=== PATIENT | male | born 1945 | race Caucasian/White ===

== ENCOUNTER 2018-02-27 16:57 | Inpatient (IN) ==
--- NOTE | 2018-02-27 18:28 | Progress Note ---
Internal Medicine - PN: Subj *Date: 02/27/18 *Time: 18:25 Interval history: See H&P from [facility]. Diabetic admitted with cellulitis of the left foot with gangrene of the great toe. 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 Exam Vital signs and Labs for Last 24 Hours: Temp Pulse Resp BP Pulse Ox 99.5 F 86 18 131/63 93 L 02/27/18 17:16 02/27/18 17:16 02/27/18 17:16 02/27/18 17:16 02/27/18 17:16 I & O for Last 24 hours: Intake & Output 02/25/18 02/26/18 02/27/18 02/28/18 11:59 11:59 11:59 11:59 Weight 220 lb Assessment and Plan (1) Gangrene associated with diabetes mellitus Current visit: Yes Status: Acute Category: Medical Code(s): E11.52 - Type 2 diabetes mellitus with diabetic peripheral angiopathy with gangrene (2) Cellulitis and abscess of foot Current visit: Yes Status: Acute Category: Medical Code(s): L03.119 - Cellulitis of unspecified part of limb; L02.619 - Cutaneous abscess of unspecified foot (3) Poorly controlled diabetes mellitus Current visit: Yes Status: Acute Category: Medical Code(s): E11.65 - Type 2 diabetes mellitus with hyperglycemia (4) Arteriosclerotic cardiovascular disease Current visit: Yes Status: Acute Category: Medical Code(s): I25.10 - Atherosclerotic heart disease of [place] coronary artery without angina pectoris (5) Peripheral vascular complication Current visit: Yes Status: Acute Category: Medical Code(s): I99.9 - Unspecified disorder of circulatory system - Assessment and plan all Dx Assessment and Plan for all problems:: See orders. IV antibiotics. Podiatry consultation.
[2018-02-27 18:58] LABS: Basophils % 0.2 % (0.1-2.0); Eosinophils # 0.1 K/mm3 (0.0-0.4); Eosinophils % 0.5 % (0.1-12.0); Hematocrit 37.3 % (42.0-52.0); Hemoglobin 11.8 g/dL (14.1-18.0); Lymphocytes # 0.8 K/mm3 (0.7-4.5); Lymphocytes % 4.6 K/mm3 (10-50); Mean Corpuscular HGB Conc 31.6 g/dL (31.8-35.4); Mean Corpuscular Hemoglobin 29.4 pg (27.0-31.2); Mean Corpuscular Volume 93.2 fl (80-94); Mean Platelet Volume 7.5 fl (7.4-10.4); Monocytes # 0.9 K/mm3 (0.1-1.0); Monocytes % 4.9 % (1.7-9.3); Neutrophils # 16.3 K/mm3 (1.8-7.8); Neutrophils % 89.8 % (37.0-80.0); Platelet Count 284 K/mm3 (142-424); Red Blood Count 4.01 M/mm3 (4.60-6.20); Red Cell Distribution Width 12.9 % (11.5-17.5); White Blood Count 18.1 K/mm3 (4.8-10.8)
[2018-02-27 19:19] LABS: Albumin Level 2.5 gm/dL (3.4-5.0); Albumin/Globulin Ratio 0.6 (1.1-1.8); Anion Gap 12.1 mEq/L (5-15); Bilirubin,Total 0.5 mg/dL (0.2-1.0); Calcium 8.2 mg/dL (8.5-10.1); Globulin 4.2 gm/dl (1.3-3.2); Potassium 4.1 mmoL/L (3.5-5.1); Thyroid Stimulating Hormone 0.11 uIU/ml (0.358-3.740); Total Protein,Serum 6.7 gm/dL (6.4-8.2)
[2018-02-27 19:29] LABS: Lymphocytes % 4 % (10-50); Monocytes % 3 % (2-9); Neutrophils % 93 % (42-76); RBC Morphology Normal; Total Cells Counted 100
--- NOTE | 2018-02-28 07:35 | Pharmacy Consult Notes ---
[facility] Pharmacy VTE Monitoring - Patient Demographics Admission date: 02/27/18 Report Date: 02/28/18 Time: 07:35 Allergies/Adverse Reactions: Patient Allergies promethazine Allergy (Mild, Unverified 02/27/18 18:21) itching cyanocobalamin (vitamin B12) Allergy (Verified 02/28/18 07:34) Rash Height: 1.78 m Weight: 99.79 kg Patient Problems: Current Active Problems Gangrene associated with diabetes mellitus (Acute) Cellulitis and abscess of foot (Acute) Poorly controlled diabetes mellitus (Acute) Arteriosclerotic cardiovascular disease (Acute) Peripheral vascular complication (Acute) - VTE Risk Labs: VTE Related Lab Results Hgb 11.8 g/dL (14.1-18.0) L 02/27/18 18:46 Hct 37.3 % (42.0-52.0) L 02/27/18 18:46 Plt Count 284 K/mm3 (142-424) 02/27/18 18:46 BUN 26 mg/dL (7-18) H 02/27/18 18:46 Creatinine 1.97 mg/dL (0.70-1.30) H 02/27/18 18:46 Estimated Creat Clear 49 mL/min (0-300) 02/27/18 18:46 Was VTE Risk Assessment Performed: Yes VTE Score: 6 VTE Risk Level: Moderate Risk - Prophylaxis VTE Prophylaxis Ordered?: Yes Types of VTE Prophylaxis: TEDS Knee High Location of Applied Device: Right Leg - VTE Diagnosis Confirmed Treatment or plan recommended: Continue Current Treatment
--- NOTE | 2018-02-28 08:06 | Progress Note ---
Internal Medicine - PN: Subj *Date: 02/28/18 *Time: 08:03 Interval history: Patient states he is feeling about the same today. He has had heat on his toe throughout the night. He states he did eat last night but got sick and vomited this morning. He has had a low-grade fever. He continues to have pain in the toe. Exam Vital signs and Labs for Last 24 Hours: Temp Pulse Resp BP Pulse Ox 98.1 F 78 18 122/61 94 L 02/28/18 07:18 02/28/18 07:18 02/28/18 07:18 02/28/18 07:18 02/28/18 07:18 Laboratory Results - last 24 hr 02/27/18 18:46: WBC 18.1 H, RBC 4.01 L, Hgb 11.8 L, Hct 37.3 L, MCV 93.2, MCH 29.4, MCHC 31.6 L, RDW 12.9, Plt Count 284, MPV 7.5, Neut % (Auto) 89.8 H, Lymph % (Auto) 4.6 L, [place] % (Auto) 4.9, Eos % (Auto) 0.5, Baso % (Auto) 0.2, Neut # (Auto) 16.3 H, Lymph # (Auto) 0.8, [place] # (Auto) 0.9, Eos # (Auto) 0.1, Baso # (Auto) 0.0, Total Counted 100, Neutrophils % (Manual) 93 H, Lymphocytes % (Manual) 4 L, Monocytes % (Manual) 3, Platelet Estimate Normal, RBC Morphology Normal 02/27/18 18:46: Sodium 132 L, Potassium 4.1, Chloride 95 L, Carbon Dioxide 29, Anion Gap 12.1, BUN 26 H, Creatinine 1.97 H, Estimated Creat Clear 49, Estimated GFR 34 L, Est GFR ( Amer) 41 L, Glucose 325 H, Calcium 8.2 L, Total Bilirubin 0.5, AST 11 L, ALT 17, Alkaline Phosphatase 124 H, Total Protein 6.7, Albumin 2.5 L, Globulin 4.2 H, Albumin/Globulin Ratio 0.6 L, TSH 0.11 L 02/27/18 20:02: POC Glucose 345 H* 02/28/18 06:27: POC Glucose 99 I & O for Last 24 hours: Intake & Output 02/25/18 02/26/18 02/27/18 02/28/18 11:59 11:59 11:59 11:59 Weight 220 lb Microbiology Reports for the Last 24 Hours: Microbiology 02/27/18 18:44 Foot,Left Gram Stain - Final 02/27/18 18:44 Foot,Left Wound Culture - Preliminary - Constitutional no acute distress - *Routine Respiratory Exam Present: CTA bilaterally - *Routine Cardiovascular Exam Present: RRR - *Routine Abdominal Exam Present: soft, normoactive bowel sounds. Absent: tenderness - *Routine Extremities Exam Absent: edema - *Routine Skin Exam Comments: Left great toe with erythema, edema, and multiple necrotic areas, ttp Assessment and Plan (1) Gangrene associated with diabetes mellitus Current visit: Yes Status: Acute Category: Medical Code(s): E11.52 - Type 2 diabetes mellitus with diabetic peripheral angiopathy with gangrene (2) Cellulitis and abscess of foot Current visit: Yes Status: Acute Category: Medical Code(s): L03.119 - Cellulitis of unspecified part of limb; L02.619 - Cutaneous abscess of unspecified foot (3) Poorly controlled diabetes mellitus Current visit: Yes Status: Acute Category: Medical Code(s): E11.65 - Type 2 diabetes mellitus with hyperglycemia (4) Arteriosclerotic cardiovascular disease Current visit: Yes Status: Acute Category: Medical Code(s): I25.10 - Atherosclerotic heart disease of [place] coronary artery without angina pectoris (5) Peripheral vascular complication Current visit: Yes Status: Acute Category: Medical Code(s): I99.9 - Unspecified disorder of circulatory system - Assessment and plan all Dx Assessment and Plan for all problems:: Awaiting podiatry consult today. Will continue abx.
--- NOTE | 2018-02-28 13:07 | Consult Report ---
*Admission Date: 02/27/18 *Chief complaint: Gangrene, left big toe *History of present illness: Patient is a pleasant 72-year-old gentleman seen on the floor along with his for orthopedic consultation. Patient is admitted to hospital yesterday evening and a podiatry consult was requested. I was asked to see the patient as boss miner, Dr. Adkins is out until next week. Patient says he injured his left big toe about 9 days ago. Following the injury he developed pain and swelling followed by gradual blackening of the skin over the tip of the big toe. He also reports erythema and low-grade fever. No history of any previous pain in his big toe. He is a known diabetic with peripheral vascular disease and had a previous amputation of his left little toe couple of years ago. Following admission he was started on IV antibiotics by Dr. Berg. Patient and his said that there is significant improvement with the pain, swelling and erythema since his admission. He is an ex-smoker, stopped 20 years ago. Review of Systems - Review of Systems Review of systems:: pertinent systems reviewed and negative unless documented below [facility] History I have reviewed the patient's past medical history: Yes Medical History: Reports:: Cancer (peost[place]), Coronary Artery Disease, Diabetes Mellitus Type 2, Hyperlipidemia, Hypertension, Internal Pacemaker, Myocardial Infarction Other Surgeries: Yes: Cancer Surgery, Cardiac Catheterization, Cardiac Surgery, Colonoscopy, Open Heart Surgery, Pacemaker - *Social History Educational Level: Attended College Smoking Status: Former smoker Tobacco Type: cigarettes Alcohol Intake: current Alcohol Intake Frequency:: holidays/special occasions only Occupational Status: retired Housing: house Household Members: family - Psychiatric History Expresses thoughts of harming self/others: None Suicide Plan Description: No Plan *Family Hx:: Coronary Artery Disease, Heart Attack, Hyperlipidemia, Hypertension Meds Home Medications Medication Instructions Recorded Confirmed Type Amiodarone HCl [Amiodarone 200mg 200 mg PO DAILY 02/27/18 02/27/18 History Tab] Aspirin 81 mg PO DAILY 02/27/18 02/27/18 History Atorvastatin Calcium [Atorvastatin 40 mg PO HS 02/27/18 02/28/18 History 40mg Tab] Cholecalciferol (Vitamin D3) 5,000 unit PO DAILY 02/27/18 02/27/18 History [Vitamin D3 10,000 unit Cap] Furosemide [Furosemide 40MG tAB] 40 mg PO BID 02/27/18 02/27/18 History Glimepiride 4 mg PO BID 02/27/18 02/27/18 History Insulin Detemir [Levemir 100 40 unit SQ DAILY 02/27/18 02/28/18 History units/mL 10mL vial] Losartan Potassium [Cozaar] 25 mg PO DAILY 02/27/18 02/27/18 History Potassium Chloride [Klor-Con 10mEq 10 meq PO BID 02/27/18 02/28/18 History tab] Carvedilol [Carvedilol 25mg Tab] 12.5 mg PO BID 02/28/18 02/28/18 History Allergies Allergy/AdvReac Type Severity Reaction Status Date / Time promethazine Allergy Mild itching Unverified 02/27/18 18:21 cyanocobalamin (vitamin B12) Allergy Rash Verified 02/28/18 07:34 Exam Vital signs and Labs for Last 24 Hours: Temp Pulse Resp BP Pulse Ox 98.1 F 78 18 122/61 94 L 02/28/18 07:18 02/28/18 07:18 02/28/18 07:18 02/28/18 07:18 02/28/18 07:18 Laboratory Results - last 24 hr 02/27/18 18:46: WBC 18.1 H, RBC 4.01 L, Hgb 11.8 L, Hct 37.3 L, MCV 93.2, MCH 29.4, MCHC 31.6 L, RDW 12.9, Plt Count 284, MPV 7.5, Neut % (Auto) 89.8 H, Lymph % (Auto) 4.6 L, [place] % (Auto) 4.9, Eos % (Auto) 0.5, Baso % (Auto) 0.2, Neut # (Auto) 16.3 H, Lymph # (Auto) 0.8, [place] # (Auto) 0.9, Eos # (Auto) 0.1, Baso # (Auto) 0.0, Total Counted 100, Neutrophils % (Manual) 93 H, Lymphocytes % (Manual) 4 L, Monocytes % (Manual) 3, Platelet Estimate Normal, RBC Morphology Normal 02/27/18 18:46: Sodium 132 L, Potassium 4.1, Chloride 95 L, Carbon Dioxide 29, Anion Gap 12.1, BUN 26 H, Creatinine 1.97 H, Estimated Creat Clear 49, Estimated GFR 34 L, Est GFR ( Amer) 41 L, Glucose 325 H, Calcium 8.2 L, Total Bilirubin 0.5, AST 11 L, ALT 17, Alkaline Phosphatase 124 H, Total Protein 6.7, Albumin 2.5 L, Globulin 4.2 H, Albumin/Globulin Ratio 0.6 L, TSH 0.11 L 02/27/18 20:02: POC Glucose 345 H* 02/28/18 06:27: POC Glucose 99 02/28/18 11:06: POC Glucose 54 L 02/28/18 11:17: POC Glucose 55 L 02/28/18 11:29: POC Glucose 68 L I & O for Last 24 hours: Intake & Output 02/26/18 02/27/18 02/28/18 03/01/18 11:59 11:59 11:59 11:59 Weight 220 lb Microbiology Reports for the Last 24 Hours: Microbiology 02/27/18 18:46 Blood Blood Culture - Preliminary 02/27/18 18:44 Foot,Left Gram Stain - Final 02/27/18 18:44 Foot,Left Wound Culture - Preliminary - Constitutional no acute distress, obese, cooperative - *Routine HEENT Exam Head: Present: normocephalic, atraumatic Eye: Present: EOMI, PERRL ENT: Present: mucous membranes moist - *Routine Neck Exam Present: supple, full ROM, trachea midline - *Routine Respiratory Exam Present: CTA bilaterally - *Routine Cardiovascular Exam Present: RRR, Normal S1, Normal S2 - *Routine Abdominal Exam Present: soft, normoactive bowel sounds. Absent: tenderness - *Routine Extremities Exam Comments: On examination of his left foot, there is erythema and swelling of the left big toe. There are 2 areas of blackened skin over the plantar medial aspect of the big toe-the first one measuring about 1 x 1 cm over the proximal phalanx level and the second larger one measuring about 2 x 2 cm over the pulp of the great toe. The erythema is extending up to the first MTP joint. He is diffusely tender over the big toe. There is no active discharge. Movements of the pectoral limited with pain. He previously had an impression of his fifth toe with a well-healed surgical scar. The other 3 remaining toes appear normal. Rest of the foot appears normal without any ulceration or tenderness. He has no sensation in both his feet and distal pulses are not palpable. Capillary refill is very sluggish on both sides. Imaging: No recent imaging is available. Results - Labs Result Diagrams: 02/27/18 18:46 02/27/18 18:46 Labs: Abnormal lab results 02/27/18 02/27/18 02/27/18 Range/Units 18:46 18:46 20:02 WBC 18.1 H (4.8-10.8) K/mm3 RBC 4.01 L (4.60-6.20) M/mm3 Hgb 11.8 L (14.1-18.0) g/dL Hct 37.3 L (42.0-52.0) % MCHC 31.6 L (31.8-35.4) g/dL Neut % (Auto) 89.8 H (37.0-80.0) % Lymph % (Auto) 4.6 L (10-50) K/mm3 Neut # (Auto) 16.3 H (1.8-7.8) K/mm3 Neutrophils % (Manual) 93 H (42-76) % Lymphocytes % (Manual) 4 L (10-50) % Sodium 132 L (136-145) mmol/L Chloride 95 L (98-107) mmol/L BUN 26 H (7-18) mg/dL Creatinine 1.97 H (0.70-1.30) mg/dL Estimated GFR 34 L (>60) ml/min Est GFR ( Amer) 41 L (>60) ML/MIN Glucose 325 H (74-106) mg/dL POC Glucose 345 H* (70-110) Calcium 8.2 L (8.5-10.1) mg/dL AST 11 L (15-37) U/L Alkaline Phosphatase 124 H (46-116) U/L Albumin 2.5 L (3.4-5.0) gm/dL Globulin 4.2 H (1.3-3.2) gm/dl Albumin/Globulin Ratio 0.6 L (1.1-1.8) TSH 0.11 L (0.358-3.740) uIU/ml 02/28/18 02/28/18 02/28/18 Range/Units 11:06 11:17 11:29 WBC (4.8-10.8) K/mm3 RBC (4.60-6.20) M/mm3 Hgb (14.1-18.0) g/dL Hct (42.0-52.0) % MCHC (31.8-35.4) g/dL Neut % (Auto) (37.0-80.0) % Lymph % (Auto) (10-50) K/mm3 Neut # (Auto) (1.8-7.8) K/mm3 Neutrophils % (Manual) (42-76) % Lymphocytes % (Manual) (10-50) % Sodium (136-145) mmol/L Chloride (98-107) mmol/L BUN (7-18) mg/dL Creatinine (0.70-1.30) mg/dL Estimated GFR (>60) ml/min Est GFR ( Amer) (>60) ML/MIN Glucose (74-106) mg/dL POC Glucose 54 L 55 L 68 L (70-110) Calcium (8.5-10.1) mg/dL AST (15-37) U/L Alkaline Phosphatase (46-116) U/L Albumin (3.4-5.0) gm/dL Globulin (1.3-3.2) gm/dl Albumin/Globulin Ratio (1.1-1.8) TSH (0.358-3.740) uIU/ml H & H 02/27/18 Range/Units 18:46 Hgb 11.8 L (14.1-18.0) g/dL Hct 37.3 L (42.0-52.0) % All other labs normal. Assessment and Plan (1) Gangrene associated with diabetes mellitus Current visit: Yes Status: Acute Category: Medical Code(s): E11.52 - Type 2 diabetes mellitus with diabetic peripheral angiopathy with gangrene (2) Cellulitis and abscess of foot Current visit: Yes Status: Acute Category: Medical Code(s): L03.119 - Cellulitis of unspecified part of limb; L02.619 - Cutaneous abscess of unspecified foot (3) Poorly controlled diabetes mellitus Current visit: Yes Status: Acute Category: Medical Code(s): E11.65 - Type 2 diabetes mellitus with hyperglycemia (4) Arteriosclerotic cardiovascular disease Current visit: Yes Status: Acute Category: Medical Code(s): I25.10 - Atherosclerotic heart disease of [place] coronary artery without angina pectoris (5) Peripheral vascular complication Current visit: Yes Status: Acute Category: Medical Code(s): I99.9 - Unspecified disorder of circulatory system - Assessment and plan all Dx Assessment and Plan for all problems:: I reviewed the clinical findings with the patient and his . He has infected left big toe with developing gangrene which is not fully demarcated. He seems to be responding well with the IV antibiotics since his admission and recommend continuation of the same. Once the gangrene is fully demarcated, he would need debridement/great toe amputation. Prior to that I would recommend an x-ray of his left foot 3 views to look for any underlying fractures or osteomyelitis. If the x-rays inconclusive then an MRI scan is indicated to rule out acute/chronic osteo-mellitus. The bony involvement, if any, would determine the level of the amputation. If there is no clinical deterioration, I think it would be appropriate the patient is seen by boss miner, Dr. Adkins, on her return next week for necessary surgical intervention especially if he needs any proximal amputation than just through the big toe. In the meantime I would also recommend cardiac consultation by Dr. Vargas to evaluate the state of the circulation in his left lower extremity and any appropriate intervention as needed. I have told the patient that he may need multiple surgical procedures including proximal amputations depending on how the wound heals. Thank you for the opportunity to participate in the care of this very pleasant patient.
--- NOTE | 2018-02-28 13:16 | Pharmacy Consult Notes ---
- Pharmacy Consult Date: 02/28/18 Time: 13:14 Referring provider: DR. NERI Reason for Consult:: VANCOMYCIN DOSING Allergies and ADEs:: Allergies Allergy/AdvReac Type Severity Reaction Status Date / Time promethazine Allergy Mild itching Unverified 02/27/18 18:21 cyanocobalamin (vitamin B12) Allergy Rash Verified 02/28/18 07:34 Home Medications:: Home Medications Medication Instructions Recorded Confirmed Type Amiodarone HCl [Amiodarone 200mg 200 mg PO DAILY 02/27/18 02/27/18 History Tab] Aspirin 81 mg PO DAILY 02/27/18 02/27/18 History Atorvastatin Calcium [Atorvastatin 40 mg PO HS 02/27/18 02/28/18 History 40mg Tab] Cholecalciferol (Vitamin D3) 5,000 unit PO DAILY 02/27/18 02/27/18 History [Vitamin D3 10,000 unit Cap] Furosemide [Furosemide 40MG tAB] 40 mg PO BID 02/27/18 02/27/18 History Glimepiride 4 mg PO BID 02/27/18 02/27/18 History Insulin Detemir [Levemir 100 40 unit SQ DAILY 02/27/18 02/28/18 History units/mL 10mL vial] Losartan Potassium [Cozaar] 25 mg PO DAILY 02/27/18 02/27/18 History Potassium Chloride [Klor-Con 10mEq 10 meq PO BID 02/27/18 02/28/18 History tab] Carvedilol [Carvedilol 25mg Tab] 12.5 mg PO BID 02/28/18 02/28/18 History Height: 1.78 m Weight: 99.79 kg Laboratory Results:: Laboratory Results - last 24 hr 02/27/18 18:46: WBC 18.1 H, RBC 4.01 L, Hgb 11.8 L, Hct 37.3 L, MCV 93.2, MCH 29.4, MCHC 31.6 L, RDW 12.9, Plt Count 284, MPV 7.5, Neut % (Auto) 89.8 H, Lymph % (Auto) 4.6 L, [place] % (Auto) 4.9, Eos % (Auto) 0.5, Baso % (Auto) 0.2, Neut # (Auto) 16.3 H, Lymph # (Auto) 0.8, [place] # (Auto) 0.9, Eos # (Auto) 0.1, Baso # (Auto) 0.0, Total Counted 100, Neutrophils % (Manual) 93 H, Lymphocytes % (Manual) 4 L, Monocytes % (Manual) 3, Platelet Estimate Normal, RBC Morphology Normal 02/27/18 18:46: Sodium 132 L, Potassium 4.1, Chloride 95 L, Carbon Dioxide 29, Anion Gap 12.1, BUN 26 H, Creatinine 1.97 H, Estimated Creat Clear 49, Estimated GFR 34 L, Est GFR ( Amer) 41 L, Glucose 325 H, Calcium 8.2 L, Total Bilirubin 0.5, AST 11 L, ALT 17, Alkaline Phosphatase 124 H, Total Protein 6.7, Albumin 2.5 L, Globulin 4.2 H, Albumin/Globulin Ratio 0.6 L, TSH 0.11 L 02/27/18 20:02: POC Glucose 345 H* 02/28/18 06:27: POC Glucose 99 02/28/18 11:06: POC Glucose 54 L 02/28/18 11:17: POC Glucose 55 L 02/28/18 11:29: POC Glucose 68 L Medical History: Reports:: Cancer ([place]), Coronary Artery Disease, Diabetes Mellitus Type 2, Hyperlipidemia, Hypertension, Internal Pacemaker, Myocardial Infarction Assessment and Plan (1) Gangrene associated with diabetes mellitus Current visit: Yes Status: Acute Category: Medical Code(s): E11.52 - Type 2 diabetes mellitus with diabetic peripheral angiopathy with gangrene (2) Cellulitis and abscess of foot Current visit: Yes Status: Acute Category: Medical Code(s): L03.119 - Cellulitis of unspecified part of limb; L02.619 - Cutaneous abscess of unspecified foot (3) Poorly controlled diabetes mellitus Current visit: Yes Status: Acute Category: Medical Code(s): E11.65 - Type 2 diabetes mellitus with hyperglycemia (4) Arteriosclerotic cardiovascular disease Current visit: Yes Status: Acute Category: Medical Code(s): I25.10 - Atherosclerotic heart disease of [place] coronary artery without angina pectoris (5) Peripheral vascular complication Current visit: Yes Status: Acute Category: Medical Code(s): I99.9 - Unspecified disorder of circulatory system - Assessment and plan all Dx Assessment and Plan for all problems:: BASED ON PATIENT FACTORS AND POOR RENAL FUNCTION, RECOMMEND VANCOMYCIN 1,750MG IV Q24H. PHARMACY WILL MONITOR AND ADJUST DOSE APPROPRIATE. -LILI GLASGOW, DIDIERD
--- NOTE | 2018-02-28 19:01 | Progress Note ---
Internal Medicine - PN: Subj *Date: 02/28/18 *Time: 19:00 Interval history: Consult by Dr. Carroll is appreciated and is reviewed. Continue present course. Exam Vital signs and Labs for Last 24 Hours: Temp Pulse Resp BP Pulse Ox 98.2 F 70 20 142/70 99 02/28/18 16:00 02/28/18 16:00 02/28/18 16:00 02/28/18 16:00 02/28/18 16:00 Laboratory Results - last 24 hr 02/27/18 18:46: Total Counted 100, Neutrophils % (Manual) 93 H, Lymphocytes % ( Manual) 4 L, Monocytes % (Manual) 3, Platelet Estimate Normal, RBC Morphology Normal 02/27/18 18:46: Sodium 132 L, Potassium 4.1, Chloride 95 L, Carbon Dioxide 29, Anion Gap 12.1, BUN 26 H, Creatinine 1.97 H, Estimated Creat Clear 49, Estimated GFR 34 L, Est GFR ( Amer) 41 L, Glucose 325 H, Calcium 8.2 L, Total Bilirubin 0.5, AST 11 L, ALT 17, Alkaline Phosphatase 124 H, Total Protein 6.7, Albumin 2.5 L, Globulin 4.2 H, Albumin/Globulin Ratio 0.6 L, TSH 0.11 L 02/27/18 20:02: POC Glucose 345 H* 02/28/18 06:27: POC Glucose 99 02/28/18 11:06: POC Glucose 54 L 02/28/18 11:17: POC Glucose 55 L 02/28/18 11:29: POC Glucose 68 L I & O for Last 24 hours: Intake & Output 02/26/18 02/27/18 02/28/18 03/01/18 11:59 11:59 11:59 11:59 Intake Total 1440 / 1440 Balance 1440 / 1440 Weight 220 lb 220 lb Microbiology Reports for the Last 24 Hours: Microbiology 02/27/18 18:46 Blood Blood Culture - Preliminary 02/27/18 18:44 Foot,Left Gram Stain - Final 02/27/18 18:44 Foot,Left Wound Culture - Preliminary Assessment and Plan (1) Gangrene associated with diabetes mellitus Current visit: Yes Status: Acute Category: Medical Code(s): E11.52 - Type 2 diabetes mellitus with diabetic peripheral angiopathy with gangrene (2) Cellulitis and abscess of foot Current visit: Yes Status: Acute Category: Medical Code(s): L03.119 - Cellulitis of unspecified part of limb; L02.619 - Cutaneous abscess of unspecified foot (3) Poorly controlled diabetes mellitus Current visit: Yes Status: Acute Category: Medical Code(s): E11.65 - Type 2 diabetes mellitus with hyperglycemia (4) Arteriosclerotic cardiovascular disease Current visit: Yes Status: Acute Category: Medical Code(s): I25.10 - Atherosclerotic heart disease of [place] coronary artery without angina pectoris (5) Peripheral vascular complication Current visit: Yes Status: Acute Category: Medical Code(s): I99.9 - Unspecified disorder of circulatory system
--- NOTE | 2018-03-01 08:09 | Progress Note ---
Internal Medicine - PN: Subj *Date: 03/01/18 *Time: 08:06 Interval history: Patient states he feels about the same today. He still has some pain in his toe. He denies any nausea this morning. He states he slept off and on last night. Exam Vital signs and Labs for Last 24 Hours: Temp Pulse Resp BP Pulse Ox 98.9 F 78 17 113/56 95 03/01/18 04:00 03/01/18 04:00 03/01/18 04:00 03/01/18 04:00 03/01/18 04:00 Laboratory Results - last 24 hr 02/28/18 11:06: POC Glucose 54 L 02/28/18 11:17: POC Glucose 55 L 02/28/18 11:29: POC Glucose 68 L 02/28/18 16:09: POC Glucose 196 H 02/28/18 20:19: POC Glucose 162 H 03/01/18 06:10: POC Glucose 66 L I & O for Last 24 hours: Intake & Output 02/26/18 02/27/18 02/28/18 03/01/18 11:59 11:59 11:59 11:59 Intake Total 1440 / 1440 Balance 1440 / 1440 Weight 220 lb 212 lb 3 oz Microbiology Reports for the Last 24 Hours: Microbiology 02/27/18 18:46 Blood Blood Culture - Preliminary 02/27/18 18:44 Foot,Left Gram Stain - Final 02/27/18 18:44 Foot,Left Wound Culture - Preliminary - Constitutional no acute distress - *Routine Respiratory Exam Present: CTA bilaterally - *Routine Cardiovascular Exam Present: RRR - *Routine Abdominal Exam Present: soft, normoactive bowel sounds. Absent: tenderness - *Routine Extremities Exam Absent: edema - *Routine Skin Exam Comments: left toe still with erythema and edema as well as multiple necrotic areas Assessment and Plan (1) Gangrene associated with diabetes mellitus Current visit: Yes Status: Acute Category: Medical Code(s): E11.52 - Type 2 diabetes mellitus with diabetic peripheral angiopathy with gangrene (2) Cellulitis and abscess of foot Current visit: Yes Status: Acute Category: Medical Code(s): L03.119 - Cellulitis of unspecified part of limb; L02.619 - Cutaneous abscess of unspecified foot (3) Poorly controlled diabetes mellitus Current visit: Yes Status: Acute Category: Medical Code(s): E11.65 - Type 2 diabetes mellitus with hyperglycemia (4) Arteriosclerotic cardiovascular disease Current visit: Yes Status: Acute Category: Medical Code(s): I25.10 - Atherosclerotic heart disease of [place] coronary artery without angina pectoris (5) Peripheral vascular complication Current visit: Yes Status: Acute Category: Medical Code(s): I99.9 - Unspecified disorder of circulatory system - Assessment and plan all Dx Assessment and Plan for all problems:: Still awaiting foot x-ray report and labs this am. Patient is n.p.o. this morning. Dr. Carroll to follow.
[2018-03-01 08:15] LABS: Basophils % 0.6 % (0.1-2.0); Eosinophils # 0.2 K/mm3 (0.0-0.4); Eosinophils % 2.4 % (0.1-12.0); Hematocrit 34.8 % (42.0-52.0); Hemoglobin 11.1 g/dL (14.1-18.0); Lymphocytes % 14.3 K/mm3 (10-50); Mean Corpuscular Volume 90.8 fl (80-94); Mean Platelet Volume 7.9 fl (7.4-10.4); Monocytes # 0.6 K/mm3 (0.1-1.0); Monocytes % 8.1 % (1.7-9.3); Neutrophils # 5.1 K/mm3 (1.8-7.8); Neutrophils % 74.6 % (37.0-80.0); Platelet Count 285 K/mm3 (142-424); Red Blood Count 3.83 M/mm3 (4.60-6.20); Red Cell Distribution Width 12.8 % (11.5-17.5); White Blood Count 6.9 K/mm3 (4.8-10.8)
[2018-03-01 08:23] LABS: Albumin Level 2.2 gm/dL (3.4-5.0); Albumin/Globulin Ratio 0.6 (1.1-1.8); Bilirubin,Total 0.4 mg/dL (0.2-1.0); Calcium 7.9 mg/dL (8.5-10.1); Total Protein,Serum 6.2 gm/dL (6.4-8.2)
--- NOTE | 2018-03-01 08:29 | Consult Report ---
History of Present Illness Consult date: 03/01/18 Requesting physician: John Berg Chief complaint: Pre-op evaluation, CAD, Cardiomyopathy Additional Medical History:: 1. Coronary artery disease A. History of myocardial infarction approximately 15 years ago (2002) B. History of coronary artery bypass grafting of 3 vessels, approximately 2012, with possible valve repair and upgrade of pacemaker to AICD with epicardial leads C. Amiodarone therapy for presumed A. fib, started at time of CABG per patient 2. Diabetes mellitus, treated for about 2 years, now insulin requiring 3. Hypertension 4. Hyperlipidemia 5. 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 History of prostate cancer status post multiple surgeries and history of radiation therapy. No history of chemotherapy 7. Chronic kidney disease, stage III with creatinine 1.97 and GFR 41 History of present illness: 72-year-old white male with history of diabetes, coronary artery disease and previous amputation of the left fifth toe, was admitted for cellulitis of the great toe of the left foot after injury. Amputation of the left great toe is being considered. Cardiology has been asked to provide a preop evaluation. The patient normally sees Dr. Avendaño in [place]. His most recent visit with him was in the last couple of months. He denies any chest pain, pressure or tightness. He does have exertional shortness of breath but nothing has changed in the last several months. He reports having a stress test in the last year without need for further evaluation. EKG shows AV pacing with capture. [facility] History Medical History: Reports:: Cancer ([place]), Coronary Artery Disease, Diabetes Mellitus Type 2, Hyperlipidemia, Hypertension, Internal Pacemaker, Myocardial Infarction Other Surgeries: Yes: Cancer Surgery, Cardiac Catheterization, Cardiac Surgery, Colonoscopy, Open Heart Surgery, Pacemaker - *Social History Educational Level: Attended College Smoking Status: Former smoker Tobacco Type: cigarettes Alcohol Intake: current Alcohol Intake Frequency:: holidays/special occasions only Occupational Status: retired Housing: house Household Members: family - Psychiatric History Expresses thoughts of harming self/others: None Suicide Plan Description: No Plan *Family Hx:: Coronary Artery Disease, Heart Attack, Hyperlipidemia, Hypertension Meds Home Medications Medication Instructions Recorded Confirmed Type Amiodarone HCl [Amiodarone 200mg 200 mg PO DAILY 02/27/18 02/27/18 History Tab] Aspirin 81 mg PO DAILY 02/27/18 02/27/18 History Atorvastatin Calcium [Atorvastatin 40 mg PO HS 02/27/18 02/28/18 History 40mg Tab] Cholecalciferol (Vitamin D3) 5,000 unit PO DAILY 02/27/18 02/27/18 History [Vitamin D3 10,000 unit Cap] Furosemide [Furosemide 40MG tAB] 40 mg PO BID 02/27/18 02/27/18 History Glimepiride 4 mg PO BID 02/27/18 02/27/18 History Insulin Detemir [Levemir 100 40 unit SQ DAILY 02/27/18 02/28/18 History units/mL 10mL vial] Losartan Potassium [Cozaar] 25 mg PO DAILY 02/27/18 02/27/18 History Potassium Chloride [Klor-Con 10mEq 10 meq PO BID 02/27/18 02/28/18 History tab] Carvedilol [Carvedilol 25mg Tab] 12.5 mg PO BID 02/28/18 02/28/18 History Allergies Allergy/AdvReac Type Severity Reaction Status Date / Time promethazine Allergy Mild itching Unverified 02/27/18 18:21 cyanocobalamin (vitamin B12) Allergy Rash Verified 02/28/18 07:34 Review of Systems - *Cardiovascular Reports shortness of breath with activity, Denies chest pain - *Respiratory Reports shortness of breath with activity - *Gastrointestinal Denies abdominal pain - *Musculoskeletal Reports joint pain Exam Vital signs and Labs for Last 24 Hours: Temp Pulse Resp BP Pulse Ox 98.4 F 78 18 166/81 97 03/01/18 08:00 03/01/18 08:00 03/01/18 08:00 03/01/18 08:00 03/01/18 08:00 Laboratory Results - last 24 hr 02/28/18 11:06: POC Glucose 54 L 02/28/18 11:17: POC Glucose 55 L 02/28/18 11:29: POC Glucose 68 L 02/28/18 16:09: POC Glucose 196 H 02/28/18 20:19: POC Glucose 162 H 03/01/18 06:10: POC Glucose 66 L I & O for Last 24 hours: Intake & Output 02/26/18 02/27/18 02/28/18 03/01/18 11:59 11:59 11:59 11:59 Intake Total 1440 / 1440 Balance 1440 / 1440 Weight 220 lb 212 lb 3 oz Microbiology Reports for the Last 24 Hours: Microbiology 02/27/18 18:46 Blood Blood Culture - Preliminary 02/27/18 18:44 Foot,Left Gram Stain - Final 02/27/18 18:44 Foot,Left Wound Culture - Preliminary - *Routine Neck Exam Absent: JVD, carotid bruit - *Routine Respiratory Exam Present: CTA bilaterally - *Routine Cardiovascular Exam Present: RRR, murmur. Absent: gallop, rubs - *Routine Abdominal Exam Present: soft. Absent: tenderness - *Routine Extremities Exam Absent: edema - *Routine Neurological Exam Present: alert, oriented X3, moving all extremities Assessment and Plan (1) Gangrene associated with diabetes mellitus Current visit: Yes Status: Acute Category: Medical Code(s): E11.52 - Type 2 diabetes mellitus with diabetic peripheral angiopathy with gangrene (2) Cellulitis and abscess of foot Current visit: Yes Status: Acute Category: Medical Code(s): L03.119 - Cellulitis of unspecified part of limb; L02.619 - Cutaneous abscess of unspecified foot (3) Poorly controlled diabetes mellitus Current visit: Yes Status: Acute Category: Medical Code(s): E11.65 - Type 2 diabetes mellitus with hyperglycemia (4) Arteriosclerotic cardiovascular disease Current visit: Yes Status: Acute Category: Medical Code(s): I25.10 - Atherosclerotic heart disease of [place] coronary artery without angina pectoris (5) Peripheral vascular complication Current visit: Yes Status: Acute Category: Medical Code(s): I99.9 - Unspecified disorder of circulatory system - Assessment and plan all Dx Assessment and Plan for all problems:: 1. Order echocardiogram to evaluate left ventricular size and function. 2. We will try to obtain results of most recent stress test. 3. If surgery is being considered then recommend proceeding with lower extremity angiogram to assess PAD prior to surgery. Risks, Benefits and procedure discussed and patient agrees to proceed.
--- NOTE | 2018-03-01 11:40 | Cardiology Report ---
CA echo doppler complete PROCEDURE: INDICATIONS FOR THE TEST: Chest pain COPD Heart Murmur Tobacco Smokingex Palpitations Fatigue+ Syncope Edema+ Hypertension+Diabetes Mellitus Rheumatic Fever SOB BEAVERS Obesity Hyperlipidemia Family History HD Additional History CABG,Pre-op clearance for gangrene left great toe, Pacemaker/Defib B/S negative with sniff and cough maneuvers PATIENT INFORMATION HEIGHT: 70 WEIGHT: 212 GENDER: Male B/P: 135/78 2-D/M-MODE INTERPRETATION: 2-D MEASUREMENTS OBSERVED VALUES IN CMS Right Ventricular Dimension (RVDd) 3.0 Interventricular Septum (Thickness)(IVsd) 1.5 Left Ventricular Internal Dimensions(LVIDd) 6.1 Left Ventricular Posterior Wall (Thickness)(LVPWd) 1.5 Aortic Root 3.9 Aortic Cusp Separation 2.2 Left Atrial Dimensions (LAD) 5.2 2D 1. Left atrium is moderately enlarged, left ventricle is mildly dilated, mild concentric left ventricular hypertrophy, visually estimated ejection fraction approximately 40%, there is marked hypokinesis involving the inferior and posterobasal wall. 2. The right atrium and right ventricle are mildly enlarged with normal contractility, there is a pacemaker lead seen in the right atrium and right ventricle. 3. The aortic valve is thickened and calcified leaflet continue to display mobility. 4. The mitral valve has mitral annular calcification. 5. The pulmonic valve is poorly visualized. 6. The tricuspid valve is grossly normal. 7. No significant pericardial effusion noted. DOPPLER INTERROGATION: Doppler interrogation of the aortic, mitral and tricuspid valvular presence of moderate mitral and mild tricuspid regurgitation, calculated right ventricular systolic pressure is 47 mmHg consistent with moderate pulmonary hypertension, diastolic parameters are inconclusive. CONCLUSION: 1. Moderately enlarged left atrium, mildly dilated left ventricle, visually estimated ejection fraction of 40% with segmental wall motion abnormality described above, diastolic parameters are inconclusive. 2. Moderate mitral and mild tricuspid regurgitation, calculated right ventricular systolic pressure is 47 mmHg consistent with moderate pulmonary hypertension. 3. No significant pericardial effusion noted.
--- NOTE | 2018-03-01 15:00 | Progress Note ---
Subjective Date: 03/01/18 Time: 14:30 Principal diagnosis: 1. Cellulitis, left big toe; 2. Gangrene, left big toe Interval history: Patient says he is feeling a little bit better today compared to yesterday. He reports very little pain in his left big toe. Not having any fevers, chills or rigors. PN: Obj Ex Vital signs: Temp Pulse Resp BP Pulse Ox 97.5 F L 83 16 176/81 92 L 03/01/18 14:30 03/01/18 14:30 03/01/18 14:30 03/01/18 14:30 03/01/18 14:30 Narrative: Laboratory Results - last 24 hr 02/28/18 16:09: POC Glucose 196 H 02/28/18 20:19: POC Glucose 162 H 03/01/18 06:10: POC Glucose 66 L 03/01/18 08:04: WBC 6.9 D, RBC 3.83 L, Hgb 11.1 L, Hct 34.8 L, MCV 90.8, MCH 29.0, MCHC 32.0, RDW 12.8, Plt Count 285, MPV 7.9, Neut % (Auto) 74.6, Lymph % ( Auto) 14.3, [place] % (Auto) 8.1, Eos % (Auto) 2.4, Baso % (Auto) 0.6, Neut # (Auto ) 5.1, Lymph # (Auto) 1.0, Bath # (Auto) 0.6, Eos # (Auto) 0.2, Baso # (Auto) 0.0 03/01/18 08:04: Sodium 136, Potassium 3.0 L, Chloride 101, Carbon Dioxide 32, Anion Gap 6.0, BUN 22 H, Creatinine 1.72 H, Estimated Creat Clear 54, Estimated GFR 39 L, Est GFR ( Amer) 48 L, Glucose 62 L, Calcium 7.9 L, Total Bilirubin 0.4, AST 21 D, ALT 22 D, Alkaline Phosphatase 109, Total Protein 6.2 L, Albumin 2.2 L, Globulin 4.0 H, Albumin/Globulin Ratio 0.6 L 03/01/18 08:42: POC Glucose 64 L 03/01/18 09:16: POC Glucose 83 03/01/18 11:35: POC Glucose 92 Microbiology 02/27/18 18:44 Foot,Left Gram Stain - Final 02/27/18 18:44 Foot,Left Wound Culture - Preliminary Staphylococcus aureus Strep agalactiae - (group b) 02/27/18 18:46 Blood Blood Culture - Preliminary Strep agalactiae - (group b) Staphylococcus aureus - Constitutional no acute distress - Routine HEENT Exam ENT: Present: mucous membranes moist - Routine Neck Exam Present: supple, full ROM - Routine Respiratory Exam Present: CTA bilaterally - Routine Cardiovascular Exam Present: RRR, Normal S1, Normal S2 - Routine Abdominal Exam Present: soft, normoactive bowel sounds - Routine Extremities Exam Comments: On examination of his left foot, there is significantly less erythema and swelling of the left big toe compared to yesterday. There are 2 areas of gangrenous skin over the plantar medial aspect of the big toe- the first one measuring about 1 x 1 cm over the proximal phala nx level and the second larger one measuring about 2 x 2 cm over the pulp of the great toe. The erythema is extending up to the first MTP joint. He has mild diffuse tenderness big toe on her over the big toe. There is no active discharge. Movements of the big toe are limited with pain. He previously had an amputation of his fifth toe with a well-healed surgical scar. The other 3 remaining toes appear normal. Rest of the foot appears normal without any ulceration or tenderness. He has altered sensation over his feet from peripheral neuropathy and distal pulses are not palpable. Capillary refill is very sluggish on both sides. Imaging: X-rays of his left foot 3 views performed yesterday reviewed along with radiologist report. The x-rays did not show any evidence of acute or chronic osteomyelitis. Vascular calcification noted. - Routine Neurological Exam Present: alert, oriented X3, CN II-XII intact - Routine Psychiatric Exam Present: normal affect, cooperative Progress Note: A&P (1) Gangrene associated with diabetes mellitus Status: Acute Current Visit: Yes (2) Cellulitis and abscess of foot Status: Acute Current Visit: Yes (3) Poorly controlled diabetes mellitus Status: Acute Current Visit: Yes (4) Arteriosclerotic cardiovascular disease Status: Acute Current Visit: Yes (5) Peripheral vascular complication Status: Acute Current Visit: Yes Assessment and Plan for All Diagnoses:: I reviewed the clinical and imaging findings with the patient and his . He has infected left big toe with developing gangrene which is not fully demarcated. He is responding well to the IV antibiotics since his admission and recommend continuation of the same. Once the gangrene is fully demarcated, he would need debridement/great toe amputation. I feel this can be performed as a semi-elective procedure early next week unless there is any clinical deterioration during that time. From an orthopedic standpoint, patient can be discharged home with appropriate antibiotics as per Dr. Berg. However, if Dr. Berg decides to keep the patient in the hospital over the weekend, I would continue to provide orthopedic input as needed. I have contacted Dr. Berg's office over the telephone and discussed the same with his nurse practitioner, Roxana Klein. I have also noted that the patient was seen by cardiology today and had a peripheral arteriogram. Continue medical management as per Dr. Berg.
--- NOTE | 2018-03-02 10:59 | Progress Note ---
Internal Medicine - PN: Subj *Date: 03/02/18 *Time: 10:59 Exam Vital signs and Labs for Last 24 Hours: Temp Pulse Resp BP Pulse Ox 97.7 F 82 18 148/78 96 03/02/18 08:38 03/02/18 08:38 03/02/18 08:38 03/02/18 08:38 03/02/18 08:38 Laboratory Results - last 24 hr 03/01/18 11:35: POC Glucose 92 03/01/18 17:08: POC Glucose 67 L 03/01/18 20:06: POC Glucose 162 H 03/02/18 06:03: POC Glucose 71 03/02/18 10:48: POC Glucose 169 H I & O for Last 24 hours: Intake & Output 02/27/18 02/28/18 03/01/18 03/02/18 23:59 23:59 23:59 23:59 Intake Total 1440 / 1440 660 / 660 240 / 240 Output Total 150 / 150 Balance 1440 / 1440 660 / 660 90 / 90 Weight 99.79 kg 99.79 kg 96.247 kg 97.551 kg Microbiology Reports for the Last 24 Hours: Microbiology 02/27/18 18:44 Foot,Left Gram Stain - Final 02/27/18 18:44 Foot,Left Wound Culture - Final Strep agalactiae - (group b) Enterobacter aerogenes Staphylococcus aureus#2 02/27/18 18:46 Blood Blood Culture - Preliminary Strep agalactiae - (group b) Staphylococcus aureus 02/27/18 18:46 Blood Blood Culture - Preliminary NO GROWTH AFTER 48 HOURS Assessment and Plan (1) Gangrene associated with diabetes mellitus Current visit: Yes Status: Acute Category: Medical Code(s): E11.52 - Type 2 diabetes mellitus with diabetic peripheral angiopathy with gangrene (2) Cellulitis and abscess of foot Current visit: Yes Status: Acute Category: Medical Code(s): L03.119 - Cellulitis of unspecified part of limb; L02.619 - Cutaneous abscess of unspecified foot (3) Poorly controlled diabetes mellitus Current visit: Yes Status: Acute Category: Medical Code(s): E11.65 - Type 2 diabetes mellitus with hyperglycemia (4) Arteriosclerotic cardiovascular disease Current visit: Yes Status: Acute Category: Medical Code(s): I25.10 - Atherosclerotic heart disease of [place] coronary artery without angina pectoris (5) Peripheral vascular complication Current visit: Yes Status: Acute Category: Medical Code(s): I99.9 - Unspecified disorder of circulatory system The patient's infection will respond to the chosen ABx?: Yes Is the patient receiving the right drug, dose, and route?: Yes Could a more targeted ABx be ordered?: No
--- NOTE | 2018-03-02 12:05 | Progress Note ---
Internal Medicine - PN: Subj *Date: 03/02/18 *Time: 12:03 Interval history: Clinically he is stable. White count has normalized. Potassium was low yesterday and needs to be rechecked. Dr. becerril spoke with Dr. Carroll. Surgery is planned for 6:24 AM. Exam Vital signs and Labs for Last 24 Hours: Temp Pulse Resp BP Pulse Ox 97.9 F 80 18 150/80 97 03/02/18 11:35 03/02/18 11:35 03/02/18 11:35 03/02/18 11:35 03/02/18 11:35 Laboratory Results - last 24 hr 03/01/18 17:08: POC Glucose 67 L 03/01/18 20:06: POC Glucose 162 H 03/02/18 06:03: POC Glucose 71 03/02/18 10:48: POC Glucose 169 H I & O for Last 24 hours: Intake & Output 02/28/18 03/01/18 03/02/18 03/03/18 11:59 11:59 11:59 11:59 Intake Total 1440 / 1440 900 / 900 Output Total 150 / 150 Balance 1440 / 1440 750 / 750 Weight 220 lb 212 lb 3 oz 215 lb 1 oz Microbiology Reports for the Last 24 Hours: Microbiology 02/27/18 18:44 Foot,Left Gram Stain - Final 02/27/18 18:44 Foot,Left Wound Culture - Final Strep agalactiae - (group b) Enterobacter aerogenes Staphylococcus aureus#2 02/27/18 18:46 Blood Blood Culture - Preliminary Strep agalactiae - (group b) Staphylococcus aureus 02/27/18 18:46 Blood Blood Culture - Preliminary NO GROWTH AFTER 48 HOURS - Constitutional no acute distress - *Routine HEENT Exam ENT: Present: mucous membranes moist - *Routine Respiratory Exam Present: CTA bilaterally - *Routine Cardiovascular Exam Present: RRR - *Routine Abdominal Exam Present: soft. Absent: tenderness - *Routine Extremities Exam Comments: The toe seems demarcated. There is less erythema but still some at the base. Trace of leg edema bilaterally. Assessment and Plan (1) Gangrene associated with diabetes mellitus Current visit: Yes Status: Acute Category: Medical Code(s): E11.52 - Type 2 diabetes mellitus with diabetic peripheral angiopathy with gangrene (2) Cellulitis and abscess of foot Current visit: Yes Status: Acute Category: Medical Code(s): L03.119 - Cellulitis of unspecified part of limb; L02.619 - Cutaneous abscess of unspecified foot (3) Poorly controlled diabetes mellitus Current visit: Yes Status: Acute Category: Medical Code(s): E11.65 - Type 2 diabetes mellitus with hyperglycemia (4) Arteriosclerotic cardiovascular disease Current visit: Yes Status: Acute Category: Medical Code(s): I25.10 - Atherosclerotic heart disease of [place] coronary artery without angina pectoris (5) Peripheral vascular complication Current visit: Yes Status: Acute Category: Medical Code(s): I99.9 - Unspecified disorder of circulatory system - Assessment and plan all Dx Assessment and Plan for all problems:: Surgery by Dr. Carroll in the morning.
[2018-03-02 12:58] LABS: Basophils % 0.4 % (0.1-2.0); Eosinophils # 0.1 K/mm3 (0.0-0.4); Eosinophils % 1.7 % (0.1-12.0); Hematocrit 37.6 % (42.0-52.0); Hemoglobin 12.1 g/dL (14.1-18.0); Lymphocytes # 1.2 K/mm3 (0.7-4.5); Lymphocytes % 15.3 K/mm3 (10-50); Mean Corpuscular HGB Conc 32.1 g/dL (31.8-35.4); Mean Corpuscular Hemoglobin 29.4 pg (27.0-31.2); Mean Corpuscular Volume 91.4 fl (80-94); Mean Platelet Volume 7.7 fl (7.4-10.4); Monocytes # 0.5 K/mm3 (0.1-1.0); Monocytes % 5.9 % (1.7-9.3); Neutrophils # 6.2 K/mm3 (1.8-7.8); Neutrophils % 76.6 % (37.0-80.0); Platelet Count 327 K/mm3 (142-424); Red Blood Count 4.11 M/mm3 (4.60-6.20); Red Cell Distribution Width 12.9 % (11.5-17.5)
[2018-03-02 13:06] LABS: Anion Gap 9.8 mEq/L (5-15); Calcium 8.1 mg/dL (8.5-10.1); Potassium 3.8 mmoL/L (3.5-5.1)
--- NOTE | 2018-03-02 18:03 | Progress Note ---
Subjective Date: 03/02/18 Time: 16:15 Principal diagnosis: 1. Cellulitis, left big toe; 2. Gangrene, left big toe Interval history: Patient says he is feeling better today compared to yesterday. He reports very little pain in his left big toe. He is not having any fevers, chills or rigors. He is eating and drinking well. PN: Obj Ex Vital signs: Temp Pulse Resp BP Pulse Ox 98.2 F 82 18 144/72 95 03/02/18 15:30 03/02/18 15:30 03/02/18 15:30 03/02/18 15:30 03/02/18 15:30 - Constitutional no acute distress, obese - Routine HEENT Exam Head: Present: normocephalic, atraumatic Eye: Present: EOMI, PERRL ENT: Present: mucous membranes moist - Routine Neck Exam Present: supple, full ROM, trachea midline - Routine Respiratory Exam Present: CTA bilaterally - Routine Cardiovascular Exam Present: RRR, Normal S1, Normal S2 - Routine Abdominal Exam Present: soft, normoactive bowel sounds - Routine Extremities Exam Comments: On examination of his left foot, there is further improvement with the erythema and swelling of the left big toe. There are 2 areas of gangrenous skin over the plantar medial aspect of the big toe- the first one measuring about 1.5 x 1 cm over the proximal phala nx level and the second larger one measuring about 3 x 2 cm over the pulp of the great toe. The erythema is extending just distal to the first MTP joint. He has mild diffuse tenderness over the big toe. There is no active discharge. Movements of the big toe are limited with pain. He previously had an amputation of his left fifth toe with a well-healed surgical scar. The other 3 remaining toes appear normal. Rest of the foot appears normal without any ulceration or tenderness. He has altered sensation over both his feet from peripheral neuropathy and distal pulses are not palpable. Capillary refill is very sluggish on both sides. Imaging: X-rays of his left foot 3 views performed at [facility] reviewed along with radiologist report. The x-rays are not showing any evidence of acute or chronic osteomyelitis. Vascular calcification is noted. - Routine Skin Exam Present: dry, warm, normal turgor - Routine Neurological Exam Present: alert, oriented X3, CN II-XII intact, normal tone, vision grossly intact, hearing grossly intact. Absent: motor deficit - Routine Psychiatric Exam Present: normal affect, cooperative, good judgment Progress Note: A&P (1) Gangrene associated with diabetes mellitus Status: Acute Current Visit: Yes (2) Cellulitis and abscess of foot Status: Acute Current Visit: Yes (3) Poorly controlled diabetes mellitus Status: Acute Current Visit: Yes (4) Arteriosclerotic cardiovascular disease Status: Acute Current Visit: Yes (5) Peripheral vascular complication Status: Acute Current Visit: Yes Assessment and Plan for All Diagnoses:: I have reviewed the clinical, x-ray findings and progress with the patient and his daughter who is with him in the room. There is obvious cellulitis with 2 gangrenous necrotic areas of soft tissue over the left great toe. I have discussed the diagnosis, natural history and management options in detail including both nonsurgical and surgical. The gangrenous area is sufficiently demarcated and have recommended surgical debridement/amputation of the left big toe. I am planning to take him to the OR for this tomorrow morning. I have discussed with Dr. Berg over the telephone earlier in the day regarding this and he agrees with this plan. I am planning to do this as a one stage to amputation but I have told the patient and his daughter that because of the infection, we may need to do the procedure in two stages. This obviously would be a surgical time dissection and they agree with this plan. I have discussed the details about the procedure, risks and benefits and alternatives in depth. The complications discussed include but are not limited to infection, injury to nerves and blood vessels, tender scar, DVT/PE, phantom pain, CRPS (complex regional pain syndrome- pain, sensory and temperature changes, swelling and stiffness), incomplete relief of pain, altered gait, altered weightbearing and pressure sores over the foot, displacement of the lesser toes medially, incomplete return of function, and likely need for further surgery in future including amputation at a proximal level and also the risks of anesthesia including heart attack, stroke, and even . I have discussed how there is a small but real possibility of loss of use of the limb, loss of the limb (amputation) or loss of life itself. I have also explained how additional surgery may be required if there are any complications. As there is wound infection, we may need to perform this as a 2- stage procedure with a delayed wound closure once the infection is cleared. We have also discussed the postoperative management, recovery and rehabilitation and the likely need for physical therapy, the possibility of stiffness, osteomyelitis, chronic pain and we've also discussed the option of nonsurgical treatment. The patient and his daughter understand and have asked appropriate questions. All their questions were answered and they verbalized a good understanding. He desires to proceed with the amputation of the LEFT great toe. I am planning to take him to the Operating Room tomorrow morning or amputation of his LEFT great toe. I have recommended- Nothing by mouth after midnight Schedule for surgery with the Operating Room DVT prophylaxis as per protocol Consent patient for amputation of big toe, left foot ". Continue medical management as per Dr. Berg.
[2018-03-03 07:24] LABS: Anion Gap 10.8 mEq/L (5-15); Calcium 8.2 mg/dL (8.5-10.1); Potassium 3.8 mmoL/L (3.5-5.1)
--- NOTE | 2018-03-03 07:44 | Progress Note ---
[facility] Anesthesia Checklist - Patient Identification Patient Identification: Arm Band, Verbal (Name & ) - Structural Data Admitted From: Inpatient Planned Operative Procedure/s: Left Big toe amputation Consent for Planned Operative Procedure(s) Verified: Yes Verified Documents: Surgical Consent, History and Physical - NPO Status Verified Time NPO: 00:00 - Additional verifications Anesthesia Reactions: No - Airway Assessment C-Spine Mobility Assessed: Yes TMJ Mobility Assessed: Yes Dentition: Good Dentition - Neurological Assessment Level of Consciousness: Awake Hx Seizures: No Numbness or tingling in extremities: Yes (peripheral neuropathy) - Anesthesia Plan Anesthesia Risk discussed: Yes Anesthesia Plan: Verified ASA Class: III Anesthesia Type: General [facility] Anesthesia HX I have reviewed the patient's past medical history: Yes Medical History: Reports:: Cancer (peost[place]), Coronary Artery Disease, Diabetes Mellitus Type 2, Hyperlipidemia, Hypertension, Internal Pacemaker, Myocardial Infarction Other Medical History: Reports: Radiation Therapy Other Surgeries: Yes: CABG, Cancer Surgery, Cardiac Catheterization, Cardiac Surgery, Colonoscopy, Open Heart Surgery, Pacemaker, Other (Aortic valce repair , TURP) *Family Hx:: Coronary Artery Disease, Heart Attack, Hyperlipidemia, Hypertension
--- NOTE | 2018-03-03 08:01 | Progress Note ---
Internal Medicine - PN: Subj *Date: 03/03/18 *Time: 07:58 Interval history: The patient remained stable. He is scheduled for surgery this morning for the toe amputation. He was stable through the night and was able to get some rest. He is blood sugars have been in the 200 range and below. His lungs are clear his heart has regular rate and rhythm he has minimal leg edema on the left with the ERNESTINE stocking on the right. Exam Vital signs and Labs for Last 24 Hours: Temp Pulse Resp BP Pulse Ox 98.0 F 70 18 169/75 92 L 03/03/18 07:36 03/03/18 07:36 03/03/18 07:36 03/03/18 07:36 03/03/18 07:36 Laboratory Results - last 24 hr 03/02/18 10:48: POC Glucose 169 H 03/02/18 12:40: WBC 8.0, RBC 4.11 L, Hgb 12.1 L, Hct 37.6 L, MCV 91.4, MCH 29.4 , MCHC 32.1, RDW 12.9, Plt Count 327, MPV 7.7, Neut % (Auto) 76.6, Lymph % (Auto ) 15.3, [place] % (Auto) 5.9, Eos % (Auto) 1.7, Baso % (Auto) 0.4, Neut # (Auto) 6.2, Lymph # (Auto) 1.2, [place] # (Auto) 0.5, Eos # (Auto) 0.1, Baso # (Auto) 0.0 03/02/18 12:40: Sodium 138, Potassium 3.8 D, Chloride 101, Carbon Dioxide 31, Anion Gap 9.8, BUN 19 H, Creatinine 1.67 H, Estimated Creat Clear 56, Estimated GFR 41 L, Est GFR ( Amer) 49 L, Glucose 161 H, Calcium 8.1 L 03/02/18 16:21: POC Glucose 157 H 03/02/18 21:44: POC Glucose 221 H 03/03/18 06:11: Sodium 139, Potassium 3.8, Chloride 100, Carbon Dioxide 32, Anion Gap 10.8, BUN 21 H, Creatinine 1.64 H, Estimated Creat Clear 57, Estimated GFR 42 L, Est GFR ( Amer) 50 L, Glucose 209 H D, Calcium 8.2 L 03/03/18 06:44: POC Glucose 208 H I & O for Last 24 hours: Intake & Output 02/28/18 03/01/18 03/02/18 03/03/18 11:59 11:59 11:59 11:59 Intake Total 1440 / 1440 900 / 900 780 / 780 Output Total 150 / 150 400 / 400 Balance 1440 / 1440 750 / 750 380 / 380 Weight 220 lb 212 lb 3 oz 215 lb 1 oz 214 lb 8 oz Microbiology Reports for the Last 24 Hours: Microbiology 02/27/18 18:46 Blood Blood Culture - Final Strep agalactiae - (group b) Staphylococcus aureus 02/27/18 18:44 Foot,Left Gram Stain - Final 02/27/18 18:44 Foot,Left Wound Culture - Final Strep agalactiae - (group b) Enterobacter aerogenes Staphylococcus aureus#2 - Constitutional no acute distress - *Routine HEENT Exam ENT: Present: mucous membranes moist - *Routine Respiratory Exam Present: CTA bilaterally - *Routine Cardiovascular Exam Present: RRR Comments: No ectopics - *Routine Abdominal Exam Present: soft. Absent: tenderness - *Routine Extremities Exam Absent: edema Comments: Toe appears unchanged Assessment and Plan (1) Gangrene associated with diabetes mellitus Current visit: Yes Status: Acute Category: Medical Code(s): E11.52 - Type 2 diabetes mellitus with diabetic peripheral angiopathy with gangrene (2) Cellulitis and abscess of foot Current visit: Yes Status: Acute Category: Medical Code(s): L03.119 - Cellulitis of unspecified part of limb; L02.619 - Cutaneous abscess of unspecified foot (3) Poorly controlled diabetes mellitus Current visit: Yes Status: Acute Category: Medical Code(s): E11.65 - Type 2 diabetes mellitus with hyperglycemia (4) Arteriosclerotic cardiovascular disease Current visit: Yes Status: Acute Category: Medical Code(s): I25.10 - Atherosclerotic heart disease of [place] coronary artery without angina pectoris (5) Peripheral vascular complication Current visit: Yes Status: Acute Category: Medical Code(s): I99.9 - Unspecified disorder of circulatory system - Assessment and plan all Dx Assessment and Plan for all problems:: Amputation of the toe is scheduled this morning by Dr. Carroll.
--- NOTE | 2018-03-03 09:44 | Progress Note ---
[facility] Anesthesia Record Part I Intake, IV Amount: 600 Estimated blood loss (mL): 10 Urine output (mL): 0 Blood Products used (#): none Blood Pressure: 158/88 SaO2: 96 Pulse Rate: 77 Respiratory Rate: 16 Temperature: 97.4 F Patient is:: Awake Stable to PACU at:: 09:40
--- NOTE | 2018-03-03 09:45 | Progress Note ---
[facility] Anesthesia Record Part II Discharge Time: 10:10 Destination: Medical Surgical Department PACU nurse assessment reviewed?: Yes Patient Condition:: Good Anesthesia Complications:: None
--- NOTE | 2018-03-03 10:47 | Operative Note ---
Date of procedure: 03/03/18 Pre-op Diagnosis:: Infected diabetic gangrene big toe, left foot Post-op Diagnosis:: Infected diabetic gangrene big toe, left foot Procedure performed:: Amputation of big toe, left foot Surgeon:: Gallo Carroll MD Publications Sales Representative(s):: Bart Cody SUPERVISOR BRIAR SHOP:: Other (Robert Walker) Anesthesia: LMA Estimated blood loss (mL): 10 Clinical Note:: Patient is a 72-year-old gentleman who is admitted to hospital for management of gangrenous left big toe. He injured his left big toe about 12 days ago. Following the injury he developed pain and swelling followed by gradual blackening of the skin over the tip of the big toe. He also reports erythema and low-grade fever. No history of any previous pain in his big toe. He is a known diabetic with peripheral vascular disease and had a previous amputation of his left little toe couple of years ago. Following admission he was started on IV antibiotics by Dr. Berg. He is an ex-smoker, stopped 20 years ago. On examination of his left foot, there is erythema and swelling of the left big toe. There are 2 areas of blackened skin over the plantar medial aspect of the big toe- the first one measuring about 1 x 1 cm over the IP joint level and the second larger one measuring about 2 x 2 cm over the pulp of the great toe. At the time of surgery, the erythema is extending just proximal to the IP joint. Following few days of IV antibiotics, the big toe gangrene demarcated well and a decision was made to proceed with amputation of the big toe to remove the /devitalized and infected tissue. He has no sensation over both his feet and distal pulses are not palpable. Capillary refill is very sluggish. X-rays of his left foot did not reveal any evidence of osteomyelitis. Operative findings:: Well-demarcated gangrenous left big toe with the inflammation gangrene extending just proximal to the IP joint. Following amputation through the proximal phalanx, the stump appeared healthy with adequate circulation and good bleeding from the skin edges. Culture swabs were obtained before wound closure and also the amputated big toe was sent for pathological examination and culture. Operative note:: On the day of the procedure the patient was met on the floor and positively identified. I again discussed the diagnosis, natural history and management options including both nonsurgical and surgical. The patient again opted for amputation as was discussed previously. I have discussed the procedure, risks and benefits and alternatives. The complications discussed include but are not limited to infection, injury to nerves and blood vessels, tender scar, DVT/PE, phantom pain, CRPS (complex regional pain syndrome- pain, sensory and temperature changes, swelling and stiffness), incomplete relief of pain, altered gait, altered weightbearing and pressure sores over the foot, displacement of the lesser toes medially, incomplete return of function, and likely need for further surgery in future including amputation at a proximal level and also the risks of anesthesia including heart attack, stroke, and even . I have discussed how there is a small but real possibility of loss of use of the limb, loss of the limb or loss of life itself. I have also explained how additional surgery may be required if there are any complications. I have told the patient that we may have to perform the surgery as a 2-stage procedure with a delayed wound closure if the tissue appear unhealthy at surgery for primary closure. We have also discussed the postoperative management, recovery and rehabilitation and the likely need for physical therapy, the possibility of stiffness, osteomyelitis, chronic pain and we've also discussed the option of nonsurgical treatment. The patient and his understand and have asked appropriate questions. All their questions were answered and they verbalized a good understanding. He desires to proceed with the amputation of the LEFT great toe. The limb was appropriately marked and the consent form was reviewed and signed. Patient understood the risks, signed consent form and no guarantees or assurances were given or implied. Patient was brought in the operating room and placed supine on the operating table. All the bony prominences were appropriately padded. A general anesthesia was administered by the pinmaker. A well-padded tourniquet cuff was placed over his LEFT upper thigh but the surgery was performed without inflating the tourniquet. The LEFT lower extremity was prepped and draped in the usual sterile fashion. A preprocedure timeout was performed as per the hospital protocol. The skin incision was marked for amputation of the great toe through the proximal phalanx, preserving part of the proximal phalanx and as much of the normal skin as possible. We utilized a [place] type incision both dorsally and plantarly distal to the MTP joint of the LEFT great toe. The incision was carried straight to the bone level and the toe was amputated through the proximal phalanx, leaving the flexor and extensor tendon attachments to the base of the proximal phalanx intact. The amputated big toe was sent for pathology and culture. The wound was thoroughly irrigated with copious amounts of normal saline. Both aerobic and anaerobic culture swabs were obtained from the wounds. The proximal phalanx stump appeared healthy and the skin and soft tissue at this level were relatively healthy as well. The digital nerves were identified and pulled out and cut proximal to the amputation level. The vascular structures were identified and cauterized. I made sure that there were no sharp bone edges or spikes. After irrigating the wound thoroughly with normal saline, hemostasis was obtained with diathermy cautery. As the skin and soft tissue appeared healthy, we have decided to perform a primary wound closure. I placed a rubber drain in the wound bringing it out medially. The wound was then closed in a single layer with interrupted 2-0 nylon sutures. Sterile compression dressings were applied. Patient was then reversed from the anesthetic and transferred onto a rcolumbus. He was then transported to the postoperative recovery area in stable condition. He tolerated the procedure well and there were no immediate complications. According to the scrub team, the swab, needle and instrument counts were correct at the end of the procedure. Postoperatively continue with IV antibiotics until the culture results are available and make any changes as needed at that time. Dressing changes and removal of drain on second postop day. Condition: stable Disposition: floor Specimens:: Amputated left big toe sent for culture and sensitivity and histopathology; intraoperative aerobic and anaerobic wound swabs were obtained for culture and sensitivity. Complications:: None
--- NOTE | 2018-03-03 11:16 | Progress Note ---
Internal Medicine - PN: Subj *Date: 03/03/18 *Time: 11:15 Exam Vital signs and Labs for Last 24 Hours: Temp Pulse Resp BP Pulse Ox 97.6 F 76 22 186/83 96 03/03/18 10:50 03/03/18 10:50 03/03/18 10:50 03/03/18 10:50 03/03/18 10:50 Laboratory Results - last 24 hr 03/02/18 12:40: WBC 8.0, RBC 4.11 L, Hgb 12.1 L, Hct 37.6 L, MCV 91.4, MCH 29.4 , MCHC 32.1, RDW 12.9, Plt Count 327, MPV 7.7, Neut % (Auto) 76.6, Lymph % (Auto ) 15.3, [place] % (Auto) 5.9, Eos % (Auto) 1.7, Baso % (Auto) 0.4, Neut # (Auto) 6.2, Lymph # (Auto) 1.2, [place] # (Auto) 0.5, Eos # (Auto) 0.1, Baso # (Auto) 0.0 03/02/18 12:40: Sodium 138, Potassium 3.8 D, Chloride 101, Carbon Dioxide 31, Anion Gap 9.8, BUN 19 H, Creatinine 1.67 H, Estimated Creat Clear 56, Estimated GFR 41 L, Est GFR ( Amer) 49 L, Glucose 161 H, Calcium 8.1 L 03/02/18 16:21: POC Glucose 157 H 03/02/18 21:44: POC Glucose 221 H 03/03/18 06:11: Sodium 139, Potassium 3.8, Chloride 100, Carbon Dioxide 32, Anion Gap 10.8, BUN 21 H, Creatinine 1.64 H, Estimated Creat Clear 57, Estimated GFR 42 L, Est GFR ( Amer) 50 L, Glucose 209 H D, Calcium 8.2 L 03/03/18 06:11: Vancomycin Trough 21.4 H 03/03/18 06:44: POC Glucose 208 H I & O for Last 24 hours: Intake & Output 02/28/18 03/01/18 03/02/18 03/03/18 23:59 23:59 23:59 23:59 Intake Total 1440 / 1440 660 / 660 1020 / 1020 600 / 600 Output Total 550 / 550 Balance 1440 / 1440 660 / 660 470 / 470 600 / 600 Weight 99.79 kg 96.247 kg 97.551 kg 97.296 kg Microbiology Reports for the Last 24 Hours: Microbiology 02/27/18 18:46 Blood Blood Culture - Final Strep agalactiae - (group b) Staphylococcus aureus 02/27/18 18:44 Foot,Left Gram Stain - Final 02/27/18 18:44 Foot,Left Wound Culture - Final Strep agalactiae - (group b) Enterobacter aerogenes Staphylococcus aureus#2 Assessment and Plan (1) Gangrene associated with diabetes mellitus Current visit: Yes Status: Acute Category: Medical Code(s): E11.52 - Type 2 diabetes mellitus with diabetic peripheral angiopathy with gangrene (2) Cellulitis and abscess of foot Current visit: Yes Status: Acute Category: Medical Code(s): L03.119 - Cellulitis of unspecified part of limb; L02.619 - Cutaneous abscess of unspecified foot (3) Poorly controlled diabetes mellitus Current visit: Yes Status: Acute Category: Medical Code(s): E11.65 - Type 2 diabetes mellitus with hyperglycemia (4) Arteriosclerotic cardiovascular disease Current visit: Yes Status: Acute Category: Medical Code(s): I25.10 - Atherosclerotic heart disease of [place] coronary artery without angina pectoris (5) Peripheral vascular complication Current visit: Yes Status: Acute Category: Medical Code(s): I99.9 - Unspecified disorder of circulatory system The patient's infection will respond to the chosen ABx?: Yes Is the patient receiving the right drug, dose, and route?: Yes Could a more targeted ABx be ordered?: No
--- NOTE | 2018-03-03 11:30 | Pharmacy Consult Notes ---
- Pharmacy Consult Date: 03/03/18 Time: 11:22 Referring provider: DR. NERI Reason for Consult:: VANCOMYCIN TROUGH LEVEL Allergies and ADEs:: Allergies Allergy/AdvReac Type Severity Reaction Status Date / Time promethazine Allergy Mild itching Verified 03/01/18 09:41 cyanocobalamin (vitamin B12) Allergy Rash Verified 02/28/18 07:34 Home Medications:: Home Medications Medication Instructions Recorded Confirmed Type Amiodarone HCl [Amiodarone 200mg 200 mg PO DAILY 02/27/18 02/27/18 History Tab] Aspirin 81 mg PO DAILY 02/27/18 02/27/18 History Atorvastatin Calcium [Atorvastatin 40 mg PO HS 02/27/18 02/28/18 History 40mg Tab] Cholecalciferol (Vitamin D3) 5,000 unit PO DAILY 02/27/18 02/27/18 History [Vitamin D3 10,000 unit Cap] Furosemide [Furosemide 40MG tAB] 40 mg PO BID 02/27/18 02/27/18 History Glimepiride 4 mg PO BID 02/27/18 02/27/18 History Insulin Detemir [Levemir 100 40 unit SQ DAILY 02/27/18 02/28/18 History units/mL 10mL vial] Losartan Potassium [Cozaar] 25 mg PO DAILY 02/27/18 02/27/18 History Potassium Chloride [Klor-Con 10mEq 10 meq PO BID 02/27/18 02/28/18 History tab] Carvedilol [Carvedilol 25mg Tab] 12.5 mg PO BID 02/28/18 02/28/18 History Height: 1.78 m Weight: 97.296 kg Laboratory Results:: Laboratory Results - last 24 hr 03/02/18 12:40: WBC 8.0, RBC 4.11 L, Hgb 12.1 L, Hct 37.6 L, MCV 91.4, MCH 29.4 , MCHC 32.1, RDW 12.9, Plt Count 327, MPV 7.7, Neut % (Auto) 76.6, Lymph % (Auto ) 15.3, [place] % (Auto) 5.9, Eos % (Auto) 1.7, Baso % (Auto) 0.4, Neut # (Auto) 6.2, Lymph # (Auto) 1.2, [place] # (Auto) 0.5, Eos # (Auto) 0.1, Baso # (Auto) 0.0 03/02/18 12:40: Sodium 138, Potassium 3.8 D, Chloride 101, Carbon Dioxide 31, Anion Gap 9.8, BUN 19 H, Creatinine 1.67 H, Estimated Creat Clear 56, Estimated GFR 41 L, Est GFR ( Amer) 49 L, Glucose 161 H, Calcium 8.1 L 03/02/18 16:21: POC Glucose 157 H 03/02/18 21:44: POC Glucose 221 H 03/03/18 06:11: Sodium 139, Potassium 3.8, Chloride 100, Carbon Dioxide 32, Anion Gap 10.8, BUN 21 H, Creatinine 1.64 H, Estimated Creat Clear 57, Estimated GFR 42 L, Est GFR ( Amer) 50 L, Glucose 209 H D, Calcium 8.2 L 03/03/18 06:11: Vancomycin Trough 21.4 H 03/03/18 06:44: POC Glucose 208 H Medical History: Reports:: Cancer (peostate), Coronary Artery Disease, Diabetes Mellitus Type 2, Hyperlipidemia, Hypertension, Internal Pacemaker, Myocardial Infarction Denies:: Seizures Assessment and Plan (1) Gangrene associated with diabetes mellitus Current visit: Yes Status: Acute Category: Medical Code(s): E11.52 - Type 2 diabetes mellitus with diabetic peripheral angiopathy with gangrene (2) Cellulitis and abscess of foot Current visit: Yes Status: Acute Category: Medical Code(s): L03.119 - Cellulitis of unspecified part of limb; L02.619 - Cutaneous abscess of unspecified foot (3) Poorly controlled diabetes mellitus Current visit: Yes Status: Acute Category: Medical Code(s): E11.65 - Type 2 diabetes mellitus with hyperglycemia (4) Arteriosclerotic cardiovascular disease Current visit: Yes Status: Acute Category: Medical Code(s): I25.10 - Atherosclerotic heart disease of [place] coronary artery without angina pectoris (5) Peripheral vascular complication Current visit: Yes Status: Acute Category: Medical Code(s): I99.9 - Unspecified disorder of circulatory system - Assessment and plan all Dx Assessment and Plan for all problems:: PATIENT'S VANCOMYCIN LEVEL WAS 21.4 MCG/ML THIS MORNING WITH 0600 LABS. LEVEL WAS OBTAINED FROM PREVIOUS LAB DRAW DUE TO PATIENT GOING TO SURGERY. CALCULATED TROUGH WOULD BE 14.3 MCG/ML. RECOMMENDED PATIENT CONTINUE WITH VANCOMYCIN 1750 MG Q24H AT THIS TIME. PHARMACY WILL FOLLOW DAILY AND ADJUST APPROPRIATE. MOHSEN DANG, PHARMD
--- NOTE | 2018-03-04 08:11 | Progress Note ---
Addendum entered and electronically signed by Binta Ramirez APRN 03/04/18 08: 46: will need PICC line Addendum entered and electronically signed by Binta Ramirez APRN 03/04/18 08: 16: Plan is to continue with current treatment as per Dr. Berg and Dr. Carroll. Original Note: Internal Medicine - PN: Subj *Date: 03/04/18 *Time: 08:08 Interval history: Slept some. Has minimal foot pain. States he is eating a little bit better. He has had some nausea in the past. He has had 2-3 days early a.m. low blood sugars. He states they have been in the 60s. He is voiding without difficulty. Denies chest pain and shortness of breath Exam Vital signs and Labs for Last 24 Hours: Temp Pulse Resp BP Pulse Ox 98.2 F 74 18 152/78 99 03/04/18 07:31 03/04/18 07:31 03/04/18 07:31 03/04/18 07:31 03/04/18 07:31 Laboratory Results - last 24 hr 03/03/18 06:11: Vancomycin Trough 21.4 H 03/03/18 09:43: POC Glucose 224 H 03/03/18 12:01: POC Glucose 229 H 03/03/18 16:48: POC Glucose 234 H 03/03/18 20:28: POC Glucose 225 H 03/04/18 06:07: POC Glucose 65 L 03/04/18 06:31: POC Glucose 68 L 03/04/18 07:00: POC Glucose 100 I & O for Last 24 hours: Intake & Output 03/01/18 03/02/18 03/03/18 03/04/18 11:59 11:59 11:59 11:59 Intake Total 1440 / 1440 900 / 900 1380 / 1380 1020 / 1020 Output Total 150 / 150 400 / 400 Balance 1440 / 1440 750 / 750 980 / 980 1020 / 1020 Weight 212 lb 3 oz 215 lb 1 oz 214 lb 8 oz 220 lb 1 oz Microbiology Reports for the Last 24 Hours: Microbiology 02/27/18 18:46 Blood Blood Culture - Final Strep agalactiae - (group b) Staphylococcus aureus - Constitutional no acute distress Comments: Sitting up in the bed and appears comfortable. - *Routine Respiratory Exam Present: CTA bilaterally (Anteriorly and posteriorly) - *Routine Cardiovascular Exam Present: RRR - *Routine Abdominal Exam Present: soft, normoactive bowel sounds. Absent: tenderness, guarding - *Routine Extremities Exam Comments: Right leg without edema. Left foot with dressing clean, dry and intact. No calf tenderness. - *Routine Neurological Exam Present: alert, oriented X3 Assessment and Plan (1) Gangrene associated with diabetes mellitus Current visit: Yes Status: Acute Category: Medical Code(s): E11.52 - Type 2 diabetes mellitus with diabetic peripheral angiopathy with gangrene (2) Cellulitis and abscess of foot Current visit: Yes Status: Acute Category: Medical Code(s): L03.119 - Cellulitis of unspecified part of limb; L02.619 - Cutaneous abscess of unspecified foot (3) Poorly controlled diabetes mellitus Current visit: Yes Status: Acute Category: Medical Code(s): E11.65 - Type 2 diabetes mellitus with hyperglycemia (4) Arteriosclerotic cardiovascular disease Current visit: Yes Status: Acute Category: Medical Code(s): I25.10 - Atherosclerotic heart disease of [place] coronary artery without angina pectoris (5) Peripheral vascular complication Current visit: Yes Status: Acute Category: Medical Code(s): I99.9 - Unspecified disorder of circulatory system
--- NOTE | 2018-03-04 14:34 | Progress Note ---
Subjective Date: 03/04/18 Time: 08:45 Principal diagnosis: 1. Cellulitis, left big toe; 2. Gangrene, left big toe Interval history: Patient is status post amputation of great toe, left foot, post op day #1. Patient is lying down in bed. Says he is doing well and reports no problems. Not reporting any pain or discomfort in his left foot. No history of any nausea or vomiting. No history of any cough, chest pain, shortness of breath or palpitations. Patient says he is eating and drinking well. PN: Obj Ex Vital signs: Temp Pulse Resp BP Pulse Ox 98.2 F 74 18 152/78 99 03/04/18 07:31 03/04/18 07:31 03/04/18 07:31 03/04/18 07:31 03/04/18 08:00 Narrative: Laboratory Results - last 24 hr 03/03/18 09:43: POC Glucose 224 H 03/03/18 16:48: POC Glucose 234 H 03/03/18 20:28: POC Glucose 225 H 03/04/18 06:07: POC Glucose 65 L 03/04/18 06:31: POC Glucose 68 L 03/04/18 07:00: POC Glucose 100 Exam General appearance: alert, active, awake, no acute distress Cardiovascular: regular rate & rhythm Respiratory: No respiratory distress ABD: normal exam; soft and non tender Neuro: alert, oriented x 3 Psych: normal mood and affect On examination of the lower extremities the limb lengths are equal. Thigh and calf are soft and nontender. On examination of the LEFT foot, the dressings are clean, dry and intact. There is no soakage of the dressings. Capillary refill is sluggish in the toes. Progress Note: A&P (1) Gangrene associated with diabetes mellitus Status: Acute (2) Cellulitis and abscess of foot Status: Acute (3) Poorly controlled diabetes mellitus Status: Acute (4) Arteriosclerotic cardiovascular disease Status: Acute (5) Peripheral vascular complication Status: Acute Assessment and Plan for All Diagnoses:: I reviewed the clinical findings and progress with the patient and his . Patient is doing well and reports no problems. Encouraged him to keep the foot and ankle elevated and ice the operative area. Can mobilize heel walking as tolerated. Continue IV antibiotics as per Dr Berg's recommendation. I would change his dressings tomorrow and remove the drain. He can be discharged home after that. Follow-up in my office in 1 week's time for wound check. Medical management as per Dr. Berg.
--- NOTE | 2018-03-05 08:57 | Progress Note ---
Internal Medicine - PN: Subj *Date: 03/05/18 *Time: 08:53 Interval history: Is anxious to be discharged today. He states plan is for him to receive IV antibiotics at [facility] in [place] every a.m. He feels he is eating a little bit better. He denies pain in the left foot and states it is mostly numb. Dr. Carroll to change the dressing today. He denies chest pain and shortness of breath. He was set up in a chair a good part of the day yesterday. PICC line was placed without difficulty yesterday. Exam Vital signs and Labs for Last 24 Hours: Temp Pulse Resp BP Pulse Ox 97.5 F L 81 18 125/67 98 03/05/18 07:45 03/05/18 07:45 03/05/18 07:45 03/05/18 07:45 03/05/18 07:45 Laboratory Results - last 24 hr 03/04/18 11:33: POC Glucose 194 H 03/04/18 16:38: POC Glucose 124 H 03/04/18 20:10: POC Glucose 194 H I & O for Last 24 hours: Intake & Output 03/02/18 03/03/18 03/04/18 03/05/18 11:59 11:59 11:59 11:59 Intake Total 900 / 900 1380 / 1380 2460 / 2460 240 / 240 Output Total 150 / 150 400 / 400 Balance 750 / 750 980 / 980 2460 / 2460 240 / 240 Weight 215 lb 1 oz 214 lb 8 oz 220 lb 1 oz 212 lb 7 oz Microbiology Reports for the Last 24 Hours: Microbiology 03/03/18 Unknown Toe,Left Great Gram Stain - Final 03/03/18 Unknown Toe,Left Great Wound Culture - Preliminary 03/03/18 Unknown Toe,Left Great Gram Stain - Final 03/03/18 Unknown Toe,Left Great Wound Culture - Preliminary 02/27/18 18:46 Blood Blood Culture - Final NO GROWTH AFTER 5 DAYS Blood cultures positive for staph Agalactine and staph aureus sensitive to vancomycin. Wound culture positive for Enterobacter aerogenes and staph aureus sensitive to Invanz Radiology Reports for the Last 24 Hours: 03/04/2018 chest x-ray after PICC line placed FINDINGS: There is mild generalized cardiomegaly. The cardiac pacemaker and electrodes are again noted. There is a PICC line seen ascending the right axillary vein and the tip is at the junction of the right subclavian vein with the SVC.. There is no pneumothorax. The lungs are clear without infiltrates, suspicious nodules, or pleural effusions. No acute bony abnormalities. There are sternal wire sutures noted. IMPRESSION: Stable mild cardio megaly, PICC line with position as noted above - Constitutional no acute distress Comments: Sitting up in the bed and appears comfortable - *Routine Respiratory Exam Present: CTA bilaterally (Anteriorly and posteriorly) - *Routine Cardiovascular Exam Present: RRR - *Routine Abdominal Exam Present: soft, normoactive bowel sounds. Absent: tenderness - *Routine Extremities Exam Absent: edema Comments: Dressing on left foot is clean dry and intact. No calf tenderness. No leg edema. - *Routine Neurological Exam Present: alert, oriented X3 Assessment and Plan (1) Gangrene associated with diabetes mellitus Current visit: Yes Status: Acute Category: Medical Code(s): E11.52 - Type 2 diabetes mellitus with diabetic peripheral angiopathy with gangrene (2) Cellulitis and abscess of foot Current visit: Yes Status: Acute Category: Medical Code(s): L03.119 - Cellulitis of unspecified part of limb; L02.619 - Cutaneous abscess of unspecified foot (3) Poorly controlled diabetes mellitus Current visit: Yes Status: Acute Category: Medical Code(s): E11.65 - Type 2 diabetes mellitus with hyperglycemia (4) Arteriosclerotic cardiovascular disease Current visit: Yes Status: Acute Category: Medical Code(s): I25.10 - Atherosclerotic heart disease of [place] coronary artery without angina pectoris (5) Peripheral vascular complication Current visit: Yes Status: Acute Category: Medical Code(s): I99.9 - Unspecified disorder of circulatory system (6) Infection due to Enterobacter species Current visit: Yes Status: Acute Category: Medical Code(s): B96.89 - Other specified bacterial agents as the cause of diseases classified elsewhere (7) Bacteremia due to methicillin resistant Staphylococcus aureus Current visit: Yes Status: Acute Category: Medical Code(s): R78.81 - Bacteremia - Assessment and plan all Dx Assessment and Plan for all problems:: Plan is for patient to be discharged to home today. He will continue with IV antibiotic treatment on a daily basis at [facility]. He will need 4 more days of the Invanz and 5 more days of vancomycin
--- NOTE | 2018-03-05 11:53 | Progress Note ---
Subjective Date: 03/05/18 Time: 10:30 Principal diagnosis: 1. Cellulitis, left big toe; 2. Gangrene, left big toe Interval history: Patient is status post amputation of great toe, left foot, post op day #2. Patient is lying down in bed. Says he is doing well and reports no problems. No history of any nausea or vomiting. No history of any cough, chest pain, shortness of breath or palpitations. Patient says he is eating and drinking well. Patient says he was seen by Dr. Berg this morning and he is being discharged home. PN: Obj Ex Vital signs: Temp Pulse Resp BP Pulse Ox 97.5 F L 81 18 125/67 98 03/05/18 07:45 03/05/18 07:45 03/05/18 07:45 03/05/18 07:45 03/05/18 07:45 Narrative: Laboratory Results - last 24 hr 03/04/18 11:33: POC Glucose 194 H 03/04/18 16:38: POC Glucose 124 H 03/04/18 20:10: POC Glucose 194 H Exam General appearance: alert, active, awake, no acute distress Cardiovascular: regular rate & rhythm Respiratory: No respiratory distress ABD: normal exam; soft and non tender Neuro: alert, oriented x 3 Psych: normal mood and affect On examination of the lower extremities the limb lengths are equal. Thigh and calf are soft and nontender. On examination of the LEFT foot, the dressings are clean, dry and intact. The dressings were changed by me. I have removed the drain. There is a minimal of soakage of the dressings. The wound looks clean and healthy. The skin edges are somewhat erythematous but no active discharge or signs of infection noted. Circulation to the wound edges appears adequate. Progress Note: A&P (1) Gangrene associated with diabetes mellitus Status: Acute Current Visit: Yes (2) Cellulitis and abscess of foot Status: Acute Current Visit: Yes (3) Poorly controlled diabetes mellitus Status: Acute Current Visit: Yes (4) Arteriosclerotic cardiovascular disease Status: Acute Current Visit: Yes (5) Peripheral vascular complication Status: Acute Current Visit: Yes (6) Infection due to Enterobacter species Status: Acute Current Visit: Yes (7) Bacteremia due to methicillin resistant Staphylococcus aureus Status: Acute Current Visit: Yes Assessment and Plan for All Diagnoses:: Post op patient plan I reviewed the clinical findings and progress with the patient and his . Patient is doing well and reports no problems. The incision appears healthy without any signs of complication noted at this stage. Encouraged him to keep the foot and ankle elevated and ice the operative area. Can mobilize heel walking as tolerated. Continue IV antibiotics as per Dr Berg's recommendation. Follow-up in my office in 1 week's time for wound check. Medical management as per Dr. Berg.
--- NOTE | 2018-03-06 11:35 | Discharge Summary ---
General - General Admission date:: 02/27/18 Discharge date: 03/05/18 HPI HPI: Patient is a pleasant 72-year-old gentleman admitted to hospital d/t gangrene of the toe. Patient says he injured his left big toe about 9 days ago. Following the injury he developed pain and swelling followed by gradual blackening of the skin over the tip of the big toe. He also reports erythema and low-grade fever. No history of any previous pain in his big toe. He is a known diabetic with peripheral vascular disease and had a previous amputation of his left little toe couple of years ago. He was directly admitted and started on IV antibiotics by Dr. Berg. Podiatry was consulted, but since Dr. Stauffer was out of town, an ortho consult was made and the patient was seen by Dr. Carroll. Hospital Course Hospital Course: The patient was started on abx and Dr. Carroll saw the patient. He wanted to try a few days of abx and get an x-ray. The x-rays did not show osteomyelitis. Cardiology was consulted to evaluated blood flow to the toe. They did an echo that showed an EF of 40% with wall motion abnormalities consistent with a history of [place]. Moderate MR and TR with RVSP of 47 mm Hg. They did a left leg angiogram showing adequate blood flow to the foot. The patient's blood cultures and wound cultures came back positive for Strep agalactiae and MRSA. His wound culture also had enterobacter. He was started on vancomycin along with the Invanz. Dr. Carroll felt the toe would need to be amputated. This was performed on 03/03/18. He tolerated the procedure well. On 03/05/18, he was anxious to be discharged. He had a PICC placed and his plan was to receive IV antibiotics at [facility] in [place] every a.m. He will need 4 more days of the Invanz and 5 more days of vancomycin. He will f/u with Dr. Berg and Dr. Carroll. Objective Vital signs: Temp Pulse Resp BP Pulse Ox 97.5 F L 81 18 125/67 98 03/05/18 07:45 03/05/18 07:45 03/05/18 07:45 03/05/18 07:45 03/05/18 07:45 Narrative: - Constitutional no acute distress - *Routine Respiratory Exam Present: CTA bilaterally - *Routine Cardiovascular Exam Present: RRR - *Routine Abdominal Exam Present: soft, normoactive bowel sounds. Absent: tenderness - *Routine Extremities Exam Absent: edema - *Routine Skin Exam Comments: Left great toe with erythema, edema, and multiple necrotic areas, ttp Results Labs on day of discharge: Labs from last 24 hours 03/05/18 03/05/18 11:59 06:21 POC Glucose 97 118 H Preliminary micro results at discharge 03/03/18 Unknown Wound Culture - Preliminary Toe,Left Great Staphylococcus aureus DS: Diagnosis - Discharge Diagnosis (1) Gangrene associated with diabetes mellitus Status: Acute (2) Cellulitis and abscess of foot Status: Acute (3) Poorly controlled diabetes mellitus Status: Acute (4) Arteriosclerotic cardiovascular disease Status: Acute (5) Peripheral vascular complication Status: Acute (6) Infection due to Enterobacter species Status: Acute (7) Bacteremia due to methicillin resistant Staphylococcus aureus Status: Acute Discharge Plan - Patient Discharge Instructions ACTIVITY: Limited activity DIET: diabetic diet Additional Instructions: [facility] for daily antibiotic infusions. Wound instructions per Dr. Carroll and followup with him as well. Followup with Dr. Berg in one week. Patient Instructions: Cellulitis - Follow up Plan Follow up with: John Berg MD [Primary Care Provider] - Disposition: Home, Self-Fpc Medications: Home Medications Medication Instructions Recorded Confirmed Type Amiodarone HCl [Amiodarone 200mg 200 mg PO DAILY 02/27/18 02/27/18 History Tab] Aspirin 81 mg PO DAILY 02/27/18 02/27/18 History Atorvastatin Calcium [Atorvastatin 40 mg PO HS 02/27/18 02/28/18 History 40mg Tab] Cholecalciferol (Vitamin D3) 5,000 unit PO DAILY 02/27/18 02/27/18 History [Vitamin D3 10,000 unit Cap] Furosemide [Furosemide 40MG tAB] 40 mg PO BID 02/27/18 02/27/18 History Glimepiride 4 mg PO BID 02/27/18 02/27/18 History Insulin Detemir [Levemir 100 40 unit SQ DAILY 02/27/18 02/28/18 History units/mL 10mL vial] Losartan Potassium [Cozaar] 25 mg PO DAILY 02/27/18 02/27/18 History Potassium Chloride [Klor-Con 10mEq 10 meq PO BID 02/27/18 02/28/18 History tab] Carvedilol [Carvedilol 25mg Tab] 12.5 mg PO BID 02/28/18 02/28/18 History Prescriptions/Medication Reconciliation: New Ertapenem Sodium [Invanz 1gm Vial] 1 gm IV Q24H vial Vancomycin HCl [Vancomycin 1000mg Vial] 1,750 mg IV Q24H vial Hydrocod/Acet 5/325 mg [[place] 5/325mg tablet] 1 tab PO Q4HP PRN #20 tab PRN Reason: MODERATE PAIN Continue Furosemide [Furosemide 40MG tAB] 40 mg PO BID Amiodarone HCl [Amiodarone 200mg Tab] 200 mg PO DAILY Cholecalciferol (Vitamin D3) [Vitamin D3 10,000 unit Cap] 5,000 unit PO DAILY Losartan Potassium [Cozaar] 25 mg PO DAILY Insulin Detemir [Levemir 100 units/mL 10mL vial] 40 unit SQ DAILY Glimepiride 4 mg PO BID Atorvastatin Calcium [Atorvastatin 40mg Tab] 40 mg PO HS Aspirin 81 mg PO DAILY Potassium Chloride [Klor-Con 10mEq tab] 10 meq PO BID Carvedilol [Carvedilol 25mg Tab] 12.5 mg PO BID
== END 2018-03-05 15:55 | disposition home or self-care (01) ==
LOC: 2ND → OBSVTOIN 17:06
PROVIDERS: ADMIT Family Medicine; ATTEND Family Medicine

== ENCOUNTER → 2018-03-27 11:44 | Outpatient (CLI) | payer MEDICARE, SELFPAY ==
--- NOTE | 2018-03-27 11:49 | XR_ITS ---
XR foot LT min 3V HISTORY: ITS.REASON: s/p RIGHT big toe amputation ORDERING PHYSICIAN: Gallo Carroll MD PATIENT AGE: 72 years COMPARISON: Left foot 02/28/2018 FINDINGS: There is been amputation of the distal proximal phalanx and distal phalanx of the great toe since the previous exam in February. The second third and fourth toes remain intact. The tarsal bones and metatarsals appear grossly normal except for probably old incompletely fused fracture base of fifth metatarsal. The plantar arch is normal. There are no soft tissue foreign bodies. There is arterial calcification in the lower leg, is the patient diabetic? Impression: Post recent amputation of the great toe the infiltration site base of proximal phalanx great toe appears unremarkable post surgery with a smooth border and no significant soft tissue swelling noted
== END ==
PROVIDERS: PCP Family Medicine; Visit Provider Orthopaedic Surgery
DX: Z47.89 Encounter for other orthopedic aftercare (principal)
CPT/HCPCS: 73630; 87070; 87205

== ENCOUNTER 2018-03-29 10:40 | Outpatient (CLI) | payer MEDICARE, SELFPAY ==
[2018-03-29 10:41] VITALS: BMI 30.5
[2018-03-29 11:21] LABS: INR 0.99 (0.9-1.1); Prothrombin Time 10.2 seconds (9.4-11.8)
[2018-03-29 11:24] LABS: Basophils # 0.1 K/mm3 (0-0.2); Basophils % 0.6 % (0.1-2.0); Eosinophils # 0.4 K/mm3 (0.0-0.4); Hematocrit 35.8 % (42.0-52.0); Hemoglobin 11.6 g/dL (14.1-18.0); Lymphocytes # 1.6 K/mm3 (0.7-4.5); Lymphocytes % 15.4 K/mm3 (10-50); Mean Corpuscular HGB Conc 32.3 g/dL (31.8-35.4); Mean Corpuscular Hemoglobin 29.7 pg (27.0-31.2); Mean Corpuscular Volume 91.8 fl (80-94); Mean Platelet Volume 7.5 fl (7.4-10.4); Monocytes # 0.5 K/mm3 (0.1-1.0); Monocytes % 4.5 % (1.7-9.3); Neutrophils # 7.6 K/mm3 (1.8-7.8); Neutrophils % 75.5 % (37.0-80.0); Platelet Count 206 K/mm3 (142-424); Red Cell Distribution Width 14.4 % (11.5-17.5); White Blood Count 10.1 K/mm3 (4.8-10.8)
[2018-03-29 11:26] LABS: Hemoglobin A1C 9.7 % (0.0-7.0)
[2018-03-29 11:31] LABS: Alanine Aminotransferase 25 U/L (12-78); Albumin Level 3.1 gm/dL (3.4-5.0); Albumin/Globulin Ratio 0.8 (1.1-1.8); Alkaline Phosphatase 165 U/L (46-116); Anion Gap 11.2 mEq/L (5-15); Aspartate Amino Transferase 13 U/L (15-37); Bilirubin,Total 0.3 mg/dL (0.2-1.0); Blood Urea Nitrogen 45 mg/dL (7-18); C-Reactive Protein 0.5 mg/L (0.0-0.9); Calcium 8.6 mg/dL (8.5-10.1); Carbon Dioxide 27 mmol/L (21.0-32.0); Chloride 104 mmol/L (98-107); Creatinine Clearance Estimated 32 mL/min (0-300); Creatinine,Serum 2.91 mg/dL (0.70-1.30); Estimated Glomerular Filt Rate 21 ml/min (>60); GFR (African American) 26 ML/MIN (>60); Globulin 3.8 gm/dl (1.3-3.2); Glucose 123 mg/dL (74-106); Potassium 4.2 mmoL/L (3.5-5.1); Sodium 138 mmol/L (136-145); Total Protein,Serum 6.9 gm/dL (6.4-8.2)
[2018-03-29 12:00] VITALS: BP 127/77; PULSE 68; RESP 20; TEMP 36.6; O2SAT 96
[2018-03-29 12:23] LABS: Erythrocyte Sedimentation Rate 51 mm/hr (0-20)
[2018-03-29 12:40] VITALS: BP 122/70; PULSE 68; RESP 20; TEMP 36.9; O2SAT 96
== END 2018-03-29 12:50 | disposition home or self-care (01) ==
LOC: INF 10:50
PROVIDERS: PCP Family Medicine; Visit Provider Podiatrist
DX: M86.172 Other acute osteomyelitis, left ankle and foot (principal); E11.52 Type 2 diabetes mellitus with diabetic peripheral angiopathy with gangrene
CPT/HCPCS: 80053; 83036; 85025; 85610; 85651; 86140; 96365; J1335

== ENCOUNTER 2018-04-08 12:50 | Outpatient (CLI) | payer MEDICARE, SELFPAY ==
[2018-04-08 13:00] VITALS: BP 195/66; PULSE 66; RESP 20; TEMP 36.9; O2SAT 97
[2018-04-08 14:00] VITALS: BP 185/78; PULSE 78; RESP 20; O2SAT 96
[2018-04-08 15:00] VITALS: BP 198/70; PULSE 68; RESP 20; TEMP 36.9; O2SAT 96
[2018-04-08 16:00] VITALS: BP 185/80; PULSE 70; RESP 18; TEMP 36.9; O2SAT 96
== END 2018-04-08 16:10 | disposition home or self-care (01) ==
LOC: INF 13:13
PROVIDERS: PCP Family Medicine; Visit Provider Podiatrist
DX: L03.116 Cellulitis of left lower limb (principal); E11.52 Type 2 diabetes mellitus with diabetic peripheral angiopathy with gangrene; B96.89 Other specified bacterial agents as the cause of diseases classified elsewhere; Z79.4 Long term (current) use of insulin
CPT/HCPCS: 96365; 96366; G0463; J2407

== ENCOUNTER 2018-04-16 12:15 | Outpatient (CLI) | payer MEDICARE, SELFPAY | END 2018-04-16 12:25 | disposition home or self-care (01) | LOC: INF 12:15 | PROVIDERS: PCP Family Medicine; Visit Provider Podiatrist | DX: Z45.2 Encounter for adjustment and management of vascular access device (principal) | CPT/HCPCS: G0463 ==

== ENCOUNTER → 2018-05-09 14:19 | Outpatient (CLI) | payer MEDICARE, SELFPAY ==
[2018-05-09 14:43] LABS: Basophils # 0.1 K/mm3 (0-0.2); Basophils % 0.6 % (0.1-2.0); Eosinophils # 0.3 K/mm3 (0.0-0.4); Hematocrit 34.7 % (42.0-52.0); Hemoglobin 11.2 g/dL (14.1-18.0); Lymphocytes # 1.6 K/mm3 (0.7-4.5); Lymphocytes % 16.8 K/mm3 (10-50); Mean Corpuscular HGB Conc 32.2 g/dL (31.8-35.4); Mean Corpuscular Hemoglobin 29.4 pg (27.0-31.2); Mean Corpuscular Volume 91.4 fl (80-94); Mean Platelet Volume 7.6 fl (7.4-10.4); Monocytes # 0.5 K/mm3 (0.1-1.0); Monocytes % 5.4 % (1.7-9.3); Neutrophils # 7.3 K/mm3 (1.8-7.8); Neutrophils % 74.4 % (37.0-80.0); Platelet Count 258 K/mm3 (142-424); Red Cell Distribution Width 15.1 % (11.5-17.5); White Blood Count 9.8 K/mm3 (4.8-10.8)
[2018-05-09 15:39] LABS: Erythrocyte Sedimentation Rate 71 mm/hr (0-20)
[2018-05-09 16:14] LABS: C-Reactive Protein < 0.2 mg/L (0.0-0.9)
== END ==
PROVIDERS: PCP Family Medicine; Visit Provider Podiatrist
DX: Z98.890 Other specified postprocedural states (principal); L02.612 Cutaneous abscess of left foot; L03.116 Cellulitis of left lower limb
CPT/HCPCS: 36415; 85025; 85651; 86140

== ENCOUNTER → 2018-05-16 15:48 | Outpatient (CLI) | payer MEDICARE, SELFPAY ==
--- NOTE | 2018-05-16 15:52 | XR_ITS ---
XR foot LT min 3V Ordering Physician: Porsha Stauffer DPM Patient Age: 72 years: Male HISTORY: ITS.REASON: S/P LT 2-4 DIGIT AMPUTATION TECHNIQUE: 3 views left foot COMPARISON :04/03/2018 left foot FINDINGS There is been amputation mid to proximal shaft of all metatarsals.: 1, 2, 3, 4, 5 . The closing skin [place] and overlying bandages is been removed for today's study. 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 Unchanged. The tarsals appear intact. Small vessel calcifications noted throughout the ankle and foot reflecting underlying diabetes. There is some dystrophic superficial calcification partially imaged lower leg anterior to the distal tibia with the scanner overlying soft tissues. IMPRESSION: Previous amputation at all metatarsals.: 1, 2, 3, 4, 5 . Amputated bone ends appear intact Swelling at the stump persist but it appears grossly intact by plain film.
== END ==
PROVIDERS: PCP Family Medicine; Visit Provider Podiatrist
DX: Z98.890 Other specified postprocedural states (principal)
CPT/HCPCS: 73630; 87070; 87077; 87186; 87205

== ENCOUNTER → 2018-05-29 12:19 | Outpatient (CLI) | payer MEDICARE, SELFPAY ==
[2018-05-29 13:03] LABS: Basophils # 0.1 K/mm3 (0-0.2); Basophils % 0.7 % (0.1-2.0); Eosinophils # 0.3 K/mm3 (0.0-0.4); Eosinophils % 3.7 % (0.1-12.0); Hematocrit 35.4 % (42.0-52.0); Hemoglobin 11.2 g/dL (14.1-18.0); Lymphocytes # 1.8 K/mm3 (0.7-4.5); Lymphocytes % 20.1 K/mm3 (10-50); Mean Corpuscular HGB Conc 31.6 g/dL (31.8-35.4); Mean Corpuscular Hemoglobin 29.4 pg (27.0-31.2); Mean Corpuscular Volume 92.9 fl (80-94); Mean Platelet Volume 7.4 fl (7.4-10.4); Monocytes # 0.5 K/mm3 (0.1-1.0); Monocytes % 5.2 % (1.7-9.3); Neutrophils # 6.1 K/mm3 (1.8-7.8); Neutrophils % 70.3 % (37.0-80.0); Platelet Count 296 K/mm3 (142-424); Red Blood Count 3.81 M/mm3 (4.60-6.20); Red Cell Distribution Width 15.3 % (11.5-17.5); White Blood Count 8.7 K/mm3 (4.8-10.8)
[2018-05-29 14:03] LABS: Hemoglobin A1C 9.1 % (0.0-7.0)
[2018-05-29 15:31] LABS: Alanine Aminotransferase 26 U/L (12-78); Albumin Level 3.1 gm/dL (3.4-5.0); Albumin/Globulin Ratio 0.9 (1.1-1.8); Alkaline Phosphatase 169 U/L (46-116); Anion Gap 9.8 mEq/L (5-15); Aspartate Amino Transferase 13 U/L (15-37); Bilirubin,Total 0.3 mg/dL (0.2-1.0); Blood Urea Nitrogen 37 mg/dL (7-18); Calcium 8.7 mg/dL (8.5-10.1); Carbon Dioxide 32 mmol/L (21.0-32.0); Chloride 105 mmol/L (98-107); Creatinine,Serum 2.17 mg/dL (0.70-1.30); Estimated Glomerular Filt Rate 30 ml/min (>60); GFR (African American) 36 ML/MIN (>60); Globulin 3.4 gm/dl (1.3-3.2); Glucose 218 mg/dL (74-106); Potassium 4.8 mmoL/L (3.5-5.1); Sodium 142 mmol/L (136-145); Total Protein,Serum 6.5 gm/dL (6.4-8.2)
[2018-05-29 15:54] LABS: C-Reactive Protein < 0.2 mg/L (0.0-0.9)
[2018-05-29 16:43] LABS: Erythrocyte Sedimentation Rate 81 mm/hr (0-20)
== END ==
PROVIDERS: PCP Family Medicine; Visit Provider Podiatrist
DX: Z98.890 Other specified postprocedural states (principal); L02.619 Cutaneous abscess of unspecified foot; L03.119 Cellulitis of unspecified part of limb; E11.52 Type 2 diabetes mellitus with diabetic peripheral angiopathy with gangrene
CPT/HCPCS: 36415; 80053; 83036; 85025; 85651; 86140

== ENCOUNTER → 2018-06-24 12:19 | Outpatient (POV) | payer MEDICARE, SELFPAY | PROVIDERS: PCP Family Medicine; Visit Provider Internal Medicine Nephrology | DX: Z00.00 Encounter for general adult medical examination without abnormal findings (principal) ==

== ENCOUNTER → 2019-01-09 17:17 | Outpatient (CLI) | payer MEDICARE, SELFPAY | PROVIDERS: Visit Provider Podiatrist | DX: L03.031 Cellulitis of right toe (principal); L60.0 Ingrowing nail | CPT/HCPCS: 87070; 87077; 87186; 87205 ==

== ENCOUNTER → 2019-03-19 13:55 | Outpatient (POV) | payer MEDICARE, SELFPAY | PROVIDERS: Visit Provider Internal Medicine Nephrology | DX: Z00.00 Encounter for general adult medical examination without abnormal findings (principal) ==

== ENCOUNTER → 2019-08-26 12:41 | Outpatient (CLI) | payer MEDICARE, SELFPAY ==
--- NOTE | 2019-08-26 13:29 | XR_ITS ---
PROCEDURE: XR FOOT WT BEARING RT 3V CLINICAL INDICATION: wounds Big toe wound COMPARISON: None FINDINGS: No fracture or dislocation. No lytic or blastic change. There is normal mineralization. Are mild osteoarthritic changes of the tarsal metatarsal junction of 1st 2nd 3rd and 4th metatarsals as well as the talonavicular joint and navicular cuneiform joint. There is generalized vascular calcification. No bony destructive process evident. There are small calcific densities along the distal medial aspect of the head of the 2nd and 4th metatarsals possibly due to small sesamoids. There is osteoarthritic change of the interphalangeal joint of the great toe Other findings:None. IMPRESSION: Degenerative change, no acute finding Dictated by: Reggie Leyva MD 08/26/2019 13:57 Electronically signed by Reggie Leyva MD in [place] 08/26/2019 13:57
[2019-08-26 14:10] LABS: Basophils # 0.1 K/mm3 (0-0.2); Basophils % 0.5 % (0.1-2.0); Eosinophils # 0.3 K/mm3 (0.0-0.4); Eosinophils % 3.2 % (0.1-12.0); Hematocrit 40.4 % (42.0-52.0); Hemoglobin 13.1 g/dL (14.1-18.0); Lymphocytes # 1.6 K/mm3 (0.7-4.5); Lymphocytes % 15.8 % (10-50); Mean Corpuscular HGB Conc 32.4 g/dL (31.8-35.4); Mean Corpuscular Hemoglobin 30.4 pg (27.0-31.2); Mean Corpuscular Volume 93.9 fl (80-94); Mean Platelet Volume 7.6 fl (7.4-10.4); Monocytes # 0.5 K/mm3 (0.1-1.0); Monocytes % 5.2 % (1.7-9.3); Neutrophils # 7.7 K/mm3 (1.8-7.8); Neutrophils % 75.3 % (37.0-80.0); Platelet Count 280 K/mm3 (142-424); Red Cell Distribution Width 13.9 % (11.5-17.5); White Blood Count 10.3 K/mm3 (4.8-10.8)
[2019-08-26 16:04] LABS: Erythrocyte Sedimentation Rate 124 mm/hr (0-20)
[2019-08-26 16:18] LABS: Alanine Aminotransferase 19 U/L (12-78); Albumin/Globulin Ratio 0.8 (1.1-1.8); Alkaline Phosphatase 230 U/L (46-116); Anion Gap 13.7 mEq/L (5-15); Aspartate Amino Transferase 11 U/L (15-37); Bilirubin,Total 0.6 mg/dL (0.2-1.0); Blood Urea Nitrogen 24 mg/dL (7-18); C-Reactive Protein 1.8 mg/dL (0.0-0.9); Calcium 8.7 mg/dL (8.5-10.1); Carbon Dioxide 31 mmol/L (21.0-32.0); Chloride 100 mmol/L (98-107); Creatinine,Serum 2.05 mg/dL (0.70-1.30); Estimated Glomerular Filt Rate 32 ml/min (>60); GFR (African American) 39 ML/MIN (>60); Globulin 3.6 gm/dl (1.3-3.2); Glucose 217 mg/dL (74-106); Potassium 4.7 mmoL/L (3.5-5.1); Sodium 140 mmol/L (136-145); Total Protein,Serum 6.6 gm/dL (6.4-8.2)
[2019-08-26 21:02] LABS: Hemoglobin A1C 10.4 % (0.0-7.0)
== END ==
PROVIDERS: PCP Family Medicine; Visit Provider Podiatrist
DX: E11.52 Type 2 diabetes mellitus with diabetic peripheral angiopathy with gangrene (principal); Z51.89 Encounter for other specified aftercare; L02.611 Cutaneous abscess of right foot; L03.115 Cellulitis of right lower limb; L97.511 Non-pressure chronic ulcer of other part of right foot limited to breakdown of skin; Z79.4 Long term (current) use of insulin
CPT/HCPCS: 36415; 73630; 80053; 83036; 85025; 85651; 86140; 87070; 87077; 87186; 87205

== ENCOUNTER 2019-09-04 11:10 | Outpatient (CLI) | payer MEDICARE, SELFPAY ==
--- NOTE | 2019-09-04 11:11 | US_ITS ---
APPROVED REPORT Exam Type: Ankle to Brachial Index [employer] Repairer: RT Augie(R) Indications Claudication: Bilaterally Rest Pain: Bilaterally History of Smoking ulcer on left 2nd toe with bandage present. Sore with cellulitis from the great toe LLE. Risk Factors Hypertension Diabetes History of Smoking Pressures/Indices Right Indices Left Indices Brachial 158.00 mmHg Brachial 141.00 mmHg Low Thigh 0.00 mmHg 0.00 Low Thigh 0.00 mmHg 0.00 Calf 228.00 mmHg 1.44 Calf 194.00 mmHg 1.23 Ankle(PT) 0.00 mmHg 0.00 Ankle(PT) 140.00 mmHg 0.89 Ankle(DP) 134.00 mmHg 0.85 Ankle(DP) 160.00 mmHg 1.01 Digit 36.00 mmHg 0.23 Digit Findings RT LEOPOLDO=N/C LT LEOPOLDO=0.9 RT LEOPOLDO AT THE CALF=1.4 LT TBI=no digits present RT TBI=0.23 Diminished pulses Abnormal waveforms multiple non compressible vessels seen bilaterally Conclusion RT LEOPOLDO=N/C LT LEOPOLDO=0.9 RT LEOPOLDO AT THE CALF=1.4 LT TBI=no digits present RT TBI=0.23 Diminished pulses Abnormal waveforms multiple non compressible vessels seen bilaterally Medial calcinosis (rigid vessels) is suggested due to noncompressible vessels, bilaterally. Slightly low Rt LEOPOLDO at 0.85 suggesting mild PAD Lt LEOPOLDO lower normal at 0.9 Low Rt TBI at 0.23 suggesting small vessel disease Electronically signed by : Reggie Leyva MD 09/12/2019 11:42:05
[2019-09-04 12:30] VITALS: BP 152/85; PULSE 76; RESP 18
[2019-09-04 13:30] VITALS: RESP 20
[2019-09-04 16:43] VITALS: BP 135/70; PULSE 70; RESP 18
== END 2019-09-04 16:43 | disposition home or self-care (01) ==
LOC: INF 11:11
PROVIDERS: PCP Family Medicine; Visit Provider Podiatrist
DX: R09.89 Other specified symptoms and signs involving the circulatory and respiratory systems (principal); L97.511 Non-pressure chronic ulcer of other part of right foot limited to breakdown of skin; L03.115 Cellulitis of right lower limb; B95.62 Methicillin resistant Staphylococcus aureus infection as the cause of diseases classified elsewhere
CPT/HCPCS: 93923; 96365; 96366; J2407

== ENCOUNTER → 2019-09-11 11:17 | Outpatient (CLI) | payer MEDICARE, SELFPAY ==
[2019-09-11 11:32] LABS: Basophils # 0.1 K/mm3 (0-0.2); Basophils % 0.4 % (0.1-2.0); Eosinophils # 0.3 K/mm3 (0.0-0.4); Eosinophils % 2.1 % (0.1-12.0); Hematocrit 36.9 % (42.0-52.0); Hemoglobin 12.1 g/dL (14.1-18.0); Lymphocytes # 1.3 K/mm3 (0.7-4.5); Lymphocytes % 8.7 % (10-50); Mean Corpuscular HGB Conc 32.9 g/dL (31.8-35.4); Mean Corpuscular Hemoglobin 29.9 pg (27.0-31.2); Mean Corpuscular Volume 91.1 fl (80-94); Mean Platelet Volume 7.4 fl (7.4-10.4); Monocytes # 0.6 K/mm3 (0.1-1.0); Monocytes % 4.4 % (1.7-9.3); Neutrophils # 12.2 K/mm3 (1.8-7.8); Neutrophils % 84.4 % (37.0-80.0); Platelet Count 325 K/mm3 (142-424); Red Blood Count 4.05 M/mm3 (4.60-6.20); Red Cell Distribution Width 13.5 % (11.5-17.5); White Blood Count 14.4 K/mm3 (4.8-10.8)
[2019-09-11 12:06] LABS: C-Reactive Protein 5.2 mg/dL (0.0-0.9)
[2019-09-11 12:50] LABS: Hemoglobin A1C 10.4 % (0.0-7.0)
[2019-09-11 19:33] LABS: Erythrocyte Sedimentation Rate 120 mm/hr (0-20)
== END ==
PROVIDERS: Visit Provider Podiatrist
DX: Z51.89 Encounter for other specified aftercare (principal); E11.52 Type 2 diabetes mellitus with diabetic peripheral angiopathy with gangrene; L02.612 Cutaneous abscess of left foot; Z79.4 Long term (current) use of insulin
CPT/HCPCS: 36415; 83036; 85025; 85651; 86140

== ENCOUNTER 2019-09-29 12:41 | Inpatient (IN) ==
--- NOTE | 2019-09-29 13:16 | History & Physical Report ---
*Admission Date: 09/29/19 *Reason for consult:: Right foot infection, gas gangrene *History of present illness: Mr. Beckett is a 73-year-old diabetic male who was seen outpatient in the specialty clinic today 09/29/2027. POD # 11. Patient had worsening edema and erythema to his right foot. Patient underwent a right transmetatarsal amputation 09/18/2019. Patient also underwent a cardiovascular revascularization with Dr. Vargas 09/17/2019. There is a concern of decreased and lack of perfusion secondary to peripheral arterial disease. Patient understands that the blood flow below the knee to the right is compromised. The patient presents today with a worsening infection. At this point there is concern that the patient is getting septic. He has malaise, nausea/vomiting, or chills, feels weakness with worsening right foot infection. We discussed surgical intervention for further debridement of the non-viable soft tissue and bone. The PCP was contacted. Discussed plan of care with Dr. Otis Castrejon's nurse practitioner as well as Fabian Granados cardiology. He was due to see cardiology 09/30/2019. They will consult on the floor as well. Patient will be admitted via Dr. Hyman (Binta Ramirez). Consults to Cardio (Fabian Granados), Podiatry (nm). Pre-op labs: ESR, CRP, Ha1c, CBC, CMP, right foot x- rays, blood cultures x 2. NPO now. Plan for surgery: 09/29/19 1. Right foot incision and drainage 2. Right foot debridement of nonviable soft tissue and bone [facility] History I have reviewed the patient's past medical history: Yes Medical History: Reports:: Cancer, Coronary Artery Disease, Diabetes Mellitus Type 2, Gastroesophageal Reflux Disease(GERD), Hyperlipidemia, Hypertension, Int ernal Pacemaker, MRSA, Myocardial Infarction Denies:: Diabetes Mellitus Type 1, Seizures *Have you ever received a pneumonia vaccine?: Yes *Have you received a flu vaccine this season?: Yes Other Medical History: Reports: Radiation Therapy. Denies: Blood Transfusion Reaction Other Surgeries: Yes: CABG, Cancer Surgery, Cardiac Catheterization, Cardiac Surgery (5 years ago), Colonoscopy, Coronary Stent (left leg. ), Open Heart Surgery, Pacemaker, Other (Aortic valce repair, TURP) Amputation: Yes (great hallux and 5th digit on the left foot. ) Fractures: No - *Social History Smoking Status: Former smoker Tobacco Type: cigarettes # Packs/Day (cigarettes): 0 #Yrs smoked (if former smoker): 20 Alcohol Intake: never Alcohol Intake Frequency:: holidays/special occasions only Substance Use Type: other *Occupational Status:: retired Housing: house Household Members: family *Travel in the last 8 weeks: None Family Hx:: Coronary Artery Disease, Heart Attack, Hyperlipidemia, Hypertension Review of Systems - Review of Systems Review of systems:: pertinent systems reviewed and negative unless documented below - Constitutional Reports chills, Reports fatigue, Reports malaise - Eyes Denies blurry vision - ENT Denies abnormal hearing - *Cardiovascular Reports leg swelling, Denies chest pain, Denies shortness of breath - *Respiratory Denies cough, Denies shortness of breath - *Gastrointestinal Reports nausea, Reports vomiting - *Genitourinary Denies difficulty urinating - *Musculoskeletal Reports muscle weakness - Integumentary/Breasts Reports hair loss, Reports change in hair, Reports dry skin, Reports redness, Reports wounds - *Neurologic Reports tingling/numbness/burning sensations, Reports weakness - Psychiatric Reports abnormal sleep pattern - Hematologic/Lymphatic Reports easy bruising - Allergic/Immunologic Reports GI upset with certain foods Meds Home Medications Medication Instructions Recorded Confirmed Type Amiodarone HCl [Amiodarone 200mg 200 mg PO DAILY 02/27/18 09/29/19 History Tab] Aspirin 81 mg PO DAILY 02/27/18 09/29/19 History Atorvastatin Calcium [Atorvastatin 40 mg PO HS 02/27/18 09/29/19 History 40mg Tab] Cholecalciferol (Vitamin D3) 5,000 unit PO DAILY 02/27/18 09/29/19 History [Vitamin D3 10,000 unit Cap] Furosemide [Furosemide 40MG tAB] 40 mg PO BID 02/27/18 09/29/19 History Glimepiride 4 mg PO BID 02/27/18 09/29/19 History Potassium Chloride [Klor-Con 10mEq 10 meq PO BID 02/27/18 09/29/19 History tab] carvediloL [Carvedilol 25mg Tab] 12.5 mg PO BID 02/28/18 09/29/19 History insulin aspar prot-insulin aspart 10 unit SUB-Q BID 03/29/18 09/29/19 History 100 unit/mL (70-30) subcutaneous pen insulin detemir U-100 100 unit/mL 35 unit SQ DAILY ml 01/09/19 09/29/19 History subcutaneous solution collagenase clostridium histo. 250 1 applic TOPICAL QDAY #30 g 08/26/19 09/29/19 Rx unit/gram topical ointment clindamycin HCl 300 mg capsule 300 mg PO TID 14 Days #42 cap 09/01/19 09/29/19 Rx gabapentin 100 mg capsule 100 mg PO DIRECTED cap 09/12/19 09/29/19 History Allergies Allergy/AdvReac Type Severity Reaction Status Date / Time promethazine Allergy Mild itching Verified 09/29/19 11:55 cyanocobalamin (vitamin B12) Allergy Rash Verified 09/29/19 11:55 Exam - Constitutional mild distress, chronically ill appearing, diaphoretic - *Routine HEENT Exam Head: Present: normocephalic Eye: Present: PERRL ENT: Present: mucous membranes dry - *Routine Neck Exam Absent: JVD - *Routine Respiratory Exam Absent: respiratory distress - *Routine Cardiovascular Exam Present: RRR - *Routine Abdominal Exam Present: guarding - *Routine Rectal Exam Patient deferred: visual exam - *Routine Exam Patient deferred: penile exam - *Routine Extremities Exam Present: edema, pallor, extremity cold to touch, amputation (b/l TMA). Absent: normal capillary refill - *Routine Skin Exam Present: erythema, dry, pallor, wounds, gangrene (Right foot) - *Routine Neurological Exam Present: sensory deficit, moving all extremities - Routine Psychiatric Exam Present: depressed, anxious - Detailed Lower Extremity Exam Top foot image: 1 - Right TMA site has black necrotic tissue with blister. [place] and sutures are intact. The TMA flap has more discoloration noted-purplish, dusky, dark black/green. Skin marker used to outline worsening erythema and edema, bruising and purplish discoloration. The entire distal flap is boggy with this squishy feeling. There is a new opening up on the dorsal aspect of the foot. Skin temp cool. Results - Labs Labs: All other labs normal. - Diagnostic results Ankle/Foot x-ray: image reviewed (gas noted to the distal dorsal foot) Assessment and Plan (1) Right foot infection Current visit: Yes Status: Acute Category: Medical Code(s): L08.9 - Local infection of the skin and subcutaneous tissue, unspecified (2) Gas gangrene Current visit: Yes Status: Acute Category: Medical Code(s): A48.0 - Gas gangrene (3) E coli infection Current visit: Yes Status: Acute Category: Medical Code(s): A49.8 - Other bacterial infections of unspecified site (4) Serratia marcescens infection Current visit: Yes Status: Acute Category: Medical Code(s): A48.8 - Other specified bacterial diseases (5) Abnormal ankle brachial index (LEOPOLDO) Current visit: No Status: Acute Category: Medical Code(s): R68.89 - Other general symptoms and signs (6) Arteriosclerotic cardiovascular disease Current visit: No Status: Acute Category: Medical Code(s): I25.10 - Atherosclerotic heart disease of [place] coronary artery without angina pectoris (7) Cellulitis of right foot Current visit: No Status: Acute Category: Medical Code(s): L03.115 - Cellulitis of right lower limb (8) Decreased pedal pulses Current visit: No Status: Acute Category: Medical Code(s): R09.89 - Other specified symptoms and signs involving the circulatory and respiratory systems (9) Peripheral vascular complication Current visit: No Status: Acute Category: Medical Code(s): I99.9 - Unspecified disorder of circulatory system (10) Poorly controlled diabetes mellitus Current visit: No Status: Acute Category: Medical Code(s): E11.65 - Type 2 diabetes mellitus with hyperglycemia (11) Type 2 diabetes mellitus with diabetic neuropathy, with long-term current use of insulin Current visit: No Status: Acute Category: Medical Code(s): E11.40 - Type 2 diabetes mellitus with diabetic neuropathy, unspecified; Z79.4 - snf (cu rrent) use of insulin (12) History of amputation of foot through metatarsal bone Problem details: Left TMA, 04/03/18 Current visit: No Status: Chronic Category: Surgical Code(s): Z89.439 - Acquired absence of unspecified foot (13) Obesity (BMI 30.0-34.9) Current visit: No Status: Chronic Category: Medical Code(s): E66.9 - Obes ity, unspecified - Assessment and plan all Dx Assessment and Plan for all problems:: S/p left TMA, 04/03/18 S/p right TMA, 09/18/19 POV #2 POD #11 There is a concern of decreased and lack of perfusion secondary to peripheral arterial disease. Patient understands that the blood flow below the knee to the right is compromised. The incision may take longer to heal. I also explained that if it does not heal and turns gangrenous with infection he will need a more proximal amputation. The patient presents today with a worsening infection. The PCP was contacted. Discussed plan of care with Dr. Otis Castrejon's nurse practitioner as well as Fabian Granados cardiology. He was due to see cardiology 09/30/2019. They will consult on the floor as well. PRE-OP RIGHT FOOT AMPUTATION/INFECTION I&D, DEBRIDEMENT: We discussed urgent surgical treatment options. Conservative treatment options include local wound care, oral and IV antibiotics, change in shoe wear, taping/padding, and off-loading. At this point there is concern that the patient is getting septic. He has malaise, nausea/vomiting, or chills, feels weakness with worsening right foot infection. We discussed surgical intervention for further debridement of the non-viable soft tissue and bone. Patient understands that there is a chance that the foot still does not heal after surgery. Patient also understands that they could have wound healing complications including delayed healing and infection. We discussed that if the wound does not heal, it is possible that they may need a more proximal amputation and could result in further loss of partial foot or loss of leg. We discussed the risks and benefits in great detail. Other surgical risks include: prolonged pain and swelling, further infection requiring oral or IV antibiotics, delay in healing of soft tissue or bone, nerve or blood vessel damage, CRPS/RSD, DVT, anesthesia complications, and even . Patient will be admitted via Dr. Hyman (Binta Ramirez). Consults to Cardio (Fabian Granados), Podiatry (nm). Pre-op labs: ESR, CRP, Ha1c, CBC, CMP, right foot x- rays, blood cultures x 2. Plan for surgery: 09/29/19 1. Right foot incision and drainage 2. Right foot debridement of nonviable soft tissue and bone
--- NOTE | 2019-09-29 14:32 | Progress Note ---
[facility] Anesthesia Checklist - Patient Identification Patient Identification: Arm Band - Structural Data Admitted From: Home Planned Operative Procedure/s: right foot I&D Consent for Planned Operative Procedure(s) Verified: Yes Verified Documents: Surgical Consent, History and Physical - NPO Status Verified Time NPO: 10:00 (oatmeal- case declared an emergency by Dr. Stauffer. ) - Additional verifications Anesthesia Reactions: No Hx Blood Transfusions: Yes Blood Transfusion Reaction: No - Airway Assessment C-Spine Mobility Assessed: Yes (mp2) TMJ Mobility Assessed: Yes Dentition: Good Dentition - Neurological Assessment Level of Consciousness: Awake, Alert - Anesthesia Plan Anesthesia Risk discussed: Yes Anesthesia Plan: Verified ASA Class: III (e) Anesthesia Type: General [facility] History I have reviewed the patient's past medical history: Yes Medical History: Reports:: Cancer, Coronary Artery Disease, Diabetes Mellitus Type 2, Gastroesophageal Reflux Disease(GERD), Hyperlipidemia, Hypertension, Internal Pacemaker, MRSA, Myocardial Infarction, Peripheral Artery Disease, Renal Disease, Renal Insufficiency Denies:: Diabetes Mellitus Type 1, Seizures *Have you ever received a pneumonia vaccine?: Yes *Have you received a flu vaccine this season?: Yes Other Medical History: Reports: Radiation Therapy. Denies: Blood Transfusion Reaction Anesthesia experience/problems:: nac Other Surgeries: Yes: CABG, Cancer Surgery, Cardiac Catheterization, Cardiac Surgery (5 years ago), Colonoscopy, Coronary Stent (left leg. ), Open Heart Surgery, Pacemaker, Other (Aortic valce repair, TURP) Amputation: Yes (great hallux and 5th digit on the left foot. ) Fractures: No - *Social History Educational Level: Attended College Smoking Status: Former smoker Tobacco Type: cigarettes # Packs/Day (cigarettes): 0 #Yrs smoked (if former smoker): 20 Alcohol Intake: never Alcohol Intake Frequency:: holidays/special occasions only Substance Use Type: denies use, other *Occupational Status:: retired Housing: house Household Members: family *Travel in the last 8 weeks: None Family Hx:: Coronary Artery Disease, Heart Attack, Hyperlipidemia, Hypertension
--- NOTE | 2019-09-29 15:57 | Pharmacy Consult Notes ---
- Pharmacy Consult Date: 09/29/19 Time: 15:56 Referring provider: DR. JOSE Reason for Consult:: VANCOMYCIN DOSING Allergies and ADEs:: Allergies Allergy/AdvReac Type Severity Reaction Status Date / Time promethazine Allergy Mild itching Verified 09/29/19 14:11 cyanocobalamin (vitamin B12) Allergy Rash Verified 09/29/19 14:11 Home Medications:: Home Medications Medication Instructions Recorded Confirmed Type Amiodarone HCl [Amiodarone 200mg 200 mg PO DAILY 02/27/18 09/29/19 History Tab] Aspirin 81 mg PO DAILY 02/27/18 09/29/19 History Atorvastatin Calcium [Atorvastatin 40 mg PO HS 02/27/18 09/29/19 History 40mg Tab] Cholecalciferol (Vitamin D3) 5,000 unit PO DAILY 02/27/18 09/29/19 History [Vitamin D3 10,000 unit Cap] Furosemide [Furosemide 40MG tAB] 40 mg PO BID 02/27/18 09/29/19 History Glimepiride 4 mg PO BID 02/27/18 09/29/19 History Potassium Chloride [Klor-Con 10mEq 10 meq PO BID 02/27/18 09/29/19 History tab] carvediloL [Carvedilol 25mg Tab] 12.5 mg PO BID 02/28/18 09/29/19 History insulin aspar prot-insulin aspart 10 unit SUB-Q BID 03/29/18 09/29/19 History 100 unit/mL (70-30) subcutaneous pen insulin detemir U-100 100 unit/mL 35 unit SQ DAILY ml 01/09/19 09/29/19 History subcutaneous solution collagenase clostridium histo. 250 1 applic TOPICAL QDAY #30 g 08/26/19 09/29/19 Rx unit/gram topical ointment clindamycin HCl 300 mg capsule 300 mg PO TID 14 Days #42 cap 09/01/19 09/29/19 Rx gabapentin 100 mg capsule 100 mg PO DIRECTED cap 09/12/19 09/29/19 History Height: 1.78 m Weight: 99.79 kg Laboratory Results:: Laboratory Results - last 24 hr 09/29/19 14:07: POC Glucose 222 H 09/29/19 14:49: POC Glucose 271 H 09/29/19 15:32: POC Glucose 231 H Medical History: Reports:: Cancer, Coronary Artery Disease, Diabetes Mellitus Type 2, Gastroesophageal Reflux Disease(GERD), Hyperlipidemia, Hypertension, Internal Pacemaker, MRSA, Myocardial Infarction, Peripheral Artery Disease, Renal Disease, Renal Insufficiency Denies:: Diabetes Mellitus Type 1, Seizures Assessment and Plan (1) Right foot infection Current visit: Yes Status: Acute Category: Medical Code(s): L08.9 - Local infection of the skin and subcutaneous tissue, unspecified (2) Gas gangrene Current visit: Yes Status: Acute Category: Medical Code(s): A48.0 - Gas gangrene (3) E coli infection Current visit: Yes Status: Acute Category: Medical Code(s): A49.8 - Other bacterial infections of unspecified site (4) Serratia marcescens infection Current visit: Yes Status: Acute Category: Medical Code(s): A48.8 - Other specified bacterial diseases (5) Abnormal ankle brachial index (LEOPOLDO) Current visit: No Status: Acute Category: Medical Code(s): R68.89 - Other general symptoms and signs (6) Arteriosclerotic cardiovascular disease Current visit: No Status: Acute Category: Medical Code(s): I25.10 - Atherosclerotic heart disease of [place] coronary artery without angina pectoris (7) Cellulitis of right foot Current visit: No Status: Acute Category: Medical Code(s): L03.115 - Cellulitis of right lower limb (8) Decreased pedal pulses Current visit: No Status: Acute Category: Medical Code(s): R09.89 - Other specified symptoms and signs involving the circulatory and respiratory systems (9) Peripheral vascular complication Current visit: No Status: Acute Category: Medical Code(s): I99.9 - Unspecified disorder of circulatory system (10) Poorly controlled diabetes mellitus Current visit: No Status: Acute Category: Medical Code(s): E11.65 - Type 2 diabetes mellitus with hyperglycemia (11) Type 2 diabetes mellitus with diabetic neuropathy, with long-term current use of insulin Current visit: No Status: Acute Category: Medical Code(s): E11.40 - Type 2 diabetes mellitus with diabetic neuropathy, unspecified; Z79.4 - intermediate (current) use of insulin (12) History of amputation of foot through metatarsal bone Problem details: Left TMA, 04/03/18 Current visit: No Status: Chronic Category: Surgical Code(s): Z89.439 - Acquired absence of unspecified foot (13) Obesity (BMI 30.0-34.9) Current visit: No Status: Chronic Category: Medical Code(s): E66.9 - Obesity, unspecified - Assessment and plan all Dx Assessment and Plan for all problems:: BASED ON PATIENT FACTORS, RECOMMEND VANCOMYCIN 2,000MG EVERY 36 HOURS. PHARMACY WILL CONTINUE TO MONITOR AND WILL ADJUST DOSE APPROPRIATE. -LILI GLASGOW, PHARMD
--- NOTE | 2019-09-29 17:57 | Progress Note ---
[facility] Anesthesia Record Part I Intake, IV Amount: 500 Estimated blood loss (mL): 10 Urine output (mL): 0 Blood Products used (#): none Blood Pressure: 127/56 SaO2: 90 Pulse Rate: 76 Respiratory Rate: 20 Temperature: 97.9 F Patient is:: Drowsy, Nasal O2, Stable Stable to PACU at:: 17:53
--- NOTE | 2019-09-29 18:30 | Operative Note ---
Date of procedure: 09/29/19 Pre-op Diagnosis:: 1. Right foot gas gangrene 2. Right foot cellulitis 3. Right diabetic foot infection 4. Right foot osteomyelitis 5. Right PAD Post-op Diagnosis:: Same Procedure performed:: 1. Right foot incision and drainage 2. Right foot debridement of nonviable soft tissue 3. Right foot debridement of nonviable bone 4. Right foot Chopart amputation/disarticulation Surgeon:: Porsha Stauffre DPM [employer]ATOR [employer]:: Edward Malik Anesthesia: LMA Estimated blood loss (mL): 5 Clinical Note:: S/p left TMA, 04/03/18. S/p right TMA, 09/18/19 POV #2, POD #11 PRE-OP RIGHT FOOT AMPUTATION/INFECTION I&D, DEBRIDEMENT: There is a concern of decreased and lack of perfusion secondary to peripheral arterial disease. Patient understands that the blood flow below the knee to the right is compromised. The incision may take longer to heal. I also explained that if it does not heal and turns gangrenous with infection he will need a more proximal amputation. The patient presents today with a worsening infection. The PCP was contacted. Discussed plan of care with Dr. Otis Castrejon's nurse practitioner as well as [facility] cardiology. He was due to see cardiology 09/30/2019. They will consult on the floor as well.We discussed urgent surgical treatment options. Conservative treatment options include local wound care, oral and IV antibiotics, change in shoe wear, taping/padding, and off-loading. At this point there is concern that the patient is getting septic. He has malaise, nausea/vomiting, or chills, feels weakness with worsening right foot infection. We discussed surgical intervention for further debridement of the non-viable soft tissue and bone. Patient understands that there is a chance that the foot still does not heal after surgery. Patient also understands that they could have wound healing complications including delayed healing and infection. We discussed that if the wound does not heal, it is possible that they may need a more proximal amputation and could result in further loss of partial foot or loss of leg. We discussed the risks and benefits in great detail. Other surgical risks include: prolonged pain and swelling, further infection requiring oral or IV antibiotics, delay in healing of soft tissue or bone, nerve or blood vessel damage, CRPS/RSD, DVT, anesthesia complications, and even . Operative findings:: Worsening edema and erythema noted to the right foot. There is an area of worsening black necrotic soft tissue. Gangrenous changes noted extending past the tarsometatarsal joint. Sloughy skin dorsally with blistering and new sloughy areas that probe. Significant malodor noted. The metatarsal and cuneiform bones were soft and had purulence expressed from them. There were several purulent tracts that extended to the subtalar as well as the ankle joint. Bones of the navicular and cuboid joint also appeared to be infected: Soft, crumbly, malodorous with daily drainage expressed. Over 20 cc of purulence creamy thick monroy-brownish malodorous drainage expressed. Remaining bones: fibula, tibia, talus and calcaneus. Nonsalvageable right foot s/p Chopart amputation/disarticulation. Operative note:: On this date and time patient was deemed an appropriate surgical candidate. With informed consent signed, the patient was taken to the operating theater. The patient was positioned supine. LMA anesthesia was induced. No tourniquet used. Right foot incision and drainage: The right lower extremity was prepped and drapped in normal sterile fashion. Note the patient had a previous left TMA and right TMA. Attention was directed to the right foot where shawnee were noted. The entire foot was gangrenous with necrotic tissue. There was a new dorsal wound with purulence and foul odor noted. A fish mouth incision was mapped out over all of the nonviable tissue. Utilizing a 15 blade dissection was carried down sharply to the level of the bone around the metatarsal joints which were disarticulated from the cuneiforms. The 1st metatarsal bone was soft and crumbly and had a malodor to it. It was sent for bone culture. If there were several pus pockets noted. Using a mixture of sharp and blunt dissection the foot was evaluated and over 20 cc of purulent drainage was expressed. Right foot irrigation and debridement (nonviable soft tissue, bone): At this point attention was directed more proximally. The cuneiforms were also soft with purulence noted from them. The navicular as well as the cuboid were also identified and evaluated. The soft tissue surrounding these tissues was sloughy wet, necrotic, gangrenous with significant malodor and creamy monroy purulent drainage. In the muscles or alvarado and black. The tendons were not individually identified as the entire region was very sloughy. Bone and wound cultures were taken. Bone path from the lateral foot, cuboid taken as well. Right foot Chopart amputation/disarticulation: Next 3 L of bacitracin irrigation was used to flush the wound with pulse lavage. The wound was reexplored and no further signs of purulence noted. Less than 5 cc of bleeding noted. The dorsalis pedis was identified and it was 100% stenosed at the level of the talonavicular joint. No vessels ligated with electrocautery or tied as there was almost no blood loss. There was not enough soft tissue to cover the bone. There was remaining talus, calcaneus and tibia. Betadine soaked 1 inch packing was inserted to the open wound covering the bones. The wounds were cleansed. Next betadine, dry sterile dressing was then applied to the right foot. The patient was awoken from anesthesia and transferred to recovery with vital signs stable and neurovascular status intact. Materials: 1" packing, betadine Discharge/Plan: Transfer back to the floor-admitted under Dr. Hyman. Patient is to maintain dressing clean dry and intact. Continue antibiotics: Vanco, Zosyn per Pharm dosing. No weight bearing to the right lower extremity with DME assistance (walker, wheelchair). Obtain post op films, right ankle, 3 views. NPO after midnight. Consult cardiology, ortho for evaluation of right BKA. Reason: chronic non-healing DM ulcer, PAD, osteomyelitis, gas gangrene, Chopart's amputation/disarticulation. Non-salvageable right foot. Plan for dressing change tomorrow by myself. Tourniquet time (min): 0 Condition: stable Disposition: floor Specimens:: 1. Right foot wound culture 2. Right heel wound culture 3. Right first metatarsal bone culture 4. Right metatarsals bone culture 5. Right navicular cuneiform wound culture 6. Right cuboid, lateral bone path Complications:: None
--- NOTE | 2019-09-29 18:44 | Progress Note ---
Internal Medicine - PN: Subj *Date: 09/29/19 *Time: 18:35 Interval history: FAMILY MEDICINE CONSULT S: This 73-year-old white male diabetic with peripheral vascular disease has just undergone partial right foot amputation for infection and gangrene. Podiatric surgeon was Dr. Katty Stauffer. Dr. Stauffer has requested my consultation for medical management. Patient is well-known to me. He has had for years severe diabetes, severe peripheral vascular disease, coronary artery disease. Dr. Stauffer and Dr. Carroll have both been involved with previous surgeries. Removal of fifth digit of left foot 03/23/2016 amputation of left great toe 03/03/2018 transmetatarsal amputation of left foot 04/02/2018. He has had a stent to the left leg 2011. Pacemaker placement 01/25/2013. Lead repair April 2013. Coronary artery bypass graft x2 and mitral valve repair (27 Tailor ring). Pacer defibrillator April 2013. See H&P by Dr. Adkins for detailed assessment of the current problem resulting in the surgery. Exam Vital signs and Labs for Last 24 Hours: Temp Pulse Resp BP Pulse Ox 97.9 F 76 20 127/56 L 91 L 09/29/19 17:56 09/29/19 17:56 09/29/19 17:56 09/29/19 17:56 09/29/19 13:56 Laboratory Results - last 24 hr 09/29/19 14:07: POC Glucose 222 H 09/29/19 14:49: POC Glucose 271 H 09/29/19 15:32: POC Glucose 231 H 09/29/19 18:01: POC Glucose 134 H I & O for Last 24 hours: Intake & Output 09/27/19 09/28/19 09/29/19 09/30/19 11:59 11:59 11:59 11:59 Intake Total 500 / 500 Balance 500 / 500 Weight 220 lb - Constitutional no acute distress (Seen in the PACU postop.) - *Routine HEENT Exam Head: Present: normocephalic Eye: Present: PERRL ENT: Present: mucous membranes moist - *Routine Neck Exam Present: JVD (Some distention present.) - *Routine Respiratory Exam Present: decreased breath sounds, wheezes (Occasional). Absent: respiratory distress, rhonchi - *Routine Cardiovascular Exam Present: RRR (Paced, EKG reviewed.) - *Routine Abdominal Exam Present: soft. Absent: tenderness - *Routine Extremities Exam Present: edema (3+ edema. Dressing in place on the right foot and ankle. Left foot shows partial amputation prior.) - *Routine Skin Exam Present: intact. Absent: mottling Assessment and Plan (1) Right foot infection Current visit: Yes Status: Acute Category: Medical Code(s): L08.9 - Local infection of the skin and subcutaneous tissue, unspecified (2) Gas gangrene Current visit: Yes Status: Acute Category: Medical Code(s): A48.0 - Gas gangrene (3) E coli infection Current visit: Yes Status: Acute Category: Medical Code(s): A49.8 - Other bacterial infections of unspecified site (4) Serratia marcescens infection Current visit: Yes Status: Acute Category: Medical Code(s): A48.8 - Other specified bacterial diseases (5) Abnormal ankle brachial index (LEOPOLDO) Current visit: No Status: Acute Category: Medical Code(s): R68.89 - Other general symptoms and signs (6) Arteriosclerotic cardiovascular disease Current visit: No Status: Acute Category: Medical Code(s): I25.10 - Atherosclerotic heart disease of [place] coronary artery without angina pectoris (7) Cellulitis of right foot Current visit: No Status: Acute Category: Medical Code(s): L03.115 - Cellulitis of right lower limb (8) Decreased pedal pulses Current visit: No Status: Acute Category: Medical Code(s): R09.89 - Other specified symptoms and signs involving the circulatory and respiratory systems (9) Peripheral vascular complication Current visit: No Status: Acute Category: Medical Code(s): I99.9 - Unspecified disorder of circulatory system (10) Poorly controlled diabetes mellitus Current visit: No Status: Acute Category: Medical Code(s): E11.65 - Type 2 diabetes mellitus with hyperglycemia (11) Type 2 diabetes mellitus with diabetic neuropathy, with long-term current use of insulin Current visit: No Status: Acute Category: Medical Code(s): E11.40 - Type 2 diabetes mellitus with diabetic neuropathy, unspecified; Z79.4 - detention (current) use of insulin (12) History of amputation of foot through metatarsal bone Problem details: Left TMA, 04/03/18 Current visit: No Status: Chronic Category: Surgical Code(s): Z89.439 - Acquired absence of unspecified foot (13) Obesity (BMI 30.0-34.9) Current visit: No Status: Chronic Category: Medical Code(s): E66.9 - Obesity, unspecified - Assessment and plan all Dx Assessment and Plan for all problems:: Some of his routine medicines are ordered including his amiodarone and his atorvastatin. Also his glimepiride. Levemir insulin is ordered. Sliding scale will be ordered. 20 mg of Lasix is ordered IV x1. His weight is listed as 220. Fluid balance must be monitored carefully. Thank you for the consult. I will follow the patient with you.
[2019-09-30 06:40] LABS: Basophils % 0.1 % (0.1-2.0); Eosinophils # 0.1 K/mm3 (0.0-0.4); Eosinophils % 0.6 % (0.1-12.0); Hematocrit 25.7 % (42.0-52.0); Lymphocytes # 0.8 K/mm3 (0.7-4.5); Lymphocytes % 4.3 % (10-50); Mean Corpuscular HGB Conc 30.8 g/dL (31.8-35.4); Mean Corpuscular Volume 94.6 fl (80-94); Mean Platelet Volume 8.3 fl (7.4-10.4); Monocytes # 1.1 K/mm3 (0.1-1.0); Monocytes % 5.6 % (1.7-9.3); Neutrophils # 17.1 K/mm3 (1.8-7.8); Neutrophils % 89.4 % (37.0-80.0); Platelet Count 471 K/mm3 (142-424); Red Blood Count 2.71 M/mm3 (4.60-6.20); Red Cell Distribution Width 13.8 % (11.5-17.5); White Blood Count 19.2 K/mm3 (4.8-10.8)
[2019-09-30 06:45] LABS: Albumin Level 1.5 gm/dL (3.4-5.0); Albumin/Globulin Ratio 0.3 (1.1-1.8); Anion Gap 11.4 mEq/L (5-15); Bilirubin,Total 0.7 mg/dL (0.2-1.0); Globulin 4.3 gm/dl (1.3-3.2); Total Protein,Serum 5.8 gm/dL (6.4-8.2)
[2019-09-30 06:46] LABS: Hemoglobin 7.9 g/dL (14.1-18.0)
--- NOTE | 2019-09-30 07:08 | Pharmacy Consult Notes ---
[facility] Pharmacy VTE Monitoring - Patient Demographics Admission date: 09/29/19 Report Date: 09/30/19 Time: 07:08 Allergies/Adverse Reactions: Patient Allergies promethazine Allergy (Mild, Verified 09/29/19 14:11) itching cyanocobalamin (vitamin B12) Allergy (Verified 09/29/19 14:11) Rash Height: 1.78 m Weight: 99.79 kg Patient Problems: Current Active Problems Right foot infection (Acute) Gas gangrene (Acute) E coli infection (Acute) Serratia marcescens infection (Acute) - VTE Risk Labs: VTE Related Lab Results Hgb 7.9 g/dL (14.1-18.0) L* 09/30/19 06:20 Hct 25.7 % (42.0-52.0) L 09/30/19 06:20 Plt Count 471 K/mm3 (142-424) H 09/30/19 06:20 BUN 33 mg/dL (7-18) H 09/30/19 06:20 Creatinine 2.42 mg/dL (0.70-1.30) H 09/30/19 06:20 Estimated Creat Clear 39 mL/min (50-200) 09/30/19 06:20 Was VTE Risk Assessment Performed: Yes VTE Score: 10 VTE Risk Level: Moderate Risk - Prophylaxis VTE Prophylaxis Ordered?: Yes Types of VTE Prophylaxis: TEDS Knee High Location of Applied Device: Bilateral Lower Extremeties
[2019-09-30 07:15] LABS: Lymphocytes % 5 % (10-50); Monocytes % 7 % (2-9); Neutrophils % 88 % (42-76); Total Cells Counted 100
[2019-09-30 07:16] LABS: Hypochromasia 1+
--- NOTE | 2019-09-30 07:16 | Progress Note ---
[facility] Anesthesia Record Part II Discharge Time: 18:23 Destination: Medical Surgical Department PACU nurse assessment reviewed?: Yes Patient Condition:: Good Anesthesia Complications:: None Swallowing reflex intact?: Yes Cyanosis?: No Blood Pressure: 134/65 Pulse Rate: 80 Temperature: 98.3 F Mental Status: Alert & Oriented Pain level:: 0 Nausea and/or vomitting:: None Intake, IV Amount: 0
--- NOTE | 2019-09-30 07:30 | Consult Report ---
History of Present Illness Consult date: 09/30/19 Requesting physician: Porsha Satuffer Chief complaint: PVD with right foot surgery Additional Medical History:: 1. Coronary artery disease A. Remote history of myocardial infarction approximately 1999 B. History of 3 vessel CABG with aortic valve repair and pacemaker upgrade to AICD with epicardial leads, approximately C. History of AICD implantation approximately D. Follow-up with Dr. Esquivel in [place], [place] 2. History of long-term diabetes, insulin treated 3. Peripheral vascular disease A. Remote history of stent to left leg (Esteban's canal) B. Status post amputation of toes of left foot, 2018 C. 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 Bilateral LE runoff, 09/17/2019, ANGIOGRAPHIC RESULTS The distal abdominal aorta is atheromatous but patent with no flow-limiting stenosis Bilateral common iliac arteries are patent The bilateral internal iliac arteries are patent The bilateral external iliac arteries are atheromatous but patent with no significant atherosclerotic plaque The bilateral common iliac arteries are atheromatous calcified with no significant atherosclerotic plaque The right profunda femoris artery is patent. The right superficial femoral artery is patent but has very proximal calcified 50 to 60% stenoses. The midsegment has a long 60% calcified stenosis. The popliteal artery is patent diffusely atheromatous with diffuse 30% calcified stenoses. The anterior tibialis artery peroneal artery and posterior tibialis artery are severely diseased from the proximal segment but still patent down into the ankle. Distally the ankle has very small vessel severe vasculopathy very small vessels which do perfuse the foot The left profunda femoris artery is patent. The left superficial femoral artery is calcified and atheromatous throughout with diffuse 40 and 50% stenoses. At Esteban's canal there is additional 40-50 and 60% stenoses throughout which extend throughout the entire popliteal artery. The left posterior tibialis artery is proximally occluded. The left anterior tibialis artery is patent as is the peroneal artery. The anterior tibialis artery supplies the left foot and then crosses over and collateralizes the posterior tibialis artery. The vessels are small severely atheromatous with diffuse severe vasculopathy throughout the distal calf and ankle IMPRESSION Peripheral artery disease as described above Small vessel diffuse lower extremity below the knee vasculopathy too small for either surgical or percutaneous intervention PLAN 1. Medical management 2. Recommend Xarelto 2.5 twice daily combined with aspirin 81 mg daily indefinitely 4. Hypertension A. Echo, 2018, moderate LAE, mild LVE and concentric LVH with LVEF of 40% with marked hypokinesis of inferior and posterobasal wall. Mild PETEY/RVE. MAC noted with moderate mitral and tricuspid regurgitation noted. RVSP 47 mm Hg. 5. Hyperlipidemia, on statin therapy 6. Cardiomyopathy A. Echocardiogram, 2018, ejection fraction 40% B. Amiodarone therapy, emt intermediate since CABG, presumed for A. fib 7. GERD 8. CKD, stage III, Cr 2.0-2.4 and GFR 26-32 9. History of thyroid abnormality likely secondary to amiodarone therapy 10. History of prostate cancer status post multiple surgeries and history of radiation therapy. No history of chemotherapy History of present illness: 73 yo WM with DM, CAD, PVD and CKD was admitted for podiatry surgery of right foot with suspected sepsis. Pt tolerated surgery yesterday without complications. Pt normally sees Dr. Avendaño in [place], [place] for his cardiology care with last visit in 07/2019. He is on care home amiodarone therapy with known ischemic cardiomyopathy and AICD. Cardiology asked to see pt for monitoring/management of CAD, PAD, AICD and pre-op for possible right BKA. Pt denies any chest pain, pressure, tightness or limiting SOA. [facility] History Medical History: Reports:: Cancer, Coronary Artery Disease, Diabetes Mellitus Type 2, Gastroesophageal Reflux Disease(GERD), Hyperlipidemia, Hypertension, Internal Pacemaker, MRSA, Myocardial Infarction, Peripheral Artery Disease, Renal Disease, Renal Insufficiency Denies:: Diabetes Mellitus Type 1, Seizures *Have you ever received a pneumonia vaccine?: Yes *Have you received a flu vaccine this season?: Yes Other Medical History: Reports: Radiation Therapy. Denies: Blood Transfusion Reaction Anesthesia experience/problems:: nac Other Surgeries: Yes: CABG, Cancer Surgery, Cardiac Catheterization, Cardiac Surgery (5 years ago), Colonoscopy, Coronary Stent (left leg. ), Open Heart Surgery, Pacemaker, Other (Aortic valce repair, TURP) Amputation: Yes (great hallux and 5th digit on the left foot. ) Fractures: No - *Social History Educational Level: Attended College Smoking Status: Former smoker Tobacco Type: cigarettes # Packs/Day (cigarettes): 0 #Yrs smoked (if former smoker): 20 Alcohol Intake: never Alcohol Intake Frequency:: holidays/special occasions only Substance Use Type: denies use, other *Occupational Status:: retired Housing: house Household Members: family *Travel in the last 8 weeks: None Family Hx:: Coronary Artery Disease, Heart Attack, Hyperlipidemia, Hypertension Meds Home Medications Medication Instructions Recorded Confirmed Type Amiodarone HCl [Amiodarone 200mg 200 mg PO DAILY 02/27/18 09/29/19 History Tab] Aspirin 81 mg PO DAILY 02/27/18 09/29/19 History Atorvastatin Calcium [Atorvastatin 40 mg PO HS 02/27/18 09/29/19 History 40mg Tab] Cholecalciferol (Vitamin D3) 5,000 unit PO DAILY 02/27/18 09/29/19 History [Vitamin D3 10,000 unit Cap] Furosemide [Furosemide 40MG tAB] 40 mg PO BID 02/27/18 09/29/19 History Glimepiride 4 mg PO BID 02/27/18 09/29/19 History Potassium Chloride [Klor-Con 10mEq 10 meq PO BID 02/27/18 09/29/19 History tab] carvediloL [Carvedilol 25mg Tab] 12.5 mg PO BID 02/28/18 09/29/19 History insulin aspar prot-insulin aspart 8 unit SUB-Q BID 03/29/18 09/30/19 History 100 unit/mL (70-30) subcutaneous pen insulin detemir U-100 100 unit/mL 35 unit SQ DAILY ml 01/09/19 09/29/19 History subcutaneous solution collagenase clostridium histo. 250 1 applic TOPICAL QDAY #30 g 08/26/19 09/29/19 Rx unit/gram topical ointment clindamycin HCl 300 mg capsule 300 mg PO TID 14 Days #42 cap 09/01/19 09/29/19 Rx gabapentin 100 mg capsule 100 mg PO DIRECTED cap 09/12/19 09/29/19 History Allergies Allergy/AdvReac Type Severity Reaction Status Date / Time promethazine Allergy Mild itching Verified 09/29/19 14:11 cyanocobalamin (vitamin B12) Allergy Rash Verified 09/29/19 14:11 Review of Systems - Review of Systems Review of systems:: pertinent systems reviewed and negative unless documented below - *Cardiovascular Denies chest pain, Denies shortness of breath - *Respiratory Denies cough, Denies shortness of breath - *Gastrointestinal Denies loose stools, Denies nausea, Denies vomiting - *Genitourinary Denies blood in urine - *Musculoskeletal Denies joint pain, Denies back pain - *Neurologic Reports tingling/numbness/burning sensations, Reports weakness, Denies abnormal hearing Exam Vital signs and Labs for Last 24 Hours: Temp Pulse Resp BP Pulse Ox 98.3 F 80 18 134/65 96 09/30/19 07:16 09/30/19 07:16 09/30/19 04:00 09/30/19 07:16 09/30/19 06:43 Laboratory Results - last 24 hr 09/29/19 14:07: POC Glucose 222 H 09/29/19 14:49: POC Glucose 271 H 09/29/19 15:32: POC Glucose 231 H 09/29/19 18:01: POC Glucose 134 H 09/29/19 18:11: Lactate 0.9 09/29/19 19:58: POC Glucose 135 H 09/30/19 00:54: POC Glucose 255 H 09/30/19 05:54: POC Glucose 208 H 09/30/19 06:20: WBC 19.2 H, RBC 2.71 L, Hgb 7.9 L*, Hct 25.7 L, MCV 94.6 H, MCH 29.1, MCHC 30.8 L, RDW 13.8, Plt Count 471 H, MPV 8.3, Neut % (Auto) 89.4 H, Lymph % (Auto) 4.3 L, [place] % (Auto) 5.6, Eos % (Auto) 0.6, Baso % (Auto) 0.1, Neut # (Auto) 17.1 H, Lymph # (Auto) 0.8, [place] # (Auto) 1.1 H, Eos # (Auto) 0.1, Baso # (Auto) 0.0, Total Counted 100, Neutrophils % (Manual) 88 H, Lymphocytes % (Manual) 5 L, Monocytes % (Manual) 7, Platelet Estimate Slight decrease, Hypochromasia 1+ 09/30/19 06:20: Sodium 132 L, Potassium 4.4, Chloride 95 L, Carbon Dioxide 30, Anion Gap 11.4, BUN 33 H, Creatinine 2.42 H, Estimated Creat Clear 39, Estimated GFR 26 L, Est GFR ( Amer) 32 L, Glucose 202 H, Calcium 8.0 L, Total Bilirubin 0.7, AST 45 H, ALT 53, Alkaline Phosphatase 137 H, Total Protein 5.8 L , Albumin 1.5 L D, Globulin 4.3 H, Albumin/Globulin Ratio 0.3 L I & O for Last 24 hours: Intake & Output 09/27/19 09/28/19 09/29/19 09/30/19 11:59 11:59 11:59 11:59 Intake Total 625 / 625 Output Total 120 / 120 Balance 505 / 505 Weight 220 lb Microbiology Reports for the Last 24 Hours: Microbiology 09/29/19 16:35 Foot,Right - Wound Gram Stain - Final 09/29/19 16:35 Foot,Right - Wound Gram Stain - Final - *Routine HEENT Exam Head: Present: normocephalic Eye: Present: EOMI, PERRL ENT: Present: mucous membranes moist - *Routine Neck Exam Present: supple. Absent: JVD, carotid bruit - *Routine Respiratory Exam Present: CTA bilaterally. Absent: accessory muscle use, rales, rhonchi, wheezes - *Routine Cardiovascular Exam Present: RRR. Absent: murmur, gallop, rubs - *Routine Abdominal Exam Present: soft. Absent: tenderness, distended, guarding - *Routine Extremities Exam Present: edema. Absent: calf tenderness - *Routine Neurological Exam Present: alert, oriented X3, moving all extremities Assessment and Plan (1) Right foot infection Current visit: Yes Status: Acute Category: Medical Code(s): L08.9 - Local infection of the skin and subcutaneous tissue, unspecified (2) Gas gangrene Current visit: Yes Status: Acute Category: Medical Code(s): A48.0 - Gas gangrene (3) E coli infection Current visit: Yes Status: Acute Category: Medical Code(s): A49.8 - Other bacterial infections of unspecified site (4) Serratia marcescens infection Current visit: Yes Status: Acute Category: Medical Code(s): A48.8 - Other specified bacterial diseases (5) Abnormal ankle brachial index (LEOPOLDO) Current visit: No Status: Acute Category: Medical Code(s): R68.89 - Other general symptoms and signs (6) Arteriosclerotic cardiovascular disease Current visit: No Status: Acute Category: Medical Code(s): I25.10 - Atherosclerotic heart disease of [place] coronary artery without angina pectoris (7) Cellulitis of right foot Current visit: No Status: Acute Category: Medical Code(s): L03.115 - Cellulitis of right lower limb (8) Decreased pedal pulses Current visit: No Status: Acute Category: Medical Code(s): R09.89 - Other specified symptoms and signs involving the circulatory and respiratory systems (9) Peripheral vascular complication Current visit: No Status: Acute Category: Medical Code(s): I99.9 - Unspecified disorder of circulatory system (10) Poorly controlled diabetes mellitus Current visit: No Status: Acute Category: Medical Code(s): E11.65 - Type 2 diabetes mellitus with hyperglycemia (11) Type 2 diabetes mellitus with diabetic neuropathy, with long-term current use of insulin Current visit: No Status: Acute Category: Medical Code(s): E11.40 - Type 2 diabetes mellitus with diabetic neuropathy, unspecified; Z79.4 - FPC (current) use of insulin (12) History of amputation of foot through metatarsal bone Problem details: Left TMA, 04/03/18 Current visit: No Status: Chronic Category: Surgical Code(s): Z89.439 - Acquired absence of unspecified foot (13) Obesity (BMI 30.0-34.9) Current visit: No Status: Chronic Category: Medical Code(s): E66.9 - Obesity, unspecified (14) Anemia Current visit: Yes Status: Acute Category: Medical Code(s): D64.9 - Anemia, unspecified - Assessment and plan all Dx Assessment and Plan for all problems:: 1. Cardiac status stable on current meds including amiodarone. EKG shows dual chamber pacing with LBBB. Pt is an increased but acceptable risk to proceed with right BKA if needed. AICD precautions margot-operatively 2. PVD, s/p podiatry surgery. Continue ASA 81 mg daily. Discussed recomm endation for addition of Xarelto 2.5 mg BID to reduce risk of limb ischemia. Pt would like to discuss with Dr. Berg and Dr. Avendaño. 3. Anemia, would recommend transfusing to keep Hgb > 9 in setting of CAD, PVD and ischemic cardiomyopathy. 4. DM, per Dr. Berg 5. Sepsis, pt on Zosyn and Vancomycin
--- NOTE | 2019-09-30 08:15 | Progress Note ---
Subjective Date: 09/30/19 Time: 07:50 Principal diagnosis: Right foot gas gangrene, PAD Interval history: Mr. Beckett is a 73-year-old male who presented to the hospital yesterday 09/29/2019 for routine podiatry office visit and was subsequently taken to the OR for right foot gas gangrene infection. Patient reports pain this morning to the right ankle. He has had some nausea and vomiting. He denies CP/SOB, F/C. PN: Obj Ex Vital signs: Temp Pulse Resp BP Pulse Ox 98.3 F 75 20 141/67 H 94 L 09/30/19 07:47 09/30/19 07:47 09/30/19 07:47 09/30/19 07:47 09/30/19 07:47 - Constitutional no acute distress, chronically ill appearing - Routine HEENT Exam Head: Present: normocephalic - Routine Neck Exam Present: supple - Routine Respiratory Exam Absent: respiratory distress - Routine Cardiovascular Exam Absent: JVD - Routine Abdominal Exam Present: obese - Routine Extremities Exam Present: edema, amputation. 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 The soft tissue has gangrenous changes with new brown monroy discoloration. Some mild malodor noted, but improved from yesterday. There is minimal blood noted to wound. Skin juliet with blistered skin to dorsal ankle. Pain to palpation up to the distal leg. Cellulitis has improved some, but still noted. No calf or thigh pain b/l. Left TMA site stable-well healed. Progress Note: A&P (1) Right foot infection Status: Acute Current Visit: Yes (2) Gas gangrene Status: Acute Current Visit: Yes (3) E coli infection Status: Acute Current Visit: Yes (4) Serratia marcescens infection Status: Acute Current Visit: Yes (5) Abnormal ankle brachial index (LEOPOLDO) Status: Acute Current Visit: No (6) Arteriosclerotic cardiovascular disease Status: Acute Current Visit: No (7) Cellulitis of right foot Status: Acute Current Visit: No (8) Decreased pedal pulses Status: Acute Current Visit: No (9) Peripheral vascular complication Status: Acute Current Visit: No (10) Poorly controlled diabetes mellitus Status: Acute Current Visit: No (11) Type 2 diabetes mellitus with diabetic neuropathy, with long-term current use of insulin Status: Acute Current Visit: No (12) History of amputation of foot through metatarsal bone Problem details: Left TMA, 04/03/18 Status: Chronic Current Visit: No (13) Obesity (BMI 30.0-34.9) Status: Chronic Current Visit: No (14) Anemia Status: Acute Current Visit: Yes Assessment and Plan for All Diagnoses:: Sx: 09/29/19: S/p 1. Right foot incision and drainage 2. Right foot debridement of nonviable soft tissue 3. Right foot debridement of nonviable bone 4. Right foot Chopart amputation/disarticulation Intra-op wound culture right foot: GNR Wound culture right heel: GNR Bone cultures, path: pending The right foot dressing was changed at bedside today. New gangrenous changes already noted to the soft tissue. The soft tissue is now more of a brown color. Talus exposed. Pain with palpation. The wound was flushed at the bedside with Betadine. New Betadine soaked 1 inch packing was inserted to the open wound, followed by a dressing dressing. Fabian Granados saw patient this am for cardio team. They have given cardiac clearance for a more proximal amputation. I discussed plan of care with PCP Binta YU who saw the patient with us. Due to the significant lower extremity small vessel disease and inability to further stent combined with the continued progressive worsening gangrenous changes to the foot and ankle, I discussed with the patient and his significant other about a more proximal amputation. At this point I do not think repeat debridements and grafting would be an appropriate alternative due to the patient's severe PAD combined with the gas gangrene infection. My recommendation would be orthopedic consult for evaluation of a below-knee amputation. 1. Patient is to maintain dressing clean dry and intact. Hold ice. 2. Continue antibiotics: Vanco, Zosyn per Pharm dosing. 3. No weight bearing to the right lower extremity with DME assistance (walker, wheelchair). 4. Monitor wound, bone cultures 5. NPO now awaiting pending ortho for evaluation of right BKA. Reason: chronic non-healing DM ulcer, PAD, osteomyelitis, gas gangrene, Chopart's amputation/disarticulation. Non-salvageable right foot. 6. If Dr. Carroll proceeds with a right BKA, podiatry will transfer services and sign off this admission.
--- NOTE | 2019-09-30 08:38 | Progress Note ---
Internal Medicine - PN: Subj *Date: 09/30/19 *Time: 08:50 Interval history: Patient states he did sleep a little after receiving pain medicine. He continues to have pain in the right leg/foot. He denies chest pain and shortness of breath. He ate chicken noodle soup last night and retained. He had no nausea or vomiting. He is voiding QS. White blood cell count is 19.2 with a hemoglobin of 7.9 and hematocrit of 25.7. BUN 33 with a creatinine of 2.42 Patient has been seen by cardiology this a.m. who feels patient is an acceptable risk to proceed with right BKA if needed with AICD precautions perioperatively.. Also recommended addition of Xarelto 2.5 mg twice daily which patient will discuss with Dr. Berg. Also with his anemia to transfuse to keep the hemoglobin greater than 9. Patient has also been seen by Dr. Stauffer with dressing change. She noted new gangrenous changes already to the soft tissue with a brown color. Talus was exposed. The wound was flushed at the bedside with Betadine and packed with Betadine soaked dressing. She did discuss with the patient and significant other about a more proximal amputation due to patient's severe PAD combined with gas gangreen infection. Will consult Orthopedic surgeon for possible BKA due to chronic nonhealing diabetes ulcer, PAD, osteomyelitis, gas gangrene, Chopart's amputation/disarticulation and nonsalvageable right foot. Exam Vital signs and Labs for Last 24 Hours: Temp Pulse Resp BP Pulse Ox 98.3 F 75 20 141/67 H 94 L 09/30/19 07:47 09/30/19 07:47 09/30/19 07:47 09/30/19 07:47 09/30/19 07:47 Laboratory Results - last 24 hr 09/29/19 14:07: POC Glucose 222 H 09/29/19 14:49: POC Glucose 271 H 09/29/19 15:32: POC Glucose 231 H 09/29/19 18:01: POC Glucose 134 H 09/29/19 18:11: Lactate 0.9 09/29/19 19:58: POC Glucose 135 H 09/30/19 00:54: POC Glucose 255 H 09/30/19 05:54: POC Glucose 208 H 09/30/19 06:20: WBC 19.2 H, RBC 2.71 L, Hgb 7.9 L*, Hct 25.7 L, MCV 94.6 H, MCH 29.1, MCHC 30.8 L, RDW 13.8, Plt Count 471 H, MPV 8.3, Neut % (Auto) 89.4 H, Lymph % (Auto) 4.3 L, [place] % (Auto) 5.6, Eos % (Auto) 0.6, Baso % (Auto) 0.1, Neut # (Auto) 17.1 H, Lymph # (Auto) 0.8, [place] # (Auto) 1.1 H, Eos # (Auto) 0.1, Baso # (Auto) 0.0, Total Counted 100, Neutrophils % (Manual) 88 H, Lymphocytes % (Manual) 5 L, Monocytes % (Manual) 7, Platelet Estimate Slight decrease, Hypochromasia 1+ 09/30/19 06:20: Sodium 132 L, Potassium 4.4, Chloride 95 L, Carbon Dioxide 30, Anion Gap 11.4, BUN 33 H, Creatinine 2.42 H, Estimated Creat Clear 39, Estimated GFR 26 L, Est GFR ( Amer) 32 L, Glucose 202 H, Calcium 8.0 L, Total Bilirubin 0.7, AST 45 H, ALT 53, Alkaline Phosphatase 137 H, Total Protein 5.8 L , Albumin 1.5 L D, Globulin 4.3 H, Albumin/Globulin Ratio 0.3 L 09/30/19 08:03: POC Glucose 214 H I & O for Last 24 hours: Intake & Output 09/27/19 09/28/19 09/29/19 09/30/19 11:59 11:59 11:59 11:59 Intake Total 625 / 625 Output Total 120 / 120 Balance 505 / 505 Weight 220 lb Microbiology Reports for the Last 24 Hours: Microbiology 09/29/19 16:35 Foot,Right - Wound Gram Stain - Final 09/29/19 16:35 Foot,Right - Wound Wound Culture - Preliminary Gram Negative Rods 09/29/19 16:35 Foot,Right - Wound Gram Stain - Final 09/29/19 16:35 Foot,Right - Wound Wound Culture - Preliminary Gram Negative Rods Radiology Reports for the Last 24 Hours: 09/29/2019 right ankle x-ray IMPRESSION: No acute bone findings s/p amputation with prior foot incision and debridement. 09/29/2019 right foot x-ray IMPRESSION: Postoperative changes associated with amputation at the level of proximal metatarsals with possibly some soft tissue cellulitis. Gas collections are also seen in the soft tissues appearing greater than on the previous exam raising the question of infection from gas producing organisms. 09/29/2019 chest x-ray IMPRESSION: No acute findings. - Constitutional no acute distress - *Routine Respiratory Exam Comments: Few bibasilar crackles - *Routine Cardiovascular Exam Present: RRR - *Routine Abdominal Exam Present: soft, normoactive bowel sounds, tenderness - *Routine Extremities Exam Comments: Right foot wound as per Dr. Stauffer's description - *Routine Neurological Exam Present: alert, oriented X3 Assessment and Plan (1) Right foot infection Current visit: Yes Status: Acute Category: Medical Code(s): L08.9 - Local infection of the skin and subcutaneous tissue, unspecified (2) Gas gangrene Current visit: Yes Status: Acute Category: Medical Code(s): A48.0 - Gas gangrene (3) E coli infection Current visit: Yes Status: Acute Category: Medical Code(s): A49.8 - Other bacterial infections of unspecified site (4) Serratia marcescens infection Current visit: Yes Status: Acute Category: Medical Code(s): A48.8 - Other specified bacterial diseases (5) Abnormal ankle brachial index (LEOPOLDO) Current visit: No Status: Acute Category: Medical Code(s): R68.89 - Other general symptoms and signs (6) Arteriosclerotic cardiovascular disease Current visit: No Status: Acute Category: Medical Code(s): I25.10 - Atherosclerotic heart disease of [place] coronary artery without angina pectoris (7) Cellulitis of right foot Current visit: No Status: Acute Category: Medical Code(s): L03.115 - Cellulitis of right lower limb (8) Decreased pedal pulses Current visit: No Status: Acute Category: Medical Code(s): R09.89 - Other specified symptoms and signs involving the circulatory and respiratory systems (9) Peripheral vascular complication Current visit: No Status: Acute Category: Medical Code(s): I99.9 - Unspecified disorder of circulatory system (10) Poorly controlled diabetes mellitus Current visit: No Status: Acute Category: Medical Code(s): E11.65 - Type 2 diabetes mellitus with hyperglycemia (11) Type 2 diabetes mellitus with diabetic neuropathy, with long-term current use of insulin Current visit: No Status: Acute Category: Medical Code(s): E11.40 - Type 2 diabetes mellitus with diabetic neuropathy, unspecified; Z79.4 - skilled nursing (current) use of insulin (12) History of amputation of foot through metatarsal bone Problem details: Left TMA, 04/03/18 Current visit: No Status: Chronic Category: Surgical Code(s): Z89.439 - Acquired absence of unspecified foot (13) Obesity (BMI 30.0-34.9) Current visit: No Status: Chronic Category: Medical Code(s): E66.9 - Obesity, unspecified (14) Anemia Current visit: Yes Status: Acute Category: Medical Code(s): D64.9 - Anemia, unspecified - Assessment and plan all Dx Assessment and Plan for all problems:: Orthopedic consult. Will administer 2 units of packed red blood cells.
--- NOTE | 2019-09-30 08:58 | Electrocardiograph Report ---
APPROVED REPORT Exam: Resting ECG HR:76 bpm ECG Measurements Heart Rate 76 AXES LA 142 P QRSd 186 QRS -57 QT 530 T102 QTc 596 <Conclusion> AV sequential or dual chamber electronic pacemaker Electronically signed by : Abdullahi Saez, 09/30/2019 08:57:55
--- NOTE | 2019-09-30 17:01 | Consult Report ---
*Admission Date: 09/29/19 *Reason for consult:: R foot gangrene, eval for BKA *History of present illness: Mr. Beckett is a 73-year-old male who was admitted from clinic yesterday by Dr. Stauffer for worsening edema and erythema of the right foot. He underwent transmetatarsal amputation on 09/18/2019, after a revascularization procedure by Dr. Vargas on 09/17/2019. Despite these interventions, his infection has continued to worsen and he is showing signs of sepsis. On admission yesterday he complained of nausea/vomiting, malaise, chills and weakness. He was taken to the operating room last night by Dr. Stauffer for I&D with extensive debridement and a Chopart amputation/disarticulation. Intraoperatively there was purulent material expressed, over 20 cc. The bone was poor quality and crumbled; this was sent for bone culture. All nonviable tissue was debrided and packed with Betadine dressings; the wound is left open and as there was not enough soft tissue to cover the bones. He has been on vancomycin and Zosyn per pharmacy dosing and asked to remain nonweightbearing on this extremity. He has been seen by cardiology and cleared for further surgical treatment including a below the knee amputation. According to the cardiology consultation bilateral lower extremity angiography on 09/17/2019 revealed that the distal abdominal aorta was atheromatous but patent, bilateral common iliac arteries were patent, bilateral internal, external and common iliac arteries all had atherosclerotic plaques but no significant stenosis. The right profunda femoris artery was patent but the superficial femoral artery was approximately 50 to 60% stenosed. The popliteal artery was patent but approximately 30% stenosed the anterior tibialis artery, peroneal artery, and posterior tibialis arteries were all severely diseased from the proximal segment was still patent down to the ankle. Distally the ankle had very severe small vessel disease which appeared to leave the little to no perfusion to the foot. His last echocardiogram was in February 2016 which showed approximately 40% ejection fraction. His medical history is significant for coronary artery disease, diabetes, GERD, hyperlipidemia, hypertension, MRSA infection, myocardial infarction, cancer. He is undergone cardiac catheterization, CABG, lower extremity revascularization, pacemaker placement, aortic valve repair, transurethral resection of the prostate, and several surgeries on his foot. He denies any prior orthopedic surgeries and no joint arthroplasty. He is a former smoker and rarely consumes alcohol. He lives at home with his significant other. His home medications are documented in the EMR but are significant for aspirin 81 mg daily. He has some underlying diabetic neuropathy and says his sensation is impaired distal to the mid tibia. The patient has been afebrile but has shown systemic signs of sepsis. Vital signs have remained stable since admission. His hemoglobin this morning was 7.9 and he is in the active being transfused; PRBCs are being pushed slowly due to his history of heart disease and he is currently on his second unit. His Accu- Chek glucose levels have been elevated and his white blood cell count this morning was 19.2. Creatinine is 2.42, which is slightly elevated above his baseline, though he has baseline renal impairment. Wound cultures from his I&D yesterday are preliminarily growing gram-negative rods. Review of Systems - Review of Systems Review of systems:: pertinent systems reviewed and negative unless documented below - *Neurologic Reports tingling/numbness/burning sensations, Reports weakness, Denies abnormal hearing [facility] History I have reviewed the patient's past medical history: Yes Medical History: Reports:: Cancer, Coronary Artery Disease, Diabetes Mellitus Type 2, Gastroesophageal Reflux Disease(GERD), Hyperlipidemia, Hypertension, Internal Pacemaker, MRSA, Myocardial Infarction, Peripheral Artery Disease, Renal Disease, Renal Insufficiency Denies:: Diabetes Mellitus Type 1, Seizures *Have you ever received a pneumonia vaccine?: Yes *Have you received a flu vaccine this season?: Yes Other Medical History: Reports: Radiation Therapy. Denies: Blood Transfusion Reaction Anesthesia experience/problems:: nac Other Surgeries: Yes: CABG, Cancer Surgery, Cardiac Catheterization, Cardiac Surgery (5 years ago), Colonoscopy, Coronary Stent (left leg. ), Open Heart Surgery, Pacemaker, Other (Aortic valce repair, TURP) Amputation: Yes (great hallux and 5th digit on the left foot. ) Fractures: No - *Social History Educational Level: Attended College Smoking Status: Former smoker Tobacco Type: cigarettes # Packs/Day (cigarettes): 0 #Yrs smoked (if former smoker): 20 Alcohol Intake: never Alcohol Intake Frequency:: holidays/special occasions only Substance Use Type: denies use, other *Occupational Status:: retired Housing: house Household Members: family *Travel in the last 8 weeks: None Family Hx:: Coronary Artery Disease, Heart Attack, Hyperlipidemia, Hypertension Meds Home Medications Medication Instructions Recorded Confirmed Type Amiodarone HCl [Amiodarone 200mg 200 mg PO DAILY 02/27/18 09/29/19 History Tab] Aspirin 81 mg PO DAILY 02/27/18 09/29/19 History Atorvastatin Calcium [Atorvastatin 40 mg PO HS 02/27/18 09/29/19 History 40mg Tab] Cholecalciferol (Vitamin D3) 5,000 unit PO DAILY 02/27/18 09/29/19 History [Vitamin D3 10,000 unit Cap] Furosemide [Furosemide 40MG tAB] 40 mg PO BID 02/27/18 09/29/19 History Glimepiride 4 mg PO BID 02/27/18 09/29/19 History Potassium Chloride [Klor-Con 10mEq 10 meq PO BID 02/27/18 09/29/19 History tab] carvediloL [Carvedilol 25mg Tab] 25 mg PO BID 02/28/18 09/30/19 History insulin aspar prot-insulin aspart 8 unit SUB-Q BID 03/29/18 09/30/19 History 100 unit/mL (70-30) subcutaneous pen insulin detemir U-100 100 unit/mL 35 unit SQ DAILY ml 01/09/19 09/29/19 History subcutaneous solution collagenase clostridium histo. 250 1 applic TOPICAL QDAY #30 g 08/26/19 09/29/19 Rx unit/gram topical ointment clindamycin HCl 300 mg capsule 300 mg PO TID 14 Days #42 cap 09/01/19 09/29/19 Rx gabapentin 100 mg capsule 100 mg PO DIRECTED cap 09/12/19 09/29/19 History Allergies Allergy/AdvReac Type Severity Reaction Status Date / Time promethazine Allergy Mild itching Verified 09/29/19 14:11 cyanocobalamin (vitamin B12) Allergy Rash Verified 09/29/19 14:11 Exam Vital signs and Labs for Last 24 Hours: Temp Pulse Resp BP Pulse Ox 99.1 F 87 23 155/70 H 95 09/30/19 15:40 09/30/19 15:40 09/30/19 15:40 09/30/19 15:40 09/30/19 15:40 Laboratory Results - last 24 hr 09/29/19 18:01: POC Glucose 134 H 09/29/19 18:11: Lactate 0.9 09/29/19 19:58: POC Glucose 135 H 09/30/19 00:54: POC Glucose 255 H 09/30/19 05:54: POC Glucose 208 H 09/30/19 06:20: WBC 19.2 H, RBC 2.71 L, Hgb 7.9 L*, Hct 25.7 L, MCV 94.6 H, MCH 29.1, MCHC 30.8 L, RDW 13.8, Plt Count 471 H, MPV 8.3, Neut % (Auto) 89.4 H, Lymph % (Auto) 4.3 L, [place] % (Auto) 5.6, Eos % (Auto) 0.6, Baso % (Auto) 0.1, Neut # (Auto) 17.1 H, Lymph # (Auto) 0.8, [place] # (Auto) 1.1 H, Eos # (Auto) 0.1, Baso # (Auto) 0.0, Total Counted 100, Neutrophils % (Manual) 88 H, Lymphocytes % (Manual) 5 L, Monocytes % (Manual) 7, Platelet Estimate Slight decrease, Hypochromasia 1+ 09/30/19 06:20: Sodium 132 L, Potassium 4.4, Chloride 95 L, Carbon Dioxide 30, Anion Gap 11.4, BUN 33 H, Creatinine 2.42 H, Estimated Creat Clear 39, Estimated GFR 26 L, Est GFR ( Amer) 32 L, Glucose 202 H, Calcium 8.0 L, Total Bilir ubin 0.7, AST 45 H, ALT 53, Alkaline Phosphatase 137 H, Total Protein 5.8 L, Albumin 1.5 L D, Globulin 4.3 H, Albumin/Globulin Ratio 0.3 L 09/30/19 08:03: POC Glucose 214 H 09/30/19 09:20: Blood Type O Positive, Antibody Screen Negative, Crossmatch ( [facility]) See Detail 09/30/19 11:20: Blood Type Confirm O Positive 09/30/19 11:20: POC Glucose 219 H I & O for Last 24 hours: Intake & Output 09/28/19 09/29/19 09/30/19 10/01/19 11:59 11:59 11:59 11:59 Intake Total 625 / 625 79 / 79 Output Total 120 / 120 Balance 505 / 505 79 / 79 Weight 220 lb Microbiology Reports for the Last 24 Hours: Microbiology 09/29/19 16:35 Foot,Right - Wound Gram Stain - Final 09/29/19 16:35 Foot,Right - Wound Wound Culture - Preliminary Gram Negative Rods 09/29/19 16:35 Foot,Right - Wound Gram Stain - Final 09/29/19 16:35 Foot,Right - Wound Wound Culture - Preliminary Gram Negative Rods - Constitutional no acute distress, obese - *Routine HEENT Exam Head: Present: normocephalic Eye: Present: EOMI ENT: Present: mucous membranes moist - *Routine Respiratory Exam Present: CTA bilaterally - *Routine Cardiovascular Exam Present: RRR - *Routine Abdominal Exam Present: soft. Absent: tenderness - *Routine Extremities Exam Comments: RLE dressing intact, no strikethrough see Dr. Stauffer's description of the wound in her progress note from earlier today I have reviewed photos of the wound and did not subject the patient to an extensive dressing change as this was just performed. Intra-operative photographs from I&D 09/29/19 showed necrotic tissue with joni pus, osteomyelitic bone. The limb ends at a Chopart amputation without sufficient soft tissue to create a flap distally to cover the wound. - *Routine Skin Exam Present: warm, gangrene - *Routine Neurological Exam Present: alert, oriented X3, sensory deficit, altered mental status, moving all extremities, normal tone, hearing grossly intact, normal speech. Absent: motor deficit - Routine Psychiatric Exam Present: normal affect Results - Labs Result Diagrams: 09/30/19 06:20 09/30/19 06:20 Labs: Abnormal lab results 09/29/19 09/29/19 09/30/19 Range/Units 18:01 19:58 00:54 WBC (4.8-10.8) K/mm3 RBC (4.60-6.20) M/mm3 Hgb (14.1-18.0) g/dL Hct (42.0-52.0) % MCV (80-94) fl MCHC (31.8-35.4) g/dL Plt Count (142-424) K/mm3 Neut % (Auto) (37.0-80.0) % Lymph % (Auto) (10-50) % Neut # (Auto) (1.8-7.8) K/mm3 [place] # (Auto) (0.1-1.0) K/mm3 Neutrophils % (Manual) (42-76) % Lymphocytes % (Manual) (10-50) % Sodium (136-145) mmol/L Chloride (98-107) mmol/L BUN (7-18) mg/dL Creatinine (0.70-1.30) mg/dL Estimated GFR (>60) ml/min Est GFR ( Amer) (>60) ML/MIN Glucose (74-106) mg/dL POC Glucose 134 H 135 H 255 H (70-110) Calcium (8.5-10.1) mg/dL AST (15-37) U/L Alkaline Phosphatase (46-116) U/L Total Protein (6.4-8.2) gm/dL Albumin (3.4-5.0) gm/dL Globulin (1.3-3.2) gm/dl Albumin/Globulin Ratio (1.1-1.8) Crossmatch ([facility]) 09/30/19 09/30/19 09/30/19 Range/Units 05:54 06:20 06:20 WBC 19.2 H (4.8-10.8) K/mm3 RBC 2.71 L (4.60-6.20) M/mm3 Hgb 7.9 L* (14.1-18.0) g/dL Hct 25.7 L (42.0-52.0) % MCV 94.6 H (80-94) fl MCHC 30.8 L (31.8-35.4) g/dL Plt Count 471 H (142-424) K/mm3 Neut % (Auto) 89.4 H (37.0-80.0) % Lymph % (Auto) 4.3 L (10-50) % Neut # (Auto) 17.1 H (1.8-7.8) K/mm3 [place] # (Auto) 1.1 H (0.1-1.0) K/mm3 Neutrophils % (Manual) 88 H (42-76) % Lymphocytes % (Manual) 5 L (10-50) % Sodium 132 L (136-145) mmol/L Chloride 95 L (98-107) mmol/L BUN 33 H (7-18) mg/dL Creatinine 2.42 H (0.70-1.30) mg/dL Estimated GFR 26 L (>60) ml/min Est GFR ( Amer) 32 L (>60) ML/MIN Glucose 202 H (74-106) mg/dL POC Glucose 208 H (70-110) Calcium 8.0 L (8.5-10.1) mg/dL AST 45 H (15-37) U/L Alkaline Phosphatase 137 H (46-116) U/L Total Protein 5.8 L (6.4-8.2) gm/dL Albumin 1.5 L D (3.4-5.0) gm/dL Globulin 4.3 H (1.3-3.2) gm/dl Albumin/Globulin Ratio 0.3 L (1.1-1.8) Crossmatch ([facility]) 09/30/19 09/30/19 09/30/19 Range/Units 08:03 09:20 11:20 WBC (4.8-10.8) K/mm3 RBC (4.60-6.20) M/mm3 Hgb (14.1-18.0) g/dL Hct (42.0-52.0) % MCV (80-94) fl MCHC (31.8-35.4) g/dL Plt Count (142-424) K/mm3 Neut % (Auto) (37.0-80.0) % Lymph % (Auto) (10-50) % Neut # (Auto) (1.8-7.8) K/mm3 [place] # (Auto) (0.1-1.0) K/mm3 Neutrophils % (Manual) (42-76) % Lymphocytes % (Manual) (10-50) % Sodium (136-145) mmol/L Chloride (98-107) mmol/L BUN (7-18) mg/dL Creatinine (0.70-1.30) mg/dL Estimated GFR (>60) ml/min Est GFR ( Amer) (>60) ML/MIN Glucose (74-106) mg/dL POC Glucose 214 H 219 H (70-110) Calcium (8.5-10.1) mg/dL AST (15-37) U/L Alkaline Phosphatase (46-116) U/L Total Protein (6.4-8.2) gm/dL Albumin (3.4-5.0) gm/dL Globulin (1.3-3.2) gm/dl Albumin/Globulin Ratio (1.1-1.8) Crossmatch ([facility]) See Detail H & H 09/30/19 Range/Units 06:20 Hgb 7.9 L* (14.1-18.0) g/dL Hct 25.7 L (42.0-52.0) % All other labs normal. - Diagnostic results Ankle/Foot x-ray: report reviewed, image reviewed Assessment and Plan (1) Right foot infection Current visit: Yes Status: Acute Category: Medical Code(s): L08.9 - Local infection of the skin and subcutaneous tissue, unspecified (2) Gas gangrene Current visit: Yes Status: Acute Category: Medical Code(s): A48.0 - Gas gangrene (3) E coli infection Current visit: Yes Status: Acute Category: Medical Code(s): A49.8 - Other bacterial infections of unspecified site (4) Serratia marcescens infection Current visit: Yes Status: Acute Category: Medical Code(s): A48.8 - Other specified bacterial diseases (5) Abnormal ankle brachial index (LEOPOLDO) Current visit: No Status: Acute Category: Medical Code(s): R68.89 - Other general symptoms and signs (6) Arteriosclerotic cardiovascular disease Current visit: No Status: Acute Category: Medical Code(s): I25.10 - Atherosclerotic heart disease of [place] coronary artery without angina pectoris (7) Cellulitis of right foot Current visit: No Status: Acute Category: Medical Code(s): L03.115 - Cellulitis of right lower limb (8) Decreased pedal pulses Current visit: No Status: Acute Category: Medical Code(s): R09.89 - Other specified symptoms and signs involving the circulatory and respiratory systems (9) Peripheral vascular complication Current visit: No Status: Acute Category: Medical Code(s): I99.9 - Unspecified disorder of circulatory system (10) Poorly controlled diabetes mellitus Current visit: No Status: Acute Category: Medical Code(s): E11.65 - Type 2 diabetes mellitus with hyperglycemia (11) Type 2 diabetes mellitus with diabetic neuropathy, with long-term current use of insulin Current visit: No Status: Acute Category: Medical Code(s): E11.40 - Type 2 diabetes mellitus with diabetic neuropathy, unspecified; Z79.4 - alf (current) use of insulin (12) History of amputation of foot through metatarsal bone Problem details: Left TMA, 04/03/18 Current visit: No Status: Chronic Category: Surgical Code(s): Z89.439 - Acquired absence of unspecified foot (13) Obesity (BMI 30.0-34.9) Current visit: No Status: Chronic Category: Medical Code(s): E66.9 - Obesity, unspecified (14) Anemia Current visit: Yes Status: Acute Category: Medical Code(s): D64.9 - Anemia, unspecified - Assessment and plan all Dx Assessment and Plan for all problems:: 73yo M with chronic non-healing diabetic ulcer R foot, severe PAD with RLE ischemia, gas gangrene, osteomyelitis; POD 1 s/p I&D with Chopart amputation by Dr. Stauffer -- I concur with Dr. Stauffer that this lower limb is not salvageable. To attempt further I&D with soft tissue coverage of the Chopart amp would be futile in my opinion and I agree that the amputation should be revised to a BKA. -- I discussed my recommendation with the patient and his partner, who are in agreement with this plan. I will attempt to retain the longest limb possible with a BKA, but if the more proximal tissue does not appear viable or infection is found to spread as proximal as the knee, I will need to take the amputation to an AKA. My plan is a BKA, with a well-padded stump that can later be fitted with a prosthesis. -- the patient will require prolonged nursing care and physical therapy, so evaluation for SNF placement vs home health will be initiated -- after discussion with anesthesia, will order an echocardiogram to be performed tomorrow -- recommend continued transfusion and medical optimization, as this is a procedure with an expected moderate blood loss -- continue IV vanc/zosyn -- I am ok continuing aspirin, but request that xarelto not be started until after surgery. If stronger DVT prophy desired, I am fine with an agent with a shorter half-life, such as lovenox, but please hold this 12 hours before surgery -- I discussed the risks of surgery with the patient, including bleeding, continued infection, impaired wound healing/necrosis, and need for revision surgery to an AKA. The patient vocalized understanding and is in agreement with this plan. -- plan: Clark LEMONS 10/02/19 1pm
[2019-09-30 18:21] LABS: Hematocrit 30.4 % (42.0-52.0)
[2019-09-30 18:34] LABS: Hemoglobin 9.7 g/dL (14.1-18.0)
--- NOTE | 2019-10-01 06:17 | Cardiology Report ---
APPROVED REPORT EXAM: Comprehensive 2D, Doppler, and color-flow Echocardiogram Ramp Flight Attendant: Dimple [place], RT(R) Ht: 5 ft 10 in Wt: 220lbs BSA: 2.17 BP: 141/67 mmHg Indications: CM, pre op gangrene amputation, HTN, Diabetes, CAD, CABG, AV repair, pacemaker, history of AF, EF 40% 2017 last echo Echo Enhancing Agent Indication: Endocardial border delineation Agent(s) / Amount(s) Used: Definity 2 cc 2D Dimensions LVOT 2.09 cm (M/F) 1.5-2.5 M-Mode Dimensions RVDd 3.60 cm (0.9-2.6)LVDd 5.08 cm (3.5-5.7) LVDs 4.29 cm (3.5-5.7)IVSd 1.53 cm (0.6-1.1) PWd 1.28 cm (0.6-1.1)EF (Teich) 32.70% FS 15.60% EDV (Teich) 122.70 mL ESV (Teich) 82.60 mL LV Diastology E/A Ratio 0.98 Mitral Valve MV A Velocity 103.00 (40-130 cm/s) Left Ventricle Technically difficult study because of the patient fact in poor acoustic windows. Endocardial surfaces are poorly visualized. Left atrium is mildly enlarged, left ventricle is normal size, mild concentric left ventricular hypertrophy, visually estimated ejection fraction approximately 40 to 45%, there is abnormal septal motion, inferior basal wall appears to be moderately hypokinetic. Grade 1 diastolic dysfunction seen with tissue Doppler evidence of raise left atrial pressure. Right Ventricle Right atrium and right ventricle mildly enlarged with normal contractility, pacemaker lead seen in right ventricle. Aortic Valve Aortic valve is minimally thickened and fibrosed, there is no aortic stenosis or aortic insufficiency. Mitral Valve Mitral valve has mitral annular calcification, mitral inflow is not suggestive of mitral stenosis, there is mild mitral regurgitation. Tricuspid Valve Tricuspid valve is minimally thickened, there is mild tricuspid regurgitation, tricuspid regurgitation jet velocity is inadequate for calculation of the right ventricular systolic pressure. Pulmonic Valve Pulmonic valve is poorly visualized. Great Vessels Aortic root is normal size. Pericardium No significant pericardial effusion noted. Conclusion 1. Technically difficult study because of the patient fact in poor acoustic windows 2. Mildly enlarged left atrium, normal left ventricular size, mild concentric left ventricular hypertrophy, visually estimated ejection fraction of 40 to 45% as described above, grade 1 diastolic dysfunction seen with tissue Doppler evidence of raise left atrial pressure. 3. Mild mitral and tricuspid regurgitation. 4. No significant pericardial effusion noted. Electronically signed by : Justyn Mendieta, 10/01/2019 06:16:54
--- NOTE | 2019-10-01 08:09 | Progress Note ---
Internal Medicine - PN: Subj *Date: 10/01/19 *Time: 08:05 Interval history: Patient states he is feeling a little better this am. He does have a cough and some wheezing. He slept better last night and his pain is controlled this morning after having some Tylenol. He does have some swelling in his right lower leg. He was not able to eat very much breakfast due to nausea. Exam Vital signs and Labs for Last 24 Hours: Temp Pulse Resp BP Pulse Ox 97.6 F 75 16 159/67 H 92 L 10/01/19 05:35 10/01/19 05:35 10/01/19 03:55 10/01/19 05:35 10/01/19 05:35 Laboratory Results - last 24 hr 09/30/19 08:03: POC Glucose 214 H 09/30/19 09:20: Blood Type O Positive, Antibody Screen Negative, Crossmatch ([facility]) See Detail 09/30/19 11:20: Blood Type Confirm O Positive 09/30/19 11:20: POC Glucose 219 H 09/30/19 18:11: Hgb 9.7 L D, Hct 30.4 L 09/30/19 20:50: POC Glucose 254 H 10/01/19 01:22: POC Glucose 100 10/01/19 05:35: POC Glucose 50 L 10/01/19 05:41: POC Glucose 53 L 10/01/19 05:54: Random Glucose 43 L* 10/01/19 06:28: POC Glucose 84 I & O for Last 24 hours: Intake & Output 09/28/19 09/29/19 09/30/19 10/01/19 11:59 11:59 11:59 11:59 Intake Total 625 / 625 977 / 977 Output Total 120 / 120 Balance 505 / 505 977 / 977 Weight 220 lb 222 lb 1 oz Microbiology Reports for the Last 24 Hours: Microbiology 09/29/19 16:44 Foot,Right - Wound Gram Stain - Final 09/29/19 16:44 Foot,Right - Wound Surgical Biopsy Culture - Preliminary NO GROWTH AFTER 24 HOURS 09/29/19 16:44 Toe,Right Great Gram Stain - Final 09/29/19 16:44 Toe,Right Great Surgical Biopsy Culture - Preliminary NO GROWTH AFTER 24 HOURS 09/29/19 16:44 Foot,Right - Wound Gram Stain - Final 09/29/19 16:44 Foot,Right - Wound Surgical Biopsy Culture - Preliminary NO GROWTH AFTER 24 HOURS 09/29/19 16:44 Foot,Right Gram Stain - Final 09/29/19 16:44 Foot,Right Surgical Biopsy Culture - Preliminary NO GROWTH AFTER 24 HOURS 09/29/19 16:35 Foot,Right - Wound Gram Stain - Final 09/29/19 16:35 Foot,Right - Wound Wound Culture - Preliminary Gram Negative Rods 09/29/19 16:35 Foot,Right - Wound Gram Stain - Final 09/29/19 16:35 Foot,Right - Wound Wound Culture - Preliminary Gram Negative Rods - Constitutional no acute distress - *Routine Respiratory Exam Present: rales (faint bibasilar rales), wheezes - *Routine Cardiovascular Exam Present: RRR - *Routine Abdominal Exam Present: soft, normoactive bowel sounds. Absent: tenderness - *Routine Extremities Exam Present: edema (RLE). Absent: cyanosis, clubbing - *Routine Skin Exam Comments: Dressing in place on right foot - *Routine Neurological Exam Present: alert, oriented X3 Assessment and Plan (1) Right foot infection Current visit: Yes Status: Acute Category: Medical Code(s): L08.9 - Local infection of the skin and subcutaneous tissue, unspecified (2) Gas gangrene Current visit: Yes Status: Acute Category: Medical Code(s): A48.0 - Gas gangrene (3) E coli infection Current visit: Yes Status: Acute Category: Medical Code(s): A49.8 - Other bacterial infections of unspecified site (4) Serratia marcescens infection Current visit: Yes Status: Acute Category: Medical Code(s): A48.8 - Other specified bacterial diseases (5) Abnormal ankle brachial index (LEOPOLDO) Current visit: No Status: Acute Category: Medical Code(s): R68.89 - Other general symptoms and signs (6) Arteriosclerotic cardiovascular disease Current visit: No Status: Acute Category: Medical Code(s): I25.10 - Atherosclerotic heart disease of [place] coronary artery without angina pectoris (7) Cellulitis of right foot Current visit: No Status: Acute Category: Medical Code(s): L03.115 - Cellulitis of right lower limb (8) Decreased pedal pulses Current visit: No Status: Acute Category: Medical Code(s): R09.89 - Other specified symptoms and signs involving the circulatory and respiratory systems (9) Peripheral vascular complication Current visit: No Status: Acute Category: Medical Code(s): I99.9 - Unspecified disorder of circulatory system (10) Poorly controlled diabetes mellitus Current visit: No Status: Acute Category: Medical Code(s): E11.65 - Type 2 diabetes mellitus with hyperglycemia (11) Type 2 diabetes mellitus with diabetic neuropathy, with long-term current use of insulin Current visit: No Status: Acute Category: Medical Code(s): E11.40 - Type 2 diabetes mellitus with diabetic neuropathy, unspecified; Z79.4 - FDC (current) use of insulin (12) History of amputation of foot through metatarsal bone Problem details: Left TMA, 04/03/18 Current visit: No Status: Chronic Categ ory: Surgical Code(s): Z89.439 - Acquired absence of unspecified foot (13) Obesity (BMI 30.0-34.9) Current visit: No Status: Chronic Category: Medical Code(s): E66.9 - Obesity, unspecified (14) Anemia Current visit: Yes Status: Acute Category: Medical Code(s): D64.9 - Anemia, unspecified - Assessment and plan all Dx Assessment and Plan for all problems:: Patient's H&H has improved with transfusion. We will get a chest x-ray today due to rales and wheezing. Will await final wound culture. Dr. Tang plans to perform a right BKA tomorrow. Will get labs tomorrow before surgery.
--- NOTE | 2019-10-01 09:29 | Progress Note ---
<Asmita Garcia - Last Filed: 10/01/19 09:37> Subjective Date: 10/01/19 Time: 09:26 Principal diagnosis: Right foot gas gangrene, PAD Interval history: This is a 73-year-old white male who was admitted to the hospital with suspected sepsis. The patient did have a podiatry surgery yesterday that he tolerated well but due to the sepsis of his right lower extremity right below the knee amputation has been recommended. The patient normally sees Dr. Esquivel in [facility] for his cardiology care and his last appointment was July 2019. The patient cardiac standpoint was stable per his report. He denies any chest pain or pressure. He denies any shortness of breath. His echocardiogram from yesterday shows stable EF at 40 to 45%. He does have ischemic cardiomyopathy status post AICD placement and remains on amiodarone therapy w hich he has tolerated well. He denies any significant shortness of breath. The patient does report edema in the right lower extremity. He has been nauseated this morning and was unable to eat his breakfast. He states that he is a little depressed because he has to have his leg amputated. He denies any fever, chills, vomiting, diarrhea, PND or orthopnea. Exam Vital signs and Labs for Last 24 Hours: Temp Pulse Resp BP Pulse Ox 97.4 F L 83 20 164/81 H 94 L 10/01/19 08:00 10/01/19 08:00 10/01/19 08:00 10/01/19 08:00 10/01/19 08:00 Laboratory Results - last 24 hr 09/30/19 09:20: Blood Type O Positive, Antibody Screen Negative, Crossmatch (AHG) See Detail 09/30/19 11:20: Blood Type Confirm O Positive 09/30/19 11:20: POC Glucose 219 H 09/30/19 18:11: Hgb 9.7 L D, Hct 30.4 L 09/30/19 20:50: POC Glucose 254 H 10/01/19 01:22: POC Glucose 100 10/01/19 05:35: POC Glucose 50 L 10/01/19 05:41: POC Glucose 53 L 10/01/19 05:54: Random Glucose 43 L* 10/01/19 05:54: POC Glucose 40 L* 10/01/19 05:55: POC Glucose 48 L* 10/01/19 05:57: POC Glucose 50 L 10/01/19 06:05: POC Glucose 53 L 10/01/19 06:09: POC Glucose 60 L 10/01/19 06:28: POC Glucose 84 I & O for Last 24 hours: Intake & Output 09/28/19 09/29/19 09/30/19 10/01/19 23:59 23:59 23:59 23:59 Intake Total 525 / 525 487 / 487 830 / 830 Output Total 120 / 120 Balance 525 / 405 367 / 367 830 / 830 Weight 220 lb 3 oz 220 lb 222 lb 1 oz Microbiology Reports for the Last 24 Hours: Microbiology 09/29/19 16:44 Foot,Right - Wound Gram Stain - Final 09/29/19 16:44 Foot,Right - Wound Surgical Biopsy Culture - Preliminary NO GROWTH AFTER 24 HOURS 09/29/19 16:44 Toe,Right Great Gram Stain - Final 09/29/19 16:44 Toe,Right Great Surgical Biopsy Culture - Preliminary NO GROWTH AFTER 24 HOURS 09/29/19 16:44 Foot,Right - Wound Gram Stain - Final 09/29/19 16:44 Foot,Right - Wound Surgical Biopsy Culture - Preliminary NO GROWTH AFTER 24 HOURS 09/29/19 16:44 Foot,Right Gram Stain - Final 09/29/19 16:44 Foot,Right Surgical Biopsy Culture - Preliminary NO GROWTH AFTER 24 HOURS 09/29/19 16:35 Foot,Right - Wound Gram Stain - Final 09/29/19 16:35 Foot,Right - Wound Wound Culture - Preliminary Gram Negative Rods 09/29/19 16:35 Foot,Right - Wound Gram Stain - Final 09/29/19 16:35 Foot,Right - Wound Wound Culture - Preliminary Gram Negative Rods Narrative: Echocardiogram shows: 1. Technically difficult study because of the patient fact in poor acoustic windows 2. Mildly enlarged left atrium, normal left ventricular size, mild concentric left ventricular hypertrophy, visually estimated ejection fraction of 40 to 45% as described above, grade 1 diastolic dysfunction seen with tissue Doppler evidence of raise left atrial pressure. 3. Mild mitral and tricuspid regurgitation. 4. No significant pericardial effusion noted. - Constitutional no acute distress, obese - *Routine HEENT Exam Head: Present: normocephalic, atraumatic Eye: Present: EOMI, PERRL ENT: Present: mucous membranes moist - *Routine Neck Exam Present: supple, full ROM, normal carotid upstroke. Absent: JVD, carotid bruit, lymphadenopathy - *Routine Respiratory Exam Present: decreased breath sounds, wheezes (Expiratory) - *Routine Cardiovascular Exam Present: RRR, Normal S1, Normal S2 - *Routine Abdominal Exam Present: soft, normoactive bowel sounds. Absent: tenderness, distended - *Routine Extremities Exam Present: edema (Right lower extremity), full ROM. Absent: cyanosis, clubbing, pulses intact (Left lower extremity pulses intact; right lower extremity is absent), normal capillary refill (Left lower extremity cap refill normal; no cap refill in the right) Comments: Right lower extremity dressing intact - *Routine Skin Exam Present: warm. Absent: rash - *Routine Neurological Exam Present: alert, oriented X3, CN II-XII intact - Routine Psychiatric Exam Present: normal affect, normal thought process, depressed - Detailed Eye Exam Eyelids: Left normal inspection Progress Note: A&P (1) Right foot infection Status: Acute Current Visit: Yes (2) Gas gangrene Status: Acute Current Visit: Yes (3) E coli infection Status: Acute Current Visit: Yes (4) Serratia marcescens infection Status: Acute Current Visit: Yes (5) Abnormal ankle brachial index (LEOPOLDO) Status: Acute Current Visit: No (6) Arteriosclerotic cardiovascular disease Status: Acute Current Visit: No (7) Cellulitis of right foot Status: Acute Current Visit: No (8) Decreased pedal pulses Status: Acute Current Visit: No (9) Peripheral vascular complication Status: Acute Current Visit: No (10) Poorly controlled diabetes mellitus Status: Acute Current Visit: No (11) Type 2 diabetes mellitus with diabetic neuropathy, with long-term current use of insulin Status: Acute Current Visit: No (12) History of amputation of foot through metatarsal bone Problem details: Left TMA, 04/03/18 Status: Chronic Current Visit: No (13) Obesity (BMI 30.0-34.9) Status: Chronic Current Visit: No (14) Anemia Status: Acute Current Visit: Yes Assessment and Plan for All Diagnoses:: Plan: 1. The patient was admitted to the hospital status post foot amputation on the right due to infection. The patient was also admitted with sepsis. Given the infection in the right lower extremity it has been recommended that he undergo a right below the knee amputation which is scheduled for tomorrow. 2. The patient did undergo an echocardiogram yesterday which showed a stable ejection fraction of 40 to 45%. No signs of overt congestive heart failure or wall motion abnormalities. He denies any chest pain or pressure. No plans for invasive cardiac testing at this time. 3. The patient does see Dr. Esquivel at for his cardiac care. He was recently evaluated and stable at that time. 4. The patient does have a history of coronary artery disease which is likely stable. 5. His blood pressure is elevated this morning. We will continue to monitor and make changes if needed. 6. His LDL goal is less than 55. 7. The patient is diabetic. He does need aggressive control of his diabetes. Will defer this to his primary care provider. 8. The patient is stating he is a little depressed ever have to get his leg amputated. Have had a long discussion with the patient about the amputation and devices that will be available him following the amputation to help him remain mobile and able to ambulate. Patient has verbalized understanding. I have advised the patient to discuss his depressed symptoms with his primary care provider as well. 9. The patient has had some anemia. This is improved with transfusion. Do recommend a hemoglobin greater than 9 in this patient with known coronary artery disease, peripheral arterial disease and ischemic cardiomyopathy. 10. PAD is present and as mentioned above he will undergo right below the knee amputation tomorrow. 11. The patient is at increased but acceptable risk from a cardiac standpoint to proceed with right below the knee amputation. Please be mindful of fluids to avoid pulmonary edema in this patient with cardiomyopathy. 12. He does have an AICD in place which is followed by Dr. Esquivel. 13. His sepsis is being treated with antibiotics per his primary care provider. Will defer. 14. Recommend aspirin and Xarelto 2.5 mg p.o. twice daily following surgery. However this will ultimately be left up to Dr. Berg and Dr. Esquivel. 15. Further recommendations will be made pending the patient's response to treatment. Thank you for the opportunity to help participate in the care of this patient. <Marko Vargas - Last Filed: 10/01/19 14:48> Exam Vital signs and Labs for Last 24 Hours: Temp Pulse Resp BP Pulse Ox 97.4 F L 83 20 164/81 H 94 L 10/01/19 08:00 10/01/19 08:00 10/01/19 08:00 10/01/19 08:00 10/01/19 08:00 Laboratory Results - last 24 hr 09/30/19 09:20: Blood Type O Positive, Antibody Screen Negative, Crossmatch (AHG) See Detail 09/30/19 18:11: Hgb 9.7 L D, Hct 30.4 L 09/30/19 20:50: POC Glucose 254 H 10/01/19 01:22: POC Glucose 100 10/01/19 05:35: POC Glucose 50 L 10/01/19 05:41: POC Glucose 53 L 10/01/19 05:54: Random Glucose 43 L* 10/01/19 05:54: POC Glucose 40 L* 10/01/19 05:55: POC Glucose 48 L* 10/01/19 05:57: POC Glucose 50 L 10/01/19 06:05: POC Glucose 53 L 10/01/19 06:09: POC Glucose 60 L 10/01/19 06:28: POC Glucose 84 10/01/19 09:40: WBC 23.8 H*, RBC 3.22 L, Hgb 9.4 L, Hct 29.7 L, MCV 92.1, MCH 29.3, MCHC 31.8, RDW 14.5, Plt Count 484 H, MPV 7.9, Neut % (Auto) 88.2 H, Lymph % (Auto) 3.1 L, [place] % (Auto) 8.1, Eos % (Auto) 0.4, Baso % (Auto) 0.2, Neut # (Auto) 21.0 H, Lymph # (Auto) 0.8, [place] # (Auto) 1.9 H, Eos # (Auto) 0.1, Baso # (Auto) 0.0, Total Counted 100, Neutrophils % (Manual) 90 H, Lymphocytes % (Manual) 6 L, Monocytes % (Manual) 4, Platelet Estimate Normal, RBC Morphology Normal 10/01/19 09:40: Sodium 133 L, Potassium 4.5, Chloride 97 L, Carbon Dioxide 29, Anion Gap 11.5, BUN 33 H, Creatinine 2.41 H, Estimated Creat Clear 39, Estimated GFR 27 L, Est GFR ( Amer) 32 L, Glucose 127 H, Calcium 8.2 L 10/01/19 11:42: POC Glucose 244 H I & O for Last 24 hours: Intake & Output 09/29/19 09/30/19 10/01/19 10/02/19 11:59 11:59 11:59 11:59 Intake Total 625 / 625 1217 / 1217 Output Total 120 / 120 Balance 505 / 505 1217 / 1217 Weight 220 lb 222 lb 1 oz 220 lb 7.396 oz Microbiology Reports for the Last 24 Hours: Microbiology 09/29/19 16:44 Foot,Right - Wound Gram Stain - Final 09/29/19 16:44 Foot,Right - Wound Surgical Biopsy Culture - Preliminary Gram Negative Rods 09/29/19 16:44 Foot,Right - Wound Gram Stain - Final 09/29/19 16:44 Foot,Right - Wound Surgical Biopsy Culture - Preliminary Gram Negative Rods 09/29/19 16:44 Toe,Right Great Gram Stain - Final 09/29/19 16:44 Toe,Right Great Surgical Biopsy Culture - Preliminary Gram Negative Rods 09/29/19 16:44 Foot,Right Gram Stain - Final 09/29/19 16:44 Foot,Right Surgical Biopsy Culture - Preliminary Gram Negative Rods 09/29/19 16:35 Foot,Right - Wound Gram Stain - Final 09/29/19 16:35 Foot,Right - Wound Wound Culture - Preliminary Citrobacter youngae 09/29/19 16:35 Foot,Right - Wound Gram Stain - Final 09/29/19 16:35 Foot,Right - Wound Wound Culture - Preliminary Serratia marcescens Progress Note: A&P (1) Right foot infection Status: Acute Current Visit: Yes (2) Gas gangrene Status: Acute Current Visit: Yes (3) E coli infection Status: Acute Current Visit: Yes (4) Serratia marcescens infection Status: Acute Current Visit: Yes (5) Abnormal ankle brachial index (LEOPOLDO) Status: Acute Current Visit: No (6) Arteriosclerotic cardiovascular disease Status: Acute Current Visit: No (7) Cellulitis of right foot Status: Acute Current Visit: No (8) Decreased pedal pulses Status: Acute Current Visit: No (9) Peripheral vascular complication Status: Acute Current Visit: No (10) Poorly controlled diabetes mellitus Status: Acute Current Visit: No (11) Type 2 diabetes mellitus with diabetic neuropathy, with long-term current use of insulin Status: Acute Current Visit: No (12) History of amputation of foot through metatarsal bone Problem details: Left TMA, 04/03/18 Status: Chronic Current Visit: No (13) Obesity (BMI 30.0-34.9) Status: Chronic Current Visit: No (14) Anemia Status: Acute Current Visit: Yes
--- NOTE | 2019-10-01 09:58 | Progress Note ---
Subjective Date: 10/01/19 Time: 08:45 Principal diagnosis: Right foot gas gangrene, PAD Interval history: Mr. Beckett was resting comfortably in bed this morning. He states he is feeling " down and depressed". Patient was inquiring about going home with home health care versus retirement placement. He denies pain this morning. He denies fever/chills, denies vomiting. PN: Obj Ex Vital signs: Temp Pulse Resp BP Pulse Ox 97.4 F L 83 20 164/81 H 94 L 10/01/19 08:00 10/01/19 08:00 10/01/19 08:00 10/01/19 08:00 10/01/19 08:00 - Constitutional no acute distress - Routine HEENT Exam Head: Present: normocephalic - Routine Neck Exam Present: supple - Routine Respiratory Exam Absent: respiratory distress - Routine Abdominal Exam Present: soft. Absent: guarding - Routine Extremities Exam Present: edema, amputation (L TMA, R Chopart). 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 The soft tissue has gangrenous changes with more proximal blistering and brown monroy discoloration. Some mild malodor noted, but improving. There is no blood noted to wound. Skin juliet with blistered skin to dorsal ankle. Less pain to palpation up to the distal leg. Cellulitis has improved some, but still noted. No calf or thigh pain b/l. Left TMA site stable-well healed. - Routine Skin Exam Present: erythema, wounds, gangrene - Routine Neurological Exam Present: sensory deficit - Routine Psychiatric Exam Present: depressed, anxious Progress Note: A&P (1) Right foot infection Status: Acute Current Visit: Yes (2) Gas gangrene Status: Acute Current Visit: Yes (3) E coli infection Status: Acute Current Visit: Yes (4) Serratia marcescens infection Status: Acute Current Visit: Yes (5) Abnormal ankle brachial index (LEOPOLDO) Status: Acute Current Visit: No (6) Arteriosclerotic cardiovascular disease Status: Acute Current Visit: No (7) Cellulitis of right foot Status: Acute Current Visit: No (8) Decreased pedal pulses Status: Acute Current Visit: No (9) Peripheral vascular complication Status: Acute Current Visit: No (10) Poorly controlled diabetes mellitus Status: Acute Current Visit: No (11) Type 2 diabetes mellitus with diabetic neuropathy, with long-term current use of insulin Status: Acute Current Visit: No (12) History of amputation of foot through metatarsal bone Problem details: Left TMA, 04/03/18 Status: Chronic Current Visit: No (13) Obesity (BMI 30.0-34.9) Status: Chronic Current Visit: No (14) Anemia Status: Acute Current Visit: Yes Assessment and Plan for All Diagnoses:: Sx: 09/29/19: S/p 1. Right foot incision and drainage 2. Right foot debridement of nonviable soft tissue 3. Right foot debridement of nonviable bone 4. Right foot Chopart amputation/disarticulation POD #2 Intra-op wound culture right foot: GNR Wound culture right heel: GNR Bone cultures, path: pending The right foot dressing was changed at bedside this morning. More proximal gangrenous changes already noted to the soft tissue. The soft tissue is dusky and brown color. Talus exposed. Less pain with palpation. The wound was flushed at the bedside with Betadine. Hemostat used to probe the tracks, no purulence expressed. New Betadine soaked 1 inch packing was inserted to the open wound, followed by a dressing dressing. Asmita Garcia saw patient this am for cardio team. They have given cardiac clearance for a more proximal amputation after ECHO 09/30/19. Due to the significant lower extremity small vessel disease and inability to further stent combined with the continued progressive worsening gangrenous changes to the foot and ankle, I discussed with the patient and his significant other about a more proximal amputation. At this point I do not think repeat debridements and grafting would be an appropriate alternative due to the patient's severe PAD combined with the gas gangrene infection. Patient was definitely down and depressed this morning. I offered education and support regarding his diabetes and PAD. Recommend he follow-up with the orthopedic surgeon and his PCP with this as well. Patient was concerned about placement in a retirement versus going home with home health care. I explained that he will need to be nonweightbearing to the right lower extremity in the postoperative phase. I explained he will need to discuss possible prostheses and rehabilitation with Dr. Tang. 1. Patient is to maintain dressing clean dry and intact. Hold ice. 2. Continue antibiotics: Vanco, Zosyn per Pharm dosing. 3. NWB to RLE with DME assistance (walker, wheelchair). Case mgmt: may need bedside commode, shower chair. 4. Monitor wound, bone cultures. 5. Refer care to Dr. Tang ortho for evaluation of right BKA. Reason: chronic non-healing DM ulcer, PAD, osteomyelitis, gas gangrene, Chopart's amputation/disarticulation. Non-salvageable right foot. 6. Ortho plans for R BKA 10/02/19 @1300. 7. Please call with questions or concerns. 8. Transfer care of services to ortho and sign off this admission.
[2019-10-01 10:02] LABS: Basophils % 0.2 % (0.1-2.0); Eosinophils # 0.1 K/mm3 (0.0-0.4); Eosinophils % 0.4 % (0.1-12.0); Hematocrit 29.7 % (42.0-52.0); Hemoglobin 9.4 g/dL (14.1-18.0); Lymphocytes # 0.8 K/mm3 (0.7-4.5); Lymphocytes % 3.1 % (10-50); Mean Corpuscular HGB Conc 31.8 g/dL (31.8-35.4); Mean Corpuscular Volume 92.1 fl (80-94); Mean Platelet Volume 7.9 fl (7.4-10.4); Monocytes # 1.9 K/mm3 (0.1-1.0); Monocytes % 8.1 % (1.7-9.3); Neutrophils % 88.2 % (37.0-80.0); Platelet Count 484 K/mm3 (142-424); Red Blood Count 3.22 M/mm3 (4.60-6.20); Red Cell Distribution Width 14.5 % (11.5-17.5); White Blood Count 23.8 K/mm3 (4.8-10.8)
[2019-10-01 10:31] LABS: Anion Gap 11.5 mEq/L (5-15); Calcium 8.2 mg/dL (8.5-10.1)
[2019-10-01 10:53] LABS: Lymphocytes % 6 % (10-50); Monocytes % 4 % (2-9); Neutrophils % 90 % (42-76); Total Cells Counted 100
[2019-10-01 10:55] LABS: RBC Morphology Normal
--- NOTE | 2019-10-01 10:55 | Progress Note ---
Subjective Date: 10/01/19 Time: 10:00 Principal diagnosis: Right foot gas gangrene, PAD Interval history: The patient is well this morning but affect appears flattened, he has been "down" about the impending BKA. He has accepted this is necessary but he is concerned the burden it will place on his partner. He denies current shortness of breath or chest pain. Vitals have been stable but WBC increased to 23. Echo performed yesterday, EF 40-45%. Glucose control has been difficult; POC of 40 around 5am today. Hgb 9.4 this morning. PN: Obj Ex Vital signs: Temp Pulse Resp BP Pulse Ox 97.4 F L 83 20 164/81 H 94 L 10/01/19 08:00 10/01/19 08:00 10/01/19 08:00 10/01/19 08:00 10/01/19 08:00 - Constitutional no acute distress - Routine HEENT Exam Head: Present: normocephalic Eye: Present: EOMI ENT: Present: mucous membranes moist - Routine Extremities Exam Comments: R foot dressings changed by Dr. Stauffer this morning, and I changed them again later in the morning to evaluate better for myself. I'm in agreement with Dr. Stauffer's assessment; the ankle and remaining foot is not viable. The wound is open with exposed talar head, soft tissue with patchy areas of necrosis and a foul odor. No active bleeding. Erythema extends proximally to just above ankle. No sensation in foot, ankle with diminished sensation, fully sensate from mid- tibia and proximally. No areas of fluctuance palpable in calf/ankle, no visible pus in wound. - Routine Neurological Exam Present: alert, oriented X3 Progress Note: A&P (1) Right foot infection Status: Acute Current Visit: Yes (2) Gas gangrene Status: Acute Current Visit: Yes (3) E coli infection Status: Acute Current Visit: Yes (4) Serratia marcescens infection Status: Acute Current Visit: Yes (5) Abnormal ankle brachial index (LEOPOLDO) Status: Acute Current Visit: No (6) Arteriosclerotic cardiovascular disease Status: Acute Current Visit: No (7) Cellulitis of right foot Status: Acute Current Visit: No (8) Decreased pedal pulses Status: Acute Current Visit: No (9) Peripheral vascular complication Status: Acute Current Visit: No (10) Poorly controlled diabetes mellitus Status: Acute Current Visit: No (11) Type 2 diabetes mellitus with diabetic neuropathy, with long-term current use of insulin Status: Acute Current Visit: No (12) History of amputation of foot through metatarsal bone Problem details: Left TMA, 04/03/18 Status: Chronic Current Visit: No (13) Obesity (BMI 30.0-34.9) Status: Chronic Current Visit: No (14) Anemia Status: Acute Current Visit: Yes Assessment and Plan for All Diagnoses:: 73yo M with chronic non-healing DM ulcer R foot, s/p TMA followed by I&D with Chopart amp; osteomyelitis/cellulitis present with progressive tissue necrosis -- patient is cleared by cardiology for surgery -- WBC further elevated today but vitals are stable; spoke with Dr. Berg, who is in agreement that surgery can be performed tomorrow -- NPO after midnight -- to OR tomorrow for R BKA -- post-operatively will require prison/wound care and physical therapy; once healed, will refer to editorial specialist
[2019-10-02 07:23] LABS: Basophils % 0.1 % (0.1-2.0); Eosinophils # 0.1 K/mm3 (0.0-0.4); Eosinophils % 0.7 % (0.1-12.0); Hematocrit 31.3 % (42.0-52.0); Hemoglobin 9.7 g/dL (14.1-18.0); Lymphocytes # 0.8 K/mm3 (0.7-4.5); Lymphocytes % 3.7 % (10-50); Mean Corpuscular HGB Conc 30.9 g/dL (31.8-35.4); Mean Corpuscular Volume 94.6 fl (80-94); Mean Platelet Volume 8.3 fl (7.4-10.4); Monocytes # 1.7 K/mm3 (0.1-1.0); Neutrophils # 18.6 K/mm3 (1.8-7.8); Neutrophils % 87.5 % (37.0-80.0); Platelet Count 534 K/mm3 (142-424); Red Blood Count 3.31 M/mm3 (4.60-6.20); Red Cell Distribution Width 14.3 % (11.5-17.5); White Blood Count 21.3 K/mm3 (4.8-10.8)
--- NOTE | 2019-10-02 07:40 | Progress Note ---
Subjective Date: 10/02/19 Time: 07:36 Principal diagnosis: Right foot gas gangrene, PAD Interval history: 73 yo WM in bed in NAD. Didn't sleep well due to upcoming surgery today. Denies chest pain or SOA. Exam Vital signs and Labs for Last 24 Hours: Temp Pulse Resp BP Pulse Ox 98.3 F 78 17 140/80 94 L 10/02/19 04:00 10/02/19 04:00 10/02/19 04:00 10/02/19 04:00 10/02/19 04:00 Laboratory Results - last 24 hr 09/30/19 09:20: Crossmatch (AHG) See Detail 10/01/19 05:54: POC Glucose 40 L* 10/01/19 05:55: POC Glucose 48 L* 10/01/19 05:57: POC Glucose 50 L 10/01/19 06:05: POC Glucose 53 L 10/01/19 06:09: POC Glucose 60 L 10/01/19 09:40: WBC 23.8 H*, RBC 3.22 L, Hgb 9.4 L, Hct 29.7 L, MCV 92.1, MCH 29.3, MCHC 31.8, RDW 14.5, Plt Count 484 H, MPV 7.9, Neut % (Auto) 88.2 H, Lymph % (Auto) 3.1 L, [place] % (Auto) 8.1, Eos % (Auto) 0.4, Baso % (Auto) 0.2, Neut # (Auto) 21.0 H, Lymph # (Auto) 0.8, [place] # (Auto) 1.9 H, Eos # (Auto) 0.1, Baso # (Auto) 0.0, Total Counted 100, Neutrophils % (Manual) 90 H, Lymphocytes % (Manual) 6 L, Monocytes % (Manual) 4, Platelet Estimate Normal, RBC Morphology Normal 10/01/19 09:40: Sodium 133 L, Potassium 4.5, Chloride 97 L, Carbon Dioxide 29, Anion Gap 11.5, BUN 33 H, Creatinine 2.41 H, Estimated Creat Clear 39, Estimated GFR 27 L, Est GFR ( Amer) 32 L, Glucose 127 H, Calcium 8.2 L 10/01/19 11:42: POC Glucose 244 H 10/01/19 16:55: POC Glucose 311 H* 10/01/19 20:33: POC Glucose 191 H 10/02/19 05:27: POC Glucose 247 H 10/02/19 06:38: WBC 21.3 H*, RBC 3.31 L, Hgb 9.7 L, Hct 31.3 L, MCV 94.6 H, MCH 29.2, MCHC 30.9 L, RDW 14.3, Plt Count 534 H, MPV 8.3, Neut % (Auto) 87.5 H, Lymph % (Auto) 3.7 L, [place] % (Auto) 8.0, Eos % (Auto) 0.7, Baso % (Auto) 0.1, Neut # (Auto) 18.6 H, Lymph # (Auto) 0.8, [place] # (Auto) 1.7 H, Eos # (Auto) 0.1, Baso # (Auto) 0.0 I & O for Last 24 hours: Intake & Output 09/29/19 09/30/19 10/01/19 10/02/19 11:59 11:59 11:59 11:59 Intake Total 625 / 625 1217 / 1217 870 / 870 Output Total 120 / 120 Balance 505 / 505 1217 / 1217 869 / 869 Weight 220 lb 222 lb 1 oz 223 lb 7 oz Microbiology Reports for the Last 24 Hours: Microbiology 09/29/19 18:11 Blood - Wound Blood Culture - Preliminary NO GROWTH AFTER 48 HOURS 09/29/19 18:11 Blood - Wound Blood Culture - Preliminary NO GROWTH AFTER 48 HOURS 09/29/19 16:44 Foot,Right - Wound Gram Stain - Final 09/29/19 16:44 Foot,Right - Wound Surgical Biopsy Culture - Preliminary Gram Negative Rods 09/29/19 16:44 Foot,Right - Wound Gram Stain - Final 09/29/19 16:44 Foot,Right - Wound Surgical Biopsy Culture - Preliminary Gram Negative Rods 09/29/19 16:44 Toe,Right Great Gram Stain - Final 09/29/19 16:44 Toe,Right Great Surgical Biopsy Culture - Preliminary Gram Negative Rods 09/29/19 16:44 Foot,Right Gram Stain - Final 09/29/19 16:44 Foot,Right Surgical Biopsy Culture - Preliminary Gram Negative Rods 09/29/19 16:35 Foot,Right - Wound Gram Stain - Final 09/29/19 16:35 Foot,Right - Wound Wound Culture - Preliminary Citrobacter youngae 09/29/19 16:35 Foot,Right - Wound Gram Stain - Final 09/29/19 16:35 Foot,Right - Wound Wound Culture - Preliminary Serratia marcescens - *Routine Respiratory Exam Present: CTA bilaterally. Absent: accessory muscle use, rales, rhonchi, wheezes - *Routine Cardiovascular Exam Present: RRR. Absent: murmur, gallop, rubs - *Routine Abdominal Exam Present: soft. Absent: tenderness, distended, guarding - *Routine Extremities Exam Absent: edema, calf tenderness - *Routine Neurological Exam Present: alert, oriented X3, moving all extremities Progress Note: A&P (1) Right foot infection Status: Acute Current Visit: Yes (2) Gas gangrene Status: Acute Current Visit: Yes (3) E coli infection Status: Acute Current Visit: Yes (4) Serratia marcescens infection Status: Acute Current Visit: Yes (5) Abnormal ankle brachial index (LEOPOLDO) Status: Acute Current Visit: No (6) Arteriosclerotic cardiovascular disease Status: Acute Current Visit: No (7) Cellulitis of right foot Status: Acute Current Visit: No (8) Decreased pedal pulses Status: Acute Current Visit: No (9) Peripheral vascular complication Status: Acute Current Visit: No (10) Poorly controlled diabetes mellitus Status: Acute Current Visit: No (11) Type 2 diabetes mellitus with diabetic neuropathy, with long-term current use of insulin Status: Acute Current Visit: No (12) History of amputation of foot through metatarsal bone Problem details: Left TMA, 04/03/18 Status: Chronic Current Visit: No (13) Obesity (BMI 30.0-34.9) Status: Chronic Current Visit: No (14) Anemia Status: Acute Current Visit: Yes Assessment and Plan for All Diagnoses:: 1. Cardiac status stable for surgery. Echocardiogram yesterday confirmed mild cardiomyopathy in the 40-45% range. Patient denies any chest pain, pressure or tightness. Stable on Coreg only with AICD. No MARAH or ARB due to chronic kidney disease. 2. Anemia, status post transfusion, patient feels more energetic. 3. CKD, stable 4. History of post bypass arrhythmia (presumed A. fib), controlled on amiodarone therapy 5. AICD in situ
--- NOTE | 2019-10-02 07:43 | Progress Note ---
Internal Medicine - PN: Subj *Date: 10/02/19 *Time: 07:43 Exam Vital signs and Labs for Last 24 Hours: Temp Pulse Resp BP Pulse Ox 98.3 F 78 17 140/80 94 L 10/02/19 04:00 10/02/19 04:00 10/02/19 04:00 10/02/19 04:00 10/02/19 04:00 Laboratory Results - last 24 hr 09/30/19 09:20: Crossmatch (AHG) See Detail 10/01/19 05:54: POC Glucose 40 L* 10/01/19 05:55: POC Glucose 48 L* 10/01/19 05:57: POC Glucose 50 L 10/01/19 06:05: POC Glucose 53 L 10/01/19 06:09: POC Glucose 60 L 10/01/19 09:40: WBC 23.8 H*, RBC 3.22 L, Hgb 9.4 L, Hct 29.7 L, MCV 92.1, MCH 29.3, MCHC 31.8, RDW 14.5, Plt Count 484 H, MPV 7.9, Neut % (Auto) 88.2 H, Lymph % (Auto) 3.1 L, [place] % (Auto) 8.1, Eos % (Auto) 0.4, Baso % (Auto) 0.2, Neut # (Auto) 21.0 H, Lymph # (Auto) 0.8, [place] # (Auto) 1.9 H, Eos # (Auto) 0.1, Baso # (Auto) 0.0, Total Counted 100, Neutrophils % (Manual) 90 H, Lymphocytes % (Manual) 6 L, Monocytes % (Manual) 4, Platelet Estimate Normal, RBC Morphology Normal 10/01/19 09:40: Sodium 133 L, Potassium 4.5, Chloride 97 L, Carbon Dioxide 29, Anion Gap 11.5, BUN 33 H, Creatinine 2.41 H, Estimated Creat Clear 39, Estimated GFR 27 L, Est GFR ( Amer) 32 L, Glucose 127 H, Calcium 8.2 L 10/01/19 11:42: POC Glucose 244 H 10/01/19 16:55: POC Glucose 311 H* 10/01/19 20:33: POC Glucose 191 H 10/02/19 05:27: POC Glucose 247 H 10/02/19 06:38: WBC 21.3 H*, RBC 3.31 L, Hgb 9.7 L, Hct 31.3 L, MCV 94.6 H, MCH 29.2, MCHC 30.9 L, RDW 14.3, Plt Count 534 H, MPV 8.3, Neut % (Auto) 87.5 H, Lymph % (Auto) 3.7 L, [place] % (Auto) 8.0, Eos % (Auto) 0.7, Baso % (Auto) 0.1, Neut # (Auto) 18.6 H, Lymph # (Auto) 0.8, [place] # (Auto) 1.7 H, Eos # (Auto) 0.1, Baso # (Auto) 0.0 I & O for Last 24 hours: Intake & Output 09/29/19 09/30/19 10/01/19 10/02/19 23:59 23:59 23:59 23:59 Intake Total 525 / 525 487 / 487 1620 / 1620 80 / 80 Output Total 120 / 120 Balance 525 / 405 367 / 367 1620 / 1620 79 / 79 Weight 99.875 kg 99.79 kg 100 kg 101.35 kg Microbiology Reports for the Last 24 Hours: Microbiology 09/29/19 18:11 Blood - Wound Blood Culture - Preliminary NO GROWTH AFTER 48 HOURS 09/29/19 18:11 Blood - Wound Blood Culture - Preliminary NO GROWTH AFTER 48 HOURS 09/29/19 16:44 Foot,Right - Wound Gram Stain - Final 09/29/19 16:44 Foot,Right - Wound Surgical Biopsy Culture - Preliminary Gram Negative Rods 09/29/19 16:44 Foot,Right - Wound Gram Stain - Final 09/29/19 16:44 Foot,Right - Wound Surgical Biopsy Culture - Preliminary Gram Negative Rods 09/29/19 16:44 Toe,Right Great Gram Stain - Final 09/29/19 16:44 Toe,Right Great Surgical Biopsy Culture - Preliminary Gram Negative Rods 09/29/19 16:44 Foot,Right Gram Stain - Final 09/29/19 16:44 Foot,Right Surgical Biopsy Culture - Preliminary Gram Negative Rods 09/29/19 16:35 Foot,Right - Wound Gram Stain - Final 09/29/19 16:35 Foot,Right - Wound Wound Culture - Preliminary Citrobacter youngae 09/29/19 16:35 Foot,Right - Wound Gram Stain - Final 09/29/19 16:35 Foot,Right - Wound Wound Culture - Preliminary Serratia marcescens Assessment and Plan (1) Right foot infection Current visit: Yes Status: Acute Category: Medical Code(s): L08.9 - Local infection of the skin and subcutaneous tissue, unspecified (2) Gas gangrene Current visit: Yes Status: Acute Category: Medical Code(s): A48.0 - Gas gangrene (3) E coli infection Current visit: Yes Status: Acute Category: Medical Code(s): A49.8 - Other bacterial infections of unspecified site (4) Serratia marcescens infection Current visit: Yes Status: Acute Category: Medical Code(s): A48.8 - Other specified bacterial diseases (5) Abnormal ankle brachial index (LEOPOLDO) Current visit: No Status: Acute Category: Medical Code(s): R68.89 - Other general symptoms and signs (6) Arteriosclerotic cardiovascular disease Current visit: No Status: Acute Category: Medical Code(s): I25.10 - Atherosclerotic heart disease of [place] coronary artery without angina pectoris (7) Cellulitis of right foot Current visit: No Status: Acute Category: Medical Code(s): L03.115 - Cellulitis of right lower limb (8) Decreased pedal pulses Current visit: No Status: Acute Category: Medical Code(s): R09.89 - Other specified symptoms and signs involving the circulatory and respiratory systems (9) Peripheral vascular complication Current visit: No Status: Acute Category: Medical Code(s): I99.9 - Unspecified disorder of circulatory system (10) Poorly controlled diabetes mellitus Current visit: No Status: Acute Category: Medical Code(s): E11.65 - Type 2 diabetes mellitus with hyperglycemia (11) Type 2 diabetes mellitus with diabetic neuropathy, with long-term current use of insulin Current visit: No Status: Acute Category: Medical Code(s): E11.40 - Type 2 diabetes mellitus with diabetic neuropathy, unspecified; Z79.4 - FDC (current) use of insulin (12) History of amputation of foot through metatarsal bone Problem details: Left TMA, 04/03/18 Current visit: No Status: Chronic Category: Surgical Code(s): Z89.439 - Acquired absence of unspecified foot (13) Obesity (BMI 30.0-34.9) Current visit: No Status: Chronic Category: Medical Code(s): E66.9 - Obesity, unspecified (14) Anemia Current visit: Yes Status: Acute Category: Medical Code(s): D64.9 - A nemia, unspecified The patient's infection will respond to the chosen ABx?: Yes Is the patient receiving the right drug, dose, and route?: Yes Could a more targeted ABx be ordered?: No
[2019-10-02 08:01] LABS: Albumin Level 1.4 gm/dL (3.4-5.0); Albumin/Globulin Ratio 0.3 (1.1-1.8); Anion Gap 13.1 mEq/L (5-15); Bilirubin,Total 0.4 mg/dL (0.2-1.0); Calcium 7.9 mg/dL (8.5-10.1); Globulin 4.6 gm/dl (1.3-3.2)
[2019-10-02 08:23] LABS: Eosinophils % 1 % (0-3); Lymphocytes % 2 % (10-50); Monocytes % 3 % (2-9); Neutrophils % 94 % (42-76); Total Cells Counted 100
[2019-10-02 08:24] LABS: RBC Morphology Normal
--- NOTE | 2019-10-02 08:29 | Progress Note ---
Internal Medicine - PN: Subj *Date: 10/02/19 *Time: 08:27 Interval history: Patient feels about the same today. He states his pain level is about a 5 and is controlled with pain medication. He did not rest well last night due to upcoming surgery today which is planned for 1 PM. Exam Vital signs and Labs for Last 24 Hours: Temp Pulse Resp BP Pulse Ox 98.4 F 76 20 162/68 H 92 L 10/02/19 07:42 10/02/19 07:42 10/02/19 07:42 10/02/19 07:42 10/02/19 07:42 Laboratory Results - last 24 hr 10/01/19 05:54: POC Glucose 40 L* 10/01/19 05:55: POC Glucose 48 L* 10/01/19 05:57: POC Glucose 50 L 10/01/19 06:05: POC Glucose 53 L 10/01/19 06:09: POC Glucose 60 L 10/01/19 09:40: WBC 23.8 H*, RBC 3.22 L, Hgb 9.4 L, Hct 29.7 L, MCV 92.1, MCH 29.3, MCHC 31.8, RDW 14.5, Plt Count 484 H, MPV 7.9, Neut % (Auto) 88.2 H, Lymph % (Auto) 3.1 L, [place] % (Auto) 8.1, Eos % (Auto) 0.4, Baso % (Auto) 0.2, Neut # (Auto) 21.0 H, Lymph # (Auto) 0.8, [place] # (Auto) 1.9 H, Eos # (Auto) 0.1, Baso # (Auto) 0.0, Total Counted 100, Neutrophils % (Manual) 90 H, Lymphocytes % (Manual) 6 L, Monocytes % (Manual) 4, Platelet Estimate Normal, RBC Morphology Normal 10/01/19 09:40: Sodium 133 L, Potassium 4.5, Chloride 97 L, Carbon Dioxide 29, Anion Gap 11.5, BUN 33 H, Creatinine 2.41 H, Estimated Creat Clear 39, Estimated GFR 27 L, Est GFR ( Amer) 32 L, Glucose 127 H, Calcium 8.2 L 10/01/19 11:42: POC Glucose 244 H 10/01/19 16:55: POC Glucose 311 H* 10/01/19 20:33: POC Glucose 191 H 10/02/19 05:27: POC Glucose 247 H 10/02/19 06:38: WBC 21.3 H*, RBC 3.31 L, Hgb 9.7 L, Hct 31.3 L, MCV 94.6 H, MCH 29.2, MCHC 30.9 L, RDW 14.3, Plt Count 534 H, MPV 8.3, Neut % (Auto) 87.5 H, Lymph % (Auto) 3.7 L, [place] % (Auto) 8.0, Eos % (Auto) 0.7, Baso % (Auto) 0.1, Neut # (Auto) 18.6 H, Lymph # (Auto) 0.8, [place] # (Auto) 1.7 H, Eos # (Auto) 0.1, Baso # (Auto) 0.0, Total Counted 100, Neutrophils % (Manual) 94 H, Lymphocytes % (Manual) 2 L, Monocytes % (Manual) 3, Eosinophils % (Manual) 1, Platelet Estimate Slight increase, RBC Morphology Normal 10/02/19 06:38: Sodium 134 L, Potassium 4.1, Chloride 98, Carbon Dioxide 27, Anion Gap 13.1, BUN 29 H, Creatinine 2.24 H, Estimated Creat Clear 43, Estimated GFR 29 L, Est GFR ( Amer) 35 L, Glucose 222 H D, Calcium 7.9 L, Total Bilirubin 0.4, AST 54 H, ALT 55, Alkaline Phosphatase 182 H, Total Protein 6.0 L , Albumin 1.4 L, Globulin 4.6 H, Albumin/Globulin Ratio 0.3 L I & O for Last 24 hours: Intake & Output 09/29/19 09/30/19 10/01/19 10/02/19 11:59 11:59 11:59 11:59 Intake Total 625 / 625 1217 / 1217 870 / 870 Output Total 120 / 120 Balance 505 / 505 1217 / 1217 869 / 869 Weight 220 lb 222 lb 1 oz 223 lb 7 oz Microbiology Reports for the Last 24 Hours: Microbiology 09/29/19 16:44 Foot,Right - Wound Gram Stain - Final 09/29/19 16:44 Foot,Right - Wound Surgical Biopsy Culture - Preliminary Citrobacter youngae 09/29/19 16:44 Foot,Right - Wound Gram Stain - Final 09/29/19 16:44 Foot,Right - Wound Surgical Biopsy Culture - Preliminary Citrobacter youngae 09/29/19 16:44 Toe,Right Great Gram Stain - Final 09/29/19 16:44 Toe,Right Great Surgical Biopsy Culture - Preliminary Citrobacter youngae 09/29/19 18:11 Blood - Wound Blood Culture - Preliminary NO GROWTH AFTER 48 HOURS 09/29/19 18:11 Blood - Wound Blood Culture - Preliminary NO GROWTH AFTER 48 HOURS 09/29/19 16:44 Foot,Right Gram Stain - Final 09/29/19 16:44 Foot,Right Surgical Biopsy Culture - Preliminary Gram Negative Rods 09/29/19 16:35 Foot,Right - Wound Gram Stain - Final 09/29/19 16:35 Foot,Right - Wound Wound Culture - Preliminary Citrobacter youngae 09/29/19 16:35 Foot,Right - Wound Gram Stain - Final 09/29/19 16:35 Foot,Right - Wound Wound Culture - Preliminary Serratia marcescens Radiology Reports for the Last 24 Hours: CXR - nothing acute - Constitutional no acute distress - *Routine Respiratory Exam Present: CTA bilaterally - *Routine Cardiovascular Exam Present: RRR - *Routine Abdominal Exam Present: soft, normoactive bowel sounds. Absent: tenderness - *Routine Extremities Exam Absent: cyanosis, clubbing, edema Comments: right lower extremity with dressing in place - *Routine Neurological Exam Present: alert, oriented X3 Assessment and Plan (1) Right foot infection Current visit: Yes Status: Acute Category: Medical Code(s): L08.9 - Local infection of the skin and subcutaneous tissue, unspecified (2) Gas gangrene Current visit: Yes Status: Acute Category: Medical Code(s): A48.0 - Gas gangrene (3) E coli infection Current visit: Yes Status: Acute Category: Medical Code(s): A49.8 - Other bacterial infections of unspecified site (4) Serratia marcescens infection Current visit: Yes Status: Acute Category: Medical Code(s): A48.8 - Other specified bacterial diseases (5) Abnormal ankle brachial index (LEOPOLDO) Current visit: No Status: Acute Category: Medical Code(s): R68.89 - Other general symptoms and signs (6) Arteriosclerotic cardiovascular disease Current visit: No Status: Acute Category: Medical Code(s): I25.10 - Ather osclerotic heart disease of [place] coronary artery without angina pectoris (7) Cellulitis of right foot Current visit: No Status: Acute Category: Medical Code(s): L03.115 - Cellulitis of right lower limb (8) Decreased pedal pulses Current visit: No Status: Acute Category: Medical Code(s): R09.89 - Other specified symptoms and signs involving the circulatory and respiratory systems (9) Peripheral vascular complication Current visit: No Status: Acute Category: Medical Code(s): I99.9 - Unspecified disorder of circulatory system (10) Poorly controlled diabetes mellitus Current visit: No Status: Acute Category: Medical Code(s): E11.65 - Type 2 diabetes mellitus with hyperglycemia (11) Type 2 diabetes mellitus with diabetic neuropathy, with long-term current use of insulin Current visit: No Status: Acute Category: Medical Code(s): E11.40 - Type 2 diabetes mellitus with diabetic neuropathy, unspecified; Z79.4 - intermediate (current) use of insulin (12) History of amputation of foot through metatarsal bone Problem details: Left TMA, 04/03/18 Current visit: No Status: Chronic Category: Surgical Code(s): Z89.439 - Acquired absence of unspecified foot (13) Obesity (BMI 30.0-34.9) Current visit: No Status: Chronic Category: Medical Code(s): E66.9 - Obesity, unspecified (14) Anemia Current visit: Yes Status: Acute Category: Medical Code(s): D64.9 - Anemia, unspecified - Assessment and plan all Dx Assessment and Plan for all problems:: Chest x-ray from yesterday is clear. Cardiology has seen the patient today. He is scheduled for right BKA at 1 PM today.
--- NOTE | 2019-10-02 15:43 | Electrocardiograph Report ---
APPROVED REPORT Exam: Resting ECG HR:72 bpm ECG Measurements Heart Rate 72 AXES NM 158 P QRSd 186 QRS -53 QT 502 T113 QTc 549 <Conclusion> Electronic atrial pacemaker Left axis deviation Left ventricular hypertrophy with QRS widening and repolarization abnormality Possible Lateral infarct, age undetermined Abnormal ECG Electronically signed by : Edward Juarez, 10/02/2019 15:43:26
--- NOTE | 2019-10-02 16:11 | Progress Note ---
[facility] Anesthesia Checklist - Patient Identification Patient Identification: Arm Band, Verbal (Name & ) - Structural Data Admitted From: Inpatient Planned Operative Procedure/s: right bka Consent for Planned Operative Procedure(s) Verified: Yes Verified Documents: History and Physical - NPO Status Verified Time NPO: 00:00 - Additional verifications Patient : No Anesthesia Reactions: No Hx Blood Transfusions: Yes Blood Transfusion Reaction: No Cephalosporin Allergy: No Previous Colonoscopy: Yes - Cardiovascular Assessment Heart Sounds: S1 & S2 Pulse Strength: Baseline Pulse Rhythm: Regular Peripheral Edema: No - Airway Assessment C-Spine Mobility Assessed: Yes TMJ Mobility Assessed: Yes Dentition: Good Dentition - Neurological Assessment Level of Consciousness: Awake, Alert, Appropriate Hx Seizures: No Numbness or tingling in extremities: No - Anesthesia Plan Anesthesia Risk discussed: Yes ASA Class: III Anesthesia Type: General [facility] History I have reviewed the patient's past medical history: Yes Medical History: Reports:: Cancer, Coronary Artery Disease, Diabetes Mellitus Type 2, Gastroesophageal Reflux Disease(GERD), Hyperlipidemia, Hypertension, Internal Pacemaker, MRSA, Myocardial Infarction, Peripheral Artery Disease, Renal Disease, Renal Insufficiency Denies:: Diabetes Mellitus Type 1, Seizures *Have you ever received a pneumonia vaccine?: Yes *Have you received a flu vaccine this season?: Yes Other Medical History: Reports: Radiation Therapy. Denies: Blood Transfusion Reaction Anesthesia experience/problems:: nac Other Surgeries: Yes: CABG, Cancer Surgery, Cardiac Catheterization, Cardiac Espinoza rgery (5 years ago), Colonoscopy, Coronary Stent (left leg. ), Open Heart Surgery, Pacemaker, Other (Aortic valce repair, TURP) Amputation: Yes (great hallux and 5th digit on the left foot. ) Fractures: No - *Social History Educational Level: Attended College Smoking Status: Former smoker Tobacco Type: cigarettes # Packs/Day (cigarettes): 0 #Yrs smoked (if former smoker): 20 Alcohol Intake: never Alcohol Intake Frequency:: holidays/special occasions only Substance Use Type: denies use, other *Occupational Status:: retired Housing: house Household Members: family *Travel in the last 8 weeks: None Family Hx:: Coronary Artery Disease, Heart Attack, Hyperlipidemia, Hypertension
--- NOTE | 2019-10-02 16:12 | Progress Note ---
[facility] Anesthesia Record Part I Intake, IV Amount: 800 Estimated blood loss (mL): 300 Urine output (mL): 100 Blood Products used (#): none Blood Pressure: 146/68 SaO2: 92 Pulse Rate: 82 Respiratory Rate: 20 Temperature: 97.7 F Patient is:: Awake, Stable Stable to PACU at:: 16:05
--- NOTE | 2019-10-02 16:20 | Operative Note ---
Date of procedure: 10/02/19 Pre-op Diagnosis:: chronic non-healing diabetic ulcer R foot, severe PAD with RLE ischemia, gas gangrene, osteomyelitis Post-op Diagnosis:: chronic non-healing diabetic ulcer R foot, severe PAD with RLE ischemia, gas gangrene, osteomyelitis Procedure performed:: R below-knee amputation Surgeon:: Kortney Tang MD Palletiser Operator(s):: Luanne Edwards COLLAR BASTER JUMPBASTING:: Edward Malik Anesthesia: GETA Estimated blood loss (mL): 300 Clinical Note:: Mr. Beckett is a 73-year-old male who was admitted from clinic yesterday by Dr. Stauffer for worsening edema and erythema of the right foot. He underwent transmetatarsal amputation on 09/18/2019, after a revascularization procedure by Dr. Vargas on 09/17/2019. Despite these interventions, his infection has continued to worsen and he is showing signs of sepsis. On admission yesterday he complained of nausea/vomiting, malaise, chills and weakness. He was taken to the operating room last night by Dr. Stauffer for I&D with extensive debridement and a Chopart amputation/disarticulation. Intraoperatively there was purulent material expressed, over 20 cc. The bone was poor quality and crumbled; this was sent for bone culture. All nonviable tissue was debrided and packed with Betadine dressings; the wound is left open and as there was not enough soft tissue to cover the bones. He has been on vancomycin and Zosyn per pharmacy dosing and asked to remain nonweightbearing on this extremity. He has been seen by cardiology and cleared for further surgical treatment including a below the knee amputation. According to the cardiology consultation bilateral lower extremity angiography on 09/17/2019 revealed that the distal abdominal aorta was atheromatous but patent, bilateral common iliac arteries were patent, bilateral internal, external and common iliac arteries all had atherosclerotic plaques but no significant stenosis. The right profunda femoris artery was patent but the superficial femoral artery was approximately 50 to 60% stenosed. The popliteal artery was patent but approximately 30% stenosed the anterior tibialis artery, peroneal artery, and posterior tibialis arteries were all severely diseased from the proximal segment was still patent down to the ankle. Distally the ankle had very severe small vessel disease which appeared to leave the little to no perfusion to the foot. His last echocardiogram was in February 2016 which showed approximately 40% ejection fraction. His medical history is significant for coronary artery disease, diabetes, GERD, hyperlipidemia, hypertension, MRSA infection, myocardial infarction, cancer. He is undergone cardiac catheterization, CABG, lower extremity revascularization, pacemaker placement, aortic valve repair, transurethral resection of the prostate, and several surgeries on his foot. He denies any prior orthopedic surgeries and no joint arthroplasty. He is a former smoker and rarely consumes alcohol. He lives at home with his significant other. His home medications are documented in the EMR but are significant for aspirin 81 mg daily. He has some underlying diabetic neuropathy and says his sensation is impaired distal to the mid tibia. The patient has been afebrile but has shown systemic signs of sepsis. Vital signs have remained stable since admission. His hemoglobin this morning was 7.9 and he is in the active being transfused; PRBCs are being pushed slowly due to his history of heart disease and he is currently on his second unit. His Accu- Chek glucose levels have been elevated and his white blood cell count this morning was 19.2. Creatinine is 2.42, which is slightly elevated above his baseline, though he has baseline renal impairment. Wound cultures from his I&D yesterday are preliminarily growing gram-negative rods. I concur with Dr. Stauffer that this lower limb is not salvageable. To attempt further I&D with soft tissue coverage of the Chopart amp would be futile in my opinion and I agree that the amputation should be revised to a BKA. I discussed my recommendation with the patient and his partner, who are in agreement with this plan. I will attempt to retain the longest limb possible with a BKA, but if the more proximal tissue does not appear viable or infection is found to spread as proximal as the knee, I will need to take the amputation to an AKA. My plan is a BKA, with a well-padded stump that can later be fitted with a prosthesis. I discussed the risks of surgery with the patient, including bleeding, continued infection, impaired wound healing/necrosis, and need for revision surgery to an AKA. The patient vocalized understanding and provided informed consent for the procedure. Operative findings:: all tissue at the amputation site appeared healthy and viable, with good blood flow Operative note:: The patient was identified in preoperative holding and R leg signed by myself. Consent was reviewed with the patient and all questions answered. He was then taken to the OR, where IV antibiotics were re-dosed (zosyn was due at 1330); he has been on vanc/zosyn. The patient was transferred to the OR table and general endotracheal anesthesia induced. Once the patient was anesthetized, bandages were removed from RLE and the leg prepped and draped in the usual sterile fashion, using a non-sterile tourniquet on the upper thigh. Time out was performed, identifying the correct patient and correct site. We begun the procedure by elevating the RLE and inflating the tourniquet to 325 mmHg; Esmarch was not used to exsanguinate the limb. Incisions were drawn with a marking pen, marking the level of the planned tibial cut and drawing out anterior and long posterior flaps. Incision was made with a #10 blade, following the predetermined lines of incision. The anterior incision was made transversely across the tibia approximately 12cm distal to the tibial tubercle. Subcutaneous tissue was incised down to the bone and dissection carried out medially and laterally using electrocautery. Care was taken to identify and ligate peroneal, anterior tibial, and posterior tibial neurovascular bundles. The veins and arteries were isolated and doubly ligated with 0 silk ties before they were transected. The nerves were sharply transected with a 10 blade. Once the critical neurovascular bundles were tied off, the remainder of the anterior and lateral compartment musculature was divided with a bovie. Next the soft tissue was cleared off the tibia using on osteotome and the desired level of transection was chosen 2cm proximal to the anterior skin flap edge. Using a 10 blade, the periosteum was incision and reflected back off the bone. An oscillating saw was then used to transect the tibial shaft perpindicular to its long axis; a lap sponge was placed behind the bone to protect the underlying musculature. After the tibia was transected, the fibula was cut as well; the saw was used to transect the fibula 1cm proximal to the tibial cut. Both bones now transected, the leg was flexed and an amputation knife used to cut a thick posterior flap and complete the amputation. The remainder of the leg was excised in this fashion, and placed in a biohazard bag. The tourniquet was then dropped and the leg inspected for bleeding. Any bleeding was controlled with either electrocautery or ligation. The anterior edge of the tibia was beveled and smoothed with a rasp. Once the leg was dry, it was irrigated with normal saline and the stump closed in a layered fashion. Ethibond and 0-vicryl were used to approximate the anterior and posterior musculature/fascia. Next, the subcutaneous tissue was reapproximated with 2-0 vicryl, followed by 2-0 nylon on the skin in an interrupted horizontal mattress suture. The wound was then wrapped with sterile dressings and a splint applied. The patient tolerated the procedure well without any intraoperative complications; he was transferred to PACU in good condition. Tourniquet time (min): 72 Condition: stable Disposition: PACU Specimens:: R leg below the knee Complications:: none
--- NOTE | 2019-10-02 16:37 | Progress Note ---
Subjective Date: 10/02/19 Time: 16:30 Principal diagnosis: Right foot gas gangrene, PAD Interval history: the patient underwent R BKA this afternoon without complication, EBL ~300cc PN: Obj Ex Vital signs: Temp Pulse Resp BP Pulse Ox 97.7 F 82 20 146/68 H 92 L 10/02/19 16:12 10/02/19 16:12 10/02/19 16:12 10/02/19 16:12 10/02/19 08:00 - Constitutional no acute distress - Routine Extremities Exam Comments: RLE dressings intact, hemovac drain s/p R BKA patient in PACU, waking from anesthesia; vitals stable Progress Note: A&P (1) Right foot infection Status: Acute Current Visit: Yes (2) Gas gangrene Status: Acute Current Visit: Yes (3) E coli infection Status: Acute Current Visit: Yes (4) Serratia marcescens infection Status: Acute Current Visit: Yes (5) Abnormal ankle brachial index (LEOPOLDO) Status: Acute Current Visit: No (6) Arteriosclerotic cardiovascular disease Status: Acute Current Visit: No (7) Cellulitis of right foot Status: Acute Current Visit: No (8) Decreased pedal pulses Status: Acute Current Visit: No (9) Peripheral vascular complication Status: Acute Current Visit: No (10) Poorly controlled diabetes mellitus Status: Acute Current Visit: No (11) Type 2 diabetes mellitus with diabetic neuropathy, with long-term current use of insulin Status: Acute Current Visit: No (12) History of amputation of foot through metatarsal bone Problem details: Left TMA, 04/03/18 Status: Chronic Current Visit: No (13) Obesity (BMI 30.0-34.9) Status: Chronic Current Visit: No (14) Anemia Status: Acute Current Visit: Yes Assessment and Plan for All Diagnoses:: 73yo M with RLE chronic non-healing DM ulcer, gangrene, osteomyelitis; POD 0 s/p R BKA -- H/H now -- pain meds: continue pre-op orders -- continue pre-op antibiotics: vanc/zosyn; recommend continuing at least a few more days, until WBC comes down -- RLE splinted, keep elevated on a pillow at all times -- empty drain and record output each shift -- OOB with assistance, NWB RLE -- PT/OT to eval -- may start anticoagulation tomorrow per PCP -- case management consult for placement
[2019-10-02 17:38] LABS: Hematocrit 26.3 % (42.0-52.0); Hemoglobin 8.5 g/dL (14.1-18.0)
[2019-10-03 07:56] LABS: Anion Gap 9.4 mEq/L (5-15); Calcium 7.4 mg/dL (8.5-10.1)
--- NOTE | 2019-10-03 07:58 | Progress Note ---
[facility] Anesthesia Record Part II Discharge Time: 16:35 Destination: Medical Surgical Department PACU nurse assessment reviewed?: Yes Patient Condition:: Good Anesthesia Complications:: None Swallowing reflex intact?: Yes Cyanosis?: No Blood Pressure: 154/57 Pulse Rate: 78 Temperature: 98.0 F Mental Status: Alert & Oriented Pain level:: 0 Nausea and/or vomitting:: None Intake, IV Amount: 50
[2019-10-03 08:05] LABS: Basophils % 0.2 % (0.1-2.0); Eosinophils # 0.2 K/mm3 (0.0-0.4); Eosinophils % 1.2 % (0.1-12.0); Hematocrit 24.7 % (42.0-52.0); Lymphocytes # 0.7 K/mm3 (0.7-4.5); Lymphocytes % 5.3 % (10-50); Mean Corpuscular HGB Conc 30.5 g/dL (31.8-35.4); Mean Corpuscular Volume 94.8 fl (80-94); Monocytes # 1.1 K/mm3 (0.1-1.0); Monocytes % 7.7 % (1.7-9.3); Neutrophils # 11.8 K/mm3 (1.8-7.8); Neutrophils % 85.6 % (37.0-80.0); Platelet Count 534 K/mm3 (142-424); Red Blood Count 2.61 M/mm3 (4.60-6.20); Red Cell Distribution Width 14.3 % (11.5-17.5); White Blood Count 13.8 K/mm3 (4.8-10.8)
--- NOTE | 2019-10-03 08:06 | Progress Note ---
Internal Medicine - PN: Subj *Date: 10/03/19 *Time: 08:03 Interval history: Patient states he did well with the surgery yesterday. His pain is controlled with pain medication. He slept relatively well and is drinking all of his clear liquids this morning. Exam Vital signs and Labs for Last 24 Hours: Temp Pulse Resp BP Pulse Ox 98.0 F 78 16 154/57 H 95 10/03/19 07:58 10/03/19 07:58 10/03/19 04:00 10/03/19 07:58 10/03/19 04:00 Laboratory Results - last 24 hr 09/30/19 09:20: Crossmatch (AHG) See Detail 10/02/19 06:38: Total Counted 100, Neutrophils % (Manual) 94 H, Lymphocytes % (Manual) 2 L, Monocytes % (Manual) 3, Eosinophils % (Manual) 1, Platelet Estimate Slight increase, RBC Morphology Normal 10/02/19 06:38: Sodium 134 L, Potassium 4.1, Chloride 98, Carbon Dioxide 27, Anion Gap 13.1, BUN 29 H, Creatinine 2.24 H, Estimated Creat Clear 43, Estimated GFR 29 L, Est GFR ( Amer) 35 L, Glucose 222 H D, Calcium 7.9 L, Total Bilirubin 0.4, AST 54 H, ALT 55, Alkaline Phosphatase 182 H, Total Protein 6.0 L , Albumin 1.4 L, Globulin 4.6 H, Albumin/Globulin Ratio 0.3 L 10/02/19 11:16: POC Glucose 214 H 10/02/19 17:21: POC Glucose 207 H 10/02/19 17:28: Vancomycin Trough 14.6 10/02/19 17:28: Hgb 8.5 L D, Hct 26.3 L 10/02/19 21:40: POC Glucose 133 H 10/03/19 06:01: POC Glucose 290 H 10/03/19 07:28: Sodium 134 L, Potassium 4.4, Chloride 101, Carbon Dioxide 28, Anion Gap 9.4, BUN 28 H, Creatinine 2.23 H, Estimated Creat Clear 44, Estimated GFR 29 L, Est GFR ( Amer) 35 L, Glucose 242 H, Calcium 7.4 L I & O for Last 24 hours: Intake & Output 09/30/19 10/01/19 10/02/19 10/03/19 11:59 11:59 11:59 11:59 Intake Total 625 / 625 1217 / 1217 870 / 870 850 / 850 Output Total 120 / 120 Balance 505 / 505 1217 / 1217 869 / 869 850 / 850 Weight 220 lb 222 lb 1 oz 223 lb 7 oz 227 lb 2 oz Microbiology Reports for the Last 24 Hours: Microbiology 09/29/19 16:44 Foot,Right - Wound Gram Stain - Final 09/29/19 16:44 Foot,Right - Wound Surgical Biopsy Culture - Preliminary Citrobacter youngae 09/29/19 16:44 Foot,Right - Wound Gram Stain - Final 09/29/19 16:44 Foot,Right - Wound Surgical Biopsy Culture - Preliminary Citrobacter youngae 09/29/19 16:44 Foot,Right Gram Stain - Final 09/29/19 16:44 Foot,Right Surgical Biopsy Culture - Preliminary Pantoea agglomerans 09/29/19 16:44 Toe,Right Great Gram Stain - Final 09/29/19 16:44 Toe,Right Great Surgical Biopsy Culture - Preliminary Citrobacter youngae 09/29/19 16:35 Foot,Right - Wound Gram Stain - Final 09/29/19 16:35 Foot,Right - Wound Wound Culture - Preliminary Serratia marcescens Gram Positive Cocci 09/29/19 16:35 Foot,Right - Wound Gram Stain - Final 09/29/19 16:35 Foot,Right - Wound Wound Culture - Preliminary Citrobacter youngae - Constitutional no acute distress - *Routine Respiratory Exam Present: CTA bilaterally - *Routine Cardiovascular Exam Present: RRR - *Routine Abdominal Exam Present: soft, normoactive bowel sounds. Absent: tenderness - *Routine Extremities Exam Absent: cyanosis, clubbing, edema Comments: bandage in place on right stump, no drainage through the dressing - *Routine Skin Exam Present: warm. Absent: rash - *Routine Neurological Exam Present: alert, oriented X3 Assessment and Plan (1) Right foot infection Current visit: Yes Status: Acute Category: Medical Code(s): L08.9 - Local infection of the skin and subcutaneous tissue, unspecified (2) Gas gangrene Current visit: Yes Status: Acute Category: Medical Code(s): A48.0 - Gas gangrene (3) E coli infection Current visit: Yes Status: Acute Category: Medical Code(s): A49.8 - Other bacterial infections of unspecified site (4) Serratia marcescens infection Current visit: Yes Status: Acute Category: Medical Code(s): A48.8 - Other specified bacterial diseases (5) Abnormal ankle brachial index (LEOPOLDO) Current visit: No Status: Acute Category: Medical Code(s): R68.89 - Other general symptoms and signs (6) Arteriosclerotic cardiovascular disease Current visit: No Status: Acute Category: Medical Code(s): I25.10 - Atherosclerotic heart disease of resighini coronary artery without angina pectoris (7) Cellulitis of right foot Current visit: No Status: Acute Category: Medical Code(s): L03.115 - Cellulitis of right lower limb (8) Decreased pedal pulses Current visit: No Status: Acute Category: Medical Code(s): R09.89 - Other specified symptoms and signs involving the circulatory and respiratory systems (9) Peripheral vascular complication Current visit: No Status: Acute Category: Medical Code(s): I99.9 - Unspecified disorder of circulatory system (10) Poorly controlled diabetes mellitus Current visit: No Status: Acute Category: Medical Code(s): E11.65 - Type 2 diabetes mellitus with hyperglycemia (11) Type 2 diabetes mellitus with diabetic neuropathy, with long-term current use of insulin Current visit: No Status: Acute Category: Medical Code(s): E11.40 - Type 2 diabetes mellitus with diabetic neuropathy, unspecified; Z79.4 - bed bug exterminator (current) use of insulin (12) History of amputation of foot through metatarsal bone Problem details: Left TMA, 04/03/18 Current visit: No Status: Chronic Category: Surgical Code(s): Z89.439 - Acquired absence of unspecified foot (13) Obesity (BMI 30.0-34.9) Current visit: No Status: Chronic Category: Medical Code(s): E66.9 - Obesity, unspecified (14) Anemia Current visit: Yes Status: Acute Category: Medical Code(s): D64.9 - Anemia, unspecified - Assessment and plan all Dx Assessment and Plan for all problems:: Awaiting CBC result from this morning to monitor H&H. Nursing just notified that patient's wound culture was positive for MRSA. Will discuss further care with Dr. Berg and Dr. Hernandez will follow the patient.
[2019-10-03 08:18] LABS: Hemoglobin 7.6 g/dL (14.1-18.0)
[2019-10-03 09:48] LABS: Eosinophils % 4 % (0-3); Hypochromasia 1+; Lymphocytes % 6 % (10-50); Monocytes % 7 % (2-9); Neutrophils % 83 % (42-76); Total Cells Counted 100
--- NOTE | 2019-10-03 09:59 | Progress Note ---
Subjective Date: 10/03/19 Time: 09:56 Principal diagnosis: Right foot gas gangrene, PAD Interval history: 73-year-old white male in bed in no acute distress. Surgery yesterday for right BKA went without complications. Patient denies any chest pain, pressure, tightness or shortness of breath. Physical therapy to begin. Exam Vital signs and Labs for Last 24 Hours: Temp Pulse Resp BP Pulse Ox 98.2 F 82 16 141/66 H 96 10/03/19 08:00 10/03/19 08:00 10/03/19 08:00 10/03/19 08:00 10/03/19 08:00 Laboratory Results - last 24 hr 09/30/19 09:20: Crossmatch (AHG) See Detail 10/02/19 11:16: POC Glucose 214 H 10/02/19 17:21: POC Glucose 207 H 10/02/19 17:28: Vancomycin Trough 14.6 10/02/19 17:28: Hgb 8.5 L D, Hct 26.3 L 10/02/19 21:40: POC Glucose 133 H 10/03/19 06:01: POC Glucose 290 H 10/03/19 07:28: WBC 13.8 H D, RBC 2.61 L, Hgb 7.6 L*, Hct 24.7 L, MCV 94.8 H, MCH 28.9, MCHC 30.5 L, RDW 14.3, Plt Count 534 H, MPV 8.0, Neut % (Auto) 85.6 H, Lymph % (Auto) 5.3 L, Jack % (Auto) 7.7, Eos % (Auto) 1.2, Baso % (Auto) 0.2, Neut # (Auto) 11.8 H, Lymph # (Auto) 0.7, Jack # (Auto) 1.1 H, Eos # (Auto) 0.2, Baso # (Auto) 0.0, Total Counted 100, Neutrophils % (Manual) 83 H, Lymphocytes % (Manual) 6 L, Monocytes % (Manual) 7, Eosinophils % (Manual) 4 H, Platelet Estimate Normal, Hypochromasia 1+ 10/03/19 07:28: Sodium 134 L, Potassium 4.4, Chloride 101, Carbon Dioxide 28, Anion Gap 9.4, BUN 28 H, Creatinine 2.23 H, Estimated Creat Clear 44, Estimated GFR 29 L, Est GFR ( Amer) 35 L, Glucose 242 H, Calcium 7.4 L I & O for Last 24 hours: Intake & Output 09/30/19 10/01/19 10/02/19 10/03/19 11:59 11:59 11:59 11:59 Intake Total 625 / 625 1217 / 1217 870 / 870 2195 / 2195 Output Total 120 / 120 49 / 49 Balance 505 / 505 1217 / 1217 869 / 869 2146 / 2146 Weight 220 lb 222 lb 1 oz 223 lb 7 oz 227 lb 2 oz Microbiology Reports for the Last 24 Hours: Microbiology 09/29/19 16:35 Foot,Right - Wound Gram Stain - Final 09/29/19 16:35 Foot,Right - Wound Wound Culture - Preliminary Serratia marcescens Staphylococcus aureus 09/29/19 16:44 Foot,Right - Wound Gram Stain - Final 09/29/19 16:44 Foot,Right - Wound Surgical Biopsy Culture - Preliminary Citrobacter youngae 09/29/19 16:44 Foot,Right - Wound Gram Stain - Final 09/29/19 16:44 Foot,Right - Wound Surgical Biopsy Culture - Preliminary Citrobacter youngae 09/29/19 16:44 Foot,Right Gram Stain - Final 09/29/19 16:44 Foot,Right Surgical Biopsy Culture - Preliminary Pantoea agglomerans 09/29/19 16:44 Toe,Right Great Gram Stain - Final 09/29/19 16:44 Toe,Right Great Surgical Biopsy Culture - Preliminary Citrobacter youngae 09/29/19 16:35 Foot,Right - Wound Gram Stain - Final 09/29/19 16:35 Foot,Right - Wound Wound Culture - Preliminary Citrobacter youngae - *Routine Respiratory Exam Present: CTA bilaterally. Absent: accessory muscle use, rales, rhonchi, wheezes - *Routine Cardiovascular Exam Present: RRR. Absent: murmur, gallop, rubs - *Routine Extremities Exam Absent: edema, calf tenderness Comments: Right BKA area wrapped. - *Routine Neurological Exam Present: alert, oriented X3, moving all extremities Progress Note: A&P (1) Right foot infection Status: Acute Current Visit: Yes (2) Gas gangrene Status: Acute Current Visit: Yes (3) E coli infection Status: Acute Current Visit: Yes (4) Serratia marcescens infection Status: Acute Current Visit: Yes (5) Abnormal ankle brachial index (LEOPOLDO) Status: Acute Current Visit: No (6) Arteriosclerotic cardiovascular disease Status: Acute Current Visit: No (7) Cellulitis of right foot Status: Acute Current Visit: No (8) Decreased pedal pulses Status: Acute Current Visit: No (9) Peripheral vascular complication Status: Acute Current Visit: No (10) Poorly controlled diabetes mellitus Status: Acute Current Visit: No (11) Type 2 diabetes mellitus with diabetic neuropathy, with long-term current use of insulin Status: Acute Current Visit: No (12) History of amputation of foot through metatarsal bone Problem details: Left TMA, 04/03/18 Status: Chronic Current Visit: No (13) Obesity (BMI 30.0-34.9) Status: Chronic Current Visit: No (14) Anemia Status: Acute Current Visit: Yes Assessment and Plan for All Diagnoses:: 1. Status post right BKA 2. Coronary artery disease with history of bypass surgery, cardiomyopathy with EF of 40% and ICD in situ, stable at this time on carvedilol. No MARAH or ARB therapy due to chronic kidney disease 3. Recurrent anemia status post surgery, blood transfusion has been ordered 4. History of atrial fibrillation status post coronary bypass grafting, rem aining in sinus rhythm on amiodarone therapy 5. Diabetes mellitus 6. Chronic kidney disease, stage III/IV, stable 7. PAD and CAD, in setting of multi-vessel disease, would recommend long-term anticoagulation with Xarelto 2.5 mg twice daily and aspirin 81 mg daily to reduce risk of further limb loss.
--- NOTE | 2019-10-03 10:21 | Pharmacy Consult Notes ---
- Pharmacy Consult Date: 10/03/19 Time: 10:19 Referring provider: DR. JOSE Reason for Consult:: VANCOMYCIN TROUGH LEVEL Allergies and ADEs:: Allergies Allergy/AdvReac Type Severity Reaction Status Date / Time promethazine Allergy Mild itching Verified 10/01/19 10:24 cyanocobalamin (vitamin B12) Allergy Rash Verified 10/01/19 10:24 Home Medications:: Home Medications Medication Instructions Recorded Confirmed Type Amiodarone HCl [Amiodarone 200mg 200 mg PO DAILY 02/27/18 10/01/19 History Tab] Aspirin 81 mg PO DAILY 02/27/18 10/01/19 History Atorvastatin Calcium [Atorvastatin 40 mg PO HS 02/27/18 10/01/19 History 40mg Tab] Cholecalciferol (Vitamin D3) 5,000 unit PO DAILY 02/27/18 10/01/19 History [Vitamin D3 10,000 unit Cap] Furosemide [Furosemide 40MG tAB] 40 mg PO BID 02/27/18 10/01/19 History Glimepiride 4 mg PO BID 02/27/18 10/01/19 History Potassium Chloride [Klor-Con 10mEq 10 meq PO BID 02/27/18 10/01/19 History tab] carvediloL [Carvedilol 25mg Tab] 25 mg PO BID 02/28/18 10/01/19 History insulin aspar prot-insulin aspart 8 unit SUB-Q BID 03/29/18 10/01/19 History 100 unit/mL (70-30) subcutaneous pen insulin detemir U-100 100 unit/mL 35 unit SQ DAILY ml 01/09/19 10/01/19 History subcutaneous solution collagenase clostridium histo. 250 1 applic TOPICAL QDAY #30 g 08/26/19 10/01/19 Rx unit/gram topical ointment clindamycin HCl 300 mg capsule 300 mg PO TID 14 Days #42 cap 09/01/19 10/01/19 Rx gabapentin 100 mg capsule 100 mg PO DAILY cap 09/12/19 10/01/19 History Gabapentin [Gabapentin 100mg Cap] 200 mg PO HS 10/01/19 10/01/19 History Height: 1.78 m Weight: 103.022 kg Laboratory Results:: Laboratory Results - last 24 hr 09/30/19 09:20: Crossmatch ([facility]) See Detail 10/02/19 11:16: POC Glucose 214 H 10/02/19 17:21: POC Glucose 207 H 10/02/19 17:28: Vancomycin Trough 14.6 10/02/19 17:28: Hgb 8.5 L D, Hct 26.3 L 10/02/19 21:40: POC Glucose 133 H 10/03/19 06:01: POC Glucose 290 H 10/03/19 07:28: WBC 13.8 H D, RBC 2.61 L, Hgb 7.6 L*, Hct 24.7 L, MCV 94.8 H, MCH 28.9, MCHC 30.5 L, RDW 14.3, Plt Count 534 H, MPV 8.0, Neut % (Auto) 85.6 H, Lymph % (Auto) 5.3 L, [place] % (Auto) 7.7, Eos % (Auto) 1.2, Baso % (Auto) 0.2, Neut # (Auto) 11.8 H, Lymph # (Auto) 0.7, [place] # (Auto) 1.1 H, Eos # (Auto) 0.2, Baso # (Auto) 0.0, Total Counted 100, Neutrophils % (Manual) 83 H, Lymphocytes % (Manual) 6 L, Monocytes % (Manual) 7, Eosinophils % (Manual) 4 H, Platelet Estimate Normal, Hypochromasia 1+ 10/03/19 07:28: Sodium 134 L, Potassium 4.4, Chloride 101, Carbon Dioxide 28, Anion Gap 9.4, BUN 28 H, Creatinine 2.23 H, Estimated Creat Clear 44, Estimated GFR 29 L, Est GFR ( Amer) 35 L, Glucose 242 H, Calcium 7.4 L Medical History: Reports:: Cancer, Coronary Artery Disease, Diabetes Mellitus Type 2, Gastroesophageal Reflux Disease(GERD), Hyperlipidemia, Hypertension, Internal Pacemaker, MRSA, Myocardial Infarction, Peripheral Artery Disease, Renal Disease, Renal Insufficiency Denies:: Diabetes Mellitus Type 1, Seizures Assessment and Plan (1) Right foot infection Current visit: Yes Status: Acute Category: Medical Code(s): L08.9 - Local infection of the skin and subcutaneous tissue, unspecified (2) Gas gangrene Current visit: Yes Status: Acute Category: Medical Code(s): A48.0 - Gas gangrene (3) E coli infection Current visit: Yes Status: Acute Category: Medical Code(s): A49.8 - Other bacterial infections of unspecified site (4) Serratia marcescens infection Current visit: Yes Status: Acute Category: Medical Code(s): A48.8 - Other specified bacterial diseases (5) Abnormal ankle brachial index (LEOPOLDO) Current visit: No Status: Acute Category: Medical Code(s): R68.89 - Other general symptoms and signs (6) Arteriosclerotic cardiovascular disease Current visit: No Status: Acute Category: Medical Code(s): I25.10 - Atherosclerotic heart disease of [place] coronary artery without angina pectoris (7) Cellulitis of right foot Current visit: No Status: Acute Category: Medical Code(s): L03.115 - Cellulitis of right lower limb (8) Decreased pedal pulses Current visit: No Status: Acute Category: Medical Code(s): R09.89 - Other specified symptoms and signs involving the circulatory and respiratory systems (9) Peripheral vascular complication Current visit: No Status: Acute Category: Medical Code(s): I99.9 - Unspecified disorder of circulatory system (10) Poorly controlled diabetes mellitus Current visit: No Status: Acute Category: Medical Code(s): E11.65 - Type 2 diabetes mellitus with hyperglycemia (11) Type 2 diabetes mellitus with diabetic neuropathy, with long-term current use of insulin Current visit: No Status: Acute Category: Medical Code(s): E11.40 - Type 2 diabetes mellitus with diabetic neuropathy, unspecified; Z79.4 - terminal computer operator (current) use of insulin (12) History of amputation of foot through metatarsal bone Problem details: Left TMA, 04/03/18 Current visit: No Status: Chronic Category: Surgical Code(s): Z89.439 - Acquired absence of unspecified foot (13) Obesity (BMI 30.0-34.9) Current visit: No Status: Chronic Category: Medical Code(s): E66.9 - Obesity, unspecified (14) Anemia Current visit: Yes Status: Acute Category: Medical Code(s): D64.9 - Anemia, unspecified - Assessment and plan all Dx Assessment and Plan for all problems:: BASED ON PATIENT FACTORS AND VANCOMYCIN TROUGH LEVEL YESTERDAY, RECOMMEND CONTINUING VANCOMYCIN 2 GM IV Q36H. PHARMACY WILL CONTINUE TO MONITOR DAILY AND AND ADJUST APPROPRIATE.
--- NOTE | 2019-10-03 13:05 | Progress Note ---
Subjective Date: 10/03/19 Time: 09:00 Principal diagnosis: Right foot gas gangrene, PAD; s/p BKA Interval history: The patient is doing well this morning. He is having some phantom pain distal to the amputation site. No drainage through his dressings overnight. ~50cc output from drain overnight. PN: Obj Ex Vital signs: Temp Pulse Resp BP Pulse Ox 98.2 F 84 16 144/68 H 96 10/03/19 12:00 10/03/19 12:00 10/03/19 12:00 10/03/19 12:00 10/03/19 12:00 - Constitutional no acute distress - Routine HEENT Exam Head: Present: normocephalic Eye: Present: EOMI ENT: Present: mucous membranes moist - Routine Respiratory Exam Absent: accessory muscle use, respiratory distress, rhonchi, wheezes - Routine Cardiovascular Exam Present: RRR - Routine Abdominal Exam Present: soft. Absent: tenderness - Routine Extremities Exam Comments: R BKA dressing c/d/i, no strikethrough hemovac drain intact w/scant output able to lift leg off bed using hip/quads Progress Note: A&P (1) Right foot infection Status: Acute Current Visit: Yes (2) Gas gangrene Status: Acute Current Visit: Yes (3) E coli infection Status: Acute Current Visit: Yes (4) Serratia marcescens infection Status: Acute Current Visit: Yes (5) Abnormal ankle brachial index (LEOPOLDO) Status: Acute Current Visit: No (6) Arteriosclerotic cardiovascular disease Status: Acute Current Visit: No (7) Cellulitis of right foot Status: Acute Current Visit: No (8) Decreased pedal pulses Status: Acute Current Visit: No (9) Peripheral vascular complication Status: Acute Current Visit: No (10) Poorly controlled diabetes mellitus Status: Acute Current Visit: No (11) Type 2 diabetes mellitus with diabetic neuropathy, with long-term current use of insulin Status: Acute Current Visit: No (12) History of amputation of foot through metatarsal bone Problem details: Left TMA, 04/03/18 Status: Chronic Current Visit: No (13) Obesity (BMI 30.0-34.9) Status: Chronic Current Visit: No (14) Anemia Status: Acute Current Visit: Yes Assessment and Plan for All Diagnoses:: 73yo M with RLE chronic non-healing DM ulcer, gangrene, osteomyelitis; POD 1 s/p R BKA -- hbg 7.6 this morning; PRBC ordered -- pain meds: continue pre-op orders -- continue pre-op antibiotics: vanc/zosyn; recommend continuing at least a few more days, until WBC comes down (13.8 this morning, down from 21 yesterday) -- RLE splinted, keep elevated on a pillow at all times -- empty drain and record output each shift -- OOB with assistance, NWB RLE -- continue PT/OT -- may start anticoagulation per PCP -- case management consult for placement
[2019-10-03 21:41] LABS: Hematocrit 31.1 % (42.0-52.0)
[2019-10-03 22:01] LABS: Hemoglobin 9.9 g/dL (14.1-18.0)
--- NOTE | 2019-10-04 09:20 | Progress Note ---
Internal Medicine - PN: Subj *Date: 10/04/19 *Time: 09:17 Interval history: He is fairly stable clinically. His blood pressure has been high.. He is receiving 75 cc an hour of IV fluid. His groin is quite irritated. He has no control over his urine. He does not want a Ro catheter placed. Lab work is pending. He has been quite depressed. Saline lock will be placed. He will receive an additional one-time dose of carvedilol 6.25 mg. Start sertraline 50 mg p.o. daily. Exam Vital signs and Labs for Last 24 Hours: Temp Pulse Resp BP Pulse Ox 98 F 82 16 171/84 H 95 10/04/19 08:00 10/04/19 08:00 10/04/19 08:00 10/04/19 08:00 10/04/19 08:00 Laboratory Results - last 24 hr 09/30/19 09:20: Crossmatch ([facility]) See Detail 10/03/19 07:28: Total Counted 100, Neutrophils % (Manual) 83 H, Lymphocytes % (Manual) 6 L, Monocytes % (Manual) 7, Eosinophils % (Manual) 4 H, Platelet Estimate Normal, Hypochromasia 1+ 10/03/19 10:14: Blood Type O Positive, Antibody Screen Negative, Crossmatch ([facility]) See Detail 10/03/19 11:44: POC Glucose 279 H 10/03/19 16:22: POC Glucose 277 H 10/03/19 20:21: POC Glucose 87 10/03/19 21:18: Hgb 9.9 L D, Hct 31.1 L 10/03/19 23:00: POC Glucose 99 10/04/19 06:19: POC Glucose 184 H I & O for Last 24 hours: Intake & Output 10/01/19 10/02/19 10/03/19 10/04/19 11:59 11:59 11:59 11:59 Intake Total 1217 / 1217 870 / 870 2195 / 2195 875 / 875 Output Total 49 / 49 Balance 1217 / 1217 869 / 869 2146 / 2146 875 / 875 Weight 222 lb 1 oz 223 lb 7 oz 227 lb 2 oz 230 lb 4 oz Microbiology Reports for the Last 24 Hours: Microbiology 09/29/19 16:44 Foot,Right - Wound Gram Stain - Final 09/29/19 16:44 Foot,Right - Wound Surgical Biopsy Culture - Preliminary Citrobacter youngae Staphylococcus aureus 09/29/19 16:44 Toe,Right Great Gram Stain - Final 09/29/19 16:44 Toe,Right Great Surgical Biopsy Culture - Preliminary Citrobacter youngae Staphylococcus aureus 09/29/19 16:44 Foot,Right - Wound Gram Stain - Final 09/29/19 16:44 Foot,Right - Wound Surgical Biopsy Culture - Preliminary Citrobacter youngae Staphylococcus aureus 09/29/19 16:35 Foot,Right - Wound Gram Stain - Final 09/29/19 16:35 Foot,Right - Wound Wound Culture - Final Citrobacter youngae 09/29/19 16:44 Foot,Right Gram Stain - Final 09/29/19 16:44 Foot,Right Surgical Biopsy Culture - Preliminary Pantoea agglomerans Gram Positive Cocci 09/29/19 16:35 Foot,Right - Wound Gram Stain - Final 09/29/19 16:35 Foot,Right - Wound Wound Culture - Final Serratia marcescens Staphylococcus aureus - Constitutional no acute distress - *Routine HEENT Exam Head: Present: normocephalic Eye: Present: PERRL ENT: Present: mucous membranes moist - *Routine Respiratory Exam Present: CTA bilaterally - *Routine Cardiovascular Exam Present: RRR (Paced) - *Routine Abdominal Exam Present: soft - *Routine Extremities Exam Comments: Dressings are in place. Assessment and Plan (1) Right foot infection Current visit: Yes Status: Acute Category: Medical Code(s): L08.9 - Local infection of the skin and subcutaneous tissue, unspecified (2) Gas gangrene Current visit: Yes Status: Acute Category: Medical Code(s): A48.0 - Gas gangrene (3) E coli infection Current visit: Yes Status: Acute Category: Medical Code(s): A49.8 - Other bacterial infections of unspecified site (4) Serratia marcescens infection Current visit: Yes Status: Acute Category: Medical Code(s): A48.8 - Other specified bacterial diseases (5) Abnormal ankle brachial index (LEOPOLDO) Current visit: No Status: Acute Category: Medical Code(s): R68.89 - Other general symptoms and signs (6) Arteriosclerotic cardiovascular disease Current visit: No Status: Acute Category: Medical Code(s): I25.10 - Atherosclerotic heart disease of [place] coronary artery without angina pectoris (7) Cellulitis of right foot Current visit: No Status: Acute Category: Medical Code(s): L03.115 - Cellulitis of right lower limb (8) Decreased pedal pulses Current visit: No Status: Acute Category: Medical Code(s): R09.89 - Other specified symptoms and signs involving the circulatory and respiratory systems (9) Peripheral vascular complication Current visit: No Status: Acute Category: Medical Code(s): I99.9 - Unspecified disorder of circulatory system (10) Poorly controlled diabetes mellitus Current visit: No Status: Acute Category: Medical Code(s): E11.65 - Type 2 diabetes mellitus with hyperglycemia (11) Type 2 diabetes mellitus with diabetic neuropathy, with long-term current use of insulin Current visit: No Status: Acute Category: Medical Code(s): E11.40 - Type 2 diabetes mellitus with diabetic neuropathy, unspecified; 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
[2019-10-04 10:43] LABS: Basophils % 0.3 % (0.1-2.0); Eosinophils # 0.2 K/mm3 (0.0-0.4); Eosinophils % 1.4 % (0.1-12.0); Hematocrit 32.5 % (42.0-52.0); Hemoglobin 9.9 g/dL (14.1-18.0); Lymphocytes # 0.9 K/mm3 (0.7-4.5); Lymphocytes % 6.5 % (10-50); Mean Corpuscular HGB Conc 30.4 g/dL (31.8-35.4); Mean Platelet Volume 7.9 fl (7.4-10.4); Monocytes # 1.2 K/mm3 (0.1-1.0); Monocytes % 9.1 % (1.7-9.3); Neutrophils # 11.1 K/mm3 (1.8-7.8); Neutrophils % 82.8 % (37.0-80.0); Platelet Count 546 K/mm3 (142-424); Red Blood Count 3.53 M/mm3 (4.60-6.20); Red Cell Distribution Width 14.2 % (11.5-17.5); White Blood Count 13.5 K/mm3 (4.8-10.8)
[2019-10-04 10:49] LABS: Anion Gap 10.5 mEq/L (5-15); Calcium 7.7 mg/dL (8.5-10.1)
--- NOTE | 2019-10-04 11:15 | Progress Note ---
Internal Medicine - PN: Subj *Date: 10/04/19 *Time: 11:15 Exam Vital signs and Labs for Last 24 Hours: Temp Pulse Resp BP Pulse Ox 98 F 82 16 171/84 H 95 10/04/19 08:00 10/04/19 08:00 10/04/19 08:00 10/04/19 08:00 10/04/19 08:00 Laboratory Results - last 24 hr 09/30/19 09:20: Crossmatch ([facility]) See Detail 10/03/19 10:14: Blood Type O Positive, Antibody Screen Negative, Crossmatch ([facility]) See Detail 10/03/19 11:44: POC Glucose 279 H 10/03/19 16:22: POC Glucose 277 H 10/03/19 20:21: POC Glucose 87 10/03/19 21:18: Hgb 9.9 L D, Hct 31.1 L 10/03/19 23:00: POC Glucose 99 10/04/19 06:19: POC Glucose 184 H 10/04/19 10:28: WBC 13.5 H, RBC 3.53 L D, Hgb 9.9 L, Hct 32.5 L, MCV 92.0, MCH 27.9, MCHC 30.4 L, RDW 14.2, Plt Count 546 H, MPV 7.9, Neut % (Auto) 82.8 H, Lymph % (Auto) 6.5 L, [place] % (Auto) 9.1, Eos % (Auto) 1.4, Baso % (Auto) 0.3, Neut # (Auto) 11.1 H, Lymph # (Auto) 0.9, [place] # (Auto) 1.2 H, Eos # (Auto) 0.2, Baso # (Auto) 0.0 I & O for Last 24 hours: Intake & Output 10/01/19 10/02/19 10/03/19 10/04/19 23:59 23:59 23:59 23:59 Intake Total 162 / 1620 880 / 880 191 / 1909 360 / 360 Output Total 49 / 49 Balance 162 / 1620 879 / 879 1861 / 1860 360 / 360 Weight 100 kg 101.35 kg 103.022 kg 104.44 kg Microbiology Reports for the Last 24 Hours: Microbiology 09/29/19 16:44 Foot,Right - Wound Gram Stain - Final 09/29/19 16:44 Foot,Right - Wound Surgical Biopsy Culture - Final Citrobacter youngae Staphylococcus aureus 09/29/19 16:44 Foot,Right - Wound Gram Stain - Final 09/29/19 16:44 Foot,Right - Wound Surgical Biopsy Culture - Final Citrobacter youngae Staphylococcus aureus 09/29/19 16:44 Toe,Right Great Gram Stain - Final 09/29/19 16:44 Toe,Right Great Surgical Biopsy Culture - Final Citrobacter youngae Staphylococcus aureus 09/29/19 16:35 Foot,Right - Wound Gram Stain - Final 09/29/19 16:35 Foot,Right - Wound Wound Culture - Final Citrobacter youngae 09/29/19 16:44 Foot,Right Gram Stain - Final 09/29/19 16:44 Foot,Right Surgical Biopsy Culture - Preliminary Pantoea agglomerans Gram Positive Cocci 09/29/19 16:35 Foot,Right - Wound Gram Stain - Final 09/29/19 16:35 Foot,Right - Wound Wound Culture - Final Serratia marcescens Staphylococcus aureus Assessment and Plan (1) Right foot infection Current visit: Yes Status: Acute Category: Medical Code(s): L08.9 - Local infection of the skin and subcutaneous tissue, unspecified (2) Gas gangrene Current visit: Yes Status: Acute Category: Medical Code(s): A48.0 - Gas gangrene (3) E coli infection Current visit: Yes Status: Acute Category: Medical Code(s): A49.8 - Other bacterial infections of unspecified site (4) Serratia marcescens infection Current visit: Yes Status: Acute Category: Medical Code(s): A48.8 - Other specified bacterial diseases (5) Abnormal ankle brachial index (LEOPOLDO) Current visit: No Status: Acute Category: Medical Code(s): R68.89 - Other general symptoms and signs (6) Arteriosclerotic cardiovascular disease Current visit: No Status: Acute Category: Medical Code(s): I25.10 - Atherosclerotic heart disease of [place] coronary artery without angina pectoris (7) Cellulitis of right foot Current visit: No Status: Acute Category: Medical Code(s): L03.115 - Cellulitis of right lower limb (8) Decreased pedal pulses Current visit: No Status: Acute Category: Medical Code(s): R09.89 - Other specified symptoms and signs involving the circulatory and respiratory systems (9) Peripheral vascular complication Current visit: No Status: Acute Category: Medical Code(s): I99.9 - Unspecified disorder of circulatory system (10) Poorly controlled diabetes mellitus Current visit: No Status: Acute Category: Medical Code(s): E11.65 - Type 2 diabetes mellitus with hyperglycemia (11) Type 2 diabetes mellitus with diabetic neuropathy, with long-term current use of insulin Current visit: No Status: Acute Category: Medical Code(s): E11.40 - Type 2 diabetes mellitus with diabetic neuropathy, unspecified; Z79.4 - half-way (current) use of insulin (12) History of amputation of foot through metatarsal bone Problem details: Left TMA, 04/03/18 Current visit: No Status: Chronic Category: Surgical Code(s): Z89.439 - Acquired absence of unspecified foot (13) Obesity (BMI 30.0-34.9) Current visit: No Status: Chronic Category: Medical Code(s): E66.9 - Obesity, unspecified (14) Anemia Current visit: Yes Status: Acute Category: Medical Code(s): D64.9 - Anemia, unspecified The patient's infection will respond to the chosen ABx?: Yes Is the patient receiving the right drug, dose, and route?: Yes Could a more targeted ABx be ordered?: No (MULTI ORGANISMS FROM CULTURES, COVERED BY CURRENT ABX'S)
--- NOTE | 2019-10-04 14:01 | Progress Note ---
Subjective Date: 10/04/19 Time: 10:30 Principal diagnosis: Right foot gas gangrene, PAD; s/p BKA Interval history: The patient is feeling well this morning, still weak and unable to get out of bed with PT, but sitting on the edge of the bed. Pain well-controlled with meds. No fevers/chills reported, vitals stable. Hgb 9.9, WBC 13.5 PN: Obj Ex Vital signs: Temp Pulse Resp BP Pulse Ox 97.8 F 82 16 188/84 H 95 10/04/19 12:00 10/04/19 12:00 10/04/19 12:00 10/04/19 12:00 10/04/19 12:00 - Constitutional no acute distress - Routine HEENT Exam Head: Present: normocephalic Eye: Present: EOMI ENT: Present: mucous membranes moist - Routine Extremities Exam Comments: R BKA dressing c/d/i, no strikethrough able to lift leg off bed using hip/quads dressings removed, incision c/d/i, no active drainage/bleeding wound margins healthy; medial border slightly dusky skin pink and warm R BKA Progress Note: A&P (1) Right foot infection Status: Acute Current Visit: Yes (2) Gas gangrene Status: Acute Current Visit: Yes (3) E coli infection Status: Acute Current Visit: Yes (4) Serratia marcescens infection Status: Acute Current Visit: Yes (5) Abnormal ankle brachial index (LEOPOLDO) Status: Acute Current Visit: No (6) Arteriosclerotic cardiovascular disease Status: Acute Current Visit: No (7) Cellulitis of right foot Status: Acute Current Visit: No (8) Decreased pedal pulses Status: Acute Current Visit: No (9) Peripheral vascular complication Status: Acute Current Visit: No (10) Poorly controlled diabetes mellitus Status: Acute Current Visit: No (11) Type 2 diabetes mellitus with diabetic neuropathy, with long-term current use of insulin Status: Acute Current Visit: No (12) History of amputation of foot through metatarsal bone Problem details: Left TMA, 04/03/18 Status: Chronic Current Visit: No (13) Obesity (BMI 30.0-34.9) Status: Chronic Current Visit: No (14) Anemia Status: Acute Current Visit: Yes Assessment and Plan for All Diagnoses:: 73yo M POD #2 s/p R BKA -- dressings changed; splint removed, compression dressing added -- continue to elevate RLE to decrease edema -- change dressing daily: xeroform, 4x4, ABD, kerlix, MARAH wrap -- continue PT/OT -- medical management per primary -- dispo planning: to SNF once accepted, likely Sunday/Sunday
[2019-10-05 06:59] LABS: Basophils # 0.1 K/mm3 (0-0.2); Basophils % 0.4 % (0.1-2.0); Eosinophils # 0.3 K/mm3 (0.0-0.4); Eosinophils % 2.5 % (0.1-12.0); Hematocrit 33.2 % (42.0-52.0); Hemoglobin 10.4 g/dL (14.1-18.0); Lymphocytes # 1.2 K/mm3 (0.7-4.5); Lymphocytes % 9.2 % (10-50); Mean Corpuscular HGB Conc 31.3 g/dL (31.8-35.4); Mean Corpuscular Volume 91.8 fl (80-94); Mean Platelet Volume 7.6 fl (7.4-10.4); Monocytes # 0.8 K/mm3 (0.1-1.0); Monocytes % 6.6 % (1.7-9.3); Neutrophils # 10.3 K/mm3 (1.8-7.8); Neutrophils % 81.2 % (37.0-80.0); Platelet Count 588 K/mm3 (142-424); Red Blood Count 3.61 M/mm3 (4.60-6.20); White Blood Count 12.7 K/mm3 (4.8-10.8)
[2019-10-05 07:13] LABS: Anion Gap 13.2 mEq/L (5-15); Calcium 8.2 mg/dL (8.5-10.1)
--- NOTE | 2019-10-05 11:02 | Progress Note ---
Internal Medicine - PN: Subj *Date: 10/05/19 *Time: 10:59 Interval history: States he slept really well last night and feels much better today. Blood pressure is better vital signs are stable. Note lab work. Exam Vital signs and Labs for Last 24 Hours: Temp Pulse Resp BP Pulse Ox 98.5 F 76 16 141/47 H 96 10/05/19 08:00 10/05/19 08:00 10/05/19 08:00 10/05/19 08:00 10/05/19 08:00 Laboratory Results - last 24 hr 09/30/19 09:20: Crossmatch (AHG) See Detail 10/03/19 10:14: Crossmatch (AHG) See Detail 10/04/19 10:28: Sodium 134 L, Potassium 4.5, Chloride 101, Carbon Dioxide 27, Anion Gap 10.5, BUN 20 H D, Creatinine 2.05 H, Estimated Creat Clear 48, Estimated GFR 32 L, Est GFR ( Amer) 39 L, Glucose 233 H, Calcium 7.7 L 10/04/19 12:10: POC Glucose 254 H 10/04/19 15:46: POC Glucose 332 H* 10/04/19 20:02: POC Glucose 267 H 10/05/19 05:15: POC Glucose 143 H 10/05/19 06:35: WBC 12.7 H, RBC 3.61 L, Hgb 10.4 L, Hct 33.2 L, MCV 91.8, MCH 28.7, MCHC 31.3 L, RDW 14.0, Plt Count 588 H, MPV 7.6, Neut % (Auto) 81.2 H, Lymph % (Auto) 9.2 L, [place] % (Auto) 6.6, Eos % (Auto) 2.5, Baso % (Auto) 0.4, Neut # (Auto) 10.3 H, Lymph # (Auto) 1.2, [place] # (Auto) 0.8, Eos # (Auto) 0.3, Baso # (Auto) 0.1 10/05/19 06:35: Sodium 136, Potassium 4.2, Chloride 100, Carbon Dioxide 27, Anion Gap 13.2, BUN 19 H, Creatinine 1.91 H, Estimated Creat Clear 52, Estimated GFR 35 L, Est GFR ( Amer) 42 L, Glucose 166 H D, Calcium 8.2 L Laboratory Tests 10/03/19 10/03/19 10/04/19 07:28 21:18 10:28 WBC 13.5 H Hgb 9.9 L D 9.9 L Sodium Potassium BUN 28 H Creatinine 2.23 H 10/04/19 10/05/19 10/05/19 10:28 06:35 06:35 WBC 12.7 H Hgb 10.4 L Sodium 134 L 136 Potassium 4.2 BUN 20 H D 19 H Creatinine 2.05 H 1.91 H I & O for Last 24 hours: Intake & Output 10/02/19 10/03/19 10/04/19 10/05/19 11:59 11:59 11:59 11:59 Intake Total 870 / 870 2195 / 2195 875 / 875 840 / 840 Output Total 49 / 49 1000 / 1000 Balance 869 / 869 2146 / 2146 875 / 875 -160 / -160 Weight 223 lb 7 oz 227 lb 2 oz 230 lb 4 oz 231 lb Microbiology Reports for the Last 24 Hours: Microbiology 09/29/19 18:11 Blood - Wound Blood Culture - Final NO GROWTH AFTER 5 DAYS 09/29/19 18:11 Blood - Wound Blood Culture - Final NO GROWTH AFTER 5 DAYS 09/29/19 16:44 Foot,Right - Wound Gram Stain - Final 09/29/19 16:44 Foot,Right - Wound Surgical Biopsy Culture - Final Citrobacter youngae Staphylococcus aureus 09/29/19 16:44 Foot,Right - Wound Gram Stain - Final 09/29/19 16:44 Foot,Right - Wound Surgical Biopsy Culture - Final Citrobacter youngae Staphylococcus aureus 09/29/19 16:44 Toe,Right Great Gram Stain - Final 09/29/19 16:44 Toe,Right Great Surgical Biopsy Culture - Final Citrobacter youngae Staphylococcus aureus - Constitutional no acute distress - *Routine HEENT Exam Head: Present: normocephalic Eye: Present: PERRL ENT: Present: mucous membranes moist - *Routine Respiratory Exam Present: CTA bilaterally - *Routine Cardiovascular Exam Present: RRR (Paced) - *Routine Extremities Exam Absent: edema (Dressings intact) - Routine Psychiatric Exam Present: normal affect (Seems better today.) Assessment and Plan (1) Right foot infection Current visit: Yes Status: Acute Category: Medical Code(s): L08.9 - Local infection of the skin and subcutaneous tissue, unspecified (2) Gas gangrene Current visit: Yes Status: Acute Category: Medical Code(s): A48.0 - Gas gangrene (3) E coli infection Current visit: Yes Status: Acute Category: Medical Code(s): A49.8 - Other bacterial infections of unspecified site (4) Serratia marcescens infection Current visit: Yes Status: Acute Category: Medical Code(s): A48.8 - Other specified bacterial diseases (5) Abnormal ankle brachial index (LEOPOLDO) Current visit: No Status: Acute Category: Medical Code(s): R68.89 - Other general symptoms and signs (6) Arteriosclerotic cardiovascular disease Current visit: No Status: Acute Category: Medical Code(s): I25.10 - Atherosclerotic heart disease of [place] coronary artery without angina pectoris (7) Cellulitis of right foot Current visit: No Status: Acute Category: Medical Code(s): L03.115 - Cellulitis of right lower limb (8) Decreased pedal pulses Current visit: No Status: Acute Category: Medical Code(s): R09.89 - Other specified symptoms and signs involving the circulatory and respiratory systems (9) Peripheral vascular complication Current visit: No Status: Acute Category: Medical Code(s): I99.9 - Unspecified disorder of circulatory system (10) Poorly controlled diabetes mellitus Current visit: No Status: Acute Category: Medical Code(s): E11.65 - Type 2 diabetes mellitus with hyperglycemia (11) Type 2 diabetes mellitus with diabetic neuropathy, with long-term current use of insulin Current visit: No Status: Acute Category: Medical Code(s): E11.40 - Type 2 diabetes mellitus with diabetic neuropathy, unspecified; Z79.4 - [facility]itentiary (current) use of insulin (12) 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
--- NOTE | 2019-10-05 12:26 | Progress Note ---
Subjective Date: 10/05/19 Time: 11:00 Principal diagnosis: Right foot gas gangrene, PAD; s/p BKA Interval history: The patient is in much better spirits today. He was able to get more rest last night than he has since his admission. PureWick has been added to help with p erineal moisture from urinary incontinence. Pain in the R leg is minimal; it is described as more of a pressure than pain. He has been to the edge of the bed but unable to stand or transfer to a chair yet due to fatigue. PN: Obj Ex Vital signs: Temp Pulse Resp BP Pulse Ox 98.5 F 76 16 141/47 H 96 10/05/19 08:00 10/05/19 08:00 10/05/19 08:00 10/05/19 08:00 10/05/19 08:00 - Constitutional no acute distress - Routine Extremities Exam Comments: R BKA dressing c/d/i, no strikethrough; non-tender able to lift leg off bed using hip/quads patient able to flex/extend R knee slightly Progress Note: A&P (1) Right foot infection Status: Acute Current Visit: Yes (2) Gas gangrene Status: Acute Current Visit: Yes (3) E coli infection Status: Acute Current Visit: Yes (4) Serratia marcescens infection Status: Acute Current Visit: Yes (5) Abnormal ankle brachial index (LEOPOLDO) Status: Acute Current Visit: No (6) Arteriosclerotic cardiovascular disease Status: Acute Current Visit: No (7) Cellulitis of right foot Status: Acute Current Visit: No (8) Decreased pedal pulses Status: Acute Current Visit: No (9) Peripheral vascular complication Status: Acute Current Visit: No (10) Poorly controlled diabetes mellitus Status: Acute Current Visit: No (11) Type 2 diabetes mellitus with diabetic neuropathy, with long-term current use of insulin Status: Acute Current Visit: No (12) History of amputation of foot through metatarsal bone Problem details: Left TMA, 04/03/18 Status: Chronic Current Visit: No (13) Obesity (BMI 30.0-34.9) Status: Chronic Current Visit: No (14) Anemia Status: Acute Current Visit: Yes Assessment and Plan for All Diagnoses:: 73yo M POD #3 s/p R BKA -- continue to elevate RLE to decrease edema -- change dressing daily: xeroform, 4x4, ABD, kerlix, MARAH wrap -- continue PT/OT -- medical management per primary -- blood culture has been negative x5 days, wound appears healthy and viable; I am ok to d/c antibiotics and monitor clinically -- dispo planning: to SNF once accepted, likely Sunday/Sunday
[2019-10-06 06:47] LABS: Vancomycin,Trough 20.8 mcg/ml (10.0-20.0)
--- NOTE | 2019-10-06 08:35 | Progress Note ---
Internal Medicine - PN: Subj *Date: 10/06/19 *Time: 08:29 Interval history: Patient slept a little last night. He has some aching in his right stump area and this is better. He is eating better although food just does not taste well. Bowels move yesterday. He has a wick in place for urinary output. He did work with physical therapy and was unable to stand on his left leg. He states it was too weak. He is anxious to get on with rehab and states he may be going today or tomorrow depending on his insurance. States Dr. Berg put him on a happy pill and this is made him feel better. Exam Vital signs and Labs for Last 24 Hours: Temp Pulse Resp BP Pulse Ox 97.7 F 74 18 170/77 H 95 10/06/19 07:59 10/06/19 07:59 10/06/19 07:59 10/06/19 07:59 10/06/19 07:59 Laboratory Results - last 24 hr 09/30/19 09:20: Crossmatch (AHG) See Detail 10/05/19 12:24: POC Glucose 249 H 10/05/19 16:04: POC Glucose 365 H* 10/05/19 16:15: Vancomycin Trough 24.2 H 10/05/19 20:44: POC Glucose 169 H 10/06/19 05:45: POC Glucose 218 H 10/06/19 06:16: C-Reactive Protein 11.0 H, Vancomycin Trough 20.8 H I & O for Last 24 hours: Intake & Output 10/03/19 10/04/19 10/05/19 10/06/19 11:59 11:59 11:59 11:59 Intake Total 2195 / 2195 875 / 875 840 / 840 1010 / 1010 Output Total 49 / 49 1000 / 1000 800 / 800 Balance 2146 / 2146 875 / 875 -160 / -160 210 / 210 Weight 227 lb 2 oz 230 lb 4 oz 231 lb 225 lb 4 oz - Constitutional no acute distress Comments: Appears comfortable. - *Routine Respiratory Exam Present: CTA bilaterally (Anteriorly and posteriorly) - *Routine Cardiovascular Exam Present: RRR - *Routine Abdominal Exam Present: soft, normoactive bowel sounds. Absent: tenderness, distended - *Routine Extremities Exam Comments: Right stump dressing clean and dry. Left leg without edema. - *Routine Neurological Exam Present: alert, oriented X3 Assessment and Plan (1) Right foot infection Current visit: Yes Status: Acute Category: Medical Code(s): L08.9 - Local infection of the skin and subcutaneous tissue, unspecified (2) Gas gangrene Current visit: Yes Status: Acute Category: Medical Code(s): A48.0 - Gas gangrene (3) E coli infection Current visit: Yes Status: Acute Category: Medical Code(s): A49.8 - Other bacterial infections of unspecified site (4) Serratia marcescens infection Current visit: Yes Status: Acute Category: Medical Code(s): A48.8 - Other specified bacterial diseases (5) Abnormal ankle brachial index (LEOPOLDO) Current visit: No Status: Acute Category: Medical Code(s): R68.89 - Other general symptoms and signs (6) Arteriosclerotic cardiovascular disease Current visit: No Status: Acute Category: Medical Code(s): I25.10 - Atherosclerotic heart disease of [place] coronary artery without angina pectoris (7) Cellulitis of right foot Current visit: No Status: Acute Category: Medical Code(s): L03.115 - Cellulitis of right lower limb (8) Decreased pedal pulses Current visit: No Status: Acute Category: Medical Code(s): R09.89 - Other specified symptoms and signs involving the circulatory and respiratory systems (9) Peripheral vascular complication Current visit: No Status: Acute Category: Medical Code(s): I99.9 - Unspecified disorder of circulatory system (10) Poorly controlled diabetes mellitus Current visit: No Status: Acute Category: Medical Code(s): E11.65 - Type 2 diabetes mellitus with hyperglycemia (11) Type 2 diabetes mellitus with diabetic neuropathy, with long-term current use of insulin Current visit: No Status: Acute Category: Medical Code(s): E11.40 - Type 2 diabetes mellitus with diabetic neuropathy, unspecified; Z79.4 - snf (current) use of insulin (12) History of amputation of foot through metatarsal bone Problem details: Left TMA, 04/03/18 Current visit: No Status: Chronic Category: Surgical Code(s): Z89.439 - Acquired absence of unspecified foot (13) Obesity (BMI 30.0-34.9) Current visit: No Status: Chronic Category: Medical Code(s): E66.9 - Obesity, unspecified (14) Anemia Current visit: Yes Status: Acute Category: Medical Code(s): D64.9 - Anemia, unspecified - Assessment and plan all Dx Assessment and Plan for all problems:: Discharge process has been initiated. Possible transfer to skilled area for ongoing rehab today. May need additional blood pressure medicine.
--- NOTE | 2019-10-06 09:29 | Pharmacy Consult Notes ---
- Pharmacy Consult Date: 10/06/19 Time: 09:28 Referring provider: DR. JOSE Reason for Consult:: VANCOMYCIN TROUGH LEVELS Allergies and ADEs:: Allergies Allergy/AdvReac Type Severity Reaction Status Date / Time promethazine Allergy Mild itching Verified 10/01/19 10:24 cyanocobalamin (vitamin B12) Allergy Rash Verified 10/01/19 10:24 Home Medications:: Home Medications Medication Instructions Recorded Confirmed Type Amiodarone HCl [Amiodarone 200mg 200 mg PO DAILY 02/27/18 10/01/19 History Tab] Aspirin 81 mg PO DAILY 02/27/18 10/01/19 History Atorvastatin Calcium [Atorvastatin 40 mg PO HS 02/27/18 10/01/19 History 40mg Tab] Cholecalciferol (Vitamin D3) 5,000 unit PO DAILY 02/27/18 10/01/19 History [Vitamin D3 10,000 unit Cap] Furosemide [Furosemide 40MG tAB] 40 mg PO BID 02/27/18 10/01/19 History Glimepiride 4 mg PO BID 02/27/18 10/01/19 History Potassium Chloride [Klor-Con 10mEq 10 meq PO BID 02/27/18 10/01/19 History tab] carvediloL [Carvedilol 25mg Tab] 25 mg PO BID 02/28/18 10/01/19 History insulin aspar prot-insulin aspart 8 unit SUB-Q BID 03/29/18 10/01/19 History 100 unit/mL (70-30) subcutaneous pen insulin detemir U-100 100 unit/mL 35 unit SQ DAILY ml 01/09/19 10/01/19 History subcutaneous solution collagenase clostridium histo. 250 1 applic TOPICAL QDAY #30 g 08/26/19 10/01/19 Rx unit/gram topical ointment clindamycin HCl 300 mg capsule 300 mg PO TID 14 Days #42 cap 09/01/19 10/01/19 Rx gabapentin 100 mg capsule 100 mg PO DAILY cap 09/12/19 10/01/19 History Gabapentin [Gabapentin 100mg Cap] 200 mg PO HS 10/01/19 10/01/19 History Height: 1.78 m Weight: 102.172 kg Laboratory Results:: Laboratory Results - last 24 hr 10/05/19 12:24: POC Glucose 249 H 10/05/19 16:04: POC Glucose 365 H* 10/05/19 16:15: Vancomycin Trough 24.2 H 10/05/19 20:44: POC Glucose 169 H 10/06/19 05:45: POC Glucose 218 H 10/06/19 06:16: C-Reactive Protein 11.0 H, Vancomycin Trough 20.8 H Medical History: Reports:: Cancer, Coronary Artery Disease, Diabetes Mellitus Type 2, Gastroesophageal Reflux Disease(GERD), Hyperlipidemia, Hypertension, Internal Pacemaker, MRSA, Myocardial Infarction, Peripheral Artery Disease, Renal Disease, Renal Insufficiency Denies:: Diabetes Mellitus Type 1, Seizures Assessment and Plan (1) Right foot infection Current visit: Yes Status: Acute Category: Medical Code(s): L08.9 - Local infection of the skin and subcutaneous tissue, unspecified (2) Gas gangrene Current visit: Yes Status: Acute Category: Medical Code(s): A48.0 - Gas gangrene (3) E coli infection Current visit: Yes Status: Acute Category: Medical Code(s): A49.8 - Other bacterial infections of unspecified site (4) Serratia marcescens infection Current visit: Yes Status: Acute Category: Medical Code(s): A48.8 - Other specified bacterial diseases (5) Abnormal ankle brachial index (LEOPOLDO) Current visit: No Status: Acute Category: Medical Code(s): R68.89 - Other general symptoms and signs (6) Arteriosclerotic cardiovascular disease Current visit: No Status: Acute Category: Medical Code(s): I25.10 - Atherosclerotic heart disease of [place] coronary artery without angina pectoris (7) Cellulitis of right foot Current visit: No Status: Acute Category: Medical Code(s): L03.115 - Cellulitis of right lower limb (8) Decreased pedal pulses Current visit: No Status: Acute Category: Medical Code(s): R09.89 - Other specified symptoms and signs involving the circulatory and respiratory systems (9) Peripheral vascular complication Current visit: No Status: Acute Category: Medical Code(s): I99.9 - Unspecified disorder of circulatory system (10) Poorly controlled diabetes mellitus Current visit: No Status: Acute Category: Medical Code(s): E11.65 - Type 2 diabetes mellitus with hyperglycemia (11) Type 2 diabetes mellitus with diabetic neuropathy, with long-term current use of insulin Current visit: No Status: Acute Category: Medical Code(s): E11.40 - Type 2 diabetes mellitus with diabetic neuropathy, unspecified; Z79.4 - retirement (current) use of insulin (12) History of amputation of foot through metatarsal bone Problem details: Left TMA, 04/03/18 Current visit: No Status: Chronic Category: Surgical Code(s): Z89.439 - Acquired absence of unspecified foot (13) Obesity (BMI 30.0-34.9) Current visit: No Status: Chronic Category: Medical Code(s): E66.9 - Obesity, unspecified (14) Anemia Current visit: Yes Status: Acute Category: Medical Code(s): D64.9 - Anemia, unspecified - Assessment and plan all Dx Assessment and Plan for all problems:: BASED ON PATIENT FACTORS AND VANCOMYCIN TROUGH LEVELS LAST NIGHT AND THIS MORNING, RECOMMEND CHANGING VANCOMYCIN TO 2 GM IV Q72H. PHARMACY WILL CONTINUE TO MONITOR DAILY AND ADJUST APPROPRIATE.
--- NOTE | 2019-10-06 10:05 | Progress Note ---
Subjective Date: 10/06/19 Time: 09:00 Principal diagnosis: Right foot gas gangrene, PAD; s/p BKA Interval history: The patient is doing well this morning. Minimal pain reported in the R leg, no drainage since last dressing change. PN: Obj Ex Vital signs: Temp Pulse Resp BP Pulse Ox 97.7 F 74 18 170/77 H 95 10/06/19 07:59 10/06/19 07:59 10/06/19 07:59 10/06/19 07:59 10/06/19 07:59 - Routine Extremities Exam Comments: R BKA dressing c/d/i, no strikethrough; non-tender dressings removed, incision c/d/i, no active drainage; medial wound slightly dusky able to lift leg off bed using hip/quads patient able to flex/extend R knee slightly Progress Note: A&P (1) Right foot infection Status: Acute Current Visit: Yes (2) Gas gangrene Status: Acute Current Visit: Yes (3) E coli infection Status: Acute Current Visit: Yes (4) Serratia marcescens infection Status: Acute Current Visit: Yes (5) Abnormal ankle brachial index (LEOPOLDO) Status: Acute Current Visit: No (6) Arteriosclerotic cardiovascular disease Status: Acute Current Visit: No (7) Cellulitis of right foot Status: Acute Current Visit: No (8) Decreased pedal pulses Status: Acute Current Visit: No (9) Peripheral vascular complication Status: Acute Current Visit: No (10) Poorly controlled diabetes mellitus Status: Acute Current Visit: No (11) Type 2 diabetes mellitus with diabetic neuropathy, with long-term current use of insulin Status: Acute Current Visit: No (12) History of amputation of foot through metatarsal bone Problem details: Left TMA, 04/03/18 Status: Chronic Current Visit: No (13) Obesity (BMI 30.0-34.9) Status: Chronic Current Visit: No (14) Anemia Status: Acute Current Visit: Yes Assessment and Plan for All Diagnoses:: 73yo M POD #4 s/p R BKA -- continue to elevate RLE to decrease edema -- change dressing daily: xeroform, 4x4, ABD, kerlix, MARAH wrap -- continue PT/OT -- medical management per primary -- blood culture has been negative x5 days, wound appears healthy and viable; I am ok to d/c antibiotics and monitor clinically -- dispo planning: to SNF today; f/u with me in 1 week
--- NOTE | 2019-10-06 13:28 | Discharge Summary ---
General - General Admission date:: 09/29/19 Discharge date: 10/06/19 HPI HPI: Mr. Beckett is a 73-year-old diabetic male who was seen in the outpatient area of the special clinic by Dr. Stauffer on 09/29/2019. Patient had worsening edema and erythema to his right foot. Patient had undergone a right transmetatarsal amputation 09/18/2019. He also had undergone cardiovascular revascularization with Dr. Vargas on 09/17/2019. There was a concern for decrease in lack of perfusion secondary to peripheral artery disease. Patient understood that the blood flow below the right knee was compromised. He presented to the outpatient clinic with a worsening infection. At this point there was concern that the patient was becoming septic. He had malaise, nausea/vomiting, and chills. He felt weakness with worsening right foot infection. Discussion about surgical intervention for further debridement of the nonviable soft tissue and bone was pursued with the patient. Dr. Stauffer discussed with Binta Ramirez APRN as well as Benedicto WILLIMANTIC cardiology. It was decided for him to undergo right foot incision and drainage with follow-up admission to the hospital. Hospital Course Hospital Course: Patient did have right foot incision and drainage by Dr. Majano with debridement of nonviable soft tissue, due to nonviable bone, and right foot Chopart amputation/disarticulation for right foot gas gangrene, cellulitis, diabetic foot infection, osteomyelitis, and peripheral artery disease. Dr. Berg was consulted for medical management and followed patient throughout his stay. The patient was well known to him with his history of severe diabetes, severe peripheral vascular disease, and coronary artery disease. Patient was noted to have had removal of the fifth digit of the left foot 03/23/2016 and amputation of the left great toe on 03/03/2018. He had a stent to the left leg in 2011 as well as pacemaker placement 01/25/2013, coronary artery bypass graft x2 and mitral valve repair, and pacer defibrillator in April 2013. He continued his routine meds to include amiodarone, atorvastatin, glimepiride, Levemir, and with initiation of sliding scale insulin, and given 20 of Lasix IV. The following day with dressing change soft tissue was noted to be gangrenous with new brown-monroy discoloration, mild malodor still noted and minimal blood flow to the wound; Skin was dusky with blistery skin to the dorsal ankle; Pain to palpation up to the distal leg. Cellulitis appeared to improve some but still noted. No calf or thigh pain. The wound at this point was flushed at the bedside with Betadine and packed. Benedicto Juarez, cardiology, gave cardiac clearance for more proximal amputation. Due to the significant lower extremity small vessel disease and inability to further stent combined with continued progressive worsening gangrenous changes to the foot and ankle Dr. Majano discussed with the patient and about a more proximal amputation. She did not feel that repeated debridements and grafting w ould be an appropriate alternative due to the patient's severe peripheral artery disease combined with a gas gangrene infection.Therefore orthopedic consultation was initiated for below the knee amputation. Patient was to continue with Vanc, and Zosyn. Patient was seen by Dr. Shirley, orthopedics, who agreed that the limb was not salvageable and agreed that the amputation should be revised to a below the knee amputation. She also discussed the recommendations with the patient and who were in agreement with this plan. Plan was to have a right below the knee amputation on , 10/02/2019 Patient was significantly anemic and required transfusion of 2 units of packed red blood cells. H and H improved to 9.7/30.4 Patient did feel down and depressed and was started on an antidepressant. Echo performed showed ejection fraction of 40 to 45%, mild cardiomyopathy.. Hemoglobin was 9.4 on 10/01/2019. On 10/02/2019 patient had a right below the knee amputation. Tissue above-the- knee amputation site appeared healthy and viable with good blood flow. Postoperatively pain was controlled with pain medicine. He began to sleep better and was drinking liquids well after starting the sertraline. Physical therapy was initiated. Hemoglobin did decrease to 7.6 and he did receive 2 additional units of packed red blood cells. He was continued on Vanco and Zosyn postop. Care management was consulted for discharge placement. Patient was noted to have no control over his urine. He did not Ro catheter. A Pure wick was utilized to prevent the moisture exposure. Hemoglobin increased to 9.9 after blood and white blood cell count was 13.5 on 10/04/2019. He was able to sit on the side of the bed. He had daily dressing changes. He had started with PT and OT. Blood pressure improved. Pain in the right leg was minimal. He described the pain as more of a pressure than actual pain. He had been unable to stand or transfer to a chair due to weakness in the left leg. Patient was followed by Dr. Vidal throughout the stay as well as cardiology. On 10/06/2018 he was feeling much better. He had some right stump pressure. He felt like he was eating better although food did not taste well. Bowels were moving. He was anxious to move on with rehab and was hopefully going to be discharged on this date. 10/06/2019 patient was accepted to [facility] in [place]. Patient was stable for discharge. Patient was discharged for transfer to [facility] in stable and satisfactory condition. Follow-up will be by physician in this facility. Medications as per list. Objective Vital signs: Temp Pulse Resp BP Pulse Ox 97.7 F 74 18 170/77 H 95 10/06/19 07:59 10/06/19 07:59 10/06/19 07:59 10/06/19 07:59 10/06/19 07:59 Narrative: Exam Vital signs and Labs for Last 24 Hours: Temp Pulse Resp BP Pulse Ox 97.7 F 74 18 170/77 H 95 10/06/19 07:59 10/06/19 07:59 10/06/19 07:59 10/06/19 07:59 10/06/19 07:59 Laboratory Results - last 24 hr 09/30/19 09:20: Crossmatch (AHG) See Detail 10/05/19 12:24: POC Glucose 249 H 10/05/19 16:04: POC Glucose 365 H* 10/05/19 16:15: Vancomycin Trough 24.2 H 10/05/19 20:44: POC Glucose 169 H 10/06/19 05:45: POC Glucose 218 H 10/06/19 06:16: C-Reactive Protein 11.0 H, Vancomycin Trough 20.8 H I & O for Last 24 hours: Intake & Output 10/03/19 10/04/19 10/05/19 10/06/19 11:59 11:59 11:59 11:59 Intake Total 2195 / 2195 875 / 875 840 / 840 1010 / 1010 Output Total 49 / 49 1000 / 1000 800 / 800 Balance 2146 / 2146 875 / 875 -160 / -160 210 / 210 Weight 227 lb 2 oz 230 lb 4 oz 231 lb 225 lb 4 oz - Constitutional no acute distress Comments: Appears comfortable. - *Routine Respiratory Exam Present: CTA bilaterally (Anteriorly and posteriorly) - *Routine Cardiovascular Exam Present: RRR - *Routine Abdominal Exam Present: soft, normoactive bowel sounds. Absent: tenderness, distended - *Routine Extremities Exam Comments: Right stump dressing clean and dry. Left leg without edema. - *Routine Neurological Exam Present: alert, oriented X3 Results Completed studies during hospitalization [Text1]: Chest x-ray 10/01/2019 IMPRESSION: No acute findings. Echocardiogram 09/30/2019 Conclusion 1. Technically difficult study because of the patient fact in poor acoustic windows 2. Mildly enlarged left atrium, normal left ventricular size, mild concentric left ventricular hypertrophy, visually estimated ejection fraction of 40 to 45% as described above, grade 1 diastolic dysfunction seen with tissue Doppler evidence of raise left atrial pressure. 3. Mild mitral and tricuspid regurgitation. 4. No significant pericardial effusion noted. To note also blood cultures were negative after 5 days; surgical biopsy cultures of the right foot revealed Citrobacter youngae and staph aureus; wound culture Labs on day of discharge: Labs from last 24 hours 10/06/19 10/06/19 10/06/19 11:35 06:16 05:45 POC Glucose 276 H 218 H C-Reactive Protein 11.0 H Vancomycin Trough 20.8 H 10/05/19 10/05/19 10/05/19 20:44 16:15 16:04 POC Glucose 169 H 365 H* C-Reactive Protein Vancomycin Trough 24.2 H DS: Diagnosis - Discharge Diagnosis (1) Right foot infection Status: Acute (2) Gas gangrene Status: Acute (3) E coli infection Status: Acute (4) Serratia marcescens infection Status: Acute (5) Abnormal ankle brachial index (LEOPOLDO) Status: Acute (6) Arteriosclerotic cardiovascular disease Status: Acute (7) Cellulitis of right foot Status: Acute (8) Decreased pedal pulses Status: Acute (9) Peripheral vascular complication Status: Acute (10) Poorly controlled diabetes mellitus Status: Acute (11) Type 2 diabetes mellitus with diabetic neuropathy, with long-term current use of insulin Status: Acute (12) History of amputation of foot through metatarsal bone Status: Chronic Problem details: Left TMA, 04/03/18 (13) Obesity (BMI 30.0-34.9) Status: Chronic (14) Anemia Status: Acute (15) Depression Status: Acute Discharge Plan - Patient Discharge Instructions ACTIVITY: Up with assistance DIET: continue same diet Additional Instructions: -- continue to elevate RLE to decrease edema -- change dressing daily: xeroform, 4x4, ABD, kerlix, MARAH wrap -- continue PT/OT; NWB RLE -- follow-up with Dr. Tang 1 week Patient Instructions: DI for Cellulitis -- Adult, Gangrene, DI for Lzsih-bwr-Ngas Amputation, Cyxlh-cbv-Xeav Amputation, DI for Surgical Site Infection - Follow up Plan Follow up with: Kortney Tang MD [Physician] - 10/13/19 1:15 pm Porsha Stauffer DPM [Staff Physician] - Disposition: er [facility] Home Medications: Home Medications Medication Instructions Recorded Confirmed Type Amiodarone HCl [Amiodarone 200mg 200 mg PO DAILY 02/27/18 10/01/19 History Tab] Aspirin 81 mg PO DAILY 02/27/18 10/01/19 History Atorvastatin Calcium [Atorvastatin 40 mg PO HS 02/27/18 10/01/19 History 40mg Tab] Cholecalciferol (Vitamin D3) 5,000 unit PO DAILY 02/27/18 10/01/19 History [Vitamin D3 10,000 unit Cap] Furosemide [Furosemide 40MG tAB] 40 mg PO BID 02/27/18 10/01/19 History Glimepiride 4 mg PO BID 02/27/18 10/01/19 History Potassium Chloride [Klor-Con 10mEq 10 meq PO BID 02/27/18 10/01/19 History tab] carvediloL [Carvedilol 25mg Tab] 25 mg PO BID 02/28/18 10/01/19 History insulin aspar prot-insulin aspart 8 unit SUB-Q BID 03/29/18 10/01/19 History 100 unit/mL (70-30) subcutaneous pen insulin detemir U-100 100 unit/mL 35 unit SQ DAILY ml 01/09/19 10/01/19 History subcutaneous solution collagenase clostridium histo. 250 1 applic TOPICAL QDAY #30 g 08/26/19 10/01/19 Rx unit/gram topical ointment clindamycin HCl 300 mg capsule 300 mg PO TID 14 Days #42 cap 09/01/19 10/01/19 Rx gabapentin 100 mg capsule 100 mg PO DAILY cap 09/12/19 10/01/19 History Gabapentin [Gabapentin 100mg Cap] 200 mg PO HS 10/01/19 10/01/19 History Prescriptions/Medication Reconciliation: No Action insulin detemir U-100 100 unit/mL subcutaneous solution 35 unit SQ DAILY ml collagenase clostridium histo. 250 unit/gram topical ointment 1 applic TOPICAL QDAY #30 g gabapentin 100 mg capsule 100 mg PO DAILY cap insulin aspar prot-insulin aspart 100 unit/mL (70-30) subcutaneous pen 8 unit SUB-Q BID clindamycin HCl 300 mg capsule 300 mg PO TID 14 Days #42 cap Furosemide [Furosemide 40MG tAB] 40 mg PO BID Amiodarone HCl [Amiodarone 200mg Tab] 200 mg PO DAILY Cholecalciferol (Vitamin D3) [Vitamin D3 10,000 unit Cap] 5,000 unit PO DAILY Glimepiride 4 mg PO BID Atorvastatin Calcium [Atorvastatin 40mg Tab] 40 mg PO HS Aspirin 81 mg PO DAILY Potassium Chloride [Klor-Con 10mEq tab] 10 meq PO BID carvediloL [Carvedilol 25mg Tab] 25 mg PO BID Gabapentin [Gabapentin 100mg Cap] 200 mg PO HS - Problem Reconciliation Problems Reviewed?: Yes
[2019-10-07 06:59] LABS: Basophils % 0.4 % (0.1-2.0); Eosinophils # 0.3 K/mm3 (0.0-0.4); Eosinophils % 3.6 % (0.1-12.0); Hemoglobin 9.2 g/dL (14.1-18.0); Lymphocytes # 1.1 K/mm3 (0.7-4.5); Lymphocytes % 12.8 % (10-50); Mean Corpuscular HGB Conc 30.7 g/dL (31.8-35.4); Mean Corpuscular Volume 93.4 fl (80-94); Mean Platelet Volume 8.1 fl (7.4-10.4); Monocytes # 0.6 K/mm3 (0.1-1.0); Monocytes % 6.5 % (1.7-9.3); Neutrophils # 6.8 K/mm3 (1.8-7.8); Neutrophils % 76.6 % (37.0-80.0); Platelet Count 538 K/mm3 (142-424); Red Blood Count 3.21 M/mm3 (4.60-6.20); White Blood Count 8.9 K/mm3 (4.8-10.8)
[2019-10-07 07:04] LABS: Anion Gap 11.8 mEq/L (5-15); Calcium 7.9 mg/dL (8.5-10.1)
--- NOTE | 2019-10-07 08:52 | Progress Note ---
Internal Medicine - PN: Subj *Date: 10/07/19 *Time: 08:49 Interval history: Patient had a satisfactory day yesterday. He feels like he should be doing better with physical therapy. He was able to bear weight on his left leg when arising from the bed. He was unable to get out of the chair and had to be lifted. He is eating without difficulty. Bowels are moving. He had dressing change to the right stump without pain yesterday. He denies chest pain and shortness of breath. Patient did receive a dose of vancomycin and Pipercillin yesterday. CBC this morning reveals white count of 8900 with a hemoglobin of 9.2 and hematocrit of 30. BMP shows normal electrolytes with a BUN of 18 and a creatinine of 1.81 which is improved from 10/05 with a creatinine of 1.91 Exam Vital signs and Labs for Last 24 Hours: Temp Pulse Resp BP Pulse Ox 98.5 F 80 18 130/79 92 L 10/07/19 07:48 10/07/19 07:48 10/07/19 07:48 10/07/19 07:48 10/07/19 07:48 Laboratory Results - last 24 hr 10/06/19 11:35: POC Glucose 276 H 10/06/19 16:32: POC Glucose 299 H 10/06/19 20:10: POC Glucose 221 H 10/07/19 05:46: POC Glucose 194 H 10/07/19 06:39: WBC 8.9 D, RBC 3.21 L, Hgb 9.2 L, Hct 30.0 L, MCV 93.4, MCH 28.7, MCHC 30.7 L, RDW 14.0, Plt Count 538 H, MPV 8.1, Neut % (Auto) 76.6, Lymph % (Auto) 12.8, [place] % (Auto) 6.5, Eos % (Auto) 3.6, Baso % (Auto) 0.4, Neut # (Auto) 6.8, Lymph # (Auto) 1.1, [place] # (Auto) 0.6, Eos # (Auto) 0.3, Baso # (Auto) 0.0 10/07/19 06:39: Sodium 137, Potassium 3.8, Chloride 101, Carbon Dioxide 28, Anion Gap 11.8, BUN 18, Creatinine 1.81 H, Estimated Creat Clear 53, Estimated GFR 37 L, Est GFR ( Amer) 45 L, Glucose 184 H, Calcium 7.9 L I & O for Last 24 hours: Intake & Output 10/04/19 10/05/19 10/06/19 10/07/19 11:59 11:59 11:59 11:59 Intake Total 875 / 875 840 / 840 1010 / 1010 1890 / 1890 Output Total 1000 / 1000 800 / 800 Balance 875 / 875 -160 / -160 210 / 210 189 / 1890 Weight 230 lb 4 oz 231 lb 225 lb 4 oz 224 lb 1 oz Microbiology Reports for the Last 24 Hours: Microbiology 09/29/19 16:44 Foot,Right Gram Stain - Final 09/29/19 16:44 Foot,Right Surgical Biopsy Culture - Final Pantoea agglomerans Staphylococcus aureus - Constitutional no acute distress - *Routine Respiratory Exam Present: CTA bilaterally (Anteriorly and posteriorly) - *Routine Cardiovascular Exam Present: RRR - *Routine Abdominal Exam Present: soft, normoactive bowel sounds. Absent: tenderness, distended - *Routine Extremities Exam Absent: edema, calf tenderness Comments: Right stump dressing is clean and dry. No edema above the dressing. - *Routine Neurological Exam Present: alert, oriented X3 Assessment and Plan (1) Right foot infection Current visit: Yes Status: Acute Category: Medical Code(s): L08.9 - Local infection of the skin and subcutaneous tissue, unspecified (2) Gas gangrene Current visit: Yes Status: Acute Category: Medical Code(s): A48.0 - Gas gangrene (3) E coli infection Current visit: Yes Status: Acute Category: Medical Code(s): A49.8 - Other bacterial infections of unspecified site (4) Serratia marcescens infection Current visit: Yes Status: Acute Category: Medical Code(s): A48.8 - Other specified bacterial diseases (5) Abnormal ankle brachial index (LEOPOLDO) Current visit: No Status: Acute Category: Medical Code(s): R68.89 - Other general symptoms and signs (6) Arteriosclerotic cardiovascular disease Current visit: No Status: Acute Category: Medical Code(s): I25.10 - Atherosclerotic heart disease of hoh coronary artery without angina pectoris (7) Cellulitis of right foot Current visit: No Status: Acute Category: Medical Code(s): L03.115 - Cellulitis of right lower limb (8) Decreased pedal pulses Current visit: No Status: Acute Category: Medical Code(s): R09.89 - Other specified symptoms and signs involving the circulatory and respiratory systems (9) Peripheral vascular complication Current visit: No Status: Acute Category: Medical Code(s): I99.9 - Unspecified disorder of circulatory system (10) Poorly controlled diabetes mellitus Current visit: No Status: Acute Category: Medical Code(s): E11.65 - Type 2 diabetes mellitus with hyperglycemia (11) Type 2 diabetes mellitus with diabetic neuropathy, with long-term current use of insulin Current visit: No Status: Acute Category: Medical Code(s): E11.40 - Type 2 diabetes mellitus with diabetic neuropathy, unspecified; Z79.4 - FPC (current) use of insulin (12) History of amputation of foot through metatarsal bone Problem details: Left TMA, 04/03/18 Current visit: No Status: Chronic Category: Surgical Code(s): Z89.439 - Acquired absence of unspecified foot (13) Obesity (BMI 30.0-34.9) Current visit: No Status: Chronic Category: Medical Code(s): E66.9 - Obesity, unspecified (14) Anemia Current visit: Yes Status: Acute Category: Medical Code(s): D64.9 - Anemia, unspecified (15) Depression Current visit: Yes Status: Acute Category: Medical Code(s): F32.9 - Major depressive disorder, single episode, unspecified - Assessment and plan all Dx Assessment and Plan for all problems:: Patient will be discharged today to [facility] care facility. He will continue with antibiotic, clindamycin. He will continue with rehab with physical therapy and OT.
== END 2019-10-07 13:08 | DRG 239 ==
LOC: 2ND 12:41 → OR 12:41 → 2ND 18:21 → OBSVTOIN 18:23
PROVIDERS: ADMIT Family Medicine; ATTEND Family Medicine
CPT/HCPCS: 36415; 71010; 71045; 73610; 73630; 80048; 80053; 80202; 82947; 82962; 83605; 85007; 85014; 85018; 85025; 85651; 86140; 86850; 87040; 87070; 87075; 87077; 87186; 87205; 88304; 88305; 88311; 93005; 93306; 96374; 97110; 97140; 97163; 97166; 97530; 97535; J2405; J2543; J3370; P9016

== ENCOUNTER → 2019-09-29 13:27 | Outpatient (CLI) | payer MEDICARE, SELFPAY ==
[2019-09-29 14:03] LABS: Basophils % 0.1 % (0.1-2.0); Eosinophils % 0.1 % (0.1-12.0); Hematocrit 27.6 % (42.0-52.0); Hemoglobin 8.8 g/dL (14.1-18.0); Lymphocytes % 4.1 % (10-50); Mean Corpuscular HGB Conc 31.8 g/dL (31.8-35.4); Mean Corpuscular Hemoglobin 29.2 pg (27.0-31.2); Mean Corpuscular Volume 91.8 fl (80-94); Mean Platelet Volume 7.5 fl (7.4-10.4); Monocytes # 1.1 K/mm3 (0.1-1.0); Monocytes % 4.8 % (1.7-9.3); Neutrophils # 21.4 K/mm3 (1.8-7.8); Neutrophils % 90.9 % (37.0-80.0); Platelet Count 524 K/mm3 (142-424); Red Blood Count 3.01 M/mm3 (4.60-6.20); Red Cell Distribution Width 13.6 % (11.5-17.5); White Blood Count 23.5 K/mm3 (4.8-10.8)
[2019-09-29 14:30] LABS: MANUAL DIFFERENTIAL MANUAL DIFFERENTIAL (MANUAL DIFF)
[2019-09-29 14:52] LABS: Lymphocytes % 4 % (10-50); Monocytes % 4 % (2-9); Neutrophils % 91 % (42-76); Platelet Estimate Slight Increase; Total Cells Counted 100
[2019-09-29 14:53] LABS: RBC Morphology Normal
[2019-09-29 14:57] LABS: Alanine Aminotransferase 60 U/L (12-78); Albumin Level 1.7 gm/dL (3.4-5.0); Albumin/Globulin Ratio 0.4 (1.1-1.8); Alkaline Phosphatase 161 U/L (46-116); Aspartate Amino Transferase 51 U/L (15-37); Bilirubin,Total 0.7 mg/dL (0.2-1.0); Blood Urea Nitrogen 31 mg/dL (7-18); Carbon Dioxide 29 mmol/L (21.0-32.0); Chloride 94 mmol/L (98-107); Creatinine,Serum 2.19 mg/dL (0.70-1.30); Estimated Glomerular Filt Rate 30 ml/min (>60); GFR (African American) 36 ML/MIN (>60); Glucose 245 mg/dL (74-106); Sodium 130 mmol/L (136-145); Total Protein,Serum 5.7 gm/dL (6.4-8.2)
[2019-09-29 15:12] LABS: C-Reactive Protein 31.4 mg/dL (0.0-0.9)
[2019-09-29 16:46] LABS: Erythrocyte Sedimentation Rate > 140 mm/hr (0-20)
== END ==
PROVIDERS: Visit Provider Podiatrist
DX: Z01.818 Encounter for other preprocedural examination (principal)
CPT/HCPCS: 36415; 80053; 85007; 85025; 85651; 86140; 87040; 88304; 88305; 88311

== ENCOUNTER 2019-10-20 13:14 | Inpatient (IN) ==
[2019-10-20 15:11] LABS: Basophils # 0.1 K/mm3 (0-0.2); Basophils % 0.6 % (0.1-2.0); Eosinophils # 0.2 K/mm3 (0.0-0.4); Eosinophils % 2.3 % (0.1-12.0); Hematocrit 33.5 % (42.0-52.0); Hemoglobin 10.5 g/dL (14.1-18.0); Lymphocytes # 1.3 K/mm3 (0.7-4.5); Lymphocytes % 14.7 % (10-50); Mean Corpuscular HGB Conc 31.4 g/dL (31.8-35.4); Mean Platelet Volume 7.7 fl (7.4-10.4); Monocytes # 0.5 K/mm3 (0.1-1.0); Monocytes % 5.8 % (1.7-9.3); Neutrophils % 76.6 % (37.0-80.0); Platelet Count 323 K/mm3 (142-424); Red Blood Count 3.68 M/mm3 (4.60-6.20); Red Cell Distribution Width 14.6 % (11.5-17.5); White Blood Count 9.2 K/mm3 (4.8-10.8)
[2019-10-20 15:31] LABS: Albumin Level 2.4 g/dL (3.4-5.0); Albumin/Globulin Ratio 0.6 (1.1-1.8); Anion Gap 13.3 mEq/L (5-15); Bilirubin,Total 0.3 mg/dL (0.2-1.0); Calcium 8.4 mg/dL (8.5-10.1); Globulin 4.3 gm/dl (1.3-3.2); Total Protein,Serum 6.7 g/dL (6.4-8.2)
--- NOTE | 2019-10-20 18:19 | History & Physical Report ---
*Admission Date: 10/20/19 *Reason for consult:: R BKA wound dehiscence, cellulitis *History of present illness: 74-year-old gentleman admitted from clinic this afternoon with worsening erythema of right BKA stump. Additionally, immediately prior to his office visit this afternoon, he fell getting out of the car, directly onto the end of his right leg. This resulted in a small, superficial wound dehiscence of the middle of the wound, which bled significantly. There was no pus noted in the wound but due to the duskiness of the medial and lateral margins of the wound, some undermining/tunneling of the wound medially, the wound dehiscence, and persistent cellulitis despite 2 weeks of oral antibiotics, I felt I&D was warranted. He was admitted and placed on IV vancomycin, with plans for surgical I&D tomorrow. He has not had any fevers or chills at home, no significant pain in the right leg, only erythema persistent despite a week of oral Bactrim and before that a week of clindamycin. [facility] History I have reviewed the patient's past medical history: Yes Medical History: Reports:: Cancer, Coronary Artery Disease, Diabetes Mellitus T ype 2, Gastroesophageal Reflux Disease(GERD), Hyperlipidemia, Hypertension, Internal Pacemaker, MRSA, Myocardial Infarction, Peripheral Artery Disease, Renal Disease, Renal Insufficiency Denies:: Diabetes Mellitus Type 1, Seizures *Have you ever received a pneumonia vaccine?: Yes *Have you received a flu vaccine this season?: Yes Other Medical History: Reports: Radiation Therapy. Denies: Blood Transfusion Reaction Other Surgeries: Yes: CABG, Cancer Surgery, Cardiac Catheterization, Cardiac Pranay chris (5 years ago), Colonoscopy, Coronary Stent (left leg. ), Open Heart Surgery, Pacemaker, Other Amputation: Yes (ALL toes L Foot, R BKA) Fractures: No - *Social History Smoking Status: Former smoker Tobacco Type: cigarettes # Packs/Day (cigarettes): 0 #Yrs smoked (if former smoker): 20 Alcohol Intake: never Alcohol Intake Frequency:: holidays/special occasions only Substance Use Type: denies use, other *Occupational Status:: disabled Housing: [employer] Household Members: family *Travel in the last 8 weeks: None Family Hx:: Coronary Artery Disease, Heart Attack, Hyperlipidemia, Hypertension Review of Systems - Review of Systems Review of systems:: pertinent systems reviewed and negative unless documented below Meds Home Medications Medication Instructions Recorded Confirmed Type RX: Amiodarone HCl [Amiodarone 200 mg PO DAILY 02/27/18 10/20/19 History 200mg Tab] RX: Aspirin 81 mg PO DAILY 02/27/18 10/20/19 History RX: Atorvastatin Calcium 40 mg PO HS 02/27/18 10/20/19 History [Atorvastatin 40mg Tab] RX: Cholecalciferol (Vitamin D3) 5,000 unit PO DAILY 02/27/18 10/20/19 History [Vitamin D3 10,000 unit Cap] RX: Furosemide [Furosemide 40MG 40 mg PO BID 02/27/18 10/20/19 History tAB] RX: Glimepiride 4 mg PO BID 02/27/18 10/20/19 History RX: Potassium Chloride [Klor-Con 10 meq PO BID 02/27/18 10/20/19 History 10mEq tab] RX: carvediloL [Carvedilol 25mg 25 mg PO BIDWM 02/28/18 10/20/19 History Tab] insulin aspar prot-insulin aspart 8 unit SUB-Q BID 03/29/18 10/20/19 History 100 unit/mL (70-30) subcutaneous pen insulin detemir U-100 100 unit/mL 35 unit SQ DAILY ml 01/09/19 10/20/19 History subcutaneous solution gabapentin 100 mg capsule 100 mg PO DAILY cap 09/12/19 10/20/19 History RX: Gabapentin [Gabapentin 100mg 200 mg PO HS 10/01/19 10/20/19 History Cap] acetaminophen 325 mg capsule 325 mg PO QID PRN 10/13/19 10/20/19 History atorvastatin 40 mg tablet 40 mg PO DAILY 10/13/19 10/20/19 History hydrocodone 7.5 mg-acetaminophen 1 tab PO QHS PRN 10/13/19 10/20/19 History 325 mg tablet RX: Sertraline HCl [Zoloft 50mg 50 mg PO DAILY 10/20/19 10/20/19 History tablet] Allergies Allergy/AdvReac Type Severity Reaction Status Date / Time promethazine Allergy Mild itching Verified 10/20/19 12:53 cyanocobalamin (vitamin B12) Allergy Rash Verified 10/20/19 12:53 Exam Vital signs and Labs for Last 24 Hours: Laboratory Results - last 24 hr 10/20/19 14:30: WBC 9.2, RBC 3.68 L, Hgb 10.5 L, Hct 33.5 L, MCV 91.0, MCH 28.6, MCHC 31.4 L, RDW 14.6, Plt Count 323, MPV 7.7, Neut % (Auto) 76.6, Lymph % (Auto) 14.7, [place] % (Auto) 5.8, Eos % (Auto) 2.3, Baso % (Auto) 0.6, Neut # (Auto) 7.0, Lymph # (Auto) 1.3, [place] # (Auto) 0.5, Eos # (Auto) 0.2, Baso # (Auto) 0.1 10/20/19 14:30: Sodium 137, Potassium 4.3, Chloride 100, Carbon Dioxide 28, Anion Gap 13.3, BUN 33 H, Creatinine 2.49 H, Estimated Creat Clear 38, Estimated GFR 26 L, Est GFR ( Amer) 31 L, Glucose 244 H, Calcium 8.4 L, Total Bilirubin 0.3, AST 27, ALT 37, Alkaline Phosphatase 209 H, Total Protein 6.7, Albumin 2.4 L, Globulin 4.3 H, Albumin/Globulin Ratio 0.6 L 10/20/19 14:30: ESR 124 H 10/20/19 14:30: C-Reactive Protein 1.8 H I & O for Last 24 hours: Intake & Output 10/18/19 10/19/19 10/20/19 10/21/19 11:59 11:59 11:59 11:59 Weight 224 lb 5 oz - Constitutional no acute distress - *Routine HEENT Exam Eye: Present: EOMI ENT: Present: mucous membranes moist - *Routine Respiratory Exam Present: CTA bilaterally - *Routine Cardiovascular Exam Present: RRR - *Routine Abdominal Exam Present: soft. Absent: tenderness - *Routine Extremities Exam Present: normal capillary refill, amputation Comments: patient presents via wheelchair, dressing intact RLE with copious sanguinous strikethrough that began after fall today R BKA stump intact, but superficial wound dehiscence in middle of incision, approximately 2-3cm; some blood oozed from wound but no active bleeding moderate erythema around incision, worst dorsally, not worsened but also not improved from last week medial/lateral wound margins dusky, some fibrinous exudate but no frankly necrotic tissue able to perform RLE leg lift unassisted, ROM R knee 0-100 without pain 5/5 strength RLE hip flexion/extension, knee flexion/extension Sensation intact to light touch in all distributions RLE R BKA stump warm, appears well-perfused - *Routine Skin Exam Present: erythema, warm, wounds. Absent: ecchymosis - *Routine Neurological Exam Present: alert, oriented X3, moving all extremities, normal tone, hearing grossly intact, normal speech. Absent: sensory deficit, motor deficit, altered mental status - Routine Psychiatric Exam Present: normal affect Results - Labs Result Diagrams: 10/20/19 14:30 10/20/19 14:30 Labs: Abnormal lab results 10/20/19 10/20/19 10/20/19 Range/Units 14:30 14:30 14:30 RBC 3.68 L (4.60-6.20) M/mm3 Hgb 10.5 L (14.1-18.0) g/dL Hct 33.5 L (42.0-52.0) % MCHC 31.4 L (31.8-35.4) g/dL ESR 124 H (0-20) mm/hr BUN 33 H (7-18) mg/dL Creatinine 2.49 H (0.70-1.30) mg/dL Estimated GFR 26 L (>60) ml/min Est GFR ( Amer) 31 L (>60) ML/MIN Glucose 244 H (74-106) mg/dL Calcium 8.4 L (8.5-10.1) mg/dL Alkaline Phosphatase 209 H (46-116) U/L C-Reactive Protein (0.0-0.9) mg/dL Albumin 2.4 L (3.4-5.0) g/dL Globulin 4.3 H (1.3-3.2) gm/dl Albumin/Globulin Ratio 0.6 L (1.1-1.8) 10/20/19 Range/Units 14:30 RBC (4.60-6.20) M/mm3 Hgb (14.1-18.0) g/dL Hct (42.0-52.0) % MCHC (31.8-35.4) g/dL ESR (0-20) mm/hr BUN (7-18) mg/dL Creatinine (0.70-1.30) mg/dL Estimated GFR (>60) ml/min Est GFR ( Amer) (>60) ML/MIN Glucose (74-106) mg/dL Calcium (8.5-10.1) mg/dL Alkaline Phosphatase (46-116) U/L C-Reactive Protein 1.8 H (0.0-0.9) mg/dL Albumin (3.4-5.0) g/dL Globulin (1.3-3.2) gm/dl Albumin/Globulin Ratio (1.1-1.8) H & H 10/20/19 Range/Units 14:30 Hgb 10.5 L (14.1-18.0) g/dL Hct 33.5 L (42.0-52.0) % All other labs normal. Assessment and Plan (1) Below-knee amputation of right lower extremity Current visit: Yes Status: Acute Category: Medical Code(s): S88.111A - Complete traumatic amputation at level between knee and ankle, right lower leg, initial encounter (2) Wound dehiscence Current visit: Yes Status: Acute Category: Medical Code(s): T81.30XA - Disruption of wound, unspecified, initial encounter (3) Cellulitis Current visit: Yes Status: Acute Category: Medical Code(s): L03.90 - Cellulitis, unspecified (4) Type 2 diabetes mellitus with diabetic neuropathy, with long-term current use of insulin Current visit: No Status: Acute Category: Medical Code(s): E11.40 - Type 2 diabetes mellitus with diabetic neuropathy, unspecified; Z79.4 - skilled nursing (current) use of insulin - Assessment and plan all Dx Assessment and Plan for all problems:: 74yo M s/p R BKA 10/02/19 for osteomyelitis, gangrene/chronic non-healing diabetic foot ulcers, peripheral arterial disease --> admitted from clinic after wound dehiscence s/p fall this afternoon, in addition to persistent erythema suspicious for cellulitis despite oral bactrim/clinda x2 weeks -- will start IV vanc -- elevate RLE on pillows, offload L heel; bed rest tonight -- restart home medications -- IVF -- diabetic diet; NPO after midnight -- Dr. Berg on consult -- q6hr accuchecks -- plan on I&D with wound closure vs wound vac application R BKA tomorrow, 10/21/2019; risks of surgery were discussed with the patient and his partner, including bleeding, infection, wound healing complications, need for revision amputation and risks of anesthesia. They vocalized understanding and provided informed consent for the procedure.
--- NOTE | 2019-10-21 07:09 | Pharmacy Consult Notes ---
[facility] Pharmacy VTE Monitoring - Patient Demographics Admission date: 10/20/19 Report Date: 10/21/19 Time: 07:09 Allergies/Adverse Reactions: Patient Allergies promethazine Allergy (Mild, Verified 10/20/19 12:53) itching cyanocobalamin (vitamin B12) Allergy (Verified 10/20/19 12:53) Rash Height: 1.78 m Weight: 99.8 kg Patient Problems: Current Active Problems Below-knee amputation of right lower extremity (Acute) Wound dehiscence (Acute) Cellulitis (Acute) - VTE Risk Labs: VTE Related Lab Results Hgb 10.5 g/dL (14.1-18.0) L 10/20/19 14:30 Hct 33.5 % (42.0-52.0) L 10/20/19 14:30 Plt Count 323 K/mm3 (142-424) 10/20/19 14:30 BUN 33 mg/dL (7-18) H 10/20/19 14:30 Creatinine 2.49 mg/dL (0.70-1.30) H 10/20/19 14:30 Estimated Creat Clear 38 mL/min (50-200) 10/20/19 14:30 - Prophylaxis VTE Prophylaxis Ordered?: Yes Types of VTE Prophylaxis: IPCS Thigh High Location of Applied Device: Left Leg
--- NOTE | 2019-10-21 10:05 | Pharmacy Consult Notes ---
- Pharmacy Consult Date: 10/21/19 Time: 09:57 Referring provider: DR. TAYLOR Reason for Consult:: VANCOMYCIN DOSING Allergies and ADEs:: Allergies Allergy/AdvReac Type Severity Reaction Status Date / Time promethazine Allergy Mild itching Verified 10/20/19 12:53 cyanocobalamin (vitamin B12) Allergy Rash Verified 10/20/19 12:53 Home Medications:: Home Medications Medication Instructions Recorded Confirmed Type Amiodarone HCl [Amiodarone 200mg 200 mg PO DAILY 02/27/18 10/20/19 History Tab] Aspirin 81 mg PO DAILY 02/27/18 10/20/19 History Atorvastatin Calcium [Atorvastatin 40 mg PO HS 02/27/18 10/20/19 History 40mg Tab] Furosemide [Furosemide 40MG tAB] 40 mg PO BID 02/27/18 10/20/19 History Glimepiride 4 mg PO BID 02/27/18 10/20/19 History Potassium Chloride [Klor-Con 10mEq 10 meq PO BID 02/27/18 10/20/19 History tab] carvediloL [Carvedilol 25mg Tab] 25 mg PO BIDWM 02/28/18 10/20/19 History insulin aspar prot-insulin aspart 8 unit SUB-Q BID 03/29/18 10/20/19 History 100 unit/mL (70-30) subcutaneous pen insulin detemir U-100 100 unit/mL 35 unit SQ DAILY ml 01/09/19 10/20/19 History subcutaneous solution gabapentin 100 mg capsule 100 mg PO DAILY cap 09/12/19 10/20/19 History Gabapentin [Gabapentin 100mg Cap] 200 mg PO HS 10/01/19 10/20/19 History acetaminophen 325 mg capsule 325 mg PO QID PRN 10/13/19 10/20/19 History atorvastatin 40 mg tablet 40 mg PO DAILY 10/13/19 10/20/19 History hydrocodone 7.5 mg-acetaminophen 1 tab PO QHS PRN 10/13/19 10/20/19 History 325 mg tablet Sertraline HCl [Zoloft 50mg tablet] 50 mg PO DAILY 10/20/19 10/20/19 History Cholecalciferol (Vitamin D3) 5,000 units PO DAILY 10/21/19 10/21/19 History [Vitamin D3] Height: 1.78 m Weight: 99.8 kg Laboratory Results:: Laboratory Results - last 24 hr 10/20/19 14:30: WBC 9.2, RBC 3.68 L, Hgb 10.5 L, Hct 33.5 L, MCV 91.0, MCH 28.6, MCHC 31.4 L, RDW 14.6, Plt Count 323, MPV 7.7, Neut % (Auto) 76.6, Lymph % (Auto) 14.7, [place] % (Auto) 5.8, Eos % (Auto) 2.3, Baso % (Auto) 0.6, Neut # (Auto) 7.0, Lymph # (Auto) 1.3, [place] # (Auto) 0.5, Eos # (Auto) 0.2, Baso # (Auto) 0.1 10/20/19 14:30: Sodium 137, Potassium 4.3, Chloride 100, Carbon Dioxide 28, Anion Gap 13.3, BUN 33 H, Creatinine 2.49 H, Estimated Creat Clear 38, Estimated GFR 26 L, Est GFR ( Amer) 31 L, Glucose 244 H, Calcium 8.4 L, Total Bilirubin 0.3, AST 27, ALT 37, Alkaline Phosphatase 209 H, Total Protein 6.7, Albumin 2.4 L, Globulin 4.3 H, Albumin/Globulin Ratio 0.6 L 10/20/19 14:30: ESR 124 H 10/20/19 14:30: C-Reactive Protein 1.8 H 10/20/19 15:15: Blood Type O Positive, Antibody Screen Negative 10/20/19 16:30: POC Glucose 283 H 10/20/19 19:44: POC Glucose 244 H 10/21/19 05:54: POC Glucose 171 H Medical History: Reports:: Cancer, Coronary Artery Disease, Diabetes Mellitus Type 2, Gastroesophageal Reflux Disease(GERD), Hyperlipidemia, Hypertension, Internal Pacemaker, MRSA, Myocardial Infarction, Peripheral Artery Disease, Renal Disease, Renal Insufficiency Denies:: Diabetes Mellitus Type 1, Seizures Assessment and Plan (1) Below-knee amputation of right lower extremity Current visit: Yes Status: Acute Category: Medical Code(s): S88.111A - Complete traumatic amputation at level between knee and ankle, right lower leg, initial encounter (2) Wound dehiscence Current visit: Yes Status: Acute Category: Medical Code(s): T81.30XA - Disruption of wound, unspecified, initial encounter (3) Cellulitis Current visit: Yes Status: Acute Qualifiers: Site of cellulitis: extremity Site of cellulitis of extremity: lower extremity Laterality: right Qualified Code(s): L03.115 - Cellulitis of right lower limb Category: Medical Code(s): L03.90 - Cellulitis, unspecified (4) Type 2 diabetes mellitus with diabetic neuropathy, with long-term current use of insulin Current visit: No Status: Acute Category: Medical Code(s): E11.40 - Type 2 diabetes mellitus with diabetic neuropathy, unspecified; Z79.4 - regional intermodal truck driver (current) use of insulin - Assessment and plan all Dx Assessment and Plan for all problems:: BASED ON PATIENT'S FACTORS, RECOMMEND CONTINUING WITH VANCOMYCIN 1750 MG Q36H STARTING AT 2100 TONIGHT. PHARMACY WILL FOLLOW DAILY AND ADJUST APPROPRIATE.
--- NOTE | 2019-10-21 16:21 | Progress Note ---
Internal Medicine - PN: Subj *Date: 10/21/19 *Time: 16:12 Interval history: FAMILY MEDICINE CONSULT: This 73 y.o. diabetic is my patient. He was admitted for an I&D of his BK amputation incision. Dr. Tang performed amputation 09/29/2019 but on follow-up there is concern for some erythema and actual dehisence of the incision that occurred with a fall onto the stump. I saw the patient yesterday and this morning, but was not aware of a request for consult until this time. Surgery is planned for this evening, per Dr. Tang's schedule. I feel that the patient is able to undergo surgery from a medical standpoint. Blood pressures have been somewhat elevated. See medication list. The patient has been on Clindamycin as an outpatient since discharge from the last hospitalization. Cardiac medications include Carvedilol 12.5mg bid, Furosemide 40mg qday, Amiodarone 200mg daily, KCL 10meq bid. He had pacemaker/defibrillator placed 04/2013. 2 Vessel CABG and mitral valve repair 04/2013. EF=38% 02/19/2019. Exam Vital signs and Labs for Last 24 Hours: Temp Pulse Resp BP Pulse Ox 98.1 F 70 18 170/80 H 94 L 10/21/19 16:00 10/21/19 16:00 10/21/19 16:00 10/21/19 16:00 10/21/19 16:00 Laboratory Results - last 24 hr 10/20/19 15:15: Blood Type O Positive, Antibody Screen Negative 10/20/19 16:30: POC Glucose 283 H 10/20/19 19:44: POC Glucose 244 H 10/21/19 05:54: POC Glucose 171 H I & O for Last 24 hours: Intake & Output 10/19/19 10/20/19 10/21/19 10/22/19 11:59 11:59 11:59 11:59 Intake Total 715 / 715 Output Total 300 / 300 300 / 300 Balance 415 / 415 -300 / -300 Weight 220 lb 0.341 oz - Constitutional no acute distress - *Routine HEENT Exam Eye: Present: PERRL ENT: Present: mucous membranes moist - *Routine Neck Exam Present: supple. Absent: JVD - Routine Chest/Breast/Axilla Exam Chest wall: Present: pacemaker. Absent: tenderness Breast: Present: scars - *Routine Respiratory Exam Present: decreased breath sounds. Absent: rales - *Routine Cardiovascular Exam Present: RRR, S4 - *Routine Abdominal Exam Present: soft (nontender) - *Routine Extremities Exam Present: edema (none. Right BK with dressing in place. left transmetatarsal amp. with dressing) - *Routine Skin Exam Present: intact - *Routine Neurological Exam Present: alert, oriented X3 - Routine Psychiatric Exam Present: depressed Assessment and Plan (1) Below-knee amputation of right lower extremity Current visit: Yes Status: Acute Category: Medical Code(s): S88.111A - Complete traumatic amputation at level between knee and ankle, right lower leg, initial encounter (2) Wound dehiscence Current visit: Yes Status: Acute Category: Medical Code(s): T81.30XA - Disruption of wound, unspecified, initial encounter (3) Cellulitis Current visit: Yes Status: Acute Qualifiers: Site of cellulitis: extremity Site of cellulitis of extremity: lower extremity Laterality: right Qualified Code(s): L03.115 - Cellulitis of right lower limb Category: Medical Code(s): L03.90 - Cellulitis, unspecified (4) Type 2 diabetes mellitus with diabetic neuropathy, with long-term current use of insulin Current visit: No Status: Acute Category: Medical Code(s): E11.40 - Type 2 diabetes mellitus with diabetic neuropathy, unspecified; Z79.4 - senior living (current) use of insulin (5) Status cardiac pacemaker Current visit: Yes Status: Acute Category: Surgical Code(s): Z95.0 - Presence of cardiac pacemaker (6) Hypertension Current visit: Yes Status: Acute Category: Medical Code(s): I10 - [place] tial (primary) hypertension (7) Arteriosclerotic cardiovascular disease Current visit: No Status: Acute Category: Medical Code(s): I25.10 - Atherosclerotic heart disease of [place] coronary artery without angina pectoris (8) Peripheral vascular complication Current visit: No Status: Acute Category: Medical Code(s): I99.9 - Unspecified disorder of circulatory system - Assessment and plan all Dx Assessment and Plan for all problems:: cleared for surgery. Needs resumption of Losartan at 50mg daily.
--- NOTE | 2019-10-21 22:24 | Progress Note ---
[facility] Anesthesia Record Part I Intake, IV Amount: 700 Estimated blood loss (mL): 10 Urine output (mL): 0 Blood Pressure: 116/59 SaO2: 96 Pulse Rate: 70 Respiratory Rate: 16 Temperature: 97.8 F Patient is:: Drowsy, Stable Stable to PACU at:: 22:20
--- NOTE | 2019-10-21 22:38 | Operative Note ---
Date of procedure: 10/21/19 Pre-op Diagnosis:: 1) R BKA wound dehiscence 2) R leg cellulitis Post-op Diagnosis:: SAME Procedure performed:: irrigation and debridement RIGHT below knee amputation (BKA) with primary wound closure Surgeon:: Kortney Tang MD Presales Engineer(s):: Jeane Lee RUBBER THREAD SPOOLER:: Murray Diaz Anesthesia: GETA Estimated blood loss (mL): 25 Clinical Note:: 74-year-old gentleman admitted from clinic this yesterday afternoon with worsening erythema of right leg; s/p R BKA 10/02/19. Additionally, immediately prior to his office visit this afternoon, he fell getting out of the car, directly onto the end of his right leg. This resulted in a small, superficial wound dehiscence of the middle of the wound, which bled significantly. There was no pus noted in the wound but due to the duskiness of the medial and lateral margins of the wound, some undermining/tunneling of the wound medially, the wound dehiscence, and persistent cellulitis despite 2 weeks of oral antibiotics, I felt I&D was warranted. He was admitted and placed on IV vancomycin, with plans for surgical I&D today. He has not had any fevers or chills at home, no significant pain in the right leg, only erythema persistent despite a week of oral Bactrim and before that a week of clindamycin. Risks of surgery were discussed with the patient and his partner, including bleeding, infection, wound healing complications, need for revision amputation and risks of anesthesia. They vocalized understanding and provided informed consent for the procedure. Operative findings:: wound margins dusky but no skin/deep tissue necrosis. no purulent material or gross evidence of infection. superficial wound dehiscence centrally. Operative note:: The patient was identified in pre-operative holding and the right leg was signed by myself. Consent was verified with the patient and all questions answered. He was taken to the OR and placed supine on the operative table. Vancomycin has been given on a schedule since admission; next dose is due at 2100. No new antibiotics were given. General anesthesia was induced, non-sterile tourniquet placed on the upper R thigh, and the right leg was prepped and draped in the usual sterile fashion. Timeout was performed, identifying the correct patient, correct procedure and correct site. The procedure was begun by elevating the right leg for 3 minutes and elevating the tourniquet to 250 mmHg. The right below knee amputation incision was partially dehisced centrally, around 3cm. This was bluntly spread and the wound fully opened; this was carried medially and laterally until the entire wound was open superficially. Blunt dissection was used to open the wound deeply, until the tibia was encountered. All deep tissue appeared healthy and viable without any gross sign of infection. No foul odor, no purulent material, no deep hematoma. Wound culture swabs were taken; both aerobic and anaerobic. The wound was copiously irrigated with 3L normal saline with bacitracin via pulse lavage. A fresh 15 blade was used to freshen up the skin edges, which were dusky but not frankly necrotic. Vancomycin powder was placed in the wound, both deep and superficially, as the wound was closed; 1g was used. Tourniquet was dropped and hemostasis obtained with electrocautery; no active bleeding at the time of wound closure. The wound was then closed in layers, using 0-vicryl for the deepest layer, followed by 2-0 vicryl on the subcutaneous tissue and 3-0 nylon on the skin. The skin closed nicely, and no wound vac was needed, as was feared pre- operatively. Sterile dressings were applied with xeroform, 4x4s, ABD pad, webril and MARAH wrap. The patient was then extubated and transferred to PACU in good condition. The patient tolerated the procedure well with no immediate adverse sequelae. There were no complications during this case. Tourniquet time (min): 71 Condition: stable Disposition: PACU Specimens:: none 2 wound culture swabs taken Complications:: none
--- NOTE | 2019-10-22 09:15 | Progress Note ---
Internal Medicine - PN: Subj *Date: 10/22/19 *Time: 09:11 Interval history: FAMILY MEDICINE CONSULT: Dr. Tang showed me photo of the leg wound post op. No erythema, wound looks really good. He is feeling well and is ready for discharge. Has appt with Dr. Berg Sunday. Exam Vital signs and Labs for Last 24 Hours: Temp Pulse Resp BP Pulse Ox 97.8 F 85 18 178/80 H 94 L 10/22/19 05:45 10/22/19 07:49 10/22/19 07:49 10/22/19 05:45 10/22/19 07:49 Laboratory Results - last 24 hr 10/21/19 11:02: POC Glucose 141 H 10/21/19 16:31: POC Glucose 144 H 10/21/19 22:26: POC Glucose 111 H 10/22/19 05:11: POC Glucose 354 H* I & O for Last 24 hours: Intake & Output 10/19/19 10/20/19 10/21/19 10/22/19 11:59 11:59 11:59 11:59 Intake Total 715 / 715 3000 / 3000 Output Total 300 / 300 300 / 300 Balance 415 / 415 2700 / 2700 Weight 220 lb 0.341 oz 223 lb 12.307 oz Microbiology Reports for the Last 24 Hours: Microbiology 10/21/19 21:00 Leg,Right - Wound Gram Stain - Final - Constitutional no acute distress - *Routine HEENT Exam Eye: Present: PERRL ENT: Present: mucous membranes moist - *Routine Neck Exam Absent: JVD - *Routine Respiratory Exam Present: CTA bilaterally - *Routine Cardiovascular Exam Present: RRR - *Routine Abdominal Exam Present: soft. Absent: tenderness - *Routine Extremities Exam Absent: edema (dressings in place) - *Routine Neurological Exam Present: alert, oriented X3 Assessment and Plan (1) Below-knee amputation of right lower extremity Current visit: Yes Status: Acute Category: Medical Code(s): S88.111A - Complete traumatic amputation at level between knee and ankle, right lower leg, initial encounter (2) Wound dehiscence Current visit: Yes Status: Acute Category: Medical Code(s): T81.30XA - Disruption of wound, unspecified, initial encounter (3) Cellulitis Current visit: Yes Status: Acute Qualifiers: Site of cellulitis: extremity Site of cellulitis of extremity: lower extremity Laterality: right Qualified Code(s): L03.115 - Cellulitis of right lower limb Category: Medical Code(s): L03.90 - Cellulitis, unspecified (4) Type 2 diabetes mellitus with diabetic neuropathy, with long-term current use of insulin Current visit: No Status: Acute Category: Medical Code(s): E11.40 - Type 2 diabetes mellitus with diabetic neuropathy, unspecified; Z79.4 - alf (current) use of insulin (5) Status cardiac pacemaker Current visit: Yes Status: Acute Category: Surgical Code(s): Z95.0 - Presence of cardiac pacemaker (6) Hypertension Current visit: Yes Status: Acute Category: Medical Code(s): I10 - Essential (primary) hypertension (7) Arteriosclerotic cardiovascular disease Current visit: No Status: Acute Category: Medical Code(s): I25.10 - Atherosclerotic heart disease of [place] coronary artery without angina pectoris (8) Peripheral vascular complication Current visit: No Status: Acute Category: Medical Code(s): I99.9 - Unspecified disorder of circulatory system - Assessment and plan all Dx Assessment and Plan for all problems:: Likely discharge today. Has follow-up Sunday with Dr. Berg.
--- NOTE | 2019-10-22 10:20 | Progress Note ---
Subjective Date: 10/22/19 Time: 09:30 Principal diagnosis: s/p I&D R BKA Interval history: The patient is doing well this morning, has been out of bed with PT and reports little to no pain. No fevers/chills reported, vitals stable overnight. PN: Obj Ex Vital signs: Temp Pulse Resp BP Pulse Ox 97.8 F 85 18 178/80 H 94 L 10/22/19 05:45 10/22/19 07:49 10/22/19 07:49 10/22/19 05:45 10/22/19 07:49 - Constitutional no acute distress - Routine HEENT Exam Head: Present: normocephalic Eye: Present: EOMI ENT: Present: mucous membranes moist - Routine Extremities Exam Comments: R BKA dressing c/d/i, no strikethrough independently flexes R hip/knee without difficulty/pain SILT RLE, skin warm/pink - Routine Neurological Exam Present: alert, oriented X3, moving all extremities, normal tone, hearing grossly intact, normal speech. Absent: sensory deficit, motor deficit, altered mental status Progress Note: A&P (1) Below-knee amputation of right lower extremity Status: Acute Current Visit: Yes (2) Wound dehiscence Status: Acute Current Visit: Yes (3) Cellulitis Status: Acute Current Visit: Yes (4) Type 2 diabetes mellitus with diabetic neuropathy, with long-term current use of insulin Status: Acute Current Visit: No (5) Status cardiac pacemaker Status: Acute Current Visit: Yes (6) Hypertension Status: Acute Current Visit: Yes (7) Arteriosclerotic cardiovascular disease Status: Acute Current Visit: No (8) Peripheral vascular complication Status: Acute Current Visit: No Assessment and Plan for All Diagnoses:: 74yo M POD 1 s/p I&D R BKA with primary wound closure -- continue vancomycin, will transition to oral antibiotics at discharge -- keep RLE elevated, compressive wrap in place -- PT/OT evals -- has been evaluated by Dr. Berg and appropriate for d/c medically -- will d/c back to SNF today with follow-up in the office next week
[2019-10-22 10:50] LABS: Basophils % 0.1 % (0.1-2.0); Eosinophils % 0.4 % (0.1-12.0); Hematocrit 33.5 % (42.0-52.0); Hemoglobin 10.6 g/dL (14.1-18.0); Lymphocytes # 0.6 K/mm3 (0.7-4.5); Lymphocytes % 9.2 % (10-50); Mean Corpuscular HGB Conc 31.7 g/dL (31.8-35.4); Mean Corpuscular Volume 90.4 fl (80-94); Mean Platelet Volume 7.7 fl (7.4-10.4); Monocytes # 0.2 K/mm3 (0.1-1.0); Monocytes % 3.4 % (1.7-9.3); Neutrophils # 5.8 K/mm3 (1.8-7.8); Neutrophils % 86.9 % (37.0-80.0); Platelet Count 294 K/mm3 (142-424); Red Blood Count 3.71 M/mm3 (4.60-6.20); Red Cell Distribution Width 14.4 % (11.5-17.5); White Blood Count 6.6 K/mm3 (4.8-10.8)
--- NOTE | 2019-10-22 10:51 | Progress Note ---
[facility] Anesthesia Record Part II Discharge Time: 22:50 Destination: Medical Surgical Department PACU nurse assessment reviewed?: Yes Patient Condition:: Good Anesthesia Complications:: None Swallowing reflex intact?: Yes Cyanosis?: No Blood Pressure: 140/58 Pulse Rate: 65 Temperature: 97.5 F Mental Status: Alert & Oriented Pain level:: 0 Nausea and/or vomitting:: None Intake, IV Amount: 0
[2019-10-22 10:58] LABS: Anion Gap 11.7 mEq/L (5-15); Calcium 8.8 mg/dL (8.5-10.1)
[2019-10-22 11:09] LABS: Eosinophils % 1 % (0-3); Hypochromasia 1+; Lymphocytes % 11 % (10-50); Monocytes % 5 % (2-9); Neutrophils % 83 % (42-76); Total Cells Counted 100
--- NOTE | 2019-10-22 12:02 | Discharge Summary ---
General - General Admission date:: 10/20/19 Discharge date: 10/22/19 HPI HPI: 74-year-old gentleman admitted from clinic this yesterday afternoon with worsening erythema of right leg; s/p R BKA 10/02/19. Additionally, immediately prior to his office visit this afternoon, he fell getting out of the car, directly onto the end of his right leg. This resulted in a small, superficial wound dehiscence of the middle of the wound, which bled significantly. There was no pus noted in the wound but due to the duskiness of the medial and lateral margins of the wound, some undermining/tunneling of the wound medially, the wound dehiscence, and persistent cellulitis despite 2 weeks of oral antibiotics, I felt I&D was warranted. He was admitted and placed on IV vancomycin, with plans for surgical I&D today. He has not had any fevers or chills at home, no significant pain in the right leg, only erythema persistent despite a week of oral Bactrim and before that a week of clindamycin. Risks of surgery were discussed with the patient and his partner, including bleeding, infection, wound healing complications, need for revision amputation and risks of anesthesia. They vocalized understanding and provided informed consent for the procedure. Hospital Course Hospital Course: The patient was admitted from clinic 10/21/19 and started on IV vancomycin. Surgical I&D R BKA was performed on 10/21/19 without complication. During surgery, wound margins were seen to be dusky but no skin/deep tissue necrosis seen. No purulent material or gross evidence of infection. Superficial wound dehiscence centrally. Wound culture swabs were taken; both aerobic and anaerobic. The wound was copiously irrigated with 3L normal saline with bacitracin via pulse lavage.Vancomycin powder was placed in the wound, both deep and superficially, as the wound was closed; 1g was used. POD 1 the patient had little to no pain, vitals were stable and lab values acceptable. He mobilized from bed with PT using a walker. Medically appropriate for discharge, will transfer back to SNF with oral clindamycin x1 week, at which time I will see him back in the office. Objective Vital signs: Temp Pulse Resp BP Pulse Ox 97.5 F L 65 20 140/58 L 99 10/22/19 10:51 10/22/19 10:51 10/22/19 08:00 10/22/19 10:51 10/22/19 08:00 no acute distress - *Routine HEENT Exam Head: Present: normocephalic Eye: Present: EOMI ENT: Present: mucous membranes moist - *Routine Respiratory Exam Present: CTA bilaterally. Absent: respiratory distress, wheezes - *Routine Cardiovascular Exam Present: RRR - *Routine Abdominal Exam Present: soft. Absent: tenderness - *Routine Extremities Exam Comments: R BKA dressing c/d/i, no strikethrough independently flexes R hip/knee without difficulty/pain SILT RLE, skin warm/pink - *Routine Skin Exam Present: warm. Absent: gangrene - *Routine Neurological Exam Present: alert, oriented X3, moving all extremities, normal tone, hearing grossly intact, normal speech. Absent: sensory deficit, motor deficit, altered mental status - Routine Psychiatric Exam Present: normal affect Results Labs on day of discharge: Labs from last 24 hours 10/22/19 10/22/19 10/22/19 10:40 10:40 05:11 WBC 6.6 D RBC 3.71 L Hgb 10.6 L Hct 33.5 L MCV 90.4 MCH 28.6 MCHC 31.7 L RDW 14.4 Plt Count 294 MPV 7.7 Neut % (Auto) 86.9 H Lymph % (Auto) 9.2 L [place] % (Auto) 3.4 Eos % (Auto) 0.4 Baso % (Auto) 0.1 Neut # (Auto) 5.8 Lymph # (Auto) 0.6 L [place] # (Auto) 0.2 Eos # (Auto) 0.0 Baso # (Auto) 0.0 Total Counted 100 Neutrophils % (Manual) 83 H Lymphocytes % (Manual) 11 Monocytes % (Manual) 5 Eosinophils % (Manual) 1 Platelet Estimate Normal Hypochromasia 1+ Sodium 137 Potassium 4.7 Chloride 100 Carbon Dioxide 30 Anion Gap 11.7 BUN 29 H Creatinine 2.20 H Estimated Creat Clear 43 Estimated GFR 29 L Est GFR ( Amer) 36 L Glucose 302 H POC Glucose 354 H* Calcium 8.8 10/21/19 10/21/19 10/21/19 22:26 16:31 11:02 WBC RBC Hgb Hct MCV MCH MCHC RDW Plt Count MPV Neut % (Auto) Lymph % (Auto) [place] % (Auto) Eos % (Auto) Baso % (Auto) Neut # (Auto) Lymph # (Auto) [place] # (Auto) Eos # (Auto) Baso # (Auto) Total Counted Neutrophils % (Manual) Lymphocytes % (Manual) Monocytes % (Manual) Eosinophils % (Manual) Platelet Estimate Hypochromasia Sodium Potassium Chloride Carbon Dioxide Anion Gap BUN Creatinine Estimated Creat Clear Estimated GFR Est GFR ( Amer) Glucose POC Glucose 111 H 144 H 141 H Calcium DS: Diagnosis - Discharge Diagnosis (1) Below-knee amputation of right lower extremity Status: Acute (2) Wound dehiscence Status: Acute (3) Cellulitis Status: Acute (4) Type 2 diabetes mellitus with diabetic neuropathy, with long-term current use of insulin Status: Acute (5) Status cardiac pacemaker Status: Acute (6) Hypertension Status: Acute (7) Arteriosclerotic cardiovascular disease Status: Acute (8) Peripheral vascular complication Status: Acute (9) Chronic kidney disease, stage 4 (severe) Status: Acute Discharge Plan - Patient Discharge Instructions ACTIVITY: Up with assistance DIET: diabetic diet Additional Instructions: -- up with assistance/walker, PT/OT to continue at SNF -- may change dressing starting 10/24/19; change once daily, notify MD of persistent drainage or sign of infection. dressings: xeroform over incision, 4x4 gauze, ABD pad, kerlix or webril, MARAH wrap -- IV antibiotics stopped at discharge; oral antibiotics prescribed, clindamycin 300mg TID x7 days -- f/u with Dr. Tang 10/30/19 Patient Instructions: Cellulitis, Debridement of a Wound, Infection, or Burn, DI for Surgical Site Infection - Follow up Plan Follow up with: Kortney Tang MD [Physician] - 10/30/19 10:15 am John Berg MD [Primary Care Provider] - 10/27/19 Disposition: er [facility] Home Medications: Home Medications Medication Instructions Recorded Confirmed Type Aspirin 81 mg PO DAILY 02/27/18 10/20/19 History Atorvastatin Calcium [Atorvastatin 40 mg PO HS 02/27/18 10/20/19 History 40mg Tab] Furosemide [Furosemide 40MG tAB] 40 mg PO BID 02/27/18 10/20/19 History Glimepiride 4 mg PO BID 02/27/18 10/20/19 History Potassium Chloride [Klor-Con 10mEq 10 meq PO BID 02/27/18 10/20/19 History tab] carvediloL [Carvedilol 25mg Tab] 25 mg PO BIDWM 02/28/18 10/20/19 History insulin detemir U-100 100 unit/mL 35 unit SQ DAILY ml 01/09/19 10/20/19 History subcutaneous solution gabapentin 100 mg capsule 100 mg PO DAILY cap 09/12/19 10/20/19 History Gabapentin [Gabapentin 100mg Cap] 200 mg PO HS 10/01/19 10/20/19 History acetaminophen 325 mg capsule 325 mg PO QID PRN 10/13/19 10/20/19 History hydrocodone 7.5 mg-acetaminophen 1 tab PO QHS PRN 10/13/19 10/20/19 History 325 mg tablet Sertraline HCl [Zoloft 50mg tablet] 50 mg PO DAILY 10/20/19 10/20/19 History Cholecalciferol (Vitamin D3) 5,000 units PO DAILY 10/21/19 10/21/19 History [Vitamin D3] Acetaminophen [Acetaminophen 325mg 650 mg PO Q6HP PRN tab 10/22/19 Rx tab] Amiodarone HCl [Cordarone 200mg 200 mg PO DAILY 10/22/19 10/22/19 History tablet] Amiodarone HCl [Cordarone 200mg 200 mg PO DAILY tab 10/22/19 Rx tablet] Atorvastatin Calcium [Lipitor 40mg 40 mg PO HS tab 10/22/19 Rx Tablet] Hydrocodone/Acetaminophen [[place] 1 each PO Q6HP PRN #20 tab 10/22/19 Rx 5-325 Tablet] Insulin Lispro Protamin/Lispro 8 unit SQ BID insuln.pen 10/22/19 Rx [HumaLOG Mix 75/25 3mL flexpen] Irbesartan [Avapro 75mg 75 mg PO DAILY tab 10/22/19 Rx tablet] clindamycin HCL [Cleocin HCl] 300 mg PO TID 7 Days #21 cap 10/22/19 Rx insulin aspar prot-insulin aspart 8 unit SUB-Q BID 10/22/19 Rx Prescriptions/Medication Reconciliation: New Atorvastatin Calcium [Lipitor 40mg Tablet] 40 mg PO HS tab Irbesartan [Avapro 75mg tablet] 75 mg PO DAILY tab Hydrocodone/Acetaminophen [[place] 5-325 Tablet] 1 each PO Q6HP PRN #20 tab PRN Reason: Moderate To Severe Pain clindamycin HCL [Cleocin HCl] 300 mg PO TID 7 Days #21 cap Acetaminophen [Acetaminophen 325mg tab] 650 mg PO Q6HP PRN tab PRN Reason: Mild To Moderate Pain Amiodarone HCl [Cordarone 200mg tablet] 200 mg PO DAILY tab insulin aspar prot-insulin aspart 8 unit SUB-Q BID Insulin Lispro Protamin/Lispro [HumaLOG Mix 75/25 3mL flexpen] 8 unit SQ BID insuln.pen Continued insulin detemir U-100 100 unit/mL subcutaneous solution 35 unit SQ DAILY ml gabapentin 100 mg capsule 100 mg PO DAILY cap acetaminophen 325 mg capsule 325 mg PO QID PRN PRN Reason: pain hydrocodone 7.5 mg-acetaminophen 325 mg tablet 1 tab PO QHS PRN PRN Reason: pain Furosemide [Furosemide 40MG tAB] 40 mg PO BID Glimepiride 4 mg PO BID Atorvastatin Calcium [Atorvastatin 40mg Tab] 40 mg PO HS Aspirin 81 mg PO DAILY Sertraline HCl [Zoloft 50mg tablet] 50 mg PO DAILY Amiodarone HCl [Cordarone 200mg tablet] 200 mg PO DAILY Potassium Chloride [Klor-Con 10mEq tab] 10 meq PO BID carvediloL [Carvedilol 25mg Tab] 25 mg PO BIDWM Gabapentin [Gabapentin 100mg Cap] 200 mg PO HS Cholecalciferol (Vitamin D3) [Vitamin D3] 5,000 units PO DAILY Discontinued insulin aspar prot-insulin aspart 100 unit/mL (70-30) subcutaneous pen 8 unit SUB-Q BID - Problem Reconciliation Problems Reviewed?: Yes
== END 2019-10-22 14:38 | DRG 501 ==
LOC: 2ND → OBSVTOIN 13:38
PROVIDERS: ADMIT Orthopaedic Surgery; ATTEND Orthopaedic Surgery
CPT/HCPCS: 36415; 80048; 80053; 82962; 85007; 85025; 85651; 86140; 86850; 87070; 87075; 87077; 87186; 87205; 97161; J2405; J3370

== ENCOUNTER 2020-02-03 17:00 | Outpatient (RCR) | payer MEDICARE, SELFPAY ==
--- NOTE | 2019-11-18 10:57 | HMH.PTOPWND ---
Rehab Outpt Wound Evaluation Rehab OP Wound Evaluation Start: 11/18/19 09:26 Freq: Status: Active Protocol: Document 11/18/19 10:46 RAEANN (Rec: 11/18/19 10:57 RAEANN [id number]) Electronically Signed By Viktor Roberts, PT 11/18/19 10:46 Subjective/History History History Pt is 74 yowm who presents ~ 2 mos S/P R BKA with complicated healing due to wound dehisence and infection. 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 He has PMH of HTN, CAD, pacemaker, and prostate cancer with radiation. Subjective Subjective Currently no c/o pain. They have been dressing the wound with medi-honey paste at home. Wound Eval Wound Left Distal Leg Wound Type Incision Is This a Chronic Wound Yes Wound Length (cm) 2.3 Wound Width (cm) 15.0 Wound Bed Appearance Beefy Red,Yellow,Slough Percentage Granulated (%) 5 Percentage of Slough (%) 95 Wound Margins Description Well Defined Surrounding Tissue Appearance [place] Drainage Description Serosanguineous Drainage Amount Moderate Drainage Odor No Odor Primary Dressing Silver Dressing Comment opticell Ag and silvasorb gel Wound Secondary Dressing Type Composite,Gauze Roll/Wrap, Adhering Gauze Roll Comment optifoam thin Wound Debridement Method Sharps,Forceps,Gauze Wound Debridement Amount of Tissue Moderate Removed Wound Debridement Result Yellow Sloughing Remains Dressing Change Patient Tolerance Tolerated Well Wound Problems/Impairments Impairments Problems/Impairmments Increased Edema,Wound Care Needs,Subjective C/O Pain, Impaired Self Care/Self Management Prognosis Rehab Potential Good Clinical Impression Consistent with Diagnosis Yes Short Term Goals Number of Weeks 4 Decrease Wound Area Yes: by 50% Decrease Yellow/White Slough % Yes: by 50% C D Stripper Goals Number of Weeks 8 Decrease Wound Area Yes: by 75% Decrease Yellow/[place] % Yes: by 100% Patient to be Ind w/ Home Wound Care/ Yes Dressing Changes Outpatient Therapy Plan of Care Treatment Plan May Include Therapeutic Exercise Including Home Yes Exercise Program
--- NOTE | 2019-12-15 16:11 | HMH.RHREAS ---
Rehab Reassessment Rehab OP Re-assessment Start: 12/15/19 16:03 Freq: Status: Active Protocol: Document 12/15/19 16:05 RAEANN (Rec: 12/15/19 16:11 RAEANN [id number]) Electronically Signed By Viktor Roberts, PT 12/15/19 16:05 Rehab Re-assessment Subjective Subjective Pt reports he had a fall last week which resulted in his wound opening up again. Objective Objective Notes Wound with significant depth increase noted (4.1cm) on the medial side of the residual limb. Now presents as 3 distinct wounds Med/center/ Lateral. Assessment Progress Assessment Slower Than Expected Assessment Notes New opening of wound has resulted in slower healing but less slough noted overall. Patient goals met none Goals Not Met ST,2 LT,2,3 Revised Goals none Plan Plan Contionue per initial POC Frequency of Therapy 2 x/wk Duration of therapy 8 wks Time and Billing Re-Eval Time 15 Re-Eval Billing Units 1 PHYSICIAN CERTIFICATION: I certify the specified therapy services for Joseph Beckett are required, authorized, and reviewed every 30 days.
== END 2020-02-03 17:05 | disposition home or self-care (01) ==
LOC: PT 17:00
PROVIDERS: PCP Family Medicine; Visit Provider Orthopaedic Surgery
DX: Z89.511 Acquired absence of right leg below knee (principal); T81.30XA Disruption of wound, unspecified, initial encounter
CPT/HCPCS: 97162; 97164; 97597; 97598; 97605

== ENCOUNTER → 2020-02-10 11:53 | Outpatient (CLI) | payer MEDICARE, SELFPAY ==
[2020-02-10 12:26] LABS: Basophils # 0.1 K/mm3 (0-0.2); Basophils % 0.7 % (0.1-2.0); Eosinophils # 0.5 K/mm3 (0.0-0.4); Eosinophils % 6.6 % (0.1-12.0); Hematocrit 38.1 % (42.0-52.0); Hemoglobin 12.1 g/dL (14.1-18.0); Lymphocytes # 1.8 K/mm3 (0.7-4.5); Lymphocytes % 24.5 % (10-50); Mean Corpuscular HGB Conc 31.7 g/dL (31.8-35.4); Mean Corpuscular Hemoglobin 30.1 pg (27.0-31.2); Mean Platelet Volume 8.1 fl (7.4-10.4); Monocytes # 0.4 K/mm3 (0.1-1.0); Monocytes % 5.3 % (1.7-9.3); Neutrophils # 4.7 K/mm3 (1.8-7.8); Neutrophils % 62.8 % (37.0-80.0); Platelet Count 215 K/mm3 (142-424); Red Blood Count 4.01 M/mm3 (4.60-6.20); Red Cell Distribution Width 15.6 % (11.5-17.5); White Blood Count 7.5 K/mm3 (4.8-10.8)
[2020-02-10 13:11] LABS: Erythrocyte Sedimentation Rate 60 mm/hr (0-20)
[2020-02-10 13:52] LABS: C-Reactive Protein 7.3 mg/L (0-4)
== END ==
PROVIDERS: Visit Provider Orthopaedic Surgery
DX: S88.111A Complete traumatic amputation at level between knee and ankle, right lower leg, initial encounter (principal); F32.9 Major depressive disorder, single episode, unspecified
CPT/HCPCS: 36415; 85025; 85651; 86140

== ENCOUNTER → 2020-10-06 11:42 | Outpatient (CLI) | payer MEDICARE, SELFPAY ==
--- NOTE | 2020-10-06 11:51 | XR_ITS ---
PROCEDURE: XR SHOULDER LT MIN 2V Referring Doctor: John Berg Patient Age:74Y CLINICAL INDICATION: LT SHOULDER PAIN Posterior left shoulder pain radiates down left arm no known injury COMPARISON: CR CXR CHEST(2 VIEWS-NOT PORTABLE) from 04/17/2013 CR FTL3 FOOT-LT-3 VIEWS from 02/03/2016 CR CXR CHEST(2 VIEWS-NOT PORTABLE) from 03/22/2016 FINDINGS: Left shoulder3 view: The AP internal and external rotation along with Y-view The the left shoulder appears intact. Glenohumeral joint is intact with satisfactory relationships. The humeral head and neck intact. On close inspection I would only note some slight roughening at the superior base of greater tuberosity where it junctions of the humeral head. This can be seen of is a sites sequela of impingement. Subacromial space is fairly well maintained on this study however. Only mild degenerative changes at AC joint.. The left lung apex is clear. Pacemaker/defibrillator device overlying the left chest with leads projected just medial to the left shoulder joint Incidental note 2.6 cm rim calcified nodule at the base of left neck, most likely related to thyroid nodule. Degenerative changes C-spine noted. IMPRESSION: No acute findings.. Left shoulder joint intact. Mild degenerative changes AC joint. Slight roughening at the left lung base of humeral head could reflect impingement but unimpressive Incidental 2.6 cm rim calcified nodule at the base of left neck, most likely related prominent thyroid nodule of stable since chest films dating back to 2015 Dictated by: Marty Vogel MD 10/06/2020 12:23 Marty Vogel MD in [place] 10/06/2020 12:23
== END ==
PROVIDERS: PCP Family Medicine; Visit Provider Family Medicine
DX: M25.512 Pain in left shoulder (principal)
CPT/HCPCS: 73030

== ENCOUNTER → 2021-01-07 10:02 | Outpatient (CLI) | payer MEDICARE, SELFPAY ==
[2021-01-07 10:04] LABS: Adenovirus F 40/41, stool Not Detected (NotDetected); Astrovirus Not Detected (NotDetected); Campylobacter Not Detected (NotDetected); Cryptosporidium Not Detected (NotDetected); Cyclospora Cayetanesis Not Detected (NotDetected); Entamoeba histolytica Not Detected (NotDetected); Enteroaggregative E coli Not Detected (NotDetected); Enteropathogenic E coli Not Detected (NotDetected); Enterotoxigenic E coli Not Detected (NotDetected); Giardia lamblia Not Detected (NotDetected); Norovirus Not Detected (NotDetected); Plesimonas Shigalloides, PCR Not Detected (NotDetected); Rotavirus A Not Detected (NotDetected); Salmonella, PCR Not Detected (NotDetected); Sapovirus Not Detected (NotDetected); Shiga-like toxin E coli Not Detected (NotDetected); Shigella Enterovasive E coli Not Detected (NotDetected); Vibrio Cholerae Not Detected (NotDetected); Vibrio, PCR Not Detected (NotDetected); Yersinia Entercolitica, PCR Not Detected (NotDetected)
[2021-01-07 14:58] LABS: Clostridium Difficile A/B, PCR Detected (NotDetected)
== END ==
PROVIDERS: Visit Provider Family Medicine
DX: R19.7 Diarrhea, unspecified (principal); A04.72 Enterocolitis due to Clostridium difficile, not specified as recurrent
CPT/HCPCS: 87506

== ENCOUNTER → 2021-06-16 14:04 | Outpatient (CLI) | payer MEDICARE, SELFPAY ==
[2021-06-16 14:20] LABS: Basophils % 0.1 % (0.1-2.0); Eosinophils # 0.1 K/mm3 (0.0-0.4); Eosinophils % 0.5 % (0.1-12.0); Hematocrit 34.2 % (42.0-52.0); Hemoglobin 10.7 g/dL (14.1-18.0); Lymphocytes # 0.7 K/mm3 (0.7-4.5); Lymphocytes % 3.4 % (10-50); Mean Corpuscular HGB Conc 31.5 g/dL (31.8-35.4); Mean Corpuscular Hemoglobin 30.3 pg (27.0-31.2); Mean Corpuscular Volume 96.5 fl (80-94); Mean Platelet Volume 8.7 fl (7.4-10.4); Monocytes # 0.7 K/mm3 (0.1-1.0); Monocytes % 3.5 % (1.7-9.3); Neutrophils # 19.3 K/mm3 (1.8-7.8); Neutrophils % 92.6 % (37.0-80.0); Platelet Count 480 K/mm3 (142-424); Red Blood Count 3.54 M/mm3 (4.60-6.20); Red Cell Distribution Width 14.6 % (11.5-17.5); White Blood Count 20.8 K/mm3 (4.8-10.8)
[2021-06-16 14:24] LABS: MANUAL DIFFERENTIAL MANUAL DIFFERENTIAL (MANUAL DIFF)
[2021-06-16 14:40] LABS: Hemoglobin A1C 7.8 % (4.0-6.0)
[2021-06-16 14:49] LABS: Lymphocytes % 4 % (10-50); Monocytes % 4 % (2-9); Neutrophils % 92 % (42-76); Total Cells Counted 100
[2021-06-16 14:50] LABS: Hypochromasia 1+; Platelet Estimate Slight Increase
[2021-06-16 14:54] LABS: Chloride 93 mmol/L (98-107); Potassium 5.3 mmoL/L (3.5-5.1); Sodium 132 mmol/L (136-145)
[2021-06-16 14:57] LABS: Alanine Aminotransferase 67 U/L (12-78); Albumin Level 2.6 g/dl (3.5-5.0); Alkaline Phosphatase 128 U/L (38-126); Anion Gap 13.3 mEq/L (5-15); Aspartate Amino Transferase 55 U/L (17-59); Bilirubin,Total 0.4 mg/dl (0.2-1.3); Blood Urea Nitrogen 33 mg/dl (9-20); Calcium 8.2 mg/dl (8.4-10.2); Carbon Dioxide 31 mmol/L (22.0-30.0); Estimated Glomerular Filt Rate 42 ml/min (>60); GFR (African American) 51 ML/MIN (>60); Globulin 2.7 g/dL (1.3-3.2); Glucose 168 mg/dl (74-100); Total Protein,Serum 5.3 g/dl (6.3-8.2)
[2021-06-16 14:58] LABS: Amylase < 30 U/L (30-110); Lipase < 10 U/L (23-300)
== END ==
PROVIDERS: Visit Provider Nurse Practitioner Family
DX: R11.2 Nausea with vomiting, unspecified (principal); R19.7 Diarrhea, unspecified; E11.59 Type 2 diabetes mellitus with other circulatory complications; Z79.4 Long term (current) use of insulin
CPT/HCPCS: 36415; 80053; 82150; 83036; 83690; 85007; 85025

== ENCOUNTER → 2021-06-17 09:36 | Outpatient (CLI) | payer MEDICARE, SELFPAY ==
--- NOTE | 2021-06-17 09:44 | US_ITS ---
PROCEDURE: US ABDOMEN LIMITED CLINICAL INDICATION: N/V COMPARISON: No exams were available for comparison FINDINGS: PANCREAS: Poorly seen due to intervening bowel gas and not adequately evaluated LIVER: No focal liver lesions demonstrated. Homogeneous echogenicity. No intrahepatic biliary ductal dilatation evident. There is appropriate direction of blood flow within a non dilated portal vein RIGHT KIDNEY: The right kidney measures 9.3 x 4.8 by 7.0 cm and shows rather uniform cortical thinning. 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 GALLBLADDER: The gallbladder is normal in size and shows a diffusely thickened wall. There are 2-3 calcified gallstones with some probable biliary sludge as well. IMPRESSION: Cholelithiasis with probable some degree of chronic cholecystitis, pancreas not adequately evaluated on this study Dictated by: Dr. Mil Smith MD 06/17/2021 15:11 Dr. Mil Smith MD in [place] 06/17/2021 15:11
== END ==
PROVIDERS: PCP Family Medicine; Visit Provider Nurse Practitioner Family
DX: R10.11 Right upper quadrant pain (principal); R11.2 Nausea with vomiting, unspecified
CPT/HCPCS: 76705

== ENCOUNTER → 2021-06-20 14:37 | Outpatient (CLI) | payer MEDICARE, SELFPAY ==
[2021-06-20 17:07] LABS: Adenovirus F 40/41, stool Not Detected (NotDetected); Astrovirus Not Detected (NotDetected); Campylobacter Not Detected (NotDetected); Clostridium Difficile A/B, PCR Not Detected (NotDetected); Cryptosporidium Not Detected (NotDetected); Cyclospora Cayetanesis Not Detected (NotDetected); Entamoeba histolytica Not Detected (NotDetected); Enteroaggregative E coli Not Detected (NotDetected); Enteropathogenic E coli Not Detected (NotDetected); Enterotoxigenic E coli Not Detected (NotDetected); Giardia lamblia Not Detected (NotDetected); Norovirus Not Detected (NotDetected); Plesimonas Shigalloides, PCR Not Detected (NotDetected); Rotavirus A Not Detected (NotDetected); Salmonella, PCR Not Detected (NotDetected); Sapovirus Not Detected (NotDetected); Shiga-like toxin E coli Not Detected (NotDetected); Shigella Enterovasive E coli Not Detected (NotDetected); Vibrio Cholerae Not Detected (NotDetected); Vibrio, PCR Not Detected (NotDetected); Yersinia Entercolitica, PCR Not Detected (NotDetected)
== END ==
PROVIDERS: Visit Provider Nurse Practitioner Family
DX: R19.7 Diarrhea, unspecified (principal)
CPT/HCPCS: 87506

== ENCOUNTER 2021-06-21 11:25 | Inpatient (IN) | payer MEDICARE, SELFPAY ==
[2021-06-21] VITALS (13 sets, daily range): BP systolic 140–186; BP diastolic 59–100; PULSE 69–82; RESP 16–22; TEMP 36.5–36.9; O2SAT 91–96; BMI 30.2; BMI 29.5
--- NOTE | 2021-06-21 11:45 | HMH.EDGENADL ---
ED Disposition Clinical Impression: Vomiting and diarrhea Pneumonia, community acquired Qualifiers: Laterality: unspecified laterality Qualified Code(s): J18.9 - Pneumonia, unspecified organism Disposition: Admitted as Observation Condition on Discharge: Fair - Critical Care Critical Care Time: No Attestation: On 06/21/21, the high probability of a clinically significant, sudden or life threatening deterioration of the following system(s) required my full and direct attention, intervention and personal management. The time I documented below is in addition to time spent performing reported procedures but includes the following listed in this critical care notation. Medical Decision Making - Medical Records Medical records reviewed: Yes: I reviewed the patient's medical records. MR Comment: Reviewed results of CBC and chemistry profile 06/16/2021, WBC noted to be 20.8, hemoglobin 10.7. Reviewed results of abdominal ultrasound 06/17/2021 which showed cholelithiasis with probable some degree of cholecystitis. Reviewed results of diarrhea panel from 06/20/2021, negative. Patient appears to have been started on Flagyl and hyoscyamine for his diarrhea. - Yvon Inquiry Pt receiving controlled substance: No Vital Signs: 06/21/21 11:26 06/21/21 12:01 06/21/21 12:30 Temperature 98.4 F Temperature Source Oral Pulse Rate 71 70 Pulse Rate [Left Radial] 80 Respiratory Rate 18 Blood Pressure 186/75 H 176/75 H Blood Pressure [Right Arm] 186/75 H Blood Pressure Mean 103 Blood Pressure Mean [Right Arm] 112 Blood Pressure Source [Right Arm] Automatic Cuff Blood Pressure Position [Right Arm] Sitting 02 Sat by Pulse Oximetry 94 L 95 92 L Oxygen Delivery Method Room Air 06/21/21 13:30 06/21/21 14:00 06/21/21 15:30 Temperature Temperature Source Pulse Rate 76 78 70 Pulse Rate [Left Radial] Respiratory Rate Blood Pressure 181/100 H 162/59 H 170/74 H Blood Pressure [Right Arm] Blood Pressure Mean Blood Pressure Mean [Right Arm] Blood Pressure Source [Right Arm] Blood Pressure Position [Right Arm] 02 Sat by Pulse Oximetry 92 L 91 L 94 L Oxygen Delivery Method - Lab Data Lab Results 06/21/21 11:55: WBC 16.8 H, RBC 3.69 L, Hgb 11.1 L, Hct 34.7 L, MCV 94.2 H, MCH 30.0, MCHC 31.9, RDW 14.0, Plt Count 546 H, MPV 7.9, Neut % (Auto) 87.9 H, Lymph % (Auto) 5.3 L, [place] % (Auto) 5.9, Eos % (Auto) 0.8, Baso % (Auto) 0.2, Neut # (Auto) 14.8 H, Lymph # (Auto) 0.9, [place] # (Auto) 1.0, Eos # (Auto) 0.1, Baso # (Auto) 0.0, Total Counted 100, Neutrophils % (Manual) 88 H, Lymphocytes % (Manual) 6 L, Monocytes % (Manual) 6, Platelet Estimate Slight increase, Hypochromasia 1+ 06/21/21 11:55: Sodium 133 L, Potassium 4.2, Chloride 98, Carbon Dioxide 31 H, Anion Gap 8.2, BUN 32 H, Creatinine 1.30 H, Estimated Creat Clear 67, Estimated GFR 54 L, Est GFR ( Amer) 65, Glucose 212 H, Calcium 8.1 L, Total Bilirubin 0.3, AST 57, ALT 60, Alkaline Phosphatase 133 H, Troponin I 0.04 H, Total Protein 5.7 L, Albumin 2.6 L, Globulin 3.1, Albumin/Globulin Ratio 0.8 L, Lipase < 10 L 06/21/21 11:55: D-Dimer 1.28 H 06/21/21 12:50: Lactate 0.8 06/21/21 13:34: SARS-CoV-2 (PCR) Not detected, Influenza A Untype (PCR) Not detected, Influenza Type B (PCR) Not detected 06/21/21 14:00: Urine Color Yellow, Urine Appearance Clear, Urine pH 6.0, Ur Specific [place] >= 1.030, Urine Protein 2+, Urine Glucose (UA) Trace, Urine Ketones Negative, Urine Blood 1+, Urine Nitrate Negative, Urine Bilirubin Negative, Urine Urobilinogen 0.2, Ur Leukocyte Esterase Trace, Urine RBC 5-10, Urine WBC 3-5, Ur Squamous Epith Cells Occasional, Urine Bacteria Trace Result diagrams: 06/21/21 11:55 06/21/21 11:55 Orders (Tests/Meds): ED MEDICATIONS Generic Name Dose Route Start Last Admin Trade Name Freq PRN Reason Stop Dose Admin Acetaminophen 650 mg 06/21/21 16:00 Acetaminophen 325mg Tab PO 07/21/21 15:59 Q4HP PRN
--- NOTE | 2021-06-21 12:00 | XR_ITS ---
PROCEDURE: XR CHEST PORTABLE CLINICAL HISTORY: soa, cough COMPARISON: CR CXR2V XR chest 2V from 02/27/2018 CR [id number] XR chest portable PICC plac from 03/04/2018 CR XR CHEST PORTABLE from 09/29/2019 CR XR CHEST PORTABLE from 10/01/2019 FINDINGS: There is mild cardiomegaly without failure. Bipolar pacemaker is present from left subclavian approach with adequate lead position. There is also in epic cardiac pacemaker wire extending along the anterior and inferior aspect of the heart with 2 leads into the left ventricular region posteriorly. There is some patchy density in the right lung base laterally suggesting a small area of atelectasis or infiltrate. A partially calcified left sided thyroid nodule is noted measuring 2.2 cm. No acute bony abnormalities. IMPRESSION: Mild cardiomegaly with pacemaker device is present as described above. Patchy atelectasis or infiltrate in the right lung base laterally Dictated by: Reggie Leyva MD 06/21/2021 12:33 Reggie Leyva MD in [facility] 06/21/2021 12:33
[2021-06-21 12:05] LABS: Basophils % 0.2 % (0.1-2.0); Eosinophils # 0.1 K/mm3 (0.0-0.4); Eosinophils % 0.8 % (0.1-12.0); Hematocrit 34.7 % (42.0-52.0); Hemoglobin 11.1 g/dL (14.1-18.0); Lymphocytes # 0.9 K/mm3 (0.7-4.5); Lymphocytes % 5.3 % (10-50); Mean Corpuscular HGB Conc 31.9 g/dL (31.8-35.4); Mean Corpuscular Volume 94.2 fl (80-94); Mean Platelet Volume 7.9 fl (7.4-10.4); Monocytes % 5.9 % (1.7-9.3); Neutrophils # 14.8 K/mm3 (1.8-7.8); Neutrophils % 87.9 % (37.0-80.0); Platelet Count 546 K/mm3 (142-424); Red Blood Count 3.69 M/mm3 (4.60-6.20); White Blood Count 16.8 K/mm3 (4.8-10.8)
[2021-06-21 12:09] LABS: MANUAL DIFFERENTIAL MANUAL DIFFERENTIAL (MANUAL DIFF)
[2021-06-21 12:16] LABS: Alanine Aminotransferase 60 U/L (12-78); Albumin Level 2.6 g/dl (3.5-5.0); Albumin/Globulin Ratio 0.8 (1.1-1.8); Alkaline Phosphatase 133 U/L (38-126); Anion Gap 8.2 mEq/L (5-15); Aspartate Amino Transferase 57 U/L (17-59); Bilirubin,Total 0.3 mg/dl (0.2-1.3); Blood Urea Nitrogen 32 mg/dl (9-20); Calcium 8.1 mg/dl (8.4-10.2); Carbon Dioxide 31 mmol/L (22.0-30.0); Chloride 98 mmol/L (98-107); Creatinine Clearance Estimated 67 mL/min (50-200); Estimated Glomerular Filt Rate 54 ml/min (>60); GFR (African American) 65 ML/MIN (>60); Globulin 3.1 g/dL (1.3-3.2); Glucose 212 mg/dl (74-100); Potassium 4.2 mmoL/L (3.5-5.1); Sodium 133 mmol/L (136-145); Total Protein,Serum 5.7 g/dl (6.3-8.2)
--- NOTE | 2021-06-21 12:23 | ECG_ITS ---
APPROVED REPORT Exam: Resting ECG HR:73 bpm ECG Measurements Heart Rate 73 AXES AL 272 P QRSd 180 QRS -43 QT 508 T 125 QTc 559 Conclusion Electronic atrial pacemaker Abnormal ECG Electronically signed by : Edward Juarez MD 06/22/2021 21:20:35
[2021-06-21 12:25] LABS: Lymphocytes % 6 % (10-50); Monocytes % 6 % (2-9); Neutrophils % 88 % (42-76); Total Cells Counted 100
[2021-06-21 12:26] LABS: Hypochromasia 1+; Platelet Estimate Slight Increase; Troponin I 0.04 ng/ml (0.00-0.034)
--- NOTE | 2021-06-21 12:27 | CT_ITS ---
PROCEDURE INFORMATION: Exam: CT Abdomen And Pelvis Without Contrast Exam date and time: 06/21/2021 12:27 PM Age: 75 years old Clinical indication: Vomiting; Additional info: Vomiting and diarrhea TECHNIQUE: Imaging protocol: Computed tomography of the abdomen and pelvis without contrast. Radiation optimization: All CT scans at this facility use at least one of these dose optimization techniques: automated exposure control; mA and/or kV adjustment per patient size (includes targeted exams where dose is matched to clinical indication); or iterative reconstruction. COMPARISON: US ABDOMEN LIMITED 06/17/2021 10:03 AM FINDINGS: Tubes, catheters and devices: Transvenous pacemaker leads in the heart Lungs: 4 mm pulmonary nodule right middle lobe series 3, image 1. Mild opacities in the lower lobes may represent atelectasis or pneumonia. Pleural spaces: Moderate right pleural effusion. Heart: Coronary artery calcifications may indicate coronary artery disease. There is calcification of the aortic valve annulus. There is calcification of the mitral valve annulus. Liver: Normal. No mass. Gallbladder and bile ducts: Gallstones in a contracted gallbladder.. Pancreas: Fatty infiltration of pancreas Spleen: Normal. No splenomegaly. Adrenal glands: Normal. No mass. Kidneys and ureters: Bilateral renal atrophy. 3.5 cm simple cyst left kidney. . No follow-up imaging recommended . Nonobstructing renal calculi bilaterally. 18 mm hyperdense mass in the anterior aspect of the right kidney. Forty-five Hounsfield units.. Stomach and bowel: Diverticulosis of the rectosigmoid. No diverticulitis Appendix: No evidence of appendicitis. Intraperitoneal space: Unremarkable. No free air. No significant fluid collection. 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 Lymph nodes: Unremarkable. No enlarged lymph nodes. Urinary bladder: Unremarkable as visualized. Reproductive: Surgical clips in the pelvis consistent with prostatectomy Bones/joints: Unremarkable. No acute fracture. Soft tissues: Increased density in the subcutaneous fat in the anterior abdomen and in the subcutaneous fat posterior to the paraspinous muscles and gluteal muscles may represent edema or inflammation. IMPRESSION: 1. Moderate right pleural effusion. 2. 4 mm pulmonary nodule right middle lobe series 3, image 1. For patients at low risk (minimal or absent history of smoking and of other known risk factors), no routine follow-up is indicated. For patients at high risk (history of smoking or of other known risk factors), consider optional CT Chest at 12 months. (Reference: Carla) References: Carla Monteiro, et al. Guidelines for Management of Incidental Pulmonary Nodules Detected on CT Images: From the Fleischner Society 2017. Radiology. 2017;284(1):228-243. 3. Gallstones in a contracted gallbladder.. 4. 18 mm hyperdense mass in the anterior aspect of the right kidney. Forty-five Hounsfield units.. Recommend MR without and with contrast or CT without and with contrast. MR is preferred for masses under 1.5 cm. 5. 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 6. Increased density in the subcutaneous fat in the anterior abdomen and in the subcutaneous fat posterior to the paraspinous muscles and gluteal muscles may represent edema or inflammation. COMMENTS: Consistent with the [employer]'s Incidental Findings Committee white paper (J Am Mariia Radiol 2018): Any incidental renal lesion less than 1 cm or classified as too small to characterize, or any incidental cystic renal lesion characterized as simple-appearing, is likely benign. No
[2021-06-21 12:28] LABS: Lipase < 10 U/L (23-300)
--- NOTE | 2021-06-21 12:34 | PC.NURSE ---
notified rad of ct order, spoke with siomara
--- NOTE | 2021-06-21 12:52 | PC.NURSE ---
Pt went to CT.
[2021-06-21 13:11] LABS: Lactic Acid 0.8 mmol/L (0.7-2.1)
[2021-06-21 13:24] LABS: D-Dimer 1.28 ug/mL (0.0-0.5)
--- NOTE | 2021-06-21 13:39 | CT_ITS ---
PROCEDURE: CT ANGIO CHEST PE PROTOCOL CLINCIAL INDICATION: soa, elev d-dimer COMPARISON: No exams were available for comparison TECHNIQUE: IV Contrast: 70ML Isovue 370 Axial images obtained with sagittal and coronal reformats. All CT scans at the facility use one or more dose reduction, viz: automated exposure control, ma/kV adjustment per patient size (including targeted exams where dose is matched to indication, i.e. head), or iterative reconstruction technique. FINDINGS: HEART AND MEDIASTINAL STRUCTURES: There is cardiomegaly. There has been a prior median sternotomy with CABG. Coronary artery calcifications and stents are noted. No evidence of pulmonary embolus or aortic aneurysm.. There is mild separation of the median sternotomy fragments by approximately 6 mm in the mid aspect of the sternum greater along the inferior margin measuring up to 2 cm separation inferiorly. Cardiac pacemaker device is present from left subclavian approach. LUNGS AND PLEURAL SPACES: Motion artifact is present on the lung windows decreasing fine detail. 7 x 4 mm nodule is present in the right middle lobe peripherally in the subpleural region possibly due to an area scarring. There is ground-glass infiltrate in the right lower lobe anteriorly. There is a small right pleural effusion with mild compressive atelectatic changes. Atelectatic or fibrotic changes are present in the inferior aspect of the lingula. Patchy area of infiltrate is also noted in the left lower lobe inferiorly BONY STRUCTURES: There are degenerative changes in the thoracic spine with mild thoracic curvature convex right. UPPER ABDOMEN: Cholelithiasis. Diffuse fatty infiltration of the pancreas. 3.4 cm left renal cyst. In the right kidney anteriorly there is a 2 cm area of slight hyperdensity possibly related to a renal mass ADDITIONAL FINDINGS: Gynecomastia IMPRESSION: 1. No evidence of pulmonary embolus. 2. Status post CABG with sternal dehiscence age indeterminate. 3. Patchy infiltrate in the right and left lower lobe. Small to medium-sized right pleural effusion. 4. Cholelithiasis. 5. Possible 2 cm right renal mass. Nonemergent CT renals without and with contrast with delayed imaging suggested Dictated by: Reggie Leyva MD 06/21/2021 15:08 Reggie Leyva MD in [facility] 06/21/2021 15:08
[2021-06-21 13:43] LABS: Coronavirus 19, PCR Not Detected (NotDetected); Influenza A, PCR Not Detected (NotDetected); Influenza B, PCR Not Detected (NotDetected)
[2021-06-21 14:05] LABS: Microscopic, Urine URINE MICROSCOPIC (MICROSCOPIC)
[2021-06-21 14:15] LABS: Appearance,Urine CLEAR (Clear); Bilirubin,Urine Negative (Negative); Blood, Urine 1+ (Negative); Color,Urine YELLOW (Yellow); Glucose,Urine (UA) TRACE (Negative); Ketones,Urine Negative (Negative); Leukocyte Esterase,Urine TRACE (Negative); Nitrate,Urine Negative (Negative); Protein,Urine 2+ (Negative); Specific Gravity, Urine >= 1.030 (1.005-1.030); Urobilinogen,Urine 0.2 EU/dl (0.2)
[2021-06-21 14:27] LABS: Bacteria,Urine Trace /lpf; Squamous Epithelial Cell,Urine Occasional #/hpf (0-5)
--- NOTE | 2021-06-21 15:20 | PC.NURSE ---
Calling Dr Berg at this time.
--- NOTE | 2021-06-21 15:22 | PC.NURSE ---
Dr Tinsley speaking with Dr becerril
--- NOTE | 2021-06-21 16:35 | PC.NURSE ---
REeport given to Tyler HOPSON
--- NOTE | 2021-06-21 17:02 | PC.NURSE ---
pt arrived to the floor at this time
--- NOTE | 2021-06-21 17:20 | PC.NURSE ---
THIS RN ASKED PT IF HE COULD RECALL HOME MEDS TO COMPLETE MEDICATION RECONCILIATION BUT HE STATES HE DOES NOT KNOW HIS MEDICATIONS.
--- NOTE | 2021-06-21 18:15 | PC.NURSE ---
SPOKE WITH PT . SHE SAID SHE WOULD BRING HOME MEDS AND GLUCOMETER FROM HOME.
[2021-06-21 18:51] LABS: Troponin I 0.03 ng/ml (0.00-0.034)
--- NOTE | 2021-06-21 19:17 | HMH.HP ---
*Admission Date: 06/21/21 *Chief complaint: Diarrhea and vomiting *History of present illness: 75-year-old white male with severe arteriosclerotic cardiovascular disease and peripheral vascular disease due to diabetes. He is admitted with multiple episodes of diarrhea and with vomiting. His frequency of diarrhea and vomiting has not been great. He has only vomited once today, but he feels extremely weak. He was assessed by telehealth visit 5 days ago. He was started on metronidazole and hyoscyamine. He contacted the office of [facility] today and was asked to come in. He was seen by Dr. Berg during his triage and it was felt that he should go directly to the emergency room for further evaluation, testing, and fluids. In the emergency room he was found to have evidence of a right lower lobe pneumonia though his respiratory symptoms have not been severe. He has had some cough he admits. His CT studies revealed cholelithiasis of the gallbladder. He does not have evidence of pulmonary embolism. His white blood cell count is elevated. He is anemic. [facility] History Medical History: Reports:: Cancer, Congestive Heart Failure, Coronary Artery Disease, Diabetes Mellitus Type 2, Gastroesophageal Reflux Disease(GERD), Hyperlipidemia, Hypertension, Internal Pacemaker, MRSA, Myocardial Infarction, Peripheral Artery Disease, Renal Disease, Renal Insufficiency Denies:: Diabetes Mellitus Type 1, Seizures *Have you ever received a pneumonia vaccine?: Yes *Have you received a flu vaccine this season?: Yes Other Medical History: Reports: Radiation Therapy. Denies: Blood Transfusion Reaction Other Surgeries: Yes: CABG, Cancer Surgery, Cardiac Catheterization, Cardiac Surgery (5 years ago), Colonoscopy, Coronary Stent (left leg. ), Open Heart Surgery, Pacemaker, Other Amputation: Yes (ALL toes L Foot, R BKA) Fractures: No - *Social History Last grade of school completed: High school graduate Smoking Status: Former smoker Tobacco Type: cigarettes # Packs/Day (cigarettes): 0 #Yrs smoked (if former smoker): 20 Alcohol Intake: never Alcohol Intake Frequency:: holidays/special occasions only Substance Use Type: denies use, other *Occupational Status:: retired Housing: house Household Members: spouse *Travel in the last 8 weeks: None Family Hx:: Coronary Artery Disease, Heart Attack, Hyperlipidemia, Hypertension Review of Systems - Constitutional Reports anorexia, Reports fatigue, Reports malaise, Reports weakness - Eyes Denies change in vision - ENT Reports dry mouth, Denies hearing loss - *Cardiovascular Denies chest pain, Denies shortness of breath with activity - *Respiratory Reports cough - *Gastrointestinal Reports abdominal pain, Reports incontinent of stools, Reports loose stools, Reports nausea, Reports vomiting - *Musculoskeletal Reports other (Right BKA with prosthesis, left partial foot amputation) - Integumentary/Breasts Reports skin ulcer (Bilateral buttock) - *Neurologic Reports weakness, Denies fainting Meds Home Medications Medication Instructions Recorded Confirmed Type Aspirin 81 mg PO DAILY 02/27/18 06/21/21 History Atorvastatin Calcium [Lipitor 40mg 40 mg PO HS 02/27/18 06/21/21 History Tab] Furosemide [Furosemide 40MG tAB*] 40 mg PO BID 02/27/18 06/21/21 History Glimepiride 4 mg PO BID 02/27/18 06/21/21 History Potassium Chloride [Klor-Con 10mEq 10 meq PO BID 02/27/18 06/21/21 History tab] carvediloL [Carvedilol 25mg Tab] 25 mg PO BIDWM 02/28/18 06/21/21 History insulin detemir U-100 100 unit/mL 15 unit SQ DAILY ml 01/09/19 06/21/21 History subcutaneous solution Sertraline HCl [Zoloft 50mg tablet] 50 mg PO DAILY 10/20/19 06/21/21 History Cholecalciferol (Vitamin D3) 5,000 units PO DAILY 10/21/19 06/21/21 History [Vitamin D3] Amiodarone HCl [Cordarone 200mg 200 mg PO DAILY 10/22/19 06/21/21 History tablet] Insulin Aspart Prot/Insuln Asp 8 unit SQ AC PRN 06/21/2106/21
--- NOTE | 2021-06-21 19:18 | PC.NURSE ---
NEW ADMIT FOR PNA. HE DOES NOT REQUIRE O2 SUPPORT. VITAL SIGNS HAVE BEEN STABLE SINCE ARRIVAL TO FLOOR. DENIES N/V/D THUS FAR.
[2021-06-21 20:42] LABS: Troponin I 0.03 ng/ml (0.00-0.034)
[2021-06-21 21:53] LABS: POC Glucose,Bedside 204 (70-110)
[2021-06-21 21:53] LABS: POC Glucose,Bedside 163 (70-110)
[2021-06-22] VITALS (9 sets, daily range): BP systolic 109–167; BP diastolic 63–79; PULSE 70–88; RESP 16–24; TEMP 36.7–37; O2SAT 92–96; BMI 29.3
--- NOTE | 2021-06-22 03:43 | PC.NURSE ---
No acute changes t/o shift. Pt has rested well. Pt remains on room air and denies any SOA. VSS, call light within reach, will continue to monitor.
[2021-06-22 05:43] LABS: POC Glucose,Bedside 134 (70-110)
[2021-06-22 07:19] LABS: Basophils % 0.2 % (0.1-2.0); Eosinophils # 0.2 K/mm3 (0.0-0.4); Eosinophils % 1.4 % (0.1-12.0); Hemoglobin 10.5 g/dL (14.1-18.0); Lymphocytes # 0.9 K/mm3 (0.7-4.5); Lymphocytes % 6.1 % (10-50); Mean Corpuscular Hemoglobin 29.6 pg (27.0-31.2); Mean Corpuscular Volume 95.6 fl (80-94); Mean Platelet Volume 7.6 fl (7.4-10.4); Monocytes # 0.8 K/mm3 (0.1-1.0); Monocytes % 5.2 % (1.7-9.3); Neutrophils # 13.6 K/mm3 (1.8-7.8); Neutrophils % 87.2 % (37.0-80.0); Platelet Count 564 K/mm3 (142-424); Red Blood Count 3.55 M/mm3 (4.60-6.20); Red Cell Distribution Width 13.9 % (11.5-17.5); White Blood Count 15.6 K/mm3 (4.8-10.8)
[2021-06-22 07:23] LABS: MANUAL DIFFERENTIAL MANUAL DIFFERENTIAL (MANUAL DIFF)
--- NOTE | 2021-06-22 07:27 | P.CONPHA_ITS ---
[facility] [place] Pharmacy VTE Monitoring - Patient Demographics Admission date: 06/22/21 Report Date: 06/22/21 Time: 07:27 Allergies/Adverse Reactions: Patient Allergies promethazine Allergy (Mild, Verified 07/23/20 14:34) itching cyanocobalamin (vitamin B12) Allergy (Verified 07/23/20 14:34) Rash Height: 1.78 m Weight: 93.209 kg Patient Problems: Current Active Problems Status cardiac pacemaker (Acute) Pneumonia, community acquired (Acute) Vomiting and diarrhea (Acute) History of right below knee amputation (Acute) Cholelithiasis (Acute) Weakness (Acute) Dehydration (Acute) Type 2 diabetes mellitus with diabetic neuropathy, with long-term current use of insulin (Acute) 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
[2021-06-22 07:29] LABS: Chloride 104 mmol/L (98-107)
[2021-06-22 07:30] LABS: Potassium 3.7 mmoL/L (3.5-5.1); Sodium 137 mmol/L (136-145)
[2021-06-22 07:32] LABS: Blood Urea Nitrogen 24 mg/dl (9-20); Creatinine Clearance Estimated 66 mL/min (50-200); Estimated Glomerular Filt Rate 54 ml/min (>60); GFR (African American) 65 ML/MIN (>60)
[2021-06-22 07:33] LABS: Anion Gap 7.7 mEq/L (5-15); Calcium 7.7 mg/dl (8.4-10.2); Carbon Dioxide 29 mmol/L (22.0-30.0); Glucose 123 mg/dl (74-100)
--- NOTE | 2021-06-22 07:52 | HMH.ACPN2 ---
Internal Medicine - PN: Subj *Date: 06/22/21 *Time: 07:52 Interval history: Patient was able to sleep a little last night. He feels the shortness of breath is better. He has minimal cough. His biggest complaint is pain in his coccyx area. He states he cannot lie on his back, sit up in a chair, and has to position himself on his side to be comfortable. He also has some nausea but was able to eat a little bit of breakfast. He has had no diarrhea since admission. Laboratory data this morning reveals a white blood cell count of 15,600 with a hemoglobin of 10.5 and hematocrit of 34. Blood chemistries show normal electrolytes. BUN is 24 and creatinine is 1.3. Exam Vital signs and Labs for Last 24 Hours: Temp Pulse Resp BP Pulse Ox 98.0 F 72 18 134/68 96 06/22/21 04:00 06/22/21 04:00 06/22/21 04:00 06/22/21 04:00 06/22/21 04:00 Laboratory Results - last 24 hr 06/21/21 11:55: WBC 16.8 H, RBC 3.69 L, Hgb 11.1 L, Hct 34.7 L, MCV 94.2 H, MCH 30.0, MCHC 31.9, RDW 14.0, Plt Count 546 H, MPV 7.9, Neut % (Auto) 87.9 H, Lymph % (Auto) 5.3 L, [place] % (Auto) 5.9, Eos % (Auto) 0.8, Baso % (Auto) 0.2, Neut # (Auto) 14.8 H, Lymph # (Auto) 0.9, [place] # (Auto) 1.0, Eos # (Auto) 0.1, Baso # (Auto) 0.0, Total Counted 100, Neutrophils % (Manual) 88 H, Lymphocytes % (Manual) 6 L, Monocytes % (Manual) 6, Platelet Estimate Slight increase, Hypochromasia 1+ 06/21/21 11:55: Sodium 133 L, Potassium 4.2, Chloride 98, Carbon Dioxide 31 H, Anion Gap 8.2, BUN 32 H, Creatinine 1.30 H, Estimated Creat Clear 67, Estimated GFR 54 L, Est GFR ( Amer) 65, Glucose 212 H, Calcium 8.1 L, Total Bilirubin 0.3, AST 57, ALT 60, Alkaline Phosphatase 133 H, Troponin I 0.04 H, Total Protein 5.7 L, Albumin 2.6 L, Globulin 3.1, Albumin/Globulin Ratio 0.8 L, Lipase < 10 L 06/21/21 11:55: D-Dimer 1.28 H 06/21/21 12:50: Lactate 0.8 06/21/21 13:34: SARS-CoV-2 (PCR) Not detected, Influenza A Untype (PCR) Not detected, Influenza Type B (PCR) Not detected 06/21/21 14:00: Urine Color Yellow, Urine Appearance Clear, Urine pH 6.0, Ur Specific [place] >= 1.030, Urine Protein 2+, Urine Glucose (UA) Trace, Urine Ketones Negative, Urine Blood 1+, Urine Nitrate Negative, Urine Bilirubin Negative, Urine Urobilinogen 0.2, Ur Leukocyte Esterase Trace, Urine RBC 5-10, Urine WBC 3-5, Ur Squamous Epith Cells Occasional, Urine Bacteria Trace 06/21/21 15:05: Troponin I 0.03 06/21/21 17:44: POC Glucose 204 H 06/21/21 18:17: Troponin I 0.03 06/21/21 20:28: POC Glucose 163 H 06/22/21 05:16: POC Glucose 134 H 06/22/21 06:52: WBC 15.6 H, RBC 3.55 L, Hgb 10.5 L, Hct 34.0 L, MCV 95.6 H, MCH 29.6, MCHC 31.0 L, RDW 13.9, Plt Count 564 H, MPV 7.6, Neut % (Auto) 87.2 H, Lymph % (Auto) 6.1 L, [place] % (Auto) 5.2, Eos % (Auto) 1.4, Baso % (Auto) 0.2, Neut # (Auto) 13.6 H, Lymph # (Auto) 0.9, [place] # (Auto) 0.8, Eos # (Auto) 0.2, Baso # (Auto) 0.0 06/22/21 06:52: Sodium 137, Potassium 3.7, Chloride 104, Carbon Dioxide 29, Anion Gap 7.7, BUN 24 H, Creatinine 1.30 H, Estimated Creat Clear 66, Estimated GFR 54 L, Est GFR ( Amer) 65, Glucose 123 H D, Calcium 7.7 L I & O for Last 24 hours: Intake & Output 06/19/21 06/20/21 06/21/21 06/22/21 11:59 11:59 11:59 11:59 Intake Total 120 / 120 Balance 120 / 120 Weight 211 lb 205 lb 7.854 oz - Constitutional no acute distress Comments: He is awake alert and lying on his side eating some breakfast. - *Routine HEENT Exam Head: Present: normocephalic, atraumatic ENT: Present: mucous membranes moist (Membranes and tongue look more moist this a.m.) - *Routine Respiratory Exam Present: crackles (Bilateral but greater on the right.) - *Routine Cardiovascular Exam Present: RRR - *Routine Abdominal Exam Present: soft, normoactive bowel sounds, tenderness (Right upper quadrant and left upper quadrant) - *Routine Extremities Exam Present: edema (Trace edema), calf tenderness, amputation (Right below the knee) - Routine Back/Spine/Pelvis Exam
--- NOTE | 2021-06-22 07:56 | HMH.PHAINT ---
MEDICATION RECONCILIATION COMPLETE USING SURESCRIPTS, PREVIOUS LIST, AND TALKING TO THE PATIENT
[2021-06-22 08:26] LABS: Eosinophils % 1 % (0-3); Hypochromasia 2+; Lymphocytes % 7 % (10-50); Macrocytosis 1+; Monocytes % 4 % (2-9); Neutrophils % 88 % (42-76); Platelet Estimate Normal; Total Cells Counted 100
--- NOTE | 2021-06-22 08:43 | XR_ITS ---
PROCEDURE: XR LUMBAR SPINE 2-3V CLINICAL INDICATION: L/S pain COMPARISON: CT CT ABDOMEN PELVIS WO CON from 06/21/2021 FINDINGS: Mild lumbar curvature convex left. There is severe degenerative disc disease at L2-L3 L3-L4 L4-5 and L5-S1 with endplate osteophytes projecting laterally at L3 and L4 on the right and L4 and L5 on the left. There is diffuse vascular calcification. No fracture or dislocation. No bony destructive process or blastic lesion evident. Calcifications noted of the left renal hilum which may be vascular. Other findings:None. IMPRESSION: No acute finding. Lumbar spondylosis Dictated by: Reggie Leyva MD 06/22/2021 18:22 Reggie Leyva MD in [facility] 06/22/2021 18:22
--- NOTE | 2021-06-22 08:47 | XR_ITS ---
PROCEDURE: XR SACRUM COCCYX MIN 2V CLINICAL INDICATION: L/S pain with history of prostate cancer COMPARISON: CT CT ABDOMEN PELVIS WO CON from 06/21/2021 FINDINGS: There is significant vascular calcification. There is normal alignment of the sacrum. No fracture or dislocation. No obvious lytic or blastic lesion. There are mild osteoarthritic changes of the hips and degenerative changes of the lumbar spine. Other findings:None. IMPRESSION: No acute finding. Diffuse vascular calcification. Severe degenerative changes of the lumbar spine Dictated by: Reggie Leyva MD 06/22/2021 18:19 Reggie Leyva MD in [facility] 06/22/2021 18:19
--- NOTE | 2021-06-22 09:55 | PC.NURSE ---
asssiting with charting vitals and srna checks at this time.
--- NOTE | 2021-06-22 18:47 | PC.NURSE ---
NO ACUTE CHANGES THIS SHIFT, HE HAS NOT REQUIRED O2 SUPPORT, DENIES SOB N/V/D AND PAIN.
[2021-06-23] VITALS (10 sets, daily range): BP systolic 135–164; BP diastolic 65–84; PULSE 70–101; RESP 18–24; TEMP 36.5–37.3; O2SAT 90–96; BMI 29.9
--- NOTE | 2021-06-23 04:31 | PC.NURSE ---
Patient is A&Ox4. He has not had any acute changes this shift. He has rested well through the night. Patient has not required any supplemental oxygen. VSS, call light within reach, will continue to monitor.
--- NOTE | 2021-06-23 08:33 | HMH.ACPN2 ---
Internal Medicine - PN: Subj *Date: 06/23/21 *Time: 08:33 Interval history: Patient states he feels a little bit better today. He thinks the breathing treatments are helping to break things up. He has a cough and still some shortness of breath. He continues to lay on his side due to coccygeal pain. He slept better last night with a sleeping pill and was able to eat his breakfast this morning. He denies any abdominal pain. Exam Vital signs and Labs for Last 24 Hours: Temp Pulse Resp BP Pulse Ox 98.3 F 101 H 20 135/75 96 06/23/21 04:11 06/23/21 06:45 06/23/21 04:11 06/23/21 04:11 06/23/21 04:11 I & O for Last 24 hours: Intake & Output 06/20/21 06/21/21 06/22/21 06/23/21 11:59 11:59 11:59 11:59 Intake Total 360 / 360 1734 / 1734 Output Total 0 / 0 Balance 360 / 360 1734 / 1734 Weight 211 lb 205 lb 7.854 oz 209 lb Microbiology Reports for the Last 24 Hours: Microbiology 06/21/21 12:50 Blood Blood Culture - Preliminary Radiology Reports for the Last 24 Hours: Sacrum and coccyx x-ray - No acute finding. Diffuse vascular calcification. Severe degenerative changes of the lumbar spineNo acute finding. Lumbar spine x-ray - Lumbar spondylosis - Constitutional no acute distress - *Routine HEENT Exam Head: Present: normocephalic Eye: Present: EOMI, PERRL ENT: Present: mucous membranes moist - *Routine Neck Exam Present: supple. Absent: lymphadenopathy - *Routine Respiratory Exam Present: crackles (Bilateral) - *Routine Cardiovascular Exam Present: RRR - *Routine Abdominal Exam Present: soft, normoactive bowel sounds. Absent: tenderness - *Routine Extremities Exam Absent: cyanosis, clubbing, edema - *Routine Skin Exam Present: warm. Absent: rash - *Routine Neurological Exam Present: alert, oriented X3 Assessment and Plan (1) Pneumonia, community acquired Status: Acute Qualifiers: Laterality: unspecified laterality Qualified Code(s): J18.9 - Pneumonia, unspecified organism Category: Medical Code(s): J18.9 - Pneumonia, unspecified organism (2) Cholelithiasis Status: Acute Category: Medical Code(s): K80.20 - Calculus of gallbladder without cholecystitis without obstruction (3) Vomiting and diarrhea Status: Acute Category: Medical Code(s): R11.10 - Vomiting, unspecified; R19.7 - Diarrhea, unspecified (4) Weakness Status: Acute Category: Medical Code(s): R53.1 - Weakness (5) Dehydration Status: Acute Category: Medical Code(s): E86.0 - Dehydration (6) Type 2 diabetes mellitus with diabetic neuropathy, with long-term current use of insulin Status: Acute Category: Medical Code(s): E11.40 - Type 2 diabetes mellitus with diabetic neuropathy, unspecified; Z79.4 - group home (current) use of insulin (7) Arteriosclerotic cardiovascular disease Status: Acute Category: Medical Code(s): I25.10 - Atherosclerotic heart disease of [place] coronary artery without angina pectoris (8) Status cardiac pacemaker Status: Acute Category: Surgical Code(s): Z95.0 - Presence of cardiac pacemaker (9) History of right below knee amputation Status: Acute Category: Surgical Code(s): Z89.511 - Acquired absence of right leg below knee (10) 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 Will discuss further care with Dr. Berg.
[2021-06-23 09:22] LABS: Basophils % 0.2 % (0.1-2.0); Eosinophils # 0.2 K/mm3 (0.0-0.4); Eosinophils % 1.9 % (0.1-12.0); Hematocrit 31.3 % (42.0-52.0); Hemoglobin 9.9 g/dL (14.1-18.0); Lymphocytes # 0.8 K/mm3 (0.7-4.5); Lymphocytes % 6.5 % (10-50); Mean Corpuscular HGB Conc 31.6 g/dL (31.8-35.4); Mean Platelet Volume 7.7 fl (7.4-10.4); Monocytes # 0.7 K/mm3 (0.1-1.0); Monocytes % 5.6 % (1.7-9.3); Neutrophils # 10.2 K/mm3 (1.8-7.8); Neutrophils % 85.6 % (37.0-80.0); Platelet Count 523 K/mm3 (142-424); Red Cell Distribution Width 14.3 % (11.5-17.5); White Blood Count 11.9 K/mm3 (4.8-10.8)
[2021-06-23 09:34] LABS: Chloride 103 mmol/L (98-107); Potassium 4.2 mmoL/L (3.5-5.1); Sodium 134 mmol/L (136-145)
[2021-06-23 09:37] LABS: Anion Gap 8.2 mEq/L (5-15); Blood Urea Nitrogen 21 mg/dl (9-20); Carbon Dioxide 27 mmol/L (22.0-30.0); Creatinine Clearance Estimated 67 mL/min (50-200); Estimated Glomerular Filt Rate 54 ml/min (>60); GFR (African American) 65 ML/MIN (>60)
[2021-06-23 09:38] LABS: Calcium 7.3 mg/dl (8.4-10.2); Glucose 240 mg/dl (74-100)
[2021-06-23 09:53] LABS: MANUAL DIFFERENTIAL MANUAL DIFFERENTIAL (MANUAL DIFF)
[2021-06-23 09:55] LABS: Eosinophils % 2 % (0-3); Lymphocytes % 8 % (10-50); Macrocytosis 1+; Monocytes % 1 % (2-9); Neutrophils % 89 % (42-76); Platelet Estimate Normal; Total Cells Counted 100
[2021-06-23 09:56] LABS: Hypochromasia 2+
--- NOTE | 2021-06-23 11:38 | HMH.PTEV ---
Physical Therapy Evaluation Rehab PT IP Evaluation Start: 06/23/21 08:12 Freq: ONCE Status: Active Protocol: Document 06/23/21 11:23 BRE (Rec: 06/23/21 11:38 BRE [id number]) Subjective/History History History This is the initial evaluation for Joseph Beckett. Pt is a 75 y/o male diagnosed with pnemonia, anemia, and N&V. Pt is a BKA and a TMA. Pt is stable and on breathing treatments to aid in SOA. - note done by Heidi Jain , SPT Subjective Subjective Pt states he lives in a home with his . Pt reports that he could take care of himself at home. Pt reports that he mainly uses an electric chair to get around but he uses a walker when he stands on his prosthesis. Rehab PT IP Eval Objective Appearance Patient Behavior Appropriate,Cooperative Patient Orientation Person,Place,Time,Birthday, Year Difficulty following instructions none Speech Pattern Clear,Appropriate,Coherent Ambulation Patient Able to Ambulate No Balance Ability to Arise Able, uses arms to help Sitting Balance Steady, safe Standing Balance Steady, wide stance Dynamic Sitting Balance Ability Good Dynamic Standing Balance Ability Fair Transfers Bed Transfer Ability Supervision/Stand by Sit to Stand Bed Transfer Ability Contact Guard/Hand Hold Rehab PT IP prob,goals,plan Problems Date of Evaluation: 06/23/21 PT IP Problems Bed Mobility,Transfers,Gait, Balance,Self care,Safety Rehab Potential Rehab Potential Good Equipment Needs Assistive Devices Rolling / Wheeled Walker Plan PT Intervention Plan Bed Mobility,Transfers,Gait, Balance,Self care,Safety, Therapeutic Exercise PT Plan Frequency BID Duration LOS Discharge Goals Bed Transfer Ability Supervision/Stand by Sit to Stand Chair Transfer Ability Supervision/Stand by Ambulation Assistive Device Rolling Walker Ambulation Distance (feet) 10 Discharge Plan PT Discharge Plan Pt will benefit from skilled therapy to improve strength, endurance, transfers, self
--- NOTE | 2021-06-23 13:56 | SW/DCPLANNER ---
Addendum entered by Elizabeth Isabel 06/28/21 10:25: This patient discharged home yesterday 06/27/21. I called and spoke with this patient via phone today and patient has stated that he is not interested in home health services at this time. Addendum entered by Elizabeth Isabel 06/24/21 09:49: I spoke with this patient this AM regarding discharge plans. Patient stated that MD informed him that he would continue hospital stay over the weekend and discharge home on Sunday. Patient stated that he plans to return home and is agreeable with home health services. I will set this patient up with home health at time of discharge. Original Note: I spoke with this patient regarding plans once medically stable for discharge. Patient stated that he resides at home with his whom is home with him 02/04. Patient also stated that he has been to [facility] in [place] in the past but prefers to discharge home once medically stable for discharge. Patient has expressed an interest in home health services. Patient has stated that he will speak with his this evening regarding discharge plans. I will follow up with this patient tomorrow morning. Discharge date is unknown at this time.
--- NOTE | 2021-06-23 14:02 | XR_ITS ---
PROCEDURE: XR CHEST 2V CLINICAL HISTORY: pneumonia COMPARISON: CR CXR2V XR chest 2V from 02/27/2018 CR XR CHEST PORTABLE from 09/29/2019 CR XR CHEST PORTABLE from 10/01/[address] ANGIO CHEST PE PROTOCOL from 06/21/2021 CR XR CHEST PORTABLE from 06/21/2021 FINDINGS: There is cardiomegaly without failure. There has been a prior CABG. Pacer wires are present as before. There are small bilateral pleural effusions. Increased density is present in the right middle lobe in the right lower lobe anteriorly consistent with pneumonia. These findings have progressed compared to 06/21/2021. No acute bony abnormalities. IMPRESSION: Small bilateral effusions with right lower lobe pneumonia Dictated by: Reggie Leyva MD 06/23/2021 15:09 Reggie Leyva MD in OV 06/23/2021 15:09
[2021-06-23 16:28] LABS: Thyroid Stimulating Hormone 0.56 uIU/mL (0.465-4.68)
[2021-06-24] VITALS (8 sets, daily range): BP systolic 108–164; BP diastolic 64–93; PULSE 70–83; RESP 16–21; TEMP 36.6–37.1; O2SAT 90–96; BMI 30.1
--- NOTE | 2021-06-24 06:21 | PC.NURSE ---
Patient is A&Ox4. Patient has had incontinent episodes this shift. He has voiced no complaints. Call light within reach, will continue to monitor. VSS.
[2021-06-24 07:11] LABS: Chloride 103 mmol/L (98-107); Potassium 3.7 mmoL/L (3.5-5.1); Sodium 136 mmol/L (136-145)
[2021-06-24 07:12] LABS: Basophils # 0.1 K/mm3 (0-0.2); Basophils % 0.5 % (0.1-2.0); Eosinophils # 0.3 K/mm3 (0.0-0.4); Eosinophils % 2.6 % (0.1-12.0); Hemoglobin 10.5 g/dL (14.1-18.0); Lymphocytes # 1.2 K/mm3 (0.7-4.5); Lymphocytes % 10.1 % (10-50); Mean Corpuscular HGB Conc 30.8 g/dL (31.8-35.4); Mean Corpuscular Hemoglobin 29.4 pg (27.0-31.2); Mean Corpuscular Volume 95.5 fl (80-94); Mean Platelet Volume 8.1 fl (7.4-10.4); Monocytes # 0.7 K/mm3 (0.1-1.0); Monocytes % 5.8 % (1.7-9.3); Neutrophils # 9.4 K/mm3 (1.8-7.8); Neutrophils % 81.1 % (37.0-80.0); Platelet Count 506 K/mm3 (142-424); Red Blood Count 3.57 M/mm3 (4.60-6.20); Red Cell Distribution Width 14.3 % (11.5-17.5); White Blood Count 11.6 K/mm3 (4.8-10.8)
[2021-06-24 07:13] LABS: Blood Urea Nitrogen 17 mg/dl (9-20); Creatinine Clearance Estimated 67 mL/min (50-200); Estimated Glomerular Filt Rate 54 ml/min (>60); GFR (African American) 65 ML/MIN (>60)
[2021-06-24 07:14] LABS: Alanine Aminotransferase 42 U/L (12-78); Albumin Level 2.4 g/dl (3.5-5.0); Albumin/Globulin Ratio 0.8 (1.1-1.8); Alkaline Phosphatase 114 U/L (38-126); Anion Gap 8.7 mEq/L (5-15); Aspartate Amino Transferase 47 U/L (17-59); Bilirubin,Total 0.1 mg/dl (0.2-1.3); Calcium 7.6 mg/dl (8.4-10.2); Carbon Dioxide 28 mmol/L (22.0-30.0); Globulin 2.9 g/dL (1.3-3.2); Glucose 144 mg/dl (74-100); Total Protein,Serum 5.3 g/dl (6.3-8.2)
--- NOTE | 2021-06-24 08:31 | HMH.ACPN2 ---
Internal Medicine - PN: Subj *Date: 06/24/21 *Time: 08:31 Interval history: Patient states he is feeling better today. He did not sleep well but his shortness of breath has improved. His low back pain and coccygeal pain have improved as well and he is now able to lay on his back. He states the breathing treatments make him cough and has been coughing up sputum. He did work with physical therapy yesterday but states he did not do much. Exam Vital signs and Labs for Last 24 Hours: Temp Pulse Resp BP Pulse Ox 98 F 77 19 135/64 94 L 06/24/21 04:00 06/24/21 06:55 06/24/21 04:00 06/24/21 04:00 06/24/21 04:00 Laboratory Results - last 24 hr 06/23/21 09:06: WBC 11.9 H, RBC 3.30 L, Hgb 9.9 L, Hct 31.3 L, MCV 95.0 H, MCH 30.0, MCHC 31.6 L, RDW 14.3, Plt Count 523 H, MPV 7.7, Neut % (Auto) 85.6 H, Lymph % (Auto) 6.5 L, [place] % (Auto) 5.6, Eos % (Auto) 1.9, Baso % (Auto) 0.2, Neut # (Auto) 10.2 H, Lymph # (Auto) 0.8, [place] # (Auto) 0.7, Eos # (Auto) 0.2, Baso # (Auto) 0.0, Total Counted 100, Neutrophils % (Manual) 89 H, Lymphocytes % (Manual) 8 L, Monocytes % (Manual) 1 L, Eosinophils % (Manual) 2, Platelet Estimate Normal, Hypochromasia 2+, Macrocytosis 1+ 06/23/21 09:06: Sodium 134 L, Potassium 4.2, Chloride 103, Carbon Dioxide 27, Anion Gap 8.2, BUN 21 H, Creatinine 1.30 H, Estimated Creat Clear 67, Estimated GFR 54 L, Est GFR ( Amer) 65, Glucose 240 H, Calcium 7.3 L 06/23/21 09:06: TSH 0.56 06/24/21 06:40: WBC 11.6 H, RBC 3.57 L, Hgb 10.5 L, Hct 34.0 L, MCV 95.5 H, MCH 29.4, MCHC 30.8 L, RDW 14.3, Plt Count 506 H, MPV 8.1, Neut % (Auto) 81.1 H, Lymph % (Auto) 10.1, [place] % (Auto) 5.8, Eos % (Auto) 2.6, Baso % (Auto) 0.5, Neut # (Auto) 9.4 H, Lymph # (Auto) 1.2, [place] # (Auto) 0.7, Eos # (Auto) 0.3, Baso # (Auto) 0.1 06/24/21 06:40: Sodium 136, Potassium 3.7, Chloride 103, Carbon Dioxide 28, Anion Gap 8.7, BUN 17, Creatinine 1.30 H, Estimated Creat Clear 67, Estimated GFR 54 L, Est GFR ( Amer) 65, Glucose 144 H D, Calcium 7.6 L, Total Bilirubin 0.1 L, AST 47, ALT 42 D, Alkaline Phosphatase 114, Total Protein 5.3 L, Albumin 2.4 L, Globulin 2.9, Albumin/Globulin Ratio 0.8 L I & O for Last 24 hours: Intake & Output 06/21/21 06/22/21 06/23/21 06/24/21 11:59 11:59 11:59 11:59 Intake Total 360 / 360 1734 / 1734 780 / 780 Output Total 0 / 0 Balance 360 / 360 1734 / 1734 780 / 780 Weight 211 lb 205 lb 7.854 oz 209 lb 210 lb 5 oz Microbiology Reports for the Last 24 Hours: Microbiology 06/21/21 12:50 Blood Blood Culture - Preliminary Gram Positive Cocci 06/21/21 12:50 Blood Blood Culture - Preliminary NO GROWTH AFTER 48 HOURS - Constitutional no acute distress - *Routine HEENT Exam Head: Present: normocephalic Eye: Present: EOMI, PERRL ENT: Present: mucous membranes moist - *Routine Neck Exam Present: supple. Absent: lymphadenopathy - *Routine Respiratory Exam Present: decreased breath sounds, wheezes. Absent: rales - *Routine Cardiovascular Exam Present: RRR - *Routine Abdominal Exam Present: soft, normoactive bowel sounds. Absent: tenderness - *Routine Extremities Exam Absent: cyanosis, clubbing, edema - *Routine Skin Exam Present: warm. Absent: rash - *Routine Neurological Exam Present: alert, oriented X3 Assessment and Plan (1) Pneumonia, community acquired Status: Acute Qualifiers: Laterality: unspecified laterality Qualified Code(s): J18.9 - Pneumonia, unspecified organism Category: Medical Code(s): J18.9 - Pneumonia, unspecified organism (2) Cholelithiasis Status: Acute Category: Medical Code(s): K80.20 - Calculus of gallbladder without cholecystitis without obstruction (3) Vomiting and diarrhea Status: Acute Category: Medical Code(s): R11.10 - Vomiting, unspecified; R19.7 - Diarrhea, unspecified (4) Weakness Status: Acute Category: Medical Code(s): R53.1 - Weak
--- NOTE | 2021-06-24 09:24 | HMH.PHACONS ---
- Pharmacy Consult Date: 06/24/21 Time: 09:24 Referring provider: DR. NERI Reason for Consult:: VANCOMYCIN DOSING Allergies and ADEs:: Allergies Allergy/AdvReac Type Severity Reaction Status Date / Time promethazine Allergy Mild itching Verified 07/23/20 14:34 cyanocobalamin (vitamin B12) Allergy Rash Verified 07/23/20 14:34 Home Medications:: Home Medications Medication Instructions Recorded Confirmed Type Aspirin 81 mg PO DAILY 02/27/18 06/21/21 History Atorvastatin Calcium [Lipitor 40mg 40 mg PO HS 02/27/18 06/21/21 History Tab] Furosemide [Furosemide 40MG tAB*] 40 mg PO BID 02/27/18 06/21/21 History Glimepiride 4 mg PO BID 02/27/18 06/21/21 History Potassium Chloride [Klor-Con 10mEq 10 meq PO BID 02/27/18 06/21/21 History tab] carvediloL [Carvedilol 25mg Tab] 25 mg PO BIDWM 02/28/18 06/21/21 History insulin detemir U-100 100 unit/mL 15 unit SQ DAILY ml 01/09/19 06/21/21 History subcutaneous solution Sertraline HCl [Zoloft 50mg tablet] 50 mg PO DAILY 10/20/19 06/21/21 History Cholecalciferol (Vitamin D3) 5,000 units PO DAILY 10/21/19 06/21/21 History [Vitamin D3] Amiodarone HCl [Cordarone 200mg 200 mg PO DAILY 10/22/19 06/21/21 History tablet] Insulin Aspart Prot/Insuln Asp 8 unit SQ BIDWMEAL PRN 06/21/21 06/22/21 History [Insulin Aspart Prot-Insuln Asp] Insulin Lispro Protamin/Lispro 8 unit SQ BID 06/21/21 06/21/21 History [HumaLOG Mix 75/25 3mL flexpen] Ferrous Sulfate [Ferrous Sulfate 325 mg PO BID 06/22/21 06/22/21 History 325mg Tablet] Hyoscyamine Sulfate 0.125 mg PO QID 06/22/21 06/22/21 History metroNIDAZOLE [metroNIDAZOLE 500mg 500 mg PO TID 06/22/21 06/22/21 History Tablet] Height: 1.78 m Weight: 95.396 kg Laboratory Results:: Laboratory Results - last 24 hr 06/23/21 09:06: WBC 11.9 H, RBC 3.30 L, Hgb 9.9 L, Hct 31.3 L, MCV 95.0 H, MCH 30.0, MCHC 31.6 L, RDW 14.3, Plt Count 523 H, MPV 7.7, Neut % (Auto) 85.6 H, Lymph % (Auto) 6.5 L, [place] % (Auto) 5.6, Eos % (Auto) 1.9, Baso % (Auto) 0.2, Neut # (Auto) 10.2 H, Lymph # (Auto) 0.8, [place] # (Auto) 0.7, Eos # (Auto) 0.2, Baso # (Auto) 0.0, Total Counted 100, Neutrophils % (Manual) 89 H, Lymphocytes % (Manual) 8 L, Monocytes % (Manual) 1 L, Eosinophils % (Manual) 2, Platelet Estimate Normal, Hypochromasia 2+, Macrocytosis 1+ 06/23/21 09:06: Sodium 134 L, Potassium 4.2, Chloride 103, Carbon Dioxide 27, Anion Gap 8.2, BUN 21 H, Creatinine 1.30 H, Estimated Creat Clear 67, Estimated GFR 54 L, Est GFR ( Amer) 65, Glucose 240 H, Calcium 7.3 L 06/23/21 09:06: TSH 0.56 06/24/21 06:40: WBC 11.6 H, RBC 3.57 L, Hgb 10.5 L, Hct 34.0 L, MCV 95.5 H, MCH 29.4, MCHC 30.8 L, RDW 14.3, Plt Count 506 H, MPV 8.1, Neut % (Auto) 81.1 H, Lymph % (Auto) 10.1, [place] % (Auto) 5.8, Eos % (Auto) 2.6, Baso % (Auto) 0.5, Neut # (Auto) 9.4 H, Lymph # (Auto) 1.2, [place] # (Auto) 0.7, Eos # (Auto) 0.3, Baso # (Auto) 0.1 06/24/21 06:40: Sodium 136, Potassium 3.7, Chloride 103, Carbon Dioxide 28, Anion Gap 8.7, BUN 17, Creatinine 1.30 H, Estimated Creat Clear 67, Estimated GFR 54 L, Est GFR ( Amer) 65, Glucose 144 H D, Calcium 7.6 L, Total Bilirubin 0.1 L, AST 47, ALT 42 D, Alkaline Phosphatase 114, Total Protein 5.3 L, Albumin 2.4 L, Globulin 2.9, Albumin/Globulin Ratio 0.8 L Medical History: Reports:: Cancer, Congestive Heart Failure, Coronary Artery Disease, Diabetes Mellitus Type 2, Gastroesophageal Reflux Disease(GERD), Hyperlipidemia, Hypertension, Internal Pacemaker, MRSA, Myocardial Infarction, Peripheral Artery Disease, Renal Disease, Renal Insufficiency Denies:: Diabetes Mellitus Type 1, Seizures Assessment and Plan (1) Pneumonia, community acquired Status: Acute Qualifiers: Laterality: unspecified laterality Qualified Code(s): J18.9 - Pneumonia, unspecified organism Category: Medical Code(s): J18.9 - Pneumonia, unspecified organism (2) Cholelithiasis Status: Acute Category: Medical Code(s): K80.20 - Calcul
--- NOTE | 2021-06-24 13:46 | DIET.NUTRFU ---
PO intakes 75% and pt states he is tolerating well. Weight up 2#. BG moderate avg. 150.
--- NOTE | 2021-06-24 18:19 | PC.NURSE ---
Pt has been pleasant and cooperative this shift. A&O X4. No complaints of pain or SOA. Pt is currently on room air with sats. >90%. Lung sounds reveal expiratory wheezing and scattered crackles. No edema noted. Telemetry reveals a PACED rhythm. Bilateral buttocks noted to be reddened. Medicated cream and pressure-relief dressing applied. Pt turns/repositions independently. Pt is incontinent of bowel/bladder and a brief is in place. 1 large, brown, soft BM thus far today. Pt has not been OOB this shift, but has intermittently sat up on the side of the bed. Pt is tolerating a diabetic diet and eats 75-100% of all meals. Pt has an implanted glucose monitor and FSBS results have been 250 and 188. 18 G peripheral IV in the RT AC is patent and SL. 20 G peripheral IV in the LT wrist is patent and infusing NS @ 75 ML/HR. VSS. Call light within reach. Will continue to monitor.
[2021-06-25] VITALS (9 sets, daily range): BP systolic 152–171; BP diastolic 64–69; PULSE 76–87; RESP 16–22; TEMP 36.7–37; O2SAT 90–95; BMI 30.5
--- NOTE | 2021-06-25 05:01 | PC.NURSE ---
Patient is A&Ox4. He has appeared to have been resting well this shift. He has voiced no complaints to this RN. Patient's fluids are infusing in the IV located in left hand per MD order. Redness still noted to his buttocks region. VSS, call light within reach, will continue to monitor.
[2021-06-25 08:24] LABS: Hemoglobin A1C 8.1 % (4.0-6.0)
--- NOTE | 2021-06-25 09:12 | HMH.ACPN2 ---
Internal Medicine - PN: Subj *Date: 06/25/21 *Time: 09:12 Interval history: Been switched to vancomycin based on the culture report. I would like to see his CBC this morning. His weight increase is noted and some additional furosemide is ordered. His blood pressure has been running high as well and I would like to try isosorbide mononitrate 30 mg to benefit heart as well as blood pressure. Exam Vital signs and Labs for Last 24 Hours: Temp Pulse Resp BP Pulse Ox 98.5 F 76 22 171/69 H 95 06/25/21 08:00 06/25/21 08:00 06/25/21 08:00 06/25/21 08:00 06/25/21 08:00 Laboratory Results - last 24 hr 06/23/21 09:06: Hemoglobin A1c 8.1 H I & O for Last 24 hours: Intake & Output 06/22/21 06/23/21 06/24/21 06/25/21 11:59 11:59 11:59 11:59 Intake Total 360 / 360 1734 / 1734 1908 / 1908 2552 / 2552 Output Total 0 / 0 150 / 150 Balance 360 / 360 1734 / 1734 1908 / 1908 2402 / 2402 Weight 205 lb 7.854 oz 209 lb 210 lb 5 oz 213 lb 4 oz Microbiology Reports for the Last 24 Hours: Microbiology 06/21/21 12:50 Blood Blood Culture - Preliminary Staphylococcus epidermidis - Constitutional no acute distress - *Routine HEENT Exam Head: Present: normocephalic Eye: Present: PERRL ENT: Present: mucous membranes moist - *Routine Neck Exam Present: supple. Absent: JVD, lymphadenopathy - Routine Chest/Breast/Axilla Exam Chest wall: Absent: tenderness - *Routine Respiratory Exam Present: decreased breath sounds - *Routine Cardiovascular Exam Present: RRR - *Routine Abdominal Exam Present: soft, normoactive bowel sounds. Absent: tenderness - *Routine Extremities Exam Present: amputation - *Routine Skin Exam Present: warm. Absent: intact (Dressings on buttock lesions), rash - *Routine Neurological Exam Present: alert, oriented X3 Assessment and Plan (1) Pneumonia, community acquired Status: Acute Qualifiers: Laterality: unspecified laterality Qualified Code(s): J18.9 - Pneumonia, unspecified organism Category: Medical Code(s): J18.9 - Pneumonia, unspecified organism (2) Cholelithiasis Status: Acute Category: Medical Code(s): K80.20 - Calculus of gallbladder without cholecystitis without obstruction (3) Vomiting and diarrhea Status: Acute Category: Medical Code(s): R11.10 - Vomiting, unspecified; R19.7 - Diarrhea, unspecified (4) Weakness Status: Acute Category: Medical Code(s): R53.1 - Weakness (5) Dehydration Status: Acute Category: Medical Code(s): E86.0 - Dehydration (6) Type 2 diabetes mellitus with diabetic neuropathy, with long-term current use of insulin Status: Acute Category: Medical Code(s): E11.40 - Type 2 diabetes mellitus with diabetic neuropathy, unspecified; Z79.4 - shelter (current) use of insulin (7) Arteriosclerotic cardiovascular disease Status: Acute Category: Medical Code(s): I25.10 - Atherosclerotic heart disease of [place] coronary artery without angina pectoris (8) Status cardiac pacemaker Status: Acute Category: Surgical Code(s): Z95.0 - Presence of cardiac pacemaker (9) History of right below knee amputation Status: Acute Category: Surgical Code(s): Z89.511 - Acquired absence of right leg below knee (10) 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 Saline lock.
[2021-06-25 10:16] LABS: Basophils # 0.1 K/mm3 (0-0.2); Basophils % 0.5 % (0.1-2.0); Eosinophils # 0.3 K/mm3 (0.0-0.4); Eosinophils % 2.2 % (0.1-12.0); Hematocrit 33.5 % (42.0-52.0); Hemoglobin 10.5 g/dL (14.1-18.0); Lymphocytes # 1.1 K/mm3 (0.7-4.5); Lymphocytes % 8.7 % (10-50); Mean Corpuscular HGB Conc 31.3 g/dL (31.8-35.4); Mean Corpuscular Hemoglobin 29.6 pg (27.0-31.2); Mean Corpuscular Volume 94.8 fl (80-94); Mean Platelet Volume 8.3 fl (7.4-10.4); Monocytes # 0.8 K/mm3 (0.1-1.0); Monocytes % 6.3 % (1.7-9.3); Neutrophils # 9.9 K/mm3 (1.8-7.8); Neutrophils % 82.2 % (37.0-80.0); Platelet Count 508 K/mm3 (142-424); Red Blood Count 3.53 M/mm3 (4.60-6.20); Red Cell Distribution Width 14.1 % (11.5-17.5)
--- NOTE | 2021-06-25 17:10 | PC.NURSE ---
Pt has been pleasant and cooperative this shift. A&O X4. No complaints of pain or SOA. Pt is currently on room air with sats. >90%. Lungs sounds are diminished. No edema noted. Bilateral buttocks noted to be reddened. Medicated cream and pressure-relief dressing applied. Pt turns/repositions independently. Pt is incontinent of bowel/bladder and a brief is in place. 1 large, brown, soft BM today. Pt has not been OOB this shift, but has intermittently sat up on the side of the bed. Pt is tolerating a diabetic diet and eats 75-100% of all meals. Pt has an implanted glucose monitor and FSBS results have been 146 and 249. 20 G peripheral IV in the LT wrist is patent and SL. VSS. Call light within reach. Will continue to monitor.
[2021-06-26] VITALS (11 sets, daily range): BP systolic 115–177; BP diastolic 62–92; PULSE 70–84; RESP 17–24; TEMP 36.8–36.9; O2SAT 92–94; BMI 28.5
--- NOTE | 2021-06-26 05:57 | PC.NURSE ---
Patient is A&Ox4. He has appeared to have rested well. Lung sounds are clear. He has voiced no concerns to this RN. Around 0300 patient's CGM notified of his blood sugar dropping below 100. Patient requested to have PB and crackers and orange juice. Since then patient's BS has increased. VSS, call light within reach, will continue to monitor.
[2021-06-26 08:40] LABS: Chloride 96 mmol/L (98-107); Potassium 3.6 mmoL/L (3.5-5.1); Sodium 135 mmol/L (136-145)
[2021-06-26 08:43] LABS: Anion Gap 7.6 mEq/L (5-15); Blood Urea Nitrogen 19 mg/dl (9-20); Calcium 7.5 mg/dl (8.4-10.2); Carbon Dioxide 35 mmol/L (22.0-30.0); Creatinine Clearance Estimated 59 mL/min (50-200); Estimated Glomerular Filt Rate 50 ml/min (>60); GFR (African American) 60 ML/MIN (>60); Glucose 239 mg/dl (74-100)
[2021-06-26 08:53] LABS: Vancomycin,Trough 17.1 ug/mL (5.0-10.0)
--- NOTE | 2021-06-26 09:04 | HMH.ACPN2 ---
Internal Medicine - PN: Subj *Date: 06/26/21 *Time: 09:04 Interval history: It is obvious that he is feeling much better. He still needs to be out of bed more. We talked about activity levels at home. They do have several dogs that could pose a risk for falls. The culture report now shows staph epidermidis. Thus it is likely a contaminant and will make discharge less complicated. Plan to discharge him in the morning. Exam Vital signs and Labs for Last 24 Hours: Temp Pulse Resp BP Pulse Ox 98.2 F 84 18 159/73 H 92 L 06/26/21 04:40 06/26/21 05:50 06/26/21 04:40 06/26/21 04:40 06/26/21 04:40 Laboratory Results - last 24 hr 06/25/21 10:10: WBC 12.0 H, RBC 3.53 L, Hgb 10.5 L, Hct 33.5 L, MCV 94.8 H, MCH 29.6, MCHC 31.3 L, RDW 14.1, Plt Count 508 H, MPV 8.3, Neut % (Auto) 82.2 H, Lymph % (Auto) 8.7 L, [place] % (Auto) 6.3, Eos % (Auto) 2.2, Baso % (Auto) 0.5, Neut # (Auto) 9.9 H, Lymph # (Auto) 1.1, [place] # (Auto) 0.8, Eos # (Auto) 0.3, Baso # (Auto) 0.1 06/26/21 08:23: Sodium 135 L, Potassium 3.6, Chloride 96 L, Carbon Dioxide 35 H, Anion Gap 7.6, BUN 19, Creatinine 1.40 H, Estimated Creat Clear 59, Estimated GFR 50 L, Est GFR ( Amer) 60, Glucose 239 H, Calcium 7.5 L 06/26/21 08:23: Vancomycin Trough 17.1 H I & O for Last 24 hours: Intake & Output 06/23/21 06/24/21 06/25/21 06/26/21 11:59 11:59 11:59 11:59 Intake Total 1734 / 1734 1908 / 1908 3272 / 3272 1210 / 1210 Output Total 0 / 0 150 / 150 Balance 1734 / 1734 1908 / 1908 3122 / 3122 1210 / 1210 Weight 209 lb 210 lb 5 oz 213 lb 4 oz 199 lb 2 oz Microbiology Reports for the Last 24 Hours: Microbiology 06/21/21 12:50 Blood Blood Culture - Preliminary Staphylococcus epidermidis - Constitutional no acute distress - *Routine HEENT Exam Head: Present: normocephalic Eye: Present: PERRL ENT: Present: mucous membranes moist - *Routine Neck Exam Present: supple, JVD - Routine Chest/Breast/Axilla Exam Chest wall: Absent: tenderness - *Routine Respiratory Exam Present: CTA bilaterally (Obviously improved air movement on auscultation.) - *Routine Cardiovascular Exam Present: RRR - *Routine Abdominal Exam Present: soft. Absent: tenderness - *Routine Extremities Exam Present: amputation - Routine Psychiatric Exam Present: normal affect (Pleasant), normal thought process Assessment and Plan (1) Pneumonia, community acquired Status: Acute Qualifiers: Laterality: unspecified laterality Qualified Code(s): J18.9 - Pneumonia, unspecified organism Category: Medical Code(s): J18.9 - Pneumonia, unspecified organism (2) Cholelithiasis Status: Acute Category: Medical Code(s): K80.20 - Calculus of gallbladder without cholecystitis without obstruction (3) Vomiting and diarrhea Status: Acute Category: Medical Code(s): R11.10 - Vomiting, unspecified; R19.7 - Diarrhea, unspecified (4) Weakness Status: Acute Category: Medical Code(s): R53.1 - Weakness (5) Dehydration Status: Acute Category: Medical Code(s): E86.0 - Dehydration (6) Type 2 diabetes mellitus with diabetic neuropathy, with long-term current use of insulin Status: Acute Category: Medical Code(s): E11.40 - Type 2 diabetes mellitus with diabetic neuropathy, unspecified; Z79.4 - [facility] (current) use of insulin (7) Arteriosclerotic cardiovascular disease Status: Acute Category: Medical Code(s): I25.10 - Atherosclerotic heart disease of [place] coronary artery without angina pectoris (8) Status cardiac pacemaker Status: Acute Category: Surgical Code(s): Z95.0 - Presence of cardiac pacemaker (9) History of right below knee amputation Status: Acute Category: Surgical Code(s): Z89.511 - Acquired absence of right leg below knee (10) History of amputation of foot through metatarsal bone Problem details: Left TMA, 04/03/18 Status: Chronic Category: Surgical Code(s): Z89.
[2021-06-26 13:51] LABS: Vancomycin,Peak 55.6 ug/ml (11-39)
--- NOTE | 2021-06-26 16:44 | HMH.PHACONS ---
- Pharmacy Consult Date: 06/26/21 Time: 16:44 Referring provider: DR. NERI Reason for Consult:: VANCOMYCIN LEVELS Allergies and ADEs:: Allergies Allergy/AdvReac Type Severity Reaction Status Date / Time promethazine Allergy Mild itching Verified 07/23/20 14:34 cyanocobalamin (vitamin B12) Allergy Rash Verified 07/23/20 14:34 Home Medications:: Home Medications Medication Instructions Recorded Confirmed Type Aspirin 81 mg PO DAILY 02/27/18 06/21/21 History Atorvastatin Calcium [Lipitor 40mg 40 mg PO HS 02/27/18 06/21/21 History Tab] Furosemide [Furosemide 40MG tAB*] 40 mg PO BID 02/27/18 06/21/21 History Glimepiride 4 mg PO BID 02/27/18 06/21/21 History Potassium Chloride [Klor-Con 10mEq 10 meq PO BID 02/27/18 06/21/21 History tab] carvediloL [Carvedilol 25mg Tab] 25 mg PO BIDWM 02/28/18 06/21/21 History insulin detemir U-100 100 unit/mL 15 unit SQ DAILY ml 01/09/19 06/21/21 History subcutaneous solution Sertraline HCl [Zoloft 50mg tablet] 50 mg PO DAILY 10/20/19 06/21/21 History Cholecalciferol (Vitamin D3) 5,000 units PO DAILY 10/21/19 06/21/21 History [Vitamin D3] Amiodarone HCl [Cordarone 200mg 200 mg PO DAILY 10/22/19 06/21/21 History tablet] Insulin Aspart Prot/Insuln Asp 8 unit SQ BIDWMEAL PRN 06/21/21 06/22/21 History [Insulin Aspart Prot-Insuln Asp] Insulin Lispro Protamin/Lispro 8 unit SQ BID 06/21/21 06/21/21 History [HumaLOG Mix 75/25 3mL flexpen] Ferrous Sulfate [Ferrous Sulfate 325 mg PO BID 06/22/21 06/22/21 History 325mg Tablet] Hyoscyamine Sulfate 0.125 mg PO QID 06/22/21 06/22/21 History metroNIDAZOLE [metroNIDAZOLE 500mg 500 mg PO TID 06/22/21 06/22/21 History Tablet] Height: 1.78 m Weight: 90.322 kg Laboratory Results:: Laboratory Results - last 24 hr 06/26/21 08:23: Sodium 135 L, Potassium 3.6, Chloride 96 L, Carbon Dioxide 35 H, Anion Gap 7.6, BUN 19, Creatinine 1.40 H, Estimated Creat Clear 59, Estimated GFR 50 L, Est GFR ( Amer) 60, Glucose 239 H, Calcium 7.5 L 06/26/21 08:23: Vancomycin Trough 17.1 H 06/26/21 13:09: Vancomycin Peak 55.6 H* Medical History: Reports:: Cancer, Congestive Heart Failure, Coronary Artery Disease, Diabetes Mellitus Type 2, Gastroesophageal Reflux Disease(GERD), Hyperlipidemia, Hypertension, Internal Pacemaker, MRSA, Myocardial Infarction, Peripheral Artery Disease, Renal Disease, Renal Insufficiency Denies:: Diabetes Mellitus Type 1, Seizures Assessment and Plan (1) Pneumonia, community acquired Status: Acute Qualifiers: Laterality: unspecified laterality Qualified Code(s): J18.9 - Pneumonia, unspecified organism Category: Medical Code(s): J18.9 - Pneumonia, unspecified organism (2) Cholelithiasis Status: Acute Category: Medical Code(s): K80.20 - Calculus of gallbladder without cholecystitis without obstruction (3) Vomiting and diarrhea Status: Acute Category: Medical Code(s): R11.10 - Vomiting, unspecified; R19.7 - Diarrhea, unspecified (4) Weakness Status: Acute Category: Medical Code(s): R53.1 - Weakness (5) Dehydration Status: Acute Category: Medical Code(s): E86.0 - Dehydration (6) Type 2 diabetes mellitus with diabetic neuropathy, with long-term current use of insulin Status: Acute Category: Medical Code(s): E11.40 - Type 2 diabetes mellitus with diabetic neuropathy, unspecified; Z79.4 - long-term (current) use of insulin (7) Arteriosclerotic cardiovascular disease Status: Acute Category: Medical Code(s): I25.10 - Atherosclerotic heart disease of [place] coronary artery without angina pectoris (8) Status cardiac pacemaker Status: Acute Category: Surgical Code(s): Z95.0 - Presence of cardiac pacemaker (9) History of right below knee amputation Status: Acute Category: Surgical Code(s): Z89.511 - Acquired absence of right leg below knee (10) History of amputation of foot through metatarsal bone Problem details: Left TM
--- NOTE | 2021-06-26 17:48 | PC.NURSE ---
Pt has been pleasant and cooperative this shift. A&O X4. No complaints of pain or SOA. Pt is currently on room air with sats. >90%. Lungs sounds are diminished. No edema noted. Bilateral buttocks noted to be reddened. Medicated cream and pressure-relief dressing applied. Pt turns/repositions independently. Pt is incontinent of bowel/bladder and a brief is in place. Urine is clear and yellow. No BM thus far this shift. Pt has not been OOB this shift, but has intermittently sat up on the side of the bed. Pt is tolerating a diabetic diet and eats 75-100% of all meals. Pt has an implanted glucose monitor and FSBS results have been 275 and 226. 20 G peripheral IV in the LT wrist is patent and SL. VSS. Call light within reach. Will continue to monitor.
[2021-06-27] VITALS: BP 180/77; PULSE 77; RESP 18; TEMP 36.7; O2SAT 95
--- NOTE | 2021-06-27 03:47 | PC.NURSE ---
Patient is A&Ox4. Patient lung sounds are clear but diminished. He has voiced no concerns to this RN. Patient has appeared have rested well. Patient is incontinent of his bladder. Call light within reach, VSS, will continue to monitor.
[2021-06-27 04:00] VITALS: BP 161/67; PULSE 77; RESP 18; TEMP 36.8; O2SAT 97
[2021-06-27 05:33] VITALS: BMI 28.3
[2021-06-27 06:20] VITALS: PULSE 60; PULSE 62
[2021-06-27 07:12] LABS: Basophils % 0.4 % (0.1-2.0); Eosinophils # 0.4 K/mm3 (0.0-0.4); Eosinophils % 3.3 % (0.1-12.0); Hematocrit 32.9 % (42.0-52.0); Hemoglobin 10.1 g/dL (14.1-18.0); Lymphocytes # 1.4 K/mm3 (0.7-4.5); Lymphocytes % 12.5 % (10-50); Mean Corpuscular HGB Conc 30.8 g/dL (31.8-35.4); Mean Corpuscular Hemoglobin 29.4 pg (27.0-31.2); Mean Corpuscular Volume 95.3 fl (80-94); Monocytes # 0.7 K/mm3 (0.1-1.0); Monocytes % 6.5 % (1.7-9.3); Neutrophils # 8.4 K/mm3 (1.8-7.8); Neutrophils % 77.3 % (37.0-80.0); Platelet Count 452 K/mm3 (142-424); Red Blood Count 3.45 M/mm3 (4.60-6.20); Red Cell Distribution Width 13.9 % (11.5-17.5); White Blood Count 10.9 K/mm3 (4.8-10.8)
[2021-06-27 08:00] VITALS: BP 162/65; PULSE 76; RESP 18; TEMP 36.9; O2SAT 95
--- NOTE | 2021-06-27 08:19 | HMH.ACPN2 ---
Internal Medicine - PN: Subj *Date: 06/27/21 *Time: 08:19 Interval history: Pt is resting in bed watching the news on tv. He is feeling well this morning and has no complaints. He is eager for discharge. Exam Vital signs and Labs for Last 24 Hours: Temp Pulse Resp BP Pulse Ox 98.3 F 60 18 161/67 H 97 06/27/21 04:00 06/27/21 06:20 06/27/21 04:00 06/27/21 04:00 06/27/21 04:00 Laboratory Results - last 24 hr 06/26/21 08:23: Sodium 135 L, Potassium 3.6, Chloride 96 L, Carbon Dioxide 35 H, Anion Gap 7.6, BUN 19, Creatinine 1.40 H, Estimated Creat Clear 59, Estimated GFR 50 L, Est GFR ( Amer) 60, Glucose 239 H, Calcium 7.5 L 06/26/21 08:23: Vancomycin Trough 17.1 H 06/26/21 13:09: Vancomycin Peak 55.6 H* 06/27/21 06:50: WBC 10.9 H, RBC 3.45 L, Hgb 10.1 L, Hct 32.9 L, MCV 95.3 H, MCH 29.4, MCHC 30.8 L, RDW 13.9, Plt Count 452 H, MPV 7.0 L, Neut % (Auto) 77.3, Lymph % (Auto) 12.5, [place] % (Auto) 6.5, Eos % (Auto) 3.3, Baso % (Auto) 0.4, Neut # (Auto) 8.4 H, Lymph # (Auto) 1.4, [place] # (Auto) 0.7, Eos # (Auto) 0.4, Baso # (Auto) 0.0 I & O for Last 24 hours: Intake & Output 06/24/21 06/25/21 06/26/21 06/27/21 11:59 11:59 11:59 11:59 Intake Total 1907 / 1907 3272 / 3272 1450 / 1450 1350 / 1350 Output Total 150 / 150 Balance 1907 / 1907 3122 / 3122 1450 / 1450 1350 / 1350 Weight 210 lb 5 oz 213 lb 4 oz 199 lb 2 oz 198 lb 1 oz Microbiology Reports for the Last 24 Hours: Microbiology 06/26/21 17:58 Sputum - Expectorated Sputum Gram Stain - Final 06/21/21 12:50 Blood Blood Culture - Final NO GROWTH AFTER 5 DAYS - Constitutional no acute distress - *Routine HEENT Exam Head: Present: normocephalic, atraumatic ENT: Present: mucous membranes moist - *Routine Respiratory Exam Present: CTA bilaterally Comments: slightly diminished breath sounds AMAIRANI and RLL without wheezes or rales - *Routine Cardiovascular Exam Present: RRR - *Routine Abdominal Exam Present: soft, normoactive bowel sounds. Absent: tenderness, distended, guarding, firm, rigid - *Routine Extremities Exam Present: full ROM. Absent: extremity cold to touch Comments: RLE with BKA, LLE with amputation of toes - *Routine Neurological Exam Present: alert, oriented X3, moving all extremities, normal speech Assessment and Plan (1) Pneumonia, community acquired Status: Acute Qualifiers: Laterality: unspecified laterality Qualified Code(s): J18.9 - Pneumonia, unspecified organism Category: Medical Code(s): J18.9 - Pneumonia, unspecified organism (2) Cholelithiasis Status: Acute Category: Medical Code(s): K80.20 - Calculus of gallbladder without cholecystitis without obstruction (3) Vomiting and diarrhea Status: Acute Category: Medical Code(s): R11.10 - Vomiting, unspecified; R19.7 - Diarrhea, unspecified (4) Weakness Status: Acute Category: Medical Code(s): R53.1 - Weakness (5) Dehydration Status: Acute Category: Medical Code(s): E86.0 - Dehydration (6) Type 2 diabetes mellitus with diabetic neuropathy, with long-term current use of insulin Status: Acute Category: Medical Code(s): E11.40 - Type 2 diabetes mellitus with diabetic neuropathy, unspecified; Z79.4 - [facility] (current) use of insulin (7) Arteriosclerotic cardiovascular disease Status: Acute Category: Medical Code(s): I25.10 - Atherosclerotic heart disease of [place] coronary artery without angina pectoris (8) Status cardiac pacemaker Status: Acute Category: Surgical Code(s): Z95.0 - Presence of cardiac pacemaker (9) History of right below knee amputation Status: Acute Category: Surgical Code(s): Z89.511 - Acquired absence of right leg below knee (10) History of amputation of foot through metatarsal bone Problem details: Left TMA, 04/03/18 Status: Chronic Category: Surgical Code(s): Z89.439 - Acquired absence of unspecified foot (11) Lo
--- NOTE | 2021-06-27 08:36 | HMH.ACPN2 ---
Internal Medicine - PN: Subj *Date: 06/27/21 *Time: 08:36 Exam Vital signs and Labs for Last 24 Hours: Temp Pulse Resp BP Pulse Ox 98.3 F 60 18 161/67 H 97 06/27/21 04:00 06/27/21 06:20 06/27/21 04:00 06/27/21 04:00 06/27/21 04:00 Laboratory Results - last 24 hr 06/26/21 08:23: Sodium 135 L, Potassium 3.6, Chloride 96 L, Carbon Dioxide 35 H, Anion Gap 7.6, BUN 19, Creatinine 1.40 H, Estimated Creat Clear 59, Estimated GFR 50 L, Est GFR ( Amer) 60, Glucose 239 H, Calcium 7.5 L 06/26/21 08:23: Vancomycin Trough 17.1 H 06/26/21 13:09: Vancomycin Peak 55.6 H* 06/27/21 06:50: WBC 10.9 H, RBC 3.45 L, Hgb 10.1 L, Hct 32.9 L, MCV 95.3 H, MCH 29.4, MCHC 30.8 L, RDW 13.9, Plt Count 452 H, MPV 7.0 L, Neut % (Auto) 77.3, Lymph % (Auto) 12.5, [place] % (Auto) 6.5, Eos % (Auto) 3.3, Baso % (Auto) 0.4, Neut # (Auto) 8.4 H, Lymph # (Auto) 1.4, [place] # (Auto) 0.7, Eos # (Auto) 0.4, Baso # (Auto) 0.0 I & O for Last 24 hours: Intake & Output 06/24/21 06/25/21 06/26/21 06/27/21 23:59 23:59 23:59 23:59 Intake Total 3680 / 3680 1809 / 1810 1709 / 171 Output Total 150 / 150 Balance 3530 / 3530 1809 / 1809 1709 / 1709 Weight 95.396 kg 96.729 kg 90.322 kg 89.84 kg Microbiology Reports for the Last 24 Hours: Microbiology 06/26/21 17:58 Sputum - Expectorated Sputum Gram Stain - Final 06/21/21 12:50 Blood Blood Culture - Final NO GROWTH AFTER 5 DAYS Assessment and Plan (1) Pneumonia, community acquired Status: Acute Qualifiers: Laterality: unspecified laterality Qualified Code(s): J18.9 - Pneumonia, unspecified organism Category: Medical Code(s): J18.9 - Pneumonia, unspecified organism (2) Cholelithiasis Status: Acute Category: Medical Code(s): K80.20 - Calculus of gallbladder without cholecystitis without obstruction (3) Vomiting and diarrhea Status: Acute Category: Medical Code(s): R11.10 - Vomiting, unspecified; R19.7 - Diarrhea, unspecified (4) Weakness Status: Acute Category: Medical Code(s): R53.1 - Weakness (5) Dehydration Status: Acute Category: Medical Code(s): E86.0 - Dehydration (6) Type 2 diabetes mellitus with diabetic neuropathy, with long-term current use of insulin Status: Acute Category: Medical Code(s): E11.40 - Type 2 diabetes mellitus with diabetic neuropathy, unspecified; Z79.4 - [facility] (current) use of insulin (7) Arteriosclerotic cardiovascular disease Status: Acute Category: Medical Code(s): I25.10 - Atherosclerotic heart disease of [place] coronary artery without angina pectoris (8) Status cardiac pacemaker Status: Acute Category: Surgical Code(s): Z95.0 - Presence of cardiac pacemaker (9) History of right below knee amputation Status: Acute Category: Surgical Code(s): Z89.511 - Acquired absence of right leg below knee (10) History of amputation of foot through metatarsal bone Problem details: Left TMA, 04/03/18 Status: Chronic Category: Surgical Code(s): Z89.439 - Acquired absence of unspecified foot (11) Low back pain Status: Acute Category: Medical Code(s): M54.50 - Low back pain, unspecified (12) History of prostate cancer Status: Acute Category: Medical Code(s): Z85.46 - Personal history of malignant neoplasm of prostate The patient's infection will respond to the chosen ABx?: Yes Is the patient receiving the right drug, dose, and route?: Yes Could a more targeted ABx be ordered?: No
--- NOTE | 2021-06-27 09:26 | HMH.PHAINT ---
DISCHARGE MEDICATION EDUCATION COMPLETE. PATIENT DID NOT HAVE ANY QUESTIONS. TALKED TO HIS PHARMACIST ON THE PHONE AND TOLD HER AT THE SAME TIME WELL
[2021-06-27 09:36] LABS: Vancomycin,Trough 22.4 ug/mL (5.0-10.0)
[2021-06-27 09:55] VITALS: PULSE 75; PULSE 80
--- NOTE | 2021-06-27 10:05 | HMH.PHACONS ---
- Pharmacy Consult Date: 06/27/21 Time: 10:05 Referring provider: DR. NERI Reason for Consult:: VANCOMYCIN LEVEL Allergies and ADEs:: Allergies Allergy/AdvReac Type Severity Reaction Status Date / Time promethazine Allergy Mild itching Verified 07/23/20 14:34 cyanocobalamin (vitamin B12) Allergy Rash Verified 07/23/20 14:34 Home Medications:: Home Medications Medication Instructions Recorded Confirmed Type Aspirin 81 mg PO DAILY 02/27/18 06/21/21 History Atorvastatin Calcium [Lipitor 40mg 40 mg PO HS 02/27/18 06/21/21 History Tab] Furosemide [Furosemide 40MG tAB*] 40 mg PO BID 02/27/18 06/21/21 History Glimepiride 4 mg PO BID 02/27/18 06/21/21 History Potassium Chloride [Klor-Con 10mEq 10 meq PO BID 02/27/18 06/21/21 History tab] carvediloL [Carvedilol 25mg Tab] 25 mg PO BIDWM 02/28/18 06/21/21 History insulin detemir U-100 100 unit/mL 15 unit SQ DAILY ml 01/09/19 06/21/21 History subcutaneous solution Sertraline HCl [Zoloft 50mg tablet] 50 mg PO DAILY 10/20/19 06/21/21 History Cholecalciferol (Vitamin D3) 5,000 units PO DAILY 10/21/19 06/21/21 History [Vitamin D3] Amiodarone HCl [Cordarone 200mg 200 mg PO DAILY 10/22/19 06/21/21 History tablet] Insulin Aspart Prot/Insuln Asp 8 unit SQ BIDWMEAL PRN 06/21/21 06/22/21 History [Insulin Aspart Pro Lta45-23 Pn] Insulin Lispro Protamin/Lispro 8 unit SQ BID 06/21/21 06/21/21 History [HumaLOG Mix 75/25 3mL flexpen] Ferrous Sulfate [Ferrous Sulfate 325 mg PO BID 06/22/21 06/22/21 History 325mg Tablet] Cefdinir [Omnicef 300mg Capsule] 300 mg PO BID #20 cap 06/27/21 Rx Height: 1.78 m Weight: 89.84 kg Laboratory Results:: Laboratory Results - last 24 hr 06/26/21 13:09: Vancomycin Peak 55.6 H* 06/27/21 06:50: WBC 10.9 H, RBC 3.45 L, Hgb 10.1 L, Hct 32.9 L, MCV 95.3 H, MCH 29.4, MCHC 30.8 L, RDW 13.9, Plt Count 452 H, MPV 7.0 L, Neut % (Auto) 77.3, Lymph % (Auto) 12.5, [place] % (Auto) 6.5, Eos % (Auto) 3.3, Baso % (Auto) 0.4, Neut # (Auto) 8.4 H, Lymph # (Auto) 1.4, [place] # (Auto) 0.7, Eos # (Auto) 0.4, Baso # (Auto) 0.0 06/27/21 08:25: Vancomycin Trough 22.4 H Medical History: Reports:: Cancer, Congestive Heart Failure, Coronary Artery Disease, Diabetes Mellitus Type 2, Gastroesophageal Reflux Disease(GERD), Hyperlipidemia, Hypertension, Internal Pacemaker, MRSA, Myocardial Infarction, Peripheral Artery Disease, Renal Disease, Renal Insufficiency Denies:: Diabetes Mellitus Type 1, Seizures Assessment and Plan (1) Pneumonia, community acquired Status: Acute Qualifiers: Laterality: unspecified laterality Qualified Code(s): J18.9 - Pneumonia, unspecified organism Category: Medical Code(s): J18.9 - Pneumonia, unspecified organism (2) Cholelithiasis Status: Acute Category: Medical Code(s): K80.20 - Calculus of gallbladder without cholecystitis without obstruction (3) Vomiting and diarrhea Status: Acute Category: Medical Code(s): R11.10 - Vomiting, unspecified; R19.7 - Diarrhea, unspecified (4) Weakness Status: Acute Category: Medical Code(s): R53.1 - Weakness (5) Dehydration Status: Acute Category: Medical Code(s): E86.0 - Dehydration (6) Type 2 diabetes mellitus with diabetic neuropathy, with long-term current use of insulin Status: Acute Category: Medical Code(s): E11.40 - Type 2 diabetes mellitus with diabetic neuropathy, unspecified; Z79.4 - [facility] (current) use of insulin (7) Arteriosclerotic cardiovascular disease Status: Acute Category: Medical Code(s): I25.10 - Atherosclerotic heart disease of [place] coronary artery without angina pectoris (8) Status cardiac pacemaker Status: Acute Category: Surgical Code(s): Z95.0 - Presence of cardiac pacemaker (9) History of right below knee amputation Status: Acute Category: Surgical Code(s): Z89.511 - Acquired absence of right leg below knee (10) History of amputation of foot through metatarsal bone Prob
--- NOTE | 2021-07-01 21:39 | HMH.DCSUM ---
General - General Admission date:: 06/21/21 Discharge date: 07/01/21 HPI HPI: 75-year-old white male with severe arteriosclerotic cardiovascular disease and peripheral vascular disease due to diabetes. He is admitted with multiple episodes of diarrhea and with vomiting. His frequency of diarrhea and vomiting has not been great. He has only vomited once today, but he feels extremely weak. He was assessed by telehealth visit 5 days ago. He was started on metronidazole and hyoscyamine. He contacted the office of [facility] today and was asked to come in. He was seen by Dr. Berg during his triage and it was felt that he should go directly to the emergency room for further evaluation, testing, and fluids. In the emergency room he was found to have evidence of a right lower lobe pneumonia though his respiratory symptoms have not been severe. He has had some cough he admits. His CT studies revealed cholelithiasis of the gallbladder. He does not have evidence of pulmonary embolism. His white blood cell count is elevated. He is anemic. Hospital Course Hospital Course: The patient was started on IV fluids and antibiotics. His shortness of breath improved and he had minimal cough. His biggest complaint was pain in his coccygeal area. He had a sacrum and coccyx x-ray showing nothing acute. There were severe degenerative changes of the lumbar spine. He began sleeping and eating better. He received breathing treatments which did help. The patient's blood cultures grew staph, therefore his antibiotics were switched to vancomycin and his Rocephin and Zithromax were discontinued. His low back and coccygeal pain did improve and he was able to lay on his back. He was able to cough up sputum. His sodium normalized and his renal function stabilized. Lasix was added due to an increase in his weight. His blood pressure was elevated and he was started on isosorbide mononitrate 30 mg. By 06/26/2021, he was feeling much better. His final culture report showed staph epidermidis which was likely a contaminant. By 06/27/2021, he was stable to be discharged home on cefdinir. He will follow-up with Dr. Berg in the office. Objective Vital signs: Temp Pulse Resp BP Pulse Ox 98.4 F 80 18 162/65 H 95 06/27/21 08:00 06/27/21 09:55 06/27/21 08:00 06/27/21 08:00 06/27/21 08:00 Narrative: - *Routine HEENT Exam Head: Present: normocephalic Eye: Present: PERRL ENT: Present: mucous membranes dry - *Routine Neck Exam Present: supple. Absent: JVD, lymphadenopathy - Routine Chest/Breast/Axilla Exam Chest wall: Present: pacemaker. Absent: tenderness Breast: Present: scars (Midsternal, CABG) - *Routine Respiratory Exam Present: decreased breath sounds (Right base otherwise good air movement). Absent: respiratory distress - *Routine Cardiovascular Exam Present: bradycardia (Sinus) - *Routine Abdominal Exam Present: soft, normoactive bowel sounds. Absent: tenderness - *Routine Rectal Exam Rectal:: no masses (Rectal exam performed in ER. Perianal excoriation. Bilateral sacral ischial decubiti) - *Routine Genitalia Exam Genitalia:: normal male, deferred - *Routine Extremities Exam Present: amputation (Right BKA. Left foot partial) - *Routine Skin Exam Present: dry, warm, lesions (Decubiti, ischial). Absent: rash - *Routine Neurological Exam Present: alert, oriented X3 - Routine Psychiatric Exam Present: normal affect Results Labs on day of discharge: Preliminary micro results at discharge 06/21/21 12:50 Blood Culture - Preliminary Blood Staphylococcus epidermidis DS: Diagnosis - Discharge Diagnosis (1) Pneumonia, community acquired Status: Acute (2) Cholelithiasis Status: Acute (3) Vomiting and diarrhea Status: Acute (4) Weakness Status: Acute (5) Dehydration Status: Acute (6) Type 2 diabetes mellitus with diabetic neuropathy, with long-term cu
== END 2021-06-27 11:20 | disposition home or self-care (01) | DRG 194 ==
LOC: ER 15:29 → 2ND 15:53
PROVIDERS: Physician Assistant; Admitting Provider Family Medicine; Emergency Provider Emergency Medicine; PCP Family Medicine; Visit Provider Family Medicine
DX: J18.9 Pneumonia, unspecified organism (principal); J90 Pleural effusion, not elsewhere classified; Z79.4 Long term (current) use of insulin; I11.0 Hypertensive heart disease with heart failure; I50.9 Heart failure, unspecified; Z95.0 Presence of cardiac pacemaker; Z95.5 Presence of coronary angioplasty implant and graft; Z95.1 Presence of aortocoronary bypass graft; Z20.822 Contact with and (suspected) exposure to COVID-19; M54.40 Lumbago with sciatica, unspecified side; K80.20 Calculus of gallbladder without cholecystitis without obstruction; Z89.422 Acquired absence of other left toe(s); Z89.511 Acquired absence of right leg below knee; E11.40 Type 2 diabetes mellitus with diabetic neuropathy, unspecified; I25.10 Atherosclerotic heart disease of native coronary artery without angina pectoris; E11.51 Type 2 diabetes mellitus with diabetic peripheral angiopathy without gangrene; M53.3 Sacrococcygeal disorders, not elsewhere classified; Z85.46 Personal history of malignant neoplasm of prostate; I25.2 Old myocardial infarction
CPT/HCPCS: 36415; 71045; 71046; 71275; 72100; 72220; 74176; 80048; 80053; 80202; 81001; 82962; 83036; 83605; 83690; 84443; 84484; 85007; 85025; 85378; 87040; 87070; 87077; 87186; 87205; 87506; 93005; 94640; 96365; 96367; 96375; 97110; 97161; 97530; 99285; C9803; J0456; J2405; J3370; Q9967; U0003; U0005